=== PATIENT | male | born 1960 | race American Indian/Alaskan Native ===

== ENCOUNTER 2018-11-01 15:11 | Inpatient (IN) | payer MEDICARE ==
--- NOTE | 2018-11-01 16:33 | Emergency Department Report ---
ED Palpitations HPI - General Chief Complaint: Arrhythmia/Palpitations Stated Complaint: SVT Time Seen by Provider: 11/01/18 16:26 Source: patient, EMS Mode of arrival: Stretcher Limitations: No Limitations - History of Present Illness Initial Comments: Patient is 58 years old male with history of end-stage renal disease on hemodialysis. Patient brought to the emergency room from dialysis center after patient experienced SVT for which he received 6 mg of adenosine that completely converted into a sinus rhythm. Patient finish his dialysis today. Patient denied any chest pain or shortness of breath. Patient stated that he never had any history of arrhythmia before. MD Complaint: rapid heart beat, "heart racing", palpitations -: Sudden, This afternoon Context: occured during rest Associated Symptoms: denies other symptoms - Related Data Home Medications Medication Instructions Recorded Confirmed Last Taken Furosemide [Lasix TAB] 20 mg PO QDAY 01/05/15 03/14/15 1 Day Ago ~03/08/15 lamiVUDine [Lamivudine] 10 mg PO DAILY 01/05/15 03/14/15 1 Day Ago ~03/08/15 Docusate Sodium [Colace CAP] 100 mg PO BID 03/09/15 03/14/15 Unknown Previous Rx's Medication Instructions Recorded Last Taken Type Albuterol *Only Ed* [Proventil 2.5 mg IH Q4H PRN #1 nebu 01/07/15 1 Day Ago Rx 0.5% NEBS] ~03/08/15 Darunavir [Prezista] 800 mg PO QDAY tablet 01/07/15 1 Day Ago Rx ~03/08/15 Ritonavir [Norvir] 100 mg PO DAILY capsule 01/07/15 1 Day Ago Rx ~03/08/15 Zidovudine [Retrovir] 300 mg PO DAILY capsule 01/07/15 1 Day Ago Rx ~03/08/15 Albuterol Sulfate [Albuterol 0.63% 0.63 mg IH TID PRN #50 box 03/10/15 Unknown Rx NEBS] Albuterol Sulfate [Ventolin HFA] 2 puff IH Q4H PRN #1 hfa.aer.ad 03/10/15 Unknown Rx Ipratropium [Atrovent NEB] 0.5 mg IH Q6HRT PRN #50 box 03/10/15 Unknown Rx Lacosamide [Vimpat] 100 mg PO Q12HR tablet 03/29/15 Unknown Rx Allergies Allergy/AdvReac Type Severity Reaction Status Date / Time lisinopril Allergy Angioedema Verified 11/24/14 19:07 ED Review of Systems ROS: Stated complaint: SVT Other details as noted in HPI Comment: All other systems reviewed and negative Constitutional: denies: chills, fever ENT: denies: throat pain Respiratory: denies: cough, orthopnea, shortness of breath, SOB with exertion, SOB at rest, wheezing Cardiovascular: palpitations. denies: chest pain, dyspnea on exertion, orthopnea Gastrointestinal: denies: abdominal pain, nausea, vomiting, diarrhea, constipation, hematemesis, melena, hematochezia Musculoskeletal: denies: back pain Neurological: denies: headache, weakness, numbness, paresthesias, confusion, abnormal gait ED Past Medical Hx - Past Medical History Previous Medical History?: Yes Hx Hypertension: Yes Hx Renal Disease: Yes (on hemodialysis) Hx Seizures: Yes Hx Asthma: Yes Hx COPD: Yes Hx HIV: Yes - Surgical History Past Surgical History?: Yes Additional Surgical History: vascath. AV shunt LUE - Social History Smoking Status: Current Every Day Smoker Substance Use Type: None - Medications Home Medications: Home Medications Medication Instructions Recorded Confirmed Last Taken Type Furosemide [Lasix TAB] 20 mg PO QDAY 01/05/15 03/14/15 1 Day Ago History ~03/08/15 lamiVUDine [Lamivudine] 10 mg PO DAILY 01/05/15 03/14/15 1 Day Ago History ~03/08/15 Albuterol *Only Ed* [Proventil 2.5 mg IH Q4H PRN #1 nebu 01/07/15 03/14/15 1 Day Ago Rx 0.5% NEBS] ~03/08/15 Darunavir [Prezista] 800 mg PO QDAY tablet 01/07/15 03/14/15 1 Day Ago Rx ~03/08/15 Ritonavir [Norvir] 100 mg PO DAILY capsule 01/07/15 03/14/15 1 Day Ago Rx ~03/08/15 Zidovudine [Retrovir] 300 mg PO DAILY capsule 01/07/15 03/14/15 1 Day Ago Rx ~03/08/15 Docusate Sodium [Colace CAP] 100 mg PO BID 03/09/15 03/14/15 Unknown History Albuterol Sulfate [Albuterol 0.63% 0.63 mg IH TID PRN #50 box 03/10/15 03/14/15 Unknown Rx NEBS] Albuterol Sulfate [Ventolin HFA] 2 puff IH Q4H PRN #1 hfa.aer.ad 03/10/15 03/14/15 Unknown Rx Ipratropium [Atrovent NEB] 0.5 mg IH Q6HRT PRN #50 box 03/10/15 03/14/15 Unknown Rx Lacosamide [Vimpat] 100 mg PO Q12HR tablet 03/29/15 Unknown Rx ED Physical Exam - General Limitations: No Limitations General appearance: alert, in no apparent distress - Head Head exam: Present: atraumatic, normocephalic, normal inspection - Eye Eye exam: Present: normal appearance, PERRL - ENT ENT exam: Present: normal exam, normal orophraynx, mucous membranes moist - Neck Neck exam: Present: normal inspection, full ROM. Absent: tenderness, meningismus, lymphadenopathy, thyromegaly - Respiratory Respiratory exam: Present: normal lung sounds bilaterally. Absent: respiratory distress, wheezes, rales, rhonchi, stridor, chest wall tenderness, accessory muscle use, decreased breath sounds, prolonged expiratory - Cardiovascular Cardiovascular Exam: Present: regular rate, normal rhythm, normal heart sounds - GI/Abdominal GI/Abdominal exam: Present: soft, normal bowel sounds. Absent: distended, tenderness, guarding, rebound, rigid, organomegaly, mass, bruit, pulsatile mass, hernia - Extremities Exam Extremities exam: Present: normal inspection, full ROM, normal capillary refill. Absent: pedal edema, calf tenderness - Back Exam Back exam: Present: normal inspection, full ROM. Absent: tenderness, CVA tenderness (R), CVA tenderness (L), muscle spasm, paraspinal tenderness, vertebral tenderness, rash noted - Neurological Exam Neurological exam: Present: alert, oriented X3, CN II-XII intact, normal gait, reflexes normal - Skin Skin exam: Present: warm, intact, normal color ED Course Vital Signs 11/01/18 16:03 Temperature 98.0 F Pulse Rate 79 Respiratory 22 Rate Blood Pressure 164/83 [Right] O2 Sat by Pulse 100 Oximetry ED Medical Decision Making - Lab Data Result diagrams: 11/01/18 17:32 11/01/18 17:32 - EKG Data -: EKG Interpreted by Me EKG shows normal: sinus rhythm Rate: normal - EKG Data Interpretation: no acute changes - Radiology Data Radiology results: report reviewed - Medical Decision Making Patient is 58 years old male with history of end-stage renal disease on hemodialysis. Patient brought to the emergency room from dialysis center after patient experienced SVT for which he received 6 mg of adenosine that completely converted into a sinus rhythm. Patient finish his dialysis today. Patient denied any chest pain or shortness of breath. Patient stated that he never had any history of arrhythmia before. Physical labs reviewed and is unremarkable except for slightly elevated troponin which could be due to elevated creatinine pending the next set of troponin. Patient remained asymptomatic with a sinus rhythm. I discussed the patient with Dr Devlin, he agreed to admit to medical service. Critical care attestation.: If time is entered above; I have spent that time in minutes in the direct care of this critically ill patient, excluding procedure time. ED Disposition Clinical Impression: SVT (supraventricular tachycardia) Disposition: -09 OP ADMIT IP TO THIS HOSP Is pt being admited?: Yes Condition: Stable
--- NOTE | 2018-11-01 17:12 | XRay Report ---
PROCEDURE: XR CHEST 1V AP TECHNIQUE: Chest radiograph single view. HISTORY: Dysrhythmia COMPARISONS: None . FINDINGS: There is prominence of the interstitial markings in both lungs, acute versus chronic. There is a possible small patchy pulmonary infiltrate in the right midlung field. Symmetric nodular densities in the midlung aguilar bilaterally most likely represent nipple shadows. There is blunting of the costophrenic angles bilaterally, right greater than left, which may represen t pleural effusions. The cardiac silhouette is enlarged. There is atherosclerotic vascular calcification of the thoracic aorta. The bony structures are unremarkable. IMPRESSION: 1. Prominence of the interstitial markings with the appearance of patchy areas of pulmonary consolida tion right midlung field. 2. Possible small bilateral pleural effusions. 3. Enlarged cardiac silhouette. Comparison with previous imaging studies recommended. If no prior studies are available for compariso n, CT chest may be helpful for further evaluation. This document is electronically signed by Siomara Patterson MD., Nov 01 2018 05:09:36 PM ET
[2018-11-01 18:07] LABS: Basophils # (Auto) 0.1 K/mm3 (0.0-0.1); Eosinophils # (Auto) 0.2 K/mm3 (0.0-0.4); Eosinophils % (Auto) 5.1 % (0.0-4.3); Hematocrit 37.2 % (35.5-45.6); Hemoglobin 12.5 gm/dl (11.8-15.2); Lymphocytes # (Auto) 0.8 K/mm3 (1.2-5.4); Lymphocytes % (Auto) 26.5 % (13.4-35.0); Mean Corpuscular HGB Conc 34 % (32-34); Mean Corpuscular Volume 91 fl (84-94); Monocytes # (Auto) 0.3 K/mm3 (0.0-0.8); Monocytes % (Auto) 9.4 % (0.0-7.3); Platelet Count 105 K/mm3 (140-440); Red Blood Count 4.11 M/mm3 (3.65-5.03)
[2018-11-01 18:11] LABS: Calcium 8.5 mg/dL (8.4-10.2)
[2018-11-01 18:22] LABS: Basophils % (Auto) 2.6 % (0.0-1.8)
[2018-11-01 18:23] LABS: INR 0.95 (0.87-1.13); Partial Thromboplastin Time 26.6 Sec. (24.2-36.6)
[2018-11-01 18:29] LABS: Chol/HDL Ratio 3.31 %
[2018-11-01] MEDS ORDERED: SODIUM CHLORIDE FLUSH SYRINGE 10 ML IV PRN (19:58)
[2018-11-01] MEDS ORDERED: TYLENOL PO PRN (19:58)
[2018-11-01] MEDS ORDERED: MORPHINE IV PRN (19:58)
[2018-11-01] MEDS ORDERED: PROVENTIL IH PRN (19:58)
[2018-11-01] MEDS ORDERED: ZOFRAN IV PRN (19:58)
[2018-11-01] MEDS ORDERED: APRESOLINE IV PRN (20:05)
[2018-11-01] MEDS ORDERED: HABITROL TD ONE (20:18)
--- NOTE | 2018-11-01 20:38 | History and Physical Report ---
History of Present Illness Date of examination: 11/01/18 Date of admission: 11/01/2018 Chief complaint: Chest pain and dyspnea at rest History of present illness: 58-year-old -[place] male who is an ongoing smoker with history of ESRD on HD M/F, HIV positive, HTN, COPD, tobacco abuse that presents to [facility] ED via EMS with c/o chest pain and dyspnea at rest post dialysis treatment. Patient states that his chest pain is substernal and non-radiating. He describes his pain as aching and rates it 8/10. After completing hemodialysis treatment patient complained of palpitations at the dialysis center. His vital signs were checked and he was found to be in SVT with heart rate 180 bpm. He was given 6 mg of adenosine, which converted him back to sinus rhythm. Admits dyspnea at rest, cough with clear sputum production, and chest pain. Denies home oxygen use, cardiac history, recent sick contacts, hemoptysis, or fever. Review of chart shows patient was admitted in 2014 at which time he had an echocardiogram which showed EF of 55% -60%, and abnormal left ventricular diastolic filling observed consistent with impaired relaxation. Past History Past Medical History: COPD, dialysis, ESRD, HIV/AIDS, hypertension Past Surgical History: Other (AV fistula placement) Social history: , lives with family, smoking (ongoing smoker 1/2 pack per day) Family history: no significant family history Medications and Allergies Allergies Allergy/AdvReac Type Severity Reaction Status Date / Time lisinopril Allergy Angioedema Verified 11/24/14 19:07 Home Medications Medication Instructions Recorded Confirmed Last Taken Type lamiVUDine [Lamivudine] 50 mg PO DAILY 01/05/15 11/01/18 1 Day Ago History ~03/08/15 Zidovudine [Retrovir] 300 mg PO DAILY capsule 01/07/15 11/01/18 1 Day Ago Rx ~03/08/15 Abacavir [Ziagen TAB] 300 mg PO BID 11/01/18 11/01/18 Unknown History Dolutegravir [Tivicay] 50 mg PO DAILY 11/01/18 11/01/18 Unknown History Hydralazine HCl 50 mg PO TID 11/01/18 11/01/18 Unknown History Metoprolol [Lopressor] 25 mg PO BID 11/01/18 11/01/18 Unknown History Warfarin [Coumadin] 5 mg PO DAILY 11/01/18 11/01/18 Unknown History cloNIDine [Catapres] 0.1 mg PO BID 11/01/18 11/01/18 Unknown History Active Meds: Active Medications Abacavir Sulfate (Ziagen) 300 mg PO BID [facility] Acetaminophen (Tylenol) 650 mg PO Q4H PRN PRN Reason: Pain MILD(1-3)/Fever >100.5/GARCIA Albuterol (Proventil) 2.5 mg IH Q3HRT PRN PRN Reason: Shortness Of Breath Budesonide (Pulmicort) 0.5 mg IH Q12HRT [facility] Clonidine HCl (Catapres) 0.1 mg PO BID [facility] Docusate Sodium (Colace) 100 mg PO BID [facility] Heparin Sodium (Porcine) (Heparin) 5,000 unit SUB-Q Q12HR [facility] Hydralazine HCl (Apresoline) 10 mg IV Q4HR PRN PRN Reason: Blood Pressure Lamivudine (Epivir) 50 mg PO DAILY [facility] Metoprolol Tartrate (Lopressor) 25 mg PO BID [facility] Miscellaneous Medication (Hydralazine Hcl [Hydralazine Hcl]) 50 mg PO TID [facility] Morphine Sulfate (Morphine) 2 mg IV Q4H PRN PRN Reason: Pain, Moderate (4-6) Stop: 11/02/18 23:59 Nicotine (Habitrol) 14 mg TD DAILY [facility] Ondansetron HCl (Zofran) 4 mg IV Q8H PRN PRN Reason: Nausea And Vomiting Sodium Chloride (Sodium Chloride Flush Syringe 10 Ml) 10 ml IV BID [facility] Sodium Chloride (Sodium Chloride Flush Syringe 10 Ml) 10 ml IV PRN PRN PRN Reason: LINE FLUSH Zidovudine (Retrovir) 300 mg PO DAILY [facility] Review of Systems All systems: negative (reviewed and no additional remarkable complaints except as noted below) Cardiovascular: chest pain, palpitations, shortness of breath Respiratory: cough with sputum (Clear /white thin sputum), shortness of breath Genitourinary Male: other (decreased urine output) Exam - Physical Exam Narrative exam: Physical exam General appearance: Present: Mild distress, alert and oriented 3, on supplemental oxygen - EENT Eyes: Present: PERRL, EOM intact ENT: hearing intact, poor dentition - Neck Neck: Present: supple, normal ROM - Respiratory Respiratory effort: Non-labored Respiratory: bilateral: diminished (bases) - Cardiovascular Heart rate: 78 (bpm) Rhythm: regular Heart Sounds: Present: S1 & S2. Absent: rub, click - Extremities Extremities: no ischemia, pulses intact, abnormal ( left upper arm AV fistula, - Peripheral Assessment Peripheral Pulses: within normal limits - Abdominal General gastrointestinal: soft, non-tender, normal bowel sounds - Integumentary Integumentary: Present: warm, dry - Musculoskeletal Musculoskeletal: Able to move all extremities - Psychiatric Psychiatric: cooperative - Constitutional Vitals: Temp Pulse Resp BP Pulse Ox 98.0 F 96 H 14 184/98 100 11/01/18 16:03 11/01/18 18:00 11/01/18 18:00 11/01/18 18:00 11/01/18 18:00 Results - Labs CBC & Chem 7: 11/01/18 17:32 11/01/18 17:32 Labs: Laboratory Last Values WBC 3.1 K/mm3 (4.5-11.0) L 11/01/18 17:32 RBC 4.11 M/mm3 (3.65-5.03) 11/01/18 17:32 Hgb 12.5 gm/dl (11.8-15.2) 11/01/18 17:32 Hct 37.2 % (35.5-45.6) 11/01/18 17:32 MCV 91 fl (84-94) 11/01/18 17:32 MCH 30 pg (28-32) 11/01/18 17:32 MCHC 34 % (32-34) 11/01/18 17:32 RDW 16.0 % (13.2-15.2) H 11/01/18 17:32 Plt Count 105 K/mm3 (140-440) L 11/01/18 17:32 Lymph % (Auto) 26.5 % (13.4-35.0) 11/01/18 17:32 [place]ton % (Auto) 9.4 % (0.0-7.3) H 11/01/18 17:32 Eos % (Auto) 5.1 % (0.0-4.3) H 11/01/18 17:32 Baso % (Auto) 2.6 % (0.0-1.8) H 11/01/18 17:32 Lymph # 0.8 K/mm3 (1.2-5.4) L 11/01/18 17:32 Charlton # 0.3 K/mm3 (0.0-0.8) 11/01/18 17:32 Eos # 0.2 K/mm3 (0.0-0.4) 11/01/18 17:32 Baso # 0.1 K/mm3 (0.0-0.1) 11/01/18 17:32 Seg Neutrophils % 56.4 % (40.0-70.0) 11/01/18 17:32 Seg Neutrophils # 1.7 K/mm3 (1.8-7.7) L 11/01/18 17:32 PT 13.2 Sec. (12.2-14.9) 11/01/18 17:32 INR 0.95 (0.87-1.13) 11/01/18 17:32 APTT 26.6 Sec. (24.2-36.6) 11/01/18 17:32 Sodium 139 mmol/L (137-145) 11/01/18 17:32 Potassium 4.1 mmol/L (3.6-5.0) 11/01/18 17:32 Chloride 96.2 mmol/L (98-107) L 11/01/18 17:32 Carbon Dioxide 31 mmol/L (22-30) H 11/01/18 17:32 16 mmol/L 11/01/18 17:32 BUN 16 mg/dL (9-20) 11/01/18 17:32 7.1 mg/dL (0.8-1.5) H 11/01/18 17:32 Estimated GFR 10 ml/min 11/01/18 17:32 2 % 11/01/18 17:32 Glucose 89 mg/dL (75-100) 11/01/18 17:32 Calcium 8.5 mg/dL (8.4-10.2) 11/01/18 17:32 0.473 ng/mL (0.00-0.029) H* 11/01/18 17:32 Triglycerides 75 mg/dL (2-149) 11/01/18 17:32 Cholesterol 192 mg/dL (50-199) 11/01/18 17:32 133 mg/dL (50-130) H 11/01/18 17:32 58 mg/dL (40-59) 11/01/18 17:32 3.31 % 11/01/18 17:32 Short CBC 11/01/18 Range/Units 17:32 WBC 3.1 L (4.5-11.0) K/mm3 Hgb 12.5 (11.8-15.2) gm/dl Hct 37.2 (35.5-45.6) % Plt Count 105 L (140-440) K/mm3 BMP 11/01/18 17:32 Sodium 139 Potassium 4.1 Chloride 96.2 L Carbon Dioxide 31 H BUN 16 Creatinine 7.1 H Glucose 89 Calcium 8.5 Cardiac Enzymes 11/01/18 Range/Units 17:32 Troponin T 0.473 H* (0.00-0.029) ng/mL - Imaging and Cardiology EKG: image reviewed (sinus rhythm at 78 bpm, right atrial enlargement, left ventricular hypertrophy) Chest x-ray: report reviewed (Prominence of the interstitial markings with the appearance of patchy areas of pulmonary; Possible small bilateral pleural effusions; Enlarged cardiac silhouette), image reviewed Assessment and Plan Assessment and plan: 58-year-old -[place] male who is an ongoing smoker with history of ESRD on HD M/F, HIV positive, HTN, COPD, tobacco abuse that presents to [facility] ED via EMS with c/o chest pain and dyspnea at rest post dialysis treatment. After completing hemodialysis treatment patient complained of palpitations at the dialysis center. His vital signs were checked and he was found to be in SVT with heart rate 180 bpm. He was given 6 mg of adenosine, which converted him back to sinus rhythm. He will be admitted to telemetry unit. Troponin elevated 2 initially 0.473, with upward trend now at 0.562. Mild leukopenia with WBC 3.1. Cardiology and nephrology will be consulted. Acute chest pain Elevated troponin ESRD on HD M/F HIV positive Hypertensive urgency History of hypertension COPD Leukopenia Tobacco abuse Continue supportive care Continuous telemetry monitoring Stat EKG for any arrhythmias or complaints of chest pain Continues to monitor troponin Monitor CBC Monitor electrolytes Resume home anti-retroviral meds: Abacavir 300mg BID, Dolutegravir 50mg daily, Zidovudine 300mg daily, Lamivudine 50mg, daily Monitor BP Resume home antihypertensive meds: Clonidine 0.1 mg twice a day, hydralazine 50 mg 3 times a day, metoprolol 25 mg twice a day IV hydralazine when necessary Counseled for cessation Continue supplemental oxygen, wean as tolerated Albuterol when necessary and schedule Pulmicort Pain management Start nicotine patch Cardiology consulted Nephrology consulted DVT PPX on Heparin and SCD's Advance Directives: No VTE prophylaxis?: Chemical Plan of care discussed with patient/family: Yes
[2018-11-01] MEDS ORDERED: NITROSTAT SL PRN (21:28)
[2018-11-01] MEDS: CATAPRES PO SCH (22:23)
[2018-11-01] MEDS: LOPRESSOR PO SCH (22:24)
[2018-11-01] MEDS: COLACE PO SCH (22:24)
[2018-11-01] MEDS: APRESOLINE PO SCH (22:24)
[2018-11-01] MEDS: HABITROL TD SCH (22:24)
[2018-11-01] MEDS: HEPARIN SUB-Q SCH (22:24)
[2018-11-01] MEDS: SODIUM CHLORIDE FLUSH SYRINGE 10 ML IV SCH (22:25)
[2018-11-01] MEDS: PULMICORT IH SCH (23:00)
[2018-11-01] MEDS: ZIAGEN PO SCH (23:13)
[2018-11-02] MEDS: APRESOLINE PO SCH ×3 (05:04→22:07)
[2018-11-02 06:33] LABS: Basophils # (Auto) 0.1 K/mm3 (0.0-0.1); Basophils % (Auto) 2.6 % (0.0-1.8); Eosinophils # (Auto) 0.2 K/mm3 (0.0-0.4); Eosinophils % (Auto) 7.9 % (0.0-4.3); Hematocrit 37.5 % (35.5-45.6); Hemoglobin 12.6 gm/dl (11.8-15.2); Lymphocytes # (Auto) 1.1 K/mm3 (1.2-5.4); Lymphocytes % (Auto) 37.7 % (13.4-35.0); Mean Corpuscular HGB Conc 34 % (32-34); Mean Corpuscular Volume 91 fl (84-94); Monocytes # (Auto) 0.3 K/mm3 (0.0-0.8); Monocytes % (Auto) 10.8 % (0.0-7.3)
[2018-11-02 06:40] LABS: Platelet Count 98 K/mm3 (140-440)
[2018-11-02 06:56] LABS: Calcium 8.9 mg/dL (8.4-10.2)
[2018-11-02] MEDS ORDERED: NON-FORMULARY (Hydralazine Hcl [Hydralazine Hcl] 50 MG) PO SCH (08:00)
[2018-11-02] MEDS ORDERED: RETROVIR PO SCH ×2 (10:00)
[2018-11-02] MEDS: PULMICORT IH SCH ×2 (10:08→21:04)
[2018-11-02] MEDS ORDERED: LEXISCAN IV ONE ×2 (11:00)
--- NOTE | 2018-11-02 11:22 | Consultation ---
History of Present Illness Consult date: 11/02/18 Requesting physician: WESLEY DAVID Consult reason: other (svt) History of present illness: The pt is a 58 YO male with a past medical history of HTN and ESRD on HD, tobacco use, HIV. He is previously unknown to our practice. He presented from dialysis center with complaints of rapid HR and palpitations. Pt states that he had just finished HD when his symptoms began. He was noted to be tachycardic and thus the dialysis nurse gave him a bolus of IVF. His symptoms did not improve and thus EMS was called. Upon EMS arrival, pt was noted to be in SVT with HR 180s (strips on chart). EMS administered Adenosine 6mg IV ONCE and pt was successfully converted to NSR. Upon arrival to ED, pt was noted to be in SR with HR 90s. Pt maintained NSR overnight and has no complaints on evaluation. He denies any prior cardiac issues, including CAD, AMI, HF or arrhythmia. Echo done 03/2015 showed EF 55-60%, impaired relaxation, no significant valvular abnormalities. Past History Past Medical History: dialysis, ESRD, hypertension Past Surgical History: Other (AV fistula placement) Social history: , lives with family, smoking (ongoing smoker 1/2 pack per day) Family history: no significant family history Medications and Allergies Allergies Allergy/AdvReac Type Severity Reaction Status Date / Time lisinopril Allergy Angioedema Verified 11/24/14 19:07 Home Medications Medication Instructions Recorded Confirmed Last Taken Type lamiVUDine [Lamivudine] 50 mg PO DAILY 01/05/15 11/01/18 1 Day Ago History ~03/08/15 Zidovudine [Retrovir] 300 mg PO DAILY capsule 01/07/15 11/01/18 1 Day Ago Rx ~03/08/15 Abacavir [Ziagen TAB] 300 mg PO BID 11/01/18 11/01/18 Unknown History Dolutegravir [Tivicay] 50 mg PO DAILY 11/01/18 11/01/18 Unknown History Hydralazine HCl 50 mg PO TID 11/01/18 11/01/18 Unknown History Metoprolol [Lopressor] 25 mg PO BID 11/01/18 11/01/18 Unknown History Warfarin [Coumadin] 5 mg PO DAILY 11/01/18 11/01/18 Unknown History cloNIDine [Catapres] 0.1 mg PO BID 11/01/18 11/01/18 Unknown History Active Meds: Active Medications Abacavir Sulfate (Ziagen) 300 mg PO BID [facility] Last Admin: 11/01/18 23:13 Dose: 300 mg Documented by: Acetaminophen (Tylenol) 650 mg PO Q4H PRN PRN Reason: Pain MILD(1-3)/Fever >100.5/GARCIA Albuterol (Proventil) 2.5 mg IH Q3HRT PRN PRN Reason: Shortness Of Breath Aspirin (Baby Aspirin) 81 mg PO QDAY [facility] Atorvastatin Calcium (Lipitor) 20 mg PO QHS [facility] Last Admin: 11/01/18 22:23 Dose: 20 mg Documented by: Budesonide (Pulmicort) 0.5 mg IH Q12HRT [facility] Last Admin: 11/02/18 10:08 Dose: 0.5 mg Documented by: Clonidine HCl (Catapres) 0.1 mg PO BID [facility] Last Admin: 11/01/18 22:23 Dose: 0.1 mg Documented by: Clopidogrel Bisulfate (Plavix) 75 mg PO QDAY [facility] Docusate Sodium (Colace) 100 mg PO BID [facility] Last Admin: 11/01/18 22:24 Dose: 100 mg Documented by: Heparin Sodium (Porcine) (Heparin) 5,000 unit SUB-Q Q12HR [facility] Last Admin: 11/01/18 22:24 Dose: 5,000 unit Documented by: Hydralazine HCl (Apresoline) 10 mg IV Q4HR PRN PRN Reason: HTN SBP>160 DBP>100 Last Admin: 11/02/18 00:58 Dose: 10 mg Documented by: Hydralazine HCl (Apresoline) 50 mg PO Q8HR [facility] Last Admin: 11/02/18 05:04 Dose: 50 mg Documented by: Lamivudine (Epivir) 50 mg PO DAILY [facility] Metoprolol Tartrate (Lopressor) 50 mg PO BID [facility] Morphine Sulfate (Morphine) 2 mg IV Q4H PRN PRN Reason: Pain, Moderate (4-6) Stop: 11/02/18 23:59 Nicotine (Habitrol) 14 mg TD DAILY [facility] Last Admin: 11/01/18 22:24 Dose: 14 mg Documented by: Nitroglycerin (Nitrostat) 0.4 mg SL Q5M PRN PRN Reason: Chest Pain Ondansetron HCl (Zofran) 4 mg IV Q8H PRN PRN Reason: Nausea And Vomiting Sodium Chloride (Sodium Chloride Flush Syringe 10 Ml) 10 ml IV BID [facility] Last Admin: 11/01/18 22:25 Dose: 10 ml Documented by: Sodium Chloride (Sodium Chloride Flush Syringe 10 Ml) 10 ml IV PRN PRN PRN Reason: LINE FLUSH Zidovudine (Retrovir) 300 mg PO DAILY [facility] Review of Systems Constitutional: no weight loss, no weight gain, no fever, no chills, no sweats Ears, nose, mouth and throat: no ear pain, no nose pain, no sinus pressure, no sinus pain Cardiovascular: palpitations, rapid/irregular heart beat, no chest pain, no orthopnea, no edema, no syncope, no lightheadedness, no shortness of breath, no dyspnea on exertion, no leg edema Respiratory: no cough, no shortness of breath, no dyspnea on exertion, no congestion, no wheezing, no pain on inspiration Gastrointestinal: no abdominal pain, no nausea, no vomiting, no diarrhea, no constipation, no change in bowel habits Genitourinary Male: no dysuria, no hematuria, no flank pain, no discharge, no urinary frequency, no urinary hesitancy Musculoskeletal: no neck stiffness, no neck pain, no shooting arm pain, no arm numbness/tingling, no low back pain, no shooting leg pain Integumentary: no rash, no pruritis, no redness, no sores, no wounds Neurological: no head injury, no paralysis, no weakness, no parathesias, no num bness, no tingling, no seizures, no syncope Psychiatric: no anxiety Endocrine: no cold intolerance, no heat intolerance Hematologic/Lymphatic: no easy bruising, no easy bleeding Allergic/Immunologic: no urticaria, no wheezing Physical Examination Vital Signs Temp Pulse Resp BP Pulse Ox 98.0 F 79 22 164/83 100 11/01/18 16:03 11/01/18 16:03 11/01/18 16:03 11/01/18 16:03 11/01/18 16:03 General appearance: no acute distress HEENT: Positive: PERRL, Normocephaly, Mucus Membranes Moist Neck: Positive: neck supple, trachea midline Cardiac: Positive: Reg Rate and Rhythm, S1/S2 Lungs: Positive: clear to auscultation Neuro: Positive: Grossly Intact Abdomen: Positive: Soft. Negative: Tender Skin: Negative: Rash Musculoskeletal: No Pain Extremities: Absent: edema Results 11/02/18 05:48 11/02/18 05:48 Coagulation 11/01/18 Range/Units 17:32 PT 13.2 (12.2-14.9) Sec. INR 0.95 (0.87-1.13) APTT 26.6 (24.2-36.6) Sec. Lipids 11/01/18 Range/Units 17:32 Triglycerides 75 (2-149) mg/dL Cholesterol 192 (50-199) mg/dL HDL Cholesterol 58 (40-59) mg/dL Cholesterol/HDL Ratio 3.31 % CBC 11/01/18 11/02/18 Range/Units 17:32 05:48 WBC 3.1 L 2.8 L (4.5-11.0) K/mm3 RBC 4.11 4.10 (3.65-5.03) M/mm3 Hgb 12.5 12.6 (11.8-15.2) gm/dl Hct 37.2 37.5 (35.5-45.6) % Plt Count 105 L 98 L (140-440) K/mm3 Lymph # 0.8 L 1.1 L (1.2-5.4) K/mm3 [place] # 0.3 0.3 (0.0-0.8) K/mm3 Eos # 0.2 0.2 (0.0-0.4) K/mm3 Baso # 0.1 0.1 (0.0-0.1) K/mm3 Comprehensive Metabolic Panel 11/01/18 11/02/18 Range/Units 17:32 05:48 Sodium 139 139 (137-145) mmol/L Potassium 4.1 4.4 (3.6-5.0) mmol/L Chloride 96.2 L 96.3 L (98-107) mmol/L Carbon Dioxide 31 H 30 (22-30) mmol/L BUN 16 23 H (9-20) mg/dL Creatinine 7.1 H 8.6 H (0.8-1.5) mg/dL Glucose 89 85 (75-100) mg/dL Calcium 8.5 8.9 (8.4-10.2) mg/dL - Imaging and Cardiology Echo: report reviewed ( 03/2015 showed EF 55-60%, impaired relaxation, no signif icant valvular abnormalities.) EKG: report reviewed, image reviewed EKG interpretations - Telemetry EKG Rhythm: Sinus Rhythm - EKG Sinus rhythms and dysrhythmias: sinus rhythm Assessment and Plan Pt presented with SVT following HD which was converted to NSR with IV adenosine 6mg x 1 dose. He maintained NSR overnight. No prior cardiac issues, including CAD, AMI, HF or arrhythmia. Increase lopressor and would prefer to wean off hydralazine. Serum K+ WNL. Obtain serum Mg and thyroid profile. Troponin elevation appears c/w NSTEMI type II. ECG with no acute ischemic changes and pt denies any occurrence of chest pain. Proceed with lexiscan MPI stress test. Await findings. Obtain echo. The patient has been seen in conjunction with Dr. Pekc who agrees with the assessment and plan of care. - Patient Problems (1) SVT (supraventricular tachycardia) Current Visit: Yes Status: Acute (2) Accelerated hypertension Current Visit: Yes Status: Acute (3) ESRD (end stage renal disease) on dialysis Current Visit: Yes Status: Chronic (4) HIV (human immunodeficiency virus infection) Current Visit: Yes Status: Chronic (5) NSTEMI (non-ST elevated myocardial infarction) Current Visit: Yes Status: Acute Plan to address problem: type II (6) Leukopenia Current Visit: Yes Status: Acute (7) Thrombocytopenia Current Visit: Yes Status: Acute (8) Tobacco use Current Visit: Yes Status: Chronic
[2018-11-02] MEDS: BABY ASPIRIN PO SCH (12:29)
[2018-11-02] MEDS: HABITROL TD SCH (12:29)
[2018-11-02] MEDS: COLACE PO SCH ×2 (12:29→22:08)
[2018-11-02] MEDS: PLAVIX PO SCH (12:29)
[2018-11-02] MEDS: ZIAGEN PO SCH ×2 (12:29→22:54)
[2018-11-02] MEDS: CATAPRES PO SCH ×2 (12:29→22:07)
[2018-11-02] MEDS: HEPARIN SUB-Q SCH ×2 (12:30→22:09)
--- NOTE | 2018-11-02 12:34 | Progress Note ---
Assessment and Plan Supraventricular tachycardia, resolved after giving adenosine Acute chest pain, likely atypical Elevated troponin, likely N [place] type II ESRD on HD M/F HIV positive Hypertensive urgency, BP much stable today COPD, stable Leukopenia, likely from HIV Tobacco abuse, counseled Plan: Continue supportive care and Continuous telemetry monitoring Monitor electrolytes, status post stress test today, will follow results Resumed home anti-retroviral meds: Abacavir 300mg BID, Dolutegravir 50mg daily, Zidovudine 300mg daily, Lamivudine 50mg, daily Monitor BP, and adjust medications as needed Resumed home antihypertensive meds: Clonidine 0.1 mg twice a day, hydralazine 50 mg 3 times a day, metoprolol 25 mg twice a day IV hydralazine when necessary Albuterol when necessary and schedule Pulmicort Start nicotine patch, follow stress test result Cardiology consulted Nephrology consulted DVT PPX on Heparin and SCD's Possible disease in the morning if no arrhythmia noted Brief history: 58-year-old -[place] male who is an ongoing smoker with history of ESRD on HD M/F, HIV positive, HTN, COPD, tobacco abuse that presents to [facility] ED via EMS with c/o chest pain, palpitation and dyspnea at rest following dialysis treatment. His vital signs were checked and he was found to be in SVT with heart rate 180 bpm. He was given 6 mg of adenosine, which converted him back to sinus rhythm. He was admitted to telemetry for further evaluation and management. Troponin elevated 2 initially 0.473, with upward trend now at 0.562. Mild leukopenia with WBC 3.1. Cardiology and nephrology consulted. Status post stress test today Subjective Date of service: 11/02/18 Interval history: Patient seen and examined. Medical records and medication list reviewed. No acute event overnight noted by the RN. Patient denies any chest pain or difficulty breathing. Patient is tolerating diet. Discussed plan of care at bedside with patient. Status post stress test today Objective - Exam Narrative Exam: GENERAL: well-developed and well-nourished -[place] male lying on bed appeared to be in no discomfort. HEENT: Normocephalic. Atraumatic. No conjunctival congestion or icterus. Patient has moist mucous membranes. NECK: Supple. Trachea midline. CHEST/LUNGS: Clear to auscultated bilaterally, breathing nonlabored. No wheezes crackles or rhonchi. HEART/CARDIOVASCULAR: Regular in rate and rhythm. S1 and S2 positive. ABDOMEN: Abdomen is soft, nontender. Patient has normal bowel sounds. SKIN: There is no rash. Warm and dry. NEURO: No focal motor deficit. Follows command. MUSCULOSKELETAL: No joint effusion or tenderness. EXTRIMITY: No edema, no cyanosis or clubbing. PSYCH: Cooperative. - Constitutional Vitals: Vital Signs - 12hr 11/02/18 11/02/18 11/02/18 03:00 04:40 08:38 Temperature 97.9 F 98.4 F Pulse Rate 76 85 80 Pulse Rate [ Anterior Bilateral Throughout] Respiratory 18 18 Rate Respiratory Rate [Anterior Bilateral Throughout] Blood Pressure 165/97 150/80 O2 Sat by Pulse 100 100 Oximetry 11/02/18 11/02/18 11/02/18 10:05 10:12 10:19 Temperature Pulse Rate Pulse Rate [ 82 80 Anterior Bilateral Throughout] Respiratory Rate Respiratory 18 16 Rate [Anterior Bilateral Throughout] Blood Pressure O2 Sat by Pulse 100 Oximetry 11/02/18 11/02/18 11/02/18 11:08 11:10 11:20 Temperature Pulse Rate Pulse Rate [ Anterior Bilateral Throughout] Respiratory Rate Respiratory Rate [Anterior Bilateral Throughout] Blood Pressure 160/92 172/91 161/90 O2 Sat by Pulse Oximetry 11/02/18 11/02/18 11/02/18 11:22 11:23 11:24 Temperature Pulse Rate Pulse Rate [ Anterior Bilateral Throughout] Respiratory Rate Respiratory Rate [Anterior Bilateral Throughout] Blood Pressure 148/94 175/95 167/92 O2 Sat by Pulse Oximetry 11/02/18 11/02/18 11:25 11:27 Temperature Pulse Rate Pulse Rate [ Anterior Bilateral Throughout] Respiratory Rate Respiratory Rate [Anterior Bilateral Throughout] Blood Pressure 181/96 179/91 O2 Sat by Pulse Oximetry - Labs CBC & Chem 7: 11/02/18 05:48 11/02/18 05:48 Labs: Abnormal lab results 11/01/18 11/01/18 11/01/18 Range/Units 17:32 17:32 20:19 WBC 3.1 L (4.5-11.0) K/mm3 RDW 16.0 H (13.2-15.2) % Plt Count 105 L (140-440) K/mm3 Lymph % (Auto) (13.4-35.0) % [place] % (Auto) 9.4 H (0.0-7.3) % Eos % (Auto) 5.1 H (0.0-4.3) % Baso % (Auto) 2.6 H (0.0-1.8) % Lymph # 0.8 L (1.2-5.4) K/mm3 Seg Neutrophils # 1.7 L (1.8-7.7) K/mm3 Chloride 96.2 L (98-107) mmol/L Carbon Dioxide 31 H (22-30) mmol/L BUN (9-20) mg/dL Creatinine 7.1 H (0.8-1.5) mg/dL Troponin T 0.473 H* 0.562 H* (0.00-0.029) ng/mL LDL Cholesterol Direct 133 H (50-130) mg/dL 11/01/18 11/02/18 11/02/18 Range/Units 23:42 05:48 05:48 WBC 2.8 L (4.5-11.0) K/mm3 RDW 16.0 H (13.2-15.2) % Plt Count 98 L (140-440) K/mm3 Lymph % (Auto) 37.7 H (13.4-35.0) % [place] % (Auto) 10.8 H (0.0-7.3) % Eos % (Auto) 7.9 H (0.0-4.3) % Baso % (Auto) 2.6 H (0.0-1.8) % Lymph # 1.1 L (1.2-5.4) K/mm3 Seg Neutrophils # 1.2 L (1.8-7.7) K/mm3 Chloride 96.3 L (98-107) mmol/L Carbon Dioxide (22-30) mmol/L BUN 23 H (9-20) mg/dL Creatinine 8.6 H (0.8-1.5) mg/dL Troponin T 0.562 H* (0.00-0.029) ng/mL LDL Cholesterol Direct (50-130) mg/dL
[2018-11-02] MEDS: SODIUM CHLORIDE FLUSH SYRINGE 10 ML IV SCH ×2 (12:37→22:16)
[2018-11-02] MEDS: EPIVIR PO SCH (14:42)
[2018-11-02] MEDS: TIVICAY PO SCH (14:42)
--- NOTE | 2018-11-02 15:17 | Treadmill Report ---
NUCLEAR CARDIAC IMAGING REPORT INDICATION FOR PROCEDURE: Abnormal cardiac troponins. Informed consent was obtained. Rest and stress nuclear cardiac imaging was performed following the intravenous administration of 10 and 28 mCi of technetium-99m Myoview respectively per protocol. Vasodilator stress was achieved with 0.4 mg of Lexiscan per protocol. Images were acquired in a 180-degree arc from 45 degrees SHAH to 45 degrees LPO. After data acquisition and reconstruction, the images were processed and reoriented into the vertical long, horizontal long, and horizontal short axis slices. A polar color map of the horizontal short axis slices was generated and reviewed. The rotating planar images reviewed in cinematic format on the computer console. The post-stress left ventricular ejection fraction is 49%. There is mild hypokinesis of the inferolateral wall. Myocardial perfusion imaging demonstrates no significant cavity change between stress and rest. There is a small mild persistent inferolateral perfusion defect. No significant stress induced reversible perfusion abnormalities are noted. Nuclear cardiac imaging demonstrates low normal post-stress left ventricular systolic function. A small area of inferoapical necrosis cannot be definitely excluded. However, a significant degree of ischemia is not seen. JOB# [id number] KELECHI/SANDY
[2018-11-02] MEDS: RETROVIR PO SCH (16:21)
[2018-11-02] MEDS: LOPRESSOR PO SCH ×2 (17:48→22:08)
[2018-11-03] MEDS: APRESOLINE PO SCH (06:17)
[2018-11-03] MEDS: PULMICORT IH SCH (07:59)
--- NOTE | 2018-11-03 09:50 | Consultation ---
History of Present Illness - Reason for Consult Consult date: 11/03/18 end stage renal disease - History of Present Illness pleasant 58 y/o black male, with h/o ESRD in the setting of HTN, HIV, HD dependant for donny past 3 years via a LUE AVF, who is on a M/F outpatient HD schedule at [facility], presented to the ER secondary to chest pain/shortness of breath experienced after dialysis session on Thursday. He was found to be in SVT, was administered adenosine with return of sinus rhythm noted. He underwent stress test with cardiology yesterday, and it showed no acute abnormalities. Patient's outpatient helicopter technician is Dr. Hali Villa. Past History Past Medical History: dialysis, ESRD, hypertension Past Surgical History: Other (AV fistula placement) Social history: , lives with family, smoking (ongoing smoker 1/2 pack per day) Family history: no significant family history Medications and Allergies Allergies Allergy/AdvReac Type Severity Reaction Status Date / Time lisinopril Allergy Angioedema Verified 11/24/14 19:07 Home Medications Medication Instructions Recorded Confirmed Last Taken Type lamiVUDine [Lamivudine] 50 mg PO DAILY 01/05/15 11/01/18 1 Day Ago History ~03/08/15 Zidovudine [Retrovir] 300 mg PO DAILY capsule 01/07/15 11/01/18 1 Day Ago Rx ~03/08/15 Abacavir [Ziagen TAB] 300 mg PO BID 11/01/18 11/01/18 Unknown History Dolutegravir [Tivicay] 50 mg PO DAILY 11/01/18 11/01/18 Unknown History Hydralazine HCl 50 mg PO TID 11/01/18 11/01/18 Unknown History Metoprolol [Lopressor] 25 mg PO BID 11/01/18 11/01/18 Unknown History Warfarin [Coumadin] 5 mg PO DAILY 11/01/18 11/01/18 Unknown History cloNIDine [Catapres] 0.1 mg PO BID 11/01/18 11/01/18 Unknown History Active Meds: Active Medications Abacavir Sulfate (Ziagen) 300 mg PO BID [facility] Last Admin: 11/02/18 22:54 Dose: 300 mg Documented by: Acetaminophen (Tylenol) 650 mg PO Q4H PRN PRN Reason: Pain MILD(1-3)/Fever >100.5/[facility] Albuterol (Proventil) 2.5 mg IH Q3HRT PRN PRN Reason: Shortness Of Breath Aspirin (Baby Aspirin) 81 mg PO QDAY [facility] Last Admin: 11/02/18 12:29 Dose: 81 mg Documented by: Atorvastatin Calcium (Lipitor) 20 mg PO QHS [facility] Last Admin: 11/02/18 22:07 Dose: 20 mg Documented by: Budesonide (Pulmicort) 0.5 mg IH Q12HRT [facility] Last Admin: 11/03/18 07:59 Dose: 0.5 mg Documented by: Clonidine HCl (Catapres) 0.1 mg PO BID [facility] Last Admin: 11/02/18 22:07 Dose: 0.1 mg Documented by: Clopidogrel Bisulfate (Plavix) 75 mg PO QDAY [facility] Last Admin: 11/02/18 12:29 Dose: 75 mg Documented by: Docusate Sodium (Colace) 100 mg PO BID [facility] Last Admin: 11/02/18 22:08 Dose: 100 mg Documented by: Heparin Sodium (Porcine) (Heparin) 5,000 unit SUB-Q Q12HR [facility] Last Admin: 11/02/18 22:09 Dose: 5,000 unit Documented by: Hydralazine HCl (Apresoline) 10 mg IV Q4HR PRN PRN Reason: HTN SBP>160 DBP>100 Last Admin: 11/02/18 00:58 Dose: 10 mg Documented by: Hydralazine HCl (Apresoline) 50 mg PO Q8HR [facility] Last Admin: 11/03/18 06:17 Dose: 50 mg Documented by: Lamivudine (Epivir) 50 mg PO DAILY [facility] Last Admin: 11/02/18 14:42 Dose: 50 mg Documented by: Metoprolol Tartrate (Lopressor) 50 mg PO BID [facility] Last Admin: 11/02/18 22:08 Dose: 50 mg Documented by: Nicotine (Habitrol) 14 mg TD DAILY [facility] Last Admin: 11/02/18 12:29 Dose: 14 mg Documented by: Nitroglycerin (Nitrostat) 0.4 mg SL Q5M PRN PRN Reason: Chest Pain Ondansetron HCl (Zofran) 4 mg IV Q8H PRN PRN Reason: Nausea And Vomiting Sodium Chloride (Sodium Chloride Flush Syringe 10 Ml) 10 ml IV BID [facility] Last Admin: 11/02/18 22:16 Dose: 10 ml Documented by: Sodium Chloride (Sodium Chloride Flush Syringe 10 Ml) 10 ml IV PRN PRN PRN Reason: LINE FLUSH Zidovudine (Retrovir) 100 mg PO DAILY [facility] Last Admin: 11/02/18 16:21 Dose: Not Given Documented by: Review of Systems All systems: negative Constitutional: fatigue, weakness Exam - Vital Signs Vital signs: Vital Signs Temp Pulse Resp BP Pulse Ox 98.0 F 79 22 164/83 100 11/01/18 16:03 11/01/18 16:03 11/01/18 16:03 11/01/18 16:03 11/01/18 16:03 - General Appearance General appearance: well-developed, well-nourished, appears stated age EENT: ATNC, PERRL Neck: Present: neck supple, trachea midline Respiratory: Clear to Ascultation, Normal Exam Heart: regular, S1S2 Gastrointestinal: Present: normal, normoactive bowel sounds Integumentary: no rash, warm and dry Neurologic: no focal deficit, no asterixis, alert and oriented x3 Musculoskeletal: Present: other (-edema ) Psychiatric: mood/affect appropriate, cooperative Results - Lab Results 11/02/18 05:48 11/02/18 05:48 Most recent lab results Calcium 8.9 mg/dL (8.4-10.2) 11/02/18 05:48 Magnesium 2.30 mg/dL (1.7-2.3) 11/02/18 05:48 Assessment and Plan - Patient Problems (1) ESRD (end stage renal disease) on dialysis Current Visit: Yes Status: Chronic Plan to address problem: No acute HD needs at this time. He is typically on a Thursday/Thursday outpatient schedule. (2) Hypertensive chronic kidney disease with stage 5 chronic kidney disease or end stage renal disease Current Visit: Yes Status: Chronic Plan to address problem: Blood pressures are stable on current regimen. Will favor to continue and follow up with outpatient helicopter technician at dialysis unit. (3) NSTEMI (non-ST elevated myocardial infarction) Current Visit: Yes Status: Acute Plan to address problem: S/P stress test without any acute abnormalities. Cardiology evaluation noted. Asymptomatic at this time. (4) HIV (human immunodeficiency virus infection) Current Visit: Yes Status: Chronic Plan to address problem: Favor to have patient continue on current HAART therapy, and he is to follow up with infectious diseases.
[2018-11-03] MEDS: COLACE PO SCH (10:11)
[2018-11-03] MEDS: HABITROL TD SCH (10:11)
[2018-11-03] MEDS: RETROVIR PO SCH (10:11)
[2018-11-03] MEDS: PLAVIX PO SCH (10:12)
[2018-11-03] MEDS: CATAPRES PO SCH (10:12)
[2018-11-03] MEDS: BABY ASPIRIN PO SCH (10:12)
[2018-11-03] MEDS: TIVICAY PO SCH (10:13)
[2018-11-03] MEDS: SODIUM CHLORIDE FLUSH SYRINGE 10 ML IV SCH (10:13)
[2018-11-03] MEDS: LOPRESSOR PO SCH (10:13)
[2018-11-03] MEDS: HEPARIN SUB-Q SCH (10:14)
[2018-11-03 12:26] VITALS: BP 140/83
--- NOTE | 2018-11-03 13:24 | Progress Note ---
Assessment and Plan S/p lexiscan MPI stress test yesterday which was negative for significant ischemia, EF 49%. Currently stable cardiac status. Pt may discharge home from cardiology standpoint. Will plan for echo as OP. Recommend follow up in our office with Dr. Peck within 1-2 weeks of hospital discharge ([phone]). The patient has been seen in conjunction with Dr. Peck who agrees with the assessment and plan of care. - Patient Problems (1) SVT (supraventricular tachycardia) Current Visit: Yes Status: Acute (2) Accelerated hypertension Current Visit: Yes Status: Acute (3) ESRD (end stage renal disease) on dialysis Current Visit: Yes Status: Chronic (4) HIV (human immunodeficiency virus infection) Current Visit: Yes Status: Chronic (5) NSTEMI (non-ST elevated myocardial infarction) Current Visit: Yes Status: Acute (6) Leukopenia Current Visit: Yes Status: Acute (7) Thrombocytopenia Current Visit: Yes Status: Acute (8) Tobacco use Current Visit: Yes Status: Chronic Subjective Date of service: 11/03/18 Principal diagnosis: SVT Interval history: pt resting comfortably in bed, no current complaints. tele reviewed - in SR overnight with no arrhythmias noted. Objective Last Vital Signs Temp 98.4 F 11/03/18 12:25 Pulse 76 11/03/18 12:25 Resp 20 11/03/18 12:25 BP 140/83 11/03/18 12:25 Pulse Ox 98 11/03/18 12:25 - Physical Examination General: No Apparent Distress HEENT: Positive: PERRL, Normocephaly, Mucus Membranes Moist Neck: Positive: neck supple, trachea midline Cardiac: Positive: Reg Rate and Rhythm, S1/S2 Lungs: Positive: Decreased Breath Sounds Neuro: Positive: Grossly Intact Abdomen: Positive: Soft. Negative: Tender Skin: Negative: Rash Musculoskeletal: No Pain Extremities: Absent: edema - Imaging and Cardiology EKG: report reviewed, image reviewed Echo: report reviewed ( 03/2015 showed EF 55-60%, impaired relaxation, no sig nificant valvular abnormalities.) - EKG Sinus rhythms and dysrhythmias: sinus rhythm
[2018-11-03] MEDS: EPIVIR PO SCH (14:45)
[2018-11-03] MEDS: ZIAGEN PO SCH (14:45)
--- NOTE | 2018-11-03 15:59 | Discharge Summary ---
Providers - Providers Date of Admission: 11/01/18 19:58 Date of discharge: 11/03/18 Attending physician: MARIELLE ROPER 11/01/18 20:01 Consult to Physician [CONS] Routine Comment: Consulting Provider: OSCAR AGUILAR Physician Instructions: Reason For Exam: svt, elevated troponin, enlarged cardiac silhouett 11/01/18 20:04 Consult to Physician [CONS] Routine Comment: Consulting Provider: ZHANNA PALENCIA Physician Instructions: Reason For Exam: ESRD on HD M/F Primary care physician: B[employer]SEMBLER Hospitalization Condition: Stable Pertinent studies: Chest x-ray, exercise stress stress Hospital course: 58-year-old -Russian male who is an ongoing smoker with history of ESRD on HD M/F, HIV positive, HTN, COPD, tobacco abuse that presents to [facility] ED via EMS with c/o chest pain, palpitation and dyspnea at rest following dialysis treatment. His vital signs were checked and he was found to be in SVT with heart rate 180 bpm. He was given 6 mg of adenosine, which converted him back to sinus rhythm. He was admitted to telemetry for further evaluation and management. Troponin elevated 2 initially 0.473, with upward trend now at 0.562. Mild leukopenia with WBC 3.1. Cardiology and nephrology consulted. S/p lexiscan MPI stress test yesterday which was negative for significant ischemia, EF 49%. Currently stable cardiac status. Patient cleared for discharge home by cardiology and planned for echo as OP. Recommend follow up with Dr. Lord within 1-2 weeks of hospital discharge ([phone]). Discharge diagnoses: Supraventricular tachycardia Acute chest pain, likely atypical Elevated troponin, likely N Stamey type II ESRD on HD M/F HIV positive Hypertensive urgency, BP much stable today COPD, stable Leukopenia, likely from HIV Tobacco abuse, counseled Physical exam: GENERAL: well-developed and well-nourished -Russian male lying on bed appeared to be in no discomfort. HEENT: Normocephalic. Atraumatic. No conjunctival congestion or icterus. Patient has moist mucous membranes. NECK: Supple. Trachea midline. CHEST/LUNGS: Clear to auscultated bilaterally, breathing nonlabored. No wheezes crackles or rhonchi. HEART/CARDIOVASCULAR: Regular in rate and rhythm. S1 and S2 positive. ABDOMEN: Abdomen is soft, nontender. Patient has normal bowel sounds. SKIN: There is no rash. Warm and dry. NEURO: No focal motor deficit. Follows command. MUSCULOSKELETAL: No joint effusion or tenderness. EXTRIMITY: No edema, no cyanosis or clubbing. PSYCH: Cooperative. Disposition: DC-01 TO HOME OR SELFCARE Time spent for discharge: 34 minutes Core Measure Documentation - Palliative Care Palliative Care/ Comfort Measures: Not Applicable - Core Measures Any of the following diagnoses?: none Exam - Constitutional Vitals: Temp Pulse Resp BP Pulse Ox 98.4 F 76 20 140/83 98 11/03/18 12:25 11/03/18 12:25 11/03/18 12:25 11/03/18 12:25 11/03/18 12:25 Plan Activity: advance as tolerated Weight Bearing Status: Partial Weight Bearing Diet: low fat, renal Special Instructions: restrict fluid intake to (1.2 L per day), record daily weights, record daily BP diary Follow up with: PRIMARY CARE, [Primary Care Provider] - 3-5 Days TORRI LORD MD [Staff Physician] - 7 Days Prescriptions: AtorvaSTATin [Lipitor] 20 mg PO QHS #30 tablet Aspirin [Aspirin BABY CHEW TAB] 81 mg PO QDAY #30 tab.chew Metoprolol [Lopressor TAB] 50 mg PO BID #60 tablet amLODIPine [Norvasc] 10 mg PO DAILY #30 tab Clopidogrel [Plavix] 75 mg PO QDAY #30 tablet
== END 2018-11-03 15:45 | disposition home or self-care (01) | DRG 280 ==
LOC: ED 15:11 → 4A 19:58
PROVIDERS: ADMIT Internal Medicine; ATTEND Internal Medicine
DX: I21.A1 Myocardial infarction type 2 (principal); N18.6 End stage renal disease; B20 Human immunodeficiency virus [HIV] disease; I47.1 Supraventricular tachycardia; I12.0 Hypertensive chronic kidney disease with stage 5 chronic kidney disease or end stage renal disease; F17.200 Nicotine dependence, unspecified, uncomplicated; D69.6 Thrombocytopenia, unspecified; F17.210 Nicotine dependence, cigarettes, uncomplicated; J44.9 Chronic obstructive pulmonary disease, unspecified; I16.0 Hypertensive urgency; Z99.2 Dependence on renal dialysis; Z95.828 Presence of other vascular implants and grafts; Z88.6 Allergy status to analgesic agent; Z71.6 Tobacco abuse counseling
CPT/HCPCS: 36415; 71045; 78452; 80048; 80061; 83036; 83735; 84439; 84443; 84484; 85025; 85610; 85730; 93005; 93010; 93017; 94640; 94760; 99406; G0378; A9270-GY; A9502; J0360; J1644; J2785

== ENCOUNTER 2019-07-29 04:10 | Inpatient (IN) | payer MEDICARE ==
[2019-07-29] MEDS ORDERED: NITROGLYCERIN DRIP 50 MG/250 ML BOTTLE ONE (04:18)
[2019-07-29] MEDS: NITROGLYCERIN DRIP 50 MG/250 ML BOTTLE IV SCH ×3 (04:20→16:24)
--- NOTE | 2019-07-29 04:24 | Emergency Department Report ---
ED General Adult HPI - General Chief complaint: Dyspnea/Respdistress Stated complaint: JARRET Time Seen by Provider: 07/29/19 04:13 Source: patient, family, EMS ( EMS documentation not available at time of chart dictation ), RN notes reviewed, old records reviewed Mode of arrival: Stretcher Limitations: Physical Limitation - History of Present Illness Initial comments: This is a 58-year-old gentleman. His past medical history includes end-stage renal disease on hemodialysis Thursday and Thursday, typically follows with Dr. Villa, HIV positive, hypertension, COPD, noncompliance Presents to the ER today with a complaint of painless shortness of breath. As per his who provides most of the history, he missed dialysis for the past week. In the emergency room, the patient has labored breathing, crackles, rales, JVD, is diaphoretic and very hypertensive. He is started immediately on nitroglycerin, receives 500 mcg IV push x2, started on nitroglycerin drip. He is also started on BiPAP therapy. The aforementioned interventions are dramatically improved his symptoms on presentation. Initially blood pressure was in the 220s, now in the 170s. Work of breathing is improved. Discussed need for hospitalization and admission. He is amenable to this plan of care. Discussed with nephrology, Dr. Velazquez, who will follow in consultation. Dis cussed with hospital physician, Dr. Mitchell, who will admit the patient to the medical service for flash pulmonary edema, hypertensive urgency. Of note, patient was admitted to [facility] a few weeks ago for pneumonia, as per his . -: Gradual Improves with: medication Worsens with: movement - Related Data Home Medications Medication Instructions Recorded Confirmed Last Taken Abacavir [Ziagen TAB] 300 mg PO BID 11/01/18 07/29/19 Unknown Dolutegravir [Tivicay] 50 mg PO DAILY 11/01/18 07/29/19 Unknown cloNIDine [Catapres] 0.1 mg PO BID 11/01/18 07/29/19 Unknown Previous Rx's Medication Instructions Recorded Last Taken Type Aspirin [Aspirin BABY CHEW TAB] 81 mg PO QDAY #30 tab.chew 11/03/18 Unknown Rx AtorvaSTATin [Lipitor] 20 mg PO QHS #30 tablet 11/03/18 Unknown Rx Clopidogrel [Plavix] 75 mg PO QDAY #30 tablet 11/03/18 Unknown Rx Metoprolol [Lopressor TAB] 50 mg PO BID #60 tablet 11/03/18 Unknown Rx amLODIPine [Norvasc] 10 mg PO DAILY #30 tab 11/03/18 Unknown Rx Allergies Allergy/AdvReac Type Severity Reaction Status Date / Time lisinopril Allergy Angioedema Verified 11/24/14 19:07 ED Review of Systems ROS: Stated complaint: JARRET Other details as noted in HPI Comment: Unobtainable due to pts medical conditions ED Past Medical Hx - Past Medical History Hx Hypertension: Yes Hx Renal Disease: Yes (on hemodialysis) Hx Seizures: Yes Hx Asthma: Yes Hx COPD: Yes Hx HIV: Yes - Surgical History Additional Surgical History: vascath. AV shunt LUE - Social History Smoking Status: Current Every Day Smoker - Medications Home Medications: Home Medications Medication Instructions Recorded Confirmed Last Taken Type Abacavir [Ziagen TAB] 300 mg PO BID 11/01/18 07/29/19 Unknown History Dolutegravir [Tivicay] 50 mg PO DAILY 11/01/18 07/29/19 Unknown History cloNIDine [Catapres] 0.1 mg PO BID 11/01/18 07/29/19 Unknown History Aspirin [Aspirin BABY CHEW TAB] 81 mg PO QDAY #30 tab.chew 11/03/18 07/29/19 Unknown Rx AtorvaSTATin [Lipitor] 20 mg PO QHS #30 tablet 11/03/18 07/29/19 Unknown Rx Clopidogrel [Plavix] 75 mg PO QDAY #30 tablet 11/03/18 07/29/19 Unknown Rx Metoprolol [Lopressor TAB] 50 mg PO BID #60 tablet 11/03/18 07/29/19 Unknown Rx amLODIPine [Norvasc] 10 mg PO DAILY #30 tab 11/03/18 07/29/19 Unknown Rx ED Physical Exam - General Limitations: Physical Limitation General appearance: anxious, in distress - Head Head exam: Present: atraumatic, normocephalic - Eye Eye exam: Present: normal appearance - ENT ENT exam: Present: normal exam, mucous membranes moist, normal external ear exam - Neck Neck exam: Present: normal inspection, full ROM. Absent: tenderness, meningismus - Respiratory Respiratory exam: Present: respiratory distress, rales, accessory muscle use. Absent: wheezes, stridor - Cardiovascular Cardiovascular Exam: Present: normal rhythm, tachycardia, normal heart sounds, JVD. Absent: systolic murmur, diastolic murmur, rubs, gallop - GI/Abdominal GI/Abdominal exam: Present: soft, distended. Absent: tenderness, guarding, rebound, rigid, pulsatile mass - Rectal Rectal exam: Present: deferred - Extremities Exam Extremities exam: Present: normal inspection (Upper extremity fistula noted, wit hout redness, pus or streaking.), full ROM, pedal edema, other (2+ pulses noted in the bilateral upper and lower extremities. There is no palpable cord. negative Homans sign. Muscular compartments are soft. The pelvis is stable.). Absent: calf tenderness - Back Exam Back exam: Present: normal inspection. Absent: tenderness, CVA tenderness (R), CVA tenderness (L), paraspinal tenderness, vertebral tenderness - Neurological Exam Neurological exam: Present: alert, other (There is no facial droop. Moving 4 extremities spontaneously. Phonating appropriately and protecting airway). Absent: motor sensory deficit - Psychiatric Psychiatric exam: Present: normal mood, anxious - Skin Skin exam: Present: warm, dry, intact, normal color. Absent: rash ED Course Vital Signs 07/29/19 07/29/19 07/29/19 04:14 04:15 04:31 Temperature 98.4 F Pulse Rate 110 H 109 H 100 H Pulse Rate [ From Monitor] Respiratory 31 H 34 H 11 L Rate Blood Pressure 217/124 184/94 Blood Pressure [Right] O2 Sat by Pulse 100 100 100 Oximetry 07/29/19 07/29/19 07/29/19 04:45 05:00 05:15 Temperature Pulse Rate 95 H 94 H 88 Pulse Rate [ From Monitor] Respiratory 16 24 19 Rate Blood Pressure 174/100 185/104 179/99 Blood Pressure [Right] O2 Sat by Pulse 100 100 100 Oximetry 07/29/19 07/29/19 07/29/19 05:30 05:45 06:00 Temperature Pulse Rate 84 84 91 H Pulse Rate [ From Monitor] Respiratory 20 20 28 H Rate Blood Pressure 172/93 172/91 178/99 Blood Pressure [Right] O2 Sat by Pulse 100 100 100 Oximetry 07/29/19 07/29/19 07/29/19 06:15 06:30 06:45 Temperature Pulse Rate 96 H 87 88 Pulse Rate [ From Monitor] Respiratory 16 21 18 Rate Blood Pressure 171/99 177/94 182/92 Blood Pressure [Right] O2 Sat by Pulse 100 100 100 Oximetry 07/29/19 07/29/19 07/29/19 07:10 07:20 07:30 Temperature Pulse Rate 86 84 84 Pulse Rate [ From Monitor] Respiratory 18 19 18 Rate Blood Pressure 171/91 158/92 171/87 Blood Pressure [Right] O2 Sat by Pulse 100 100 100 Oximetry 07/29/19 07/29/19 07/29/19 07:40 07:50 08:00 Temperature Pulse Rate 84 82 84 Pulse Rate [ From Monitor] Respiratory 20 17 18 Rate Blood Pressure 169/86 168/84 162/83 Blood Pressure [Right] O2 Sat by Pulse 100 100 100 Oximetry 07/29/19 07/29/19 07/29/19 08:10 08:20 08:29 Temperature Pulse Rate 91 H 84 Pulse Rate [ 98 H From Monitor] Respiratory 16 20 24 Rate Blood Pressure 167/88 171/90 Blood Pressure [Right] O2 Sat by Pulse 100 100 100 Oximetry 07/29/19 07/29/19 07/29/19 08:30 08:40 08:50 Temperature Pulse Rate 87 85 88 Pulse Rate [ From Monitor] Respiratory 25 H 22 11 L Rate Blood Pressure 181/97 167/90 172/92 Blood Pressure [Right] O2 Sat by Pulse 100 100 100 Oximetry 07/29/19 07/29/19 07/29/19 09:00 09:18 09:20 Temperature Pulse Rate 90 94 H 92 H Pulse Rate [ From Monitor] Respiratory 21 18 20 Rate Blood Pressure 161/93 Blood Pressure 161/93 [Right] O2 Sat by Pulse 100 100 Oximetry 07/29/19 09:30 Temperature Pulse Rate 96 H Pulse Rate [ From Monitor] Respiratory 24 Rate Blood Pressure 165/86 Blood Pressure [Right] O2 Sat by Pulse 98 Oximetry ED Medical Decision Making - Lab Data Result diagrams: 07/30/19 04:15 07/30/19 04:15 Vital Signs (72 hours) 07/29/19 07/29/19 07/29/19 04:14 04:15 04:31 Temperature 98.4 F Pulse Rate 110 H 109 H Respiratory 31 H 34 H Rate Blood Pressure 217/124 O2 Sat by Pulse 100 100 Oximetry Lab Results 07/29/19 07/29/19 07/29/19 Range/Units 04:30 04:30 04:30 WBC 9.1 (4.5-11.0) K/mm3 RBC 3.57 L (3.65-5.03) M/mm3 Hgb 10.4 L (11.8-15.2) gm/dl Hct 32.5 L (35.5-45.6) % MCV 91 (84-94) fl MCH 29 (28-32) pg MCHC 32 (32-34) % RDW 17.3 H (13.2-15.2) % Plt Count 120 L (140-440) K/mm3 Lymph % (Auto) 15.8 (13.4-35.0) % [place] % (Auto) 5.4 (0.0-7.3) % Eos % (Auto) 2.8 (0.0-4.3) % Baso % (Auto) 1.0 (0.0-1.8) % Lymph # 1.4 (1.2-5.4) K/mm3 [place] # 0.5 (0.0-0.8) K/mm3 Eos # 0.3 (0.0-0.4) K/mm3 Baso # 0.1 (0.0-0.1) K/mm3 Seg Neutrophils % 75.0 H (40.0-70.0) % Seg Neutrophils # 6.9 (1.8-7.7) K/mm3 PT 20.9 H (12.2-14.9) Sec. INR 1.77 H (0.87-1.13) APTT 33.7 (24.2-36.6) Sec. Sodium 141 (137-145) mmol/L Potassium 5.4 H (3.6-5.0) mmol/L Chloride 100.8 (98-107) mmol/L Carbon Dioxide 23 (22-30) mmol/L Anion Gap 23 mmol/L BUN 46 H (9-20) mg/dL Creatinine 12.4 H (0.8-1.5) mg/dL Estimated GFR 5 ml/min BUN/Creatinine Ratio 4 % Glucose 169 H (75-100) mg/dL Calcium 9.1 (8.4-10.2) mg/dL Magnesium (1.7-2.3) mg/dL Total Bilirubin 0.40 (0.1-1.2) mg/dL AST 66 H (5-40) units/L ALT 44 (7-56) units/L Alkaline Phosphatase 129 (35-129) units/L Lactate Dehydrogenase (91-180) units/L Total Creatine Kinase (55-170) units/L Troponin T 0.256 H* (0.00-0.029) ng/mL Total Protein 7.9 (6.3-8.2) g/dL Albumin 3.6 L (3.9-5) g/dL Albumin/Globulin Ratio 0.8 % 07/29/19 Range/Units 04:30 WBC (4.5-11.0) K/mm3 RBC (3.65-5.03) M/mm3 Hgb (11.8-15.2) gm/dl Hct (35.5-45.6) % MCV (84-94) fl MCH (28-32) pg MCHC (32-34) % RDW (13.2-15.2) % Plt Count (140-440) K/mm3 Lymph % (Auto) (13.4-35.0) % [place] % (Auto) (0.0-7.3) % Eos % (Auto) (0.0-4.3) % Baso % (Auto) (0.0-1.8) % Lymph # (1.2-5.4) K/mm3 [place] # (0.0-0.8) K/mm3 Eos # (0.0-0.4) K/mm3 Baso # (0.0-0.1) K/mm3 Seg Neutrophils % (40.0-70.0) % Seg Neutrophils # (1.8-7.7) K/mm3 PT (12.2-14.9) Sec. INR (0.87-1.13) APTT (24.2-36.6) Sec. Sodium (137-145) mmol/L Potassium (3.6-5.0) mmol/L Chloride (98-107) mmol/L Carbon Dioxide (22-30) mmol/L Anion Gap mmol/L BUN (9-20) mg/dL Creatinine (0.8-1.5) mg/dL Estimated GFR ml/min BUN/Creatinine Ratio % Glucose (75-100) mg/dL Calcium (8.4-10.2) mg/dL Magnesium 2.80 H (1.7-2.3) mg/dL Total Bilirubin (0.1-1.2) mg/dL AST (5-40) units/L ALT (7-56) units/L Alkaline Phosphatase (35-129) units/L Lactate Dehydrogenase 342 H (91-180) units/L Total Creatine Kinase 189 H (55-170) units/L Troponin T (0.00-0.029) ng/mL Total Protein (6.3-8.2) g/dL Albumin (3.9-5) g/dL Albumin/Globulin Ratio % - EKG Data 07/29/19 05:45 The EKG today shows a sinus rhythm, 88 bpm, there is a normal axis, the QTC is prolonged, there is motion artifact, poor R wave progression, no endorsement of chest pain, the EKG is abnormal, it is not consistent with ST elevation myocardial infarction - Radiology Data Radiology results: report reviewed, image reviewed [id number] : 1960 Acct:[id number] Age/Sex: 58 / M ADM Date: 07/29/19 Loc: ED Attending Dr: Ordering Physician: CRYSTAL HERNÁNDEZ MD Date of Service: 07/29/19 Procedure(s): XR chest 1V ap Accession Number(s): [id number] cc: CRYSTAL HERNÁNDEZ MD Fluoro Time In Minutes: CHEST 1 VIEW 07/29/2019 4:43 AM INDICATION / CLINICAL INFORMATION: Dyspnea. Wheezing and rales. COMPARISON: One view of the chest from 11/01/2018. FINDINGS: SUPPORT DEVICES: None. HEART / MEDIASTINUM: No significant abnormality. LUNGS / PLEURA: Small pleural effusions are seen with generalized bilateral pulmonary opacities. No pneumothorax. ADDITIONAL FINDINGS: No significant additional findings. IMPRESSION: Possible bilateral atelectasis/edema with small pleural effusions. Signer Name: Duncan Tracey MD Signed: 07/29/2019 5:22 AM Workstation Name: [id number] Transcribed By: MN Dictated By: Duncan Tracey MD Electronically Authenticated By: Duncan Tracey MD Signed Date/Time: 07/29/19 0522 - Medical Decision Making Differential diagnosis, including but not limited to: Hypertensive emergency, flash pulmonary edema, azotemia, uremia, hyperkalemia, end-stage renal disease Assessment and plan: 58-year-old gentleman with dialysis noncompliance, presenting with stigmata of hypertensive emergency and flash pulmonary edema, manifested by JVD, work of breathing, crackles and rales, hypertension. Much improved on noninvasive ventilation and nitroglycerin. Elevated troponin is likely a type II troponin leak elevated lactic acid is reviewed and appreciated. This is likely secondary to physiologic stress. X-ray of the chest is reviewed and appreciated. The patient is fluid overloaded at this time. He will not benefit from an aggressive fluid bolus. Critical Care Time: Yes Critical care time in (mins) excluding proc time.: 35 Critical care attestation.: If time is entered above; I have spent that time in minutes in the direct care of this critically ill patient, excluding procedure time. ED Disposition Clinical Impression: Hypertensive emergency, Shortness of breath, ESRD on hemodialysis, HIV (human immunodeficiency virus infection), Dialysis patient, noncompliant, Volume overload Disposition: 09 OP ADMIT IP TO THIS HOSP Is pt being admited?: Yes Condition: Serious
[2019-07-29 04:49] LABS: Basophils # (Auto) 0.1 K/mm3 (0.0-0.1); Eosinophils # (Auto) 0.3 K/mm3 (0.0-0.4); Eosinophils % (Auto) 2.8 % (0.0-4.3); Hematocrit 32.5 % (35.5-45.6); Hemoglobin 10.4 gm/dl (11.8-15.2); Lymphocytes # (Auto) 1.4 K/mm3 (1.2-5.4); Lymphocytes % (Auto) 15.8 % (13.4-35.0); Mean Corpuscular HGB Conc 32 % (32-34); Mean Corpuscular Volume 91 fl (84-94); Monocytes # (Auto) 0.5 K/mm3 (0.0-0.8); Monocytes % (Auto) 5.4 % (0.0-7.3); Platelet Count 120 K/mm3 (140-440); Red Blood Count 3.57 M/mm3 (3.65-5.03); Red Cell Distribution Width 17.3 % (13.2-15.2)
[2019-07-29 04:59] LABS: INR 1.77 (0.87-1.13)
[2019-07-29 05:00] LABS: Partial Thromboplastin Time 33.7 Sec. (24.2-36.6)
[2019-07-29 05:25] LABS: Albumin 3.6 g/dL (3.9-5); Calcium 9.1 mg/dL (8.4-10.2)
--- NOTE | 2019-07-29 05:26 | XRay Report ---
CHEST 1 VIEW 07/29/2019 4:43 AM INDICATION / CLINICAL INFORMATION: Dyspnea. Wheezing and rales. COMPARISON: One view of the chest from 11/01/2018. FINDINGS: SUPPORT DEVICES: None. HEART / MEDIASTINUM: No significant abnormality. LUNGS / PLEURA: Small pleural effusions are seen with generalized bilateral pulmonary opacities. No p neumothorax. ADDITIONAL FINDINGS: No significant additional findings. IMPRESSION: Possible bilateral atelectasis/edema with small pleural effusions. Signer Name: Duncan Tracey MD Signed: 07/29/2019 5:22 AM Workstation Name: [id number]
[2019-07-29] MEDS ORDERED: ACETAMINOPHEN 325 MG TAB PO PRN (05:58)
[2019-07-29] MEDS ORDERED: ONDANSETRON 4 MG/2 ML INJ IV PRN (05:58)
[2019-07-29 06:02] LABS: Chol/HDL Ratio 2.37 %
--- NOTE | 2019-07-29 06:02 | History and Physical Report ---
History of Present Illness History of present illness: 58-year-old man HIV, hyperlipidemia, hypertension, end-stage renal disease on on dialysis Thursday, Thursday comes emergency room with complaints of shortness of breath. states that he was just discharged from the hospital 1 week ago, he was admitted for pneumonia. She also states that he is very noncompliant, he does not take his medications, he has not been to dialysis in 1 week. In the emergency room blood pressure was greater than 217, he was started on nitroglycerin drip, renal was consulted for emergent dialysis Review Of Systems: Constitutional: no weight loss, fever, chills Ears, eyes, nose, mouth and throat: no nasal congestion, no nasal discharge, no sinus pressure, blurry vision, diplopia Neck: No neck pain or rigidity. Cardiovascular: No palpitations, chest pain Respiratory: No s cough Gastrointestinal: No hematochezia, abdominal pain Genitourinary : no dysuria, frequency Musculoskeletal: no muscle ache , joint pain Integumentary: no rash, no pruritis Neurological: no parathesias, focal weakness Endocrine: no cold or heat intolerance, no polyuria or polydipsia Hematologic/Lymphatic: no easy bruising, no easy bleeding, no gland swelling Allergic/Immunologic: no urticaria, no angioedema. PAST MEDICAL HISTORY: HIV, hyperlipidemia, hypertension, end-stage renal disease PAST SURGICAL HISTORY: AV fistula SOCIAL HISTORY: Denies alcohol, drugs, smokes half pack a day FAMILY HISTORY: Hypertension Medications and Allergies Allergies Allergy/AdvReac Type Severity Reaction Status Date / Time lisinopril Allergy Angioedema Verified 11/24/14 19:07 Home Medications Medication Instructions Recorded Confirmed Last Taken Type lamiVUDine [Lamivudine] 50 mg PO DAILY 01/05/15 11/01/18 1 Day Ago History ~03/08/15 Zidovudine [Retrovir] 300 mg PO DAILY capsule 01/07/15 11/01/18 1 Day Ago Rx ~03/08/15 Abacavir [Ziagen TAB] 300 mg PO BID 11/01/18 11/01/18 Unknown History Dolutegravir [Tivicay] 50 mg PO DAILY 11/01/18 11/01/18 Unknown History cloNIDine [Catapres] 0.1 mg PO BID 11/01/18 11/01/18 Unknown History Aspirin [Aspirin BABY CHEW TAB] 81 mg PO QDAY #30 tab.chew 11/03/18 Unknown Rx AtorvaSTATin [Lipitor] 20 mg PO QHS #30 tablet 11/03/18 Unknown Rx Clopidogrel [Plavix] 75 mg PO QDAY #30 tablet 11/03/18 Unknown Rx Metoprolol [Lopressor TAB] 50 mg PO BID #60 tablet 11/03/18 Unknown Rx amLODIPine [Norvasc] 10 mg PO DAILY #30 tab 11/03/18 Unknown Rx Active Meds: Active Medications Acetaminophen (Tylenol) 650 mg PO Q4H PRN PRN Reason: Pain MILD(1-3)/Fever >100.5/GARCIA Enoxaparin Sodium (Enoxaparin) 30 mg SUB-Q QDAY MIGUELANGEL Nitroglycerin/Dextrose (Tridil Drip 50mg/250ml) 50 mg in 250 mls @ 3 mls/hr IV TITR MIGUELANGEL; Protocol Ondansetron HCl (Zofran) 4 mg IV Q8H PRN PRN Reason: Nausea And Vomiting Sodium Chloride (Sodium Chloride Flush Syringe 10 Ml) 10 ml IV BID MIGUELANGEL Sodium Chloride (Sodium Chloride Flush Syringe 10 Ml) 10 ml IV PRN PRN PRN Reason: LINE FLUSH Exam - Physical Exam Narrative exam: Gen. appearance: Patient lying in bed, no apparent distress HEENT: Normocephalic, atraumatic, pupils equally round and reactive to light, extraocular movement intact, and no sclericterus,. No JVD or thyromegaly or no dule,neck supple, no carotid bruit ,mucous membranes moist, no exudate or erythema Heart: S1, S2, regular rate and rhythm Lungs: Crackles bilaterally, breathing comfortable Abdomen: Positive bowel sounds, nontender, nondistended, no organomegaly Extremity: no edema, cyanosis, clubbing Skin: No rash, nodules, warm, dry Neuro: speech is fluent, moves extremities, sensory intact - Constitutional Vitals: Temp Pulse Resp BP Pulse Ox 98.4 F 109 H 34 H 217/124 100 07/29/19 04:31 07/29/19 04:15 07/29/19 04:15 07/29/19 04:15 07/29/19 04:15 Results - Labs CBC & Chem 7: 07/29/19 04:30 07/29/19 04:30 Labs: Abnormal lab results 07/29/19 07/29/19 07/29/19 Range/Units 04:30 04:30 04:30 RBC 3.57 L (3.65-5.03) M/mm3 Hgb 10.4 L (11.8-15.2) gm/dl Hct 32.5 L (35.5-45.6) % RDW 17.3 H (13.2-15.2) % Plt Count 120 L (140-440) K/mm3 Seg Neutrophils % 75.0 H (40.0-70.0) % PT 20.9 H (12.2-14.9) Sec. INR 1.77 H (0.87-1.13) Potassium 5.4 H (3.6-5.0) mmol/L BUN 46 H (9-20) mg/dL Creatinine 12.4 H (0.8-1.5) mg/dL Glucose 169 H (75-100) mg/dL Lactic Acid (0.7-2.0) mmol/L Magnesium (1.7-2.3) mg/dL AST 66 H (5-40) units/L Lactate Dehydrogenase (91-180) units/L Total Creatine Kinase (55-170) units/L Troponin T 0.256 H* (0.00-0.029) ng/mL Albumin 3.6 L (3.9-5) g/dL HDL Cholesterol 62 H (40-59) mg/dL 07/29/19 07/29/19 Range/Units 04:30 04:30 RBC (3.65-5.03) M/mm3 Hgb (11.8-15.2) gm/dl Hct (35.5-45.6) % RDW (13.2-15.2) % Plt Count (140-440) K/mm3 Seg Neutrophils % (40.0-70.0) % PT (12.2-14.9) Sec. INR (0.87-1.13) Potassium (3.6-5.0) mmol/L BUN (9-20) mg/dL Creatinine (0.8-1.5) mg/dL Glucose (75-100) mg/dL Lactic Acid 2.10 H* (0.7-2.0) mmol/L Magnesium 2.80 H (1.7-2.3) mg/dL AST (5-40) units/L Lactate Dehydrogenase 342 H (91-180) units/L Total Creatine Kinase 189 H (55-170) units/L Troponin T (0.00-0.029) ng/mL Albumin (3.9-5) g/dL HDL Cholesterol (40-59) mg/dL - Imaging and Cardiology EKG: image reviewed Chest x-ray: report reviewed Assessment and Plan Assessment Acute respiratory failure Continue BiPAP End-stage renal disease on dialysis, fluid overload/hyperkalemia Renal was consulted to see the patient emergently Hypertensive urgency, malignant Continue nitroglycerin drip Abnormal cardiac enzymes Check cardiac enzymes, consult cardiology HIV, stable Thrombocytopenia, continue to monitor DVT prophylaxis
[2019-07-29 07:57] LABS: Creatine Kinase MB 5.6 ng/mL (0.0-4.0)
[2019-07-29] MEDS ORDERED: SODIUM CHLORIDE 0.9% 100 ML IV PRN ×2 (08:39→14:43)
[2019-07-29] MEDS ORDERED: EPOETIN ALFA 10,000 UNIT/1 ML INJ IV PRN (08:39)
[2019-07-29] MEDS ORDERED: ENOXAPARIN 30 MG/0.3 ML INJ SUB-Q SCH (10:00)
--- NOTE | 2019-07-29 10:10 | Consultation ---
History of Present Illness - Reason for Consult Consult date: 07/29/19 Hypertensive Urgency Requesting physician: CRYSTAL YUNG - History of Present Illness 58 y/o male with HIV, ESRD on HD, admitted with acute respiratory failure secondary to noncompliance with dialysis and pulmonary edema with elevated BP. Currently on Nitrodrip. Awaiting HD. Past History Past Medical History: ESRD, HIV/AIDS, hypertension, hyperlipidemia Medications and Allergies Allergies Allergy/AdvReac Type Severity Reaction Status Date / Time lisinopril Allergy Angioedema Verified 11/24/14 19:07 Home Medications Medication Instructions Recorded Confirmed Last Taken Type Abacavir [Ziagen TAB] 300 mg PO BID 11/01/18 07/29/19 Unknown History Dolutegravir [Tivicay] 50 mg PO DAILY 11/01/18 07/29/19 Unknown History cloNIDine [Catapres] 0.1 mg PO BID 11/01/18 07/29/19 Unknown History Aspirin [Aspirin BABY CHEW TAB] 81 mg PO QDAY #30 tab.chew 11/03/18 07/29/19 Unknown Rx AtorvaSTATin [Lipitor] 20 mg PO QHS #30 tablet 11/03/18 07/29/19 Unknown Rx Clopidogrel [Plavix] 75 mg PO QDAY #30 tablet 11/03/18 07/29/19 Unknown Rx Metoprolol [Lopressor TAB] 50 mg PO BID #60 tablet 11/03/18 07/29/19 Unknown Rx amLODIPine [Norvasc] 10 mg PO DAILY #30 tab 11/03/18 07/29/19 Unknown Rx Active Meds: Active Medications Acetaminophen (Tylenol) 650 mg PO Q4H PRN PRN Reason: Pain MILD(1-3)/Fever >100.5/GARCIA Epoetin Adalid (Procrit) 10,000 unit IV CECELIA PRN PRN Reason: hemodialysis Nitroglycerin/Dextrose (Tridil Drip 50mg/250ml) 50 mg in 250 mls @ 3 mls/hr IV TITR [facility]; Protocol Last Admin: 07/29/19 04:20 Dose: 100 mcg/min, 30 mls/hr Documented by: Sodium Chloride (Nacl 0.9%) 100 mls @ 999 mls/hr IV CECELIA PRN PRN Reason: Hypotension Ondansetron HCl (Zofran) 4 mg IV Q8H PRN PRN Reason: Nausea And Vomiting Sodium Chloride (Sodium Chloride Flush Syringe 10 Ml) 10 ml IV BID [facility] Sodium Chloride (Sodium Chloride Flush Syringe 10 Ml) 10 ml IV PRN PRN PRN Reason: LINE FLUSH Review of Systems All systems: negative Exam - Constitutional Vitals: Temp Pulse Resp BP Pulse Ox 98.4 F 88 18 182/92 100 07/29/19 04:31 07/29/19 06:45 07/29/19 06:45 07/29/19 06:45 07/29/19 06:45 General appearance: Present: no acute distress, well-nourished, disheveled - EENT Eyes: Present: PERRL ENT: hearing intact - Neck Neck: Present: supple, normal ROM - Respiratory Respiratory effort: normal Respiratory: bilateral: rales - Cardiovascular Rhythm: regular Heart Sounds: Present: S1 & S2 - Extremities Extremities: no ischemia - Abdominal General gastrointestinal: Present: soft Results - Labs CBC & Chem 7: 07/29/19 04:30 07/29/19 04:30 Labs: Abnormal lab results 07/29/19 07/29/19 07/29/19 Range/Units 04:30 04:30 04:30 RBC 3.57 L (3.65-5.03) M/mm3 Hgb 10.4 L (11.8-15.2) gm/dl Hct 32.5 L (35.5-45.6) % RDW 17.3 H (13.2-15.2) % Plt Count 120 L (140-440) K/mm3 Seg Neutrophils % 75.0 H (40.0-70.0) % PT 20.9 H (12.2-14.9) Sec. INR 1.77 H (0.87-1.13) Potassium 5.4 H (3.6-5.0) mmol/L BUN 46 H (9-20) mg/dL Creatinine 12.4 H (0.8-1.5) mg/dL Glucose 169 H (75-100) mg/dL Lactic Acid (0.7-2.0) mmol/L Magnesium (1.7-2.3) mg/dL AST 66 H (5-40) units/L Lactate Dehydrogenase (91-180) units/L Total Creatine Kinase (55-170) units/L CK-MB (CK-2) (0.0-4.0) ng/mL Troponin T 0.256 H* (0.00-0.029) ng/mL Albumin 3.6 L (3.9-5) g/dL HDL Cholesterol 62 H (40-59) mg/dL 07/29/19 07/29/19 07/29/19 Range/Units 04:30 04:30 07:32 RBC (3.65-5.03) M/mm3 Hgb (11.8-15.2) gm/dl Hct (35.5-45.6) % RDW (13.2-15.2) % Plt Count (140-440) K/mm3 Seg Neutrophils % (40.0-70.0) % PT (12.2-14.9) Sec. INR (0.87-1.13) Potassium (3.6-5.0) mmol/L BUN (9-20) mg/dL Creatinine (0.8-1.5) mg/dL Glucose (75-100) mg/dL Lactic Acid 2.10 H* 2.30 H* (0.7-2.0) mmol/L Magnesium 2.80 H (1.7-2.3) mg/dL AST (5-40) units/L Lactate Dehydrogenase 342 H (91-180) units/L Total Creatine Kinase 189 H (55-170) units/L CK-MB (CK-2) (0.0-4.0) ng/mL Troponin T (0.00-0.029) ng/mL Albumin (3.9-5) g/dL HDL Cholesterol (40-59) mg/dL 07/29/19 07/29/19 Range/Units 07:32 08:19 RBC (3.65-5.03) M/mm3 Hgb (11.8-15.2) gm/dl Hct (35.5-45.6) % RDW (13.2-15.2) % Plt Count (140-440) K/mm3 Seg Neutrophils % (40.0-70.0) % PT (12.2-14.9) Sec. INR (0.87-1.13) Potassium (3.6-5.0) mmol/L BUN (9-20) mg/dL Creatinine (0.8-1.5) mg/dL Glucose (75-100) mg/dL Lactic Acid 0.60 L (0.7-2.0) mmol/L Magnesium (1.7-2.3) mg/dL AST (5-40) units/L Lactate Dehydrogenase (91-180) units/L Total Creatine Kinase (55-170) units/L CK-MB (CK-2) 5.6 H (0.0-4.0) ng/mL Troponin T 0.253 H* (0.00-0.029) ng/mL Albumin (3.9-5) g/dL HDL Cholesterol (40-59) mg/dL - Imaging and Cardiology Chest x-ray: image reviewed Assessment and Plan 58 y/o male admitted with hypertensive urgency, acute respiratory failure, NSTEMI. 1. HD today per renal 2. Wean Nitro to off prior to HD 3. Resume home medication regimen 4. Should be stable for transfer after HD. On nasal cannula and in no distress. CCT 31 minutes
--- NOTE | 2019-07-29 10:47 | Event Note ---
Date: 07/29/19 Patient with pulmonary edema from missed dialysis. I have seen and examined him.
--- NOTE | 2019-07-29 11:24 | Consultation ---
<ALLEN MORGAN - Last Filed: 07/29/19 12:07> History of Present Illness Consult date: 07/29/19 Requesting physician: EL HEATH Consult reason: elevated troponin History of present illness: Pt is a 58 y.o. AA male with a past medical hx of ESRD on HD (MWF), COPD, DVT, SVT, HTN, and HLD. He is followed in our office by Dr. Wu. Pt presented with c/o progressively worsening SOB x 1 week. He also reports ESPINOSA and orthopnea. Pt states he missed approximately 1 week of dialysis prior to admission but has been taking his medications as prescribed. He denies any CP or other cardiac complaints. Cardiology has been consulted for elevated troponin. ECG shows NSR. Previous stress test completed in June 2019 - negative for ischemia. Echo performed in May 2019 - EF 60%. Past History Past Medical History: arrhythmia (SVT), COPD, ESRD, HIV/AIDS, hypertension, hyperlipidemia, other (DVT, Asthma) Past Surgical History: No surgical history Social history: smoking (1/2 PPD). denies: alcohol abuse Medications and Allergies Allergies Allergy/AdvReac Type Severity Reaction Status Date / Time lisinopril Allergy Angioedema Verified 11/24/14 19:07 Home Medications Medication Instructions Recorded Confirmed Last Taken Type Abacavir [Ziagen TAB] 300 mg PO BID 11/01/18 07/29/19 Unknown History Dolutegravir [Tivicay] 50 mg PO DAILY 11/01/18 07/29/19 Unknown History cloNIDine [Catapres] 0.1 mg PO BID 11/01/18 07/29/19 Unknown History Aspirin [Aspirin BABY CHEW TAB] 81 mg PO QDAY #30 tab.chew 11/03/18 07/29/19 Unknown Rx AtorvaSTATin [Lipitor] 20 mg PO QHS #30 tablet 11/03/18 07/29/19 Unknown Rx Clopidogrel [Plavix] 75 mg PO QDAY #30 tablet 11/03/18 07/29/19 Unknown Rx Metoprolol [Lopressor TAB] 50 mg PO BID #60 tablet 11/03/18 07/29/19 Unknown Rx amLODIPine [Norvasc] 10 mg PO DAILY #30 tab 11/03/18 07/29/19 Unknown Rx Active Meds: Active Medications Acetaminophen (Tylenol) 650 mg PO Q4H PRN PRN Reason: Pain MILD(1-3)/Fever >100.5/GARCIA Epoetin Adalid (Procrit) 10,000 unit IV CECELIA PRN PRN Reason: hemodialysis Nitroglycerin/Dextrose (Tridil Drip 50mg/250ml) 50 mg in 250 mls @ 3 mls/hr IV TITR [facility]; Protocol Last Admin: 07/29/19 04:20 Dose: 100 mcg/min, 30 mls/hr Documented by: Sodium Chloride (Nacl 0.9%) 100 mls @ 999 mls/hr IV CECELIA PRN PRN Reason: Hypotension Ondansetron HCl (Zofran) 4 mg IV Q8H PRN PRN Reason: Nausea And Vomiting Sodium Chloride (Sodium Chloride Flush Syringe 10 Ml) 10 ml IV BID [facility] Sodium Chloride (Sodium Chloride Flush Syringe 10 Ml) 10 ml IV PRN PRN PRN Reason: LINE FLUSH Review of Systems Constitutional: no fever, no chills, no sweats Ears, nose, mouth and throat: no ear pain, no nose pain, no nasal congestion, no dysphagia, no sore throat Cardiovascular: orthopnea, shortness of breath, dyspnea on exertion, no chest pain, no palpitations, no rapid/irregular heart beat, no edema, no syncope, no lightheadedness, no leg edema Respiratory: shortness of breath, dyspnea on exertion, no cough, no pain on inspiration, no sleep apnea Gastrointestinal: no abdominal pain, no nausea, no vomiting, no diarrhea, no constipation Genitourinary Male: no dysuria, no flank pain Musculoskeletal: no neck stiffness, no neck pain, no muscle weakness, no muscle cramps Integumentary: no rash, no wounds Neurological: no head injury, no parathesias, no numbness, no tingling, no seizures, no syncope, no headaches Endocrine: no cold intolerance, no heat intolerance Hematologic/Lymphatic: no easy bruising, no easy bleeding Allergic/Immunologic: no urticaria, no angioedema Physical Examination Last Vital Signs Temp 98.4 F 07/29/19 04:31 Pulse 87 07/29/19 10:00 Resp 21 07/29/19 09:00 BP 161/93 07/29/19 09:00 Pulse Ox 100 07/29/19 09:00 General appearance: no acute distress HEENT: Positive: EOMI, Normocephaly, Mucus Membranes Moist Neck: Positive: neck supple, trachea midline, JVD/HJR Cardiac: Positive: Reg Rate and Rhythm, S1/S2, Audible Murmur (2/2 AV fistula) Lungs: Positive: Other (Lyle crackles) Neuro: Positive: Grossly Intact, Motor Function Intact, Coordination Normal Abdomen: Positive: Soft, Active Bowel Sounds. Negative: Tender Skin: Negative: Rash, Wound Musculoskeletal: No Pain Extremities: Present: upper extr. pulses, lower extr. pulses. Absent: edema Results 07/29/19 04:30 07/29/19 04:30 Cardiac Enzymes 07/29/19 07/29/19 07/29/19 Range/Units 04:30 04:30 07:32 AST 66 H (5-40) units/L Lactate Dehydrogenase 342 H (91-180) units/L CK-MB (CK-2) 5.6 H (0.0-4.0) ng/mL Coagulation 07/29/19 Range/Units 04:30 PT 20.9 H (12.2-14.9) Sec. INR 1.77 H (0.87-1.13) APTT 33.7 (24.2-36.6) Sec. Lipids 07/29/19 Range/Units 04:30 Triglycerides 57 (2-149) mg/dL Cholesterol 147 (50-199) mg/dL HDL Cholesterol 62 H (40-59) mg/dL Cholesterol/HDL Ratio 2.37 % CBC 07/29/19 Range/Units 04:30 WBC 9.1 (4.5-11.0) K/mm3 RBC 3.57 L (3.65-5.03) M/mm3 Hgb 10.4 L (11.8-15.2) gm/dl Hct 32.5 L (35.5-45.6) % Plt Count 120 L (140-440) K/mm3 Lymph # 1.4 (1.2-5.4) K/mm3 [place] # 0.5 (0.0-0.8) K/mm3 Eos # 0.3 (0.0-0.4) K/mm3 Baso # 0.1 (0.0-0.1) K/mm3 Comprehensive Metabolic Panel 07/29/19 Range/Units 04:30 Sodium 141 (137-145) mmol/L Potassium 5.4 H (3.6-5.0) mmol/L Chloride 100.8 (98-107) mmol/L Carbon Dioxide 23 (22-30) mmol/L BUN 46 H (9-20) mg/dL Creatinine 12.4 H (0.8-1.5) mg/dL Glucose 169 H (75-100) mg/dL Calcium 9.1 (8.4-10.2) mg/dL AST 66 H (5-40) units/L ALT 44 (7-56) units/L Alkaline Phosphatase 129 (35-129) units/L Total Protein 7.9 (6.3-8.2) g/dL Albumin 3.6 L (3.9-5) g/dL - Imaging and Cardiology Echo: report reviewed (EF 60%; mild AV sclerosis; trace AR; trace MR; trace TR; trace [place] ) EKG: report reviewed, image reviewed - EKG Interpretation EKG: no acute changes EKG interpretations - EKG Sinus rhythms and dysrhythmias: sinus rhythm Assessment and Plan Troponin elevation appears chronic and consistent with NSTEMI 2. Trend Jimbo. Obtain f/u ECG. Previous stress test completed in June 2019 - negative for ischemia. Echo per formed in May 2019 - EF 60%. No plans for additional cardiac work-up at this time. Optimize anti-hypertensive regimen and wean off NTG gtt. Continue volume optimization per Nephrology. The patient has been seen in conjunction with Dr. Bazzi, who agrees with the assessment and plan of care. - Patient Problems (1) ESRD needing dialysis Current Visit: Yes Status: Acute (2) Volume overload Current Visit: Yes Status: Acute (3) NSTEMI (non-ST elevated myocardial infarction) Current Visit: Yes Status: Acute Plan to address problem: type 2 (4) Hypertensive urgency Current Visit: Yes Status: Acute (5) Acute respiratory failure Current Visit: Yes Status: Acute (6) COPD (chronic obstructive pulmonary disease) Current Visit: Yes Status: Chronic Qualifiers: COPD type: emphysema (7) Anemia Current Visit: Yes Status: Chronic (8) Hyperkalemia Current Visit: Yes Status: Acute (9) Hx of deep venous thrombosis Current Visit: Yes Status: Chronic Plan to address problem: distal vein of right lower extremity (10) History of supraventricular tachycardia Current Visit: No Status: Chronic (11) Hyperlipidemia Current Visit: Yes Status: Chronic Qualifiers: Hyperlipidemia type: mixed hyperlipidemia Qualified Code(s): E78.2 - Mixed hyperlipidemia (12) Tobacco use Current Visit: Yes Status: Chronic (13) HIV (human immunodeficiency virus infection) Current Visit: Yes Status: Chronic Qualifiers: HIV symptom status: asymptomatic Qualified Code(s): Z21 - Asymptomatic human immunodeficiency virus [HIV] infection status <SATNAM BAZZI R - Last Filed: 07/29/19 16:42> Medications and Allergies Active Meds: Active Medications Acetaminophen (Tylenol) 650 mg PO Q4H PRN PRN Reason: Pain MILD(1-3)/Fever >100.5/GARCIA Amlodipine Besylate (Amlodipine) 10 mg PO DAILY [facility] Last Admin: 07/29/19 13:26 Dose: 10 mg Documented by: Aspirin (Baby Aspirin) 81 mg PO QDAY [facility] Atorvastatin Calcium (Lipitor) 20 mg PO QHS [facility] Clonidine HCl (Catapres) 0.1 mg PO BID [facility] Epoetin Adalid (Procrit) 10,000 unit IV CECELIA PRN PRN Reason: hemodialysis Last Admin: 07/29/19 13:42 Dose: 10,000 unit Documented by: Nitroglycerin/Dextrose (Tridil Drip 50mg/250ml) 50 mg in 250 mls @ 3 mls/hr IV TITR [facility]; Protocol Last Admin: 07/29/19 16:24 Dose: 200 mcg/min, 60 mls/hr Documented by: Sodium Chloride (Nacl 0.9%) 100 mls @ 999 mls/hr IV CECELIA PRN PRN Reason: Hypotension Losartan Potassium (Cozaar) 50 mg PO QDAY [facility] Last Admin: 07/29/19 16:24 Dose: 50 mg Documented by: Metoprolol Tartrate (Metoprolol) 50 mg PO BID [facility] Last Admin: 07/29/19 13:26 Dose: 50 mg Documented by: Ondansetron HCl (Zofran) 4 mg IV Q8H PRN PRN Reason: Nausea And Vomiting Sodium Chloride (Sodium Chloride Flush Syringe 10 Ml) 10 ml IV BID [facility] Last Admin: 07/29/19 10:00 Dose: 10 ml Documented by: Sodium Chloride (Sodium Chloride Flush Syringe 10 Ml) 10 ml IV PRN PRN PRN Reason: LINE FLUSH Physical Examination Vital Signs Pulse Resp Pulse Ox 110 H 31 H 100 07/29/19 04:14 07/29/19 04:14 07/29/19 04:14 Results 07/29/19 04:30 07/29/19 04:30 Cardiac Enzymes 07/29/19 07/29/19 07/29/19 Range/Units 04:30 04:30 07:32 AST 66 H (5-40) units/L Lactate Dehydrogenase 342 H (91-180) units/L CK-MB (CK-2) 5.6 H (0.0-4.0) ng/mL 07/29/19 Range/Units 12:00 AST (5-40) units/L Lactate Dehydrogenase (91-180) units/L CK-MB (CK-2) 5.7 H (0.0-4.0) ng/mL Coagulation 07/29/19 Range/Units 04:30 PT 20.9 H (12.2-14.9) Sec. INR 1.77 H (0.87-1.13) APTT 33.7 (24.2-36.6) Sec. Lipids 07/29/19 Range/Units 04:30 Triglycerides 57 (2-149) mg/dL Cholesterol 147 (50-199) mg/dL HDL Cholesterol 62 H (40-59) mg/dL Cholesterol/HDL Ratio 2.37 % CBC 07/29/19 Range/Units 04:30 WBC 9.1 (4.5-11.0) K/mm3 RBC 3.57 L (3.65-5.03) M/mm3 Hgb 10.4 L (11.8-15.2) gm/dl Hct 32.5 L (35.5-45.6) % Plt Count 120 L (140-440) K/mm3 Lymph # 1.4 (1.2-5.4) K/mm3 [place] # 0.5 (0.0-0.8) K/mm3 Eos # 0.3 (0.0-0.4) K/mm3 Baso # 0.1 (0.0-0.1) K/mm3 Comprehensive Metabolic Panel 07/29/19 Range/Units 04:30 Sodium 141 (137-145) mmol/L Potassium 5.4 H (3.6-5.0) mmol/L Chloride 100.8 (98-107) mmol/L Carbon Dioxide 23 (22-30) mmol/L BUN 46 H (9-20) mg/dL Creatinine 12.4 H (0.8-1.5) mg/dL Glucose 169 H (75-100) mg/dL Calcium 9.1 (8.4-10.2) mg/dL AST 66 H (5-40) units/L ALT 44 (7-56) units/L Alkaline Phosphatase 129 (35-129) units/L Total Protein 7.9 (6.3-8.2) g/dL Albumin 3.6 L (3.9-5) g/dL Assessment and Plan wean off iv nitro and medical management poor historian and compliance - Patient Problems (1) Acute diastolic CHF (congestive heart failure) Current Visit: Yes Status: Acute
[2019-07-29 13:09] LABS: Creatine Kinase MB 5.7 ng/mL (0.0-4.0)
[2019-07-29 13:20] LABS: Hepatitis B Surface Antigen Non-Reactive (Negative); Hepatitis C Virus Antibody Non-Reactive (NonReactive)
[2019-07-29] MEDS: amLODIPine 10 MG TAB PO SCH (13:26)
[2019-07-29] MEDS: METOPROLOL TARTRATE 50 MG TAB PO SCH ×2 (13:26→21:02)
--- NOTE | 2019-07-29 14:47 | Consultation ---
History of Present Illness - Reason for Consult end stage renal disease - History of Present Illness 58 y/o AAM with PMHx significant for ESRD in the setting of HTN and HIV, on a Thursday/Thursday outpatient HD schedule, who had missed his last HD session on Thursday secondary to transportation issues, presented to the ED secondary to worsening shortness of shortness of breath. Chest xray concernerning for pul monary edema, and with accelerated HTN in the ED, patient was placed on nitroglycerin gtt and sent to the ICU. He is receiving HD this afternoon at the bedside. Tolerating 3L UF today. Discussed with patient and staff that we will plan to dialyze him tomorrow. He dialyzes at [facility], seen by Dr. Villa. He uses a Left radiocephalic AVF. Past History Past Medical History: arrhythmia (SVT), COPD, ESRD, HIV/AIDS, hypertension, hyperlipidemia, other (DVT, Asthma) Past Surgical History: No surgical history Social history: smoking (1/2 PPD). denies: alcohol abuse Medications and Allergies Allergies Allergy/AdvReac Type Severity Reaction Status Date / Time lisinopril Allergy Angioedema Verified 11/24/14 19:07 Home Medications Medication Instructions Recorded Confirmed Last Taken Type Abacavir [Ziagen TAB] 300 mg PO BID 11/01/18 07/29/19 Unknown History Dolutegravir [Tivicay] 50 mg PO DAILY 11/01/18 07/29/19 Unknown History cloNIDine [Catapres] 0.1 mg PO BID 11/01/18 07/29/19 Unknown History Aspirin [Aspirin BABY CHEW TAB] 81 mg PO QDAY #30 tab.chew 11/03/18 07/29/19 Unknown Rx AtorvaSTATin [Lipitor] 20 mg PO QHS #30 tablet 11/03/18 07/29/19 Unknown Rx Clopidogrel [Plavix] 75 mg PO QDAY #30 tablet 11/03/18 07/29/19 Unknown Rx Metoprolol [Lopressor TAB] 50 mg PO BID #60 tablet 11/03/18 07/29/19 Unknown Rx amLODIPine [Norvasc] 10 mg PO DAILY #30 tab 11/03/18 07/29/19 Unknown Rx Active Meds: Active Medications Acetaminophen (Tylenol) 650 mg PO Q4H PRN PRN Reason: Pain MILD(1-3)/Fever >100.5/GARCIA Amlodipine Besylate (Amlodipine) 10 mg PO DAILY [facility] Last Admin: 07/29/19 13:26 Dose: 10 mg Documented by: Aspirin (Baby Aspirin) 81 mg PO QDAY [facility] Atorvastatin Calcium (Lipitor) 20 mg PO QHS [facility] Clonidine HCl (Catapres) 0.1 mg PO BID [facility] Epoetin Adalid (Procrit) 10,000 unit IV CECELIA PRN PRN Reason: hemodialysis Last Admin: 07/29/19 13:42 Dose: 10,000 unit Documented by: Nitroglycerin/Dextrose (Tridil Drip 50mg/250ml) 50 mg in 250 mls @ 3 mls/hr IV TITR [facility]; Protocol Last Titration: 07/29/19 10:25 Dose: 170 mcg/min, 51 mls/hr Documented by: Sodium Chloride (Nacl 0.9%) 100 mls @ 999 mls/hr IV CECELIA PRN PRN Reason: Hypotension Metoprolol Tartrate (Metoprolol) 50 mg PO BID [facility] Last Admin: 07/29/19 13:26 Dose: 50 mg Documented by: Ondansetron HCl (Zofran) 4 mg IV Q8H PRN PRN Reason: Nausea And Vomiting Sodium Chloride (Sodium Chloride Flush Syringe 10 Ml) 10 ml IV BID [facility] Last Admin: 07/29/19 10:00 Dose: 10 ml Documented by: Sodium Chloride (Sodium Chloride Flush Syringe 10 Ml) 10 ml IV PRN PRN PRN Reason: LINE FLUSH Review of Systems All systems: negative Constitutional: fatigue, weakness Respiratory: shortness of breath Exam - Vital Signs Vital signs: Vital Signs Pulse Resp Pulse Ox 110 H 31 H 100 07/29/19 04:14 07/29/19 04:14 07/29/19 04:14 - General Appearance General appearance: cachectic, chronically ill, frail EENT: ATNC Neck: Present: neck supple Respiratory: Decreased Breath Sounds Heart: regular, S1S2 Gastrointestinal: Present: normal Integumentary: no rash Neurologic: no focal deficit Psychiatric: cooperative Results - Lab Results 07/29/19 04:30 07/29/19 04:30 Most recent lab results Calcium 9.1 mg/dL (8.4-10.2) 07/29/19 04:30 Magnesium 2.80 mg/dL (1.7-2.3) H 07/29/19 04:30 Assessment and Plan - Patient Problems (1) ESRD needing dialysis Current Visit: Yes Status: Chronic Plan to address problem: Will plan to dialyze him today and tomorrow, and then place on Thursday and Thursday inpatient schedule. I am concerned that he likely will need to increase to MWF as an outpatient secondary to volume overload, and suboptimal clearance as his serum creatinine is elevated at 12 in this cachectic male who has no significant muscle mass. 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 (2) Hyperkalemia Current Visit: Yes Status: Acute Plan to address problem: Will dialyze using a 2K bath. Counseled patient on importance of low potassium diet. (3) Hypertensive emergency Current Visit: Yes Status: Acute Plan to address problem: Patient continues on nitroglycerin gtt. Will increase UF goals to 3-4 L as tolerated, so as to optimize fluid status and help to wean off the nitroglycerin gtt. Will monitor closely. (4) Volume overload Current Visit: Yes Status: Acute Plan to address problem: Optimize UF with HD. (5) HIV (human immunodeficiency virus infection) Current Visit: Yes Status: Chronic Plan to address problem: Management per primary attending.
[2019-07-29] MEDS ORDERED: LOSARTAN 50 MG TAB PO SCH (17:00)
[2019-07-29] MEDS: cloNIDine 0.1 MG TAB PO SCH (21:01)
[2019-07-29] MEDS: hydrALAZINE 25 MG TAB PO SCH (22:00)
[2019-07-30] MEDS: NITROGLYCERIN DRIP 50 MG/250 ML BOTTLE IV SCH ×2 (02:16→07:21)
[2019-07-30 04:56] LABS: Hematocrit 29.5 % (35.5-45.6); Hemoglobin 9.7 gm/dl (11.8-15.2); Mean Corpuscular HGB Conc 33 % (32-34); Mean Corpuscular Volume 89 fl (84-94); Platelet Count 102 K/mm3 (140-440); Red Blood Count 3.31 M/mm3 (3.65-5.03)
[2019-07-30 04:57] LABS: Basophils # (Auto) 0.2 K/mm3 (0.0-0.1); Basophils % (Auto) 2.9 % (0.0-1.8); Eosinophils # (Auto) 0.2 K/mm3 (0.0-0.4); Eosinophils % (Auto) 3.3 % (0.0-4.3); Lymphocytes # (Auto) 1.6 K/mm3 (1.2-5.4); Lymphocytes % (Auto) 29.6 % (13.4-35.0); Monocytes # (Auto) 0.6 K/mm3 (0.0-0.8); Monocytes % (Auto) 11.6 % (0.0-7.3)
[2019-07-30 05:04] LABS: Calcium 8.9 mg/dL (8.4-10.2)
[2019-07-30] MEDS: hydrALAZINE 25 MG TAB PO SCH ×4 (06:03→22:52)
[2019-07-30] MEDS: ASPIRIN 81 MG TAB CHEW PO SCH (09:24)
[2019-07-30] MEDS: amLODIPine 10 MG TAB PO SCH (09:25)
[2019-07-30] MEDS: LOSARTAN 50 MG TAB PO SCH ×2 (09:25→10:45)
[2019-07-30] MEDS: METOPROLOL TARTRATE 50 MG TAB PO SCH ×2 (09:26→22:51)
[2019-07-30] MEDS: cloNIDine 0.1 MG TAB PO SCH ×3 (09:26→22:52)
--- NOTE | 2019-07-30 10:12 | Progress Note ---
Assessment and Plan Assessment and plan: Assessment Acute respiratory failure Continue BiPAP End-stage renal disease on dialysis, fluid overload /hyperkalemia Now resolved Potassium was 5.4 on admission, now 4.3 Hypertensive urgency, malignant Continue nitroglycerin drip Abnormal cardiac enzymes Check cardiac enzymes, consult cardiology HIV, stable Thrombocytopenia, continue to monitor DVT prophylaxis History Interval history: Feels better Hospitalist Physical - Physical exam Narrative exam: GEN: Not in acute distress, lying in bed,obese HEENT: Normocephalic, atraumatic, Neck: supple, No JVD Lungs: Bilateral basal crackles, , no wheeze, heart;S1 and S2 reg, no murmurs, rubs or gallop Abd:soft, non tender , non distended, normal bowel sounds Ext: No edema, no clubbing, no cyanosis Neuro: Awake,alert, oriented X 3, no focal neurological signs - Constitutional Vitals: Temp Pulse Resp BP Pulse Ox 98.8 F 84 19 150/78 100 07/30/19 09:30 07/30/19 09:45 07/30/19 09:30 07/30/19 09:45 07/30/19 09:30 General appearance: Present: no acute distress LEV score - Lev Score Age > 65: (0) No Aspirin use within the Past 7 Days: (0) No 3 or more CAD Risk Factors: (1) Yes 2 or more Angina events in past 24 hrs: (1) Yes Known CAD with more than 50% Stenosis: (0) No Elevated Cardiac Markers: (1) Yes ST Deviation Greater than 0.5mm: (0) No LEV Score: 3 Results - Labs CBC & Chem 7: 07/30/19 04:15 07/30/19 04:15 Labs: Laboratory Last Values WBC 5.5 K/mm3 (4.5-11.0) 07/30/19 04:15 RBC 3.31 M/mm3 (3.65-5.03) L 07/30/19 04:15 Hgb 9.7 gm/dl (11.8-15.2) L 07/30/19 04:15 Hct 29.5 % (35.5-45.6) L 07/30/19 04:15 MCV 89 fl (84-94) 07/30/19 04:15 MCH 29 pg (28-32) 07/30/19 04:15 MCHC 33 % (32-34) 07/30/19 04:15 RDW 17.0 % (13.2-15.2) H 07/30/19 04:15 Plt Count 102 K/mm3 (140-440) L 07/30/19 04:15 Lymph % (Auto) 29.6 % (13.4-35.0) 07/30/19 04:15 [place] % (Auto) 11.6 % (0.0-7.3) H 07/30/19 04:15 Eos % (Auto) 3.3 % (0.0-4.3) 07/30/19 04:15 Baso % (Auto) 2.9 % (0.0-1.8) H 07/30/19 04:15 Lymph # 1.6 K/mm3 (1.2-5.4) 07/30/19 04:15 [place] # 0.6 K/mm3 (0.0-0.8) 07/30/19 04:15 Eos # 0.2 K/mm3 (0.0-0.4) 07/30/19 04:15 Baso # 0.2 K/mm3 (0.0-0.1) H 07/30/19 04:15 Add Manual Diff Complete 07/30/19 04:15 Seg Neutrophils % 52.6 % (40.0-70.0) 07/30/19 04:15 Seg Neutrophils # 2.9 K/mm3 (1.8-7.7) 07/30/19 04:15 PT 20.9 Sec. (12.2-14.9) H 07/29/19 04:30 INR 1.77 (0.87-1.13) H 07/29/19 04:30 APTT 33.7 Sec. (24.2-36.6) 07/29/19 04:30 Sodium 138 mmol/L (137-145) 07/30/19 04:15 Potassium 4.3 mmol/L (3.6-5.0) D 07/30/19 04:15 Chloride 97.7 mmol/L (98-107) L 07/30/19 04:15 Carbon Dioxide 28 mmol/L (22-30) 07/30/19 04:15 Anion Gap 17 mmol/L 07/30/19 04:15 BUN 21 mg/dL (9-20) H 07/30/19 04:15 Creatinine 8.1 mg/dL (0.8-1.5) H 07/30/19 04:15 Estimated GFR 8 ml/min 07/30/19 04:15 BUN/Creatinine Ratio 3 % 07/30/19 04:15 Glucose 120 mg/dL (75-100) H 07/30/19 04:15 POC Glucose 82 (70-105) 07/29/19 18:06 Lactic Acid 0.60 mmol/L (0.7-2.0) L 07/29/19 08:19 Calcium 8.9 mg/dL (8.4-10.2) 07/30/19 04:15 Magnesium 2.80 mg/dL (1.7-2.3) H 07/29/19 04:30 Total Bilirubin 0.40 mg/dL (0.1-1.2) 07/29/19 04:30 AST 66 units/L (5-40) H 07/29/19 04:30 ALT 44 units/L (7-56) 07/29/19 04:30 Alkaline Phosphatase 129 units/L (35-129) 07/29/19 04:30 Lactate Dehydrogenase 342 units/L (91-180) H 07/29/19 04:30 Total Creatine Kinase 156 units/L (55-170) 07/29/19 12:00 CK-MB (CK-2) 5.7 ng/mL (0.0-4.0) H 07/29/19 12:00 CK-MB (CK-2) Rel Index 3.6 (0-4) 07/29/19 12:00 Troponin T 0.274 ng/mL (0.00-0.029) H* 07/29/19 12:00 Total Protein 7.9 g/dL (6.3-8.2) 07/29/19 04:30 Albumin 3.6 g/dL (3.9-5) L 07/29/19 04:30 Albumin/Globulin Ratio 0.8 % 07/29/19 04:30 Triglycerides 57 mg/dL (2-149) 07/29/19 04:30 Cholesterol 147 mg/dL (50-199) 07/29/19 04:30 LDL Cholesterol Direct 80 mg/dL (50-130) 07/29/19 04:30 HDL Cholesterol 62 mg/dL (40-59) H 07/29/19 04:30 Cholesterol/HDL Ratio 2.37 % 07/29/19 04:30 Hepatitis A IgM Ab Non-reactive (NonReactive) 07/29/19 12:00 Hep Bs Antigen Non-reactive (Negative) 07/29/19 12:00 Hep B Core IgM Ab Non-reactive (NonReactive) 07/29/19 12:00 Hepatitis C Antibody Non-reactive (NonReactive) 07/29/19 12:00 Active Medications - Current Medications Current Medications: Generic Name Dose Route Start Last Admin Trade Name Freq PRN Reason Stop Dose Admin Acetaminophen 650 mg 07/29/19 05:58 Tylenol PO Q4H PRN Pain MILD(1-3)/Fever >100.5/GARCIA Amlodipine Besylate 10 mg 07/29/19 13:00 07/30/19 09:25 Amlodipine PO Not Given DAILY [facility] Aspirin 81 mg 07/30/19 10:00 07/30/19 09:24 Baby Aspirin PO 81 mg QDAY [facility] Administration Atorvastatin Calcium 20 mg 07/29/19 22:00 07/29/19 21:01 Lipitor PO 20 mg QHS [facility] Administration Clonidine HCl 0.1 mg 07/29/19 22:00 07/30/19 09:26 Catapres PO Not Given BID [facility] Epoetin Adalid 10,000 unit 07/29/19 08:39 07/29/19 13:42 Procrit IV 10,000 unit CECELIA PRN Administration hemodialysis Hydralazine HCl 50 mg 07/29/19 18:00 07/30/19 06:03 Apresoline PO 50 mg Q8HR [facility]UELANGEL Administration Nitroglycerin/Dextrose 50 mg in 250 mls @ 3 mls/hr 07/29/19 05:00 07/30/19 07:21 Tridil Drip 50mg/250ml IV 200 mcg/min TITR MIGUELANGEL 60 mls/hr Administration Protocol 10 MCG/MIN Sodium Chloride 100 mls @ 999 mls/hr 07/29/19 14:43 Nacl 0.9% IV CECELIA PRN Hypotension Losartan Potassium 100 mg 07/29/19 18:00 07/30/19 09:25 Cozaar PO Not Given QDAY [facility] Metoprolol Tartrate 50 mg 07/29/19 13:00 07/30/19 09:26 Metoprolol PO Not Given BID [facility] Ondansetron HCl 4 mg 07/29/19 05:58 Zofran IV Q8H PRN Nausea And Vomiting Pneumococcal Polyvalent Vaccine 0.5 ml 07/30/19 12:00 Pneumovax 23 IM 07/30/19 12:01 .ONCE ONE Sodium Chloride 10 ml 07/29/19 10:00 07/29/19 21:02 Sodium Chloride Flush Syringe 10 Ml IV 10 ml BID MIGUELANGEL Administration Sodium Chloride 10 ml 07/29/19 05:58 Sodium Chloride Flush Syringe 10 Ml IV PRN PRN LINE FLUSH
--- NOTE | 2019-07-30 10:25 | Progress Note ---
Assessment and Plan - Patient Problems (1) ESRD needing dialysis Current Visit: Yes Status: Chronic Plan to address problem: another HD today for volume control and then place on Thursday and Thursday inpatient schedule. Patient will benefit from 3x weekly HD an outpatient secondary to volume overload, and suboptimal clearance. 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 (2) Hyperkalemia Current Visit: Yes Status: Acute Plan to address problem: HD with 2 k bath Counseled patient on importance of low potassium diet. (3) Hypertensive chronic kidney disease with stage 5 chronic kidney disease or end stage renal disease Current Visit: No Status: Chronic Plan to address problem: Patient continues on nitroglycerin gtt. Will increase UF goals to 3-4 L as tolerated, so as to optimize fluid status and help to wean off the nitroglycerin gtt. Will monitor closely. (4) Volume overload Current Visit: Yes Status: Acute Plan to address problem: Optimize UF with HD. (5) HIV (human immunodeficiency virus infection) Current Visit: Yes Status: Chronic Plan to address problem: management as per primary team Subjective Date of service: 07/30/19 Principal diagnosis: ESRD Interval history: Pt awake, alert, in no acute distress Objective - Vital Signs Vital signs: Vital Signs - 12hr 07/29/19 07/29/19 07/29/19 22:31 22:45 23:00 Temperature Pulse Rate 81 79 82 Pulse Rate [ From Monitor] Respiratory 25 H 25 H 27 H Rate Blood Pressure 134/68 134/68 140/69 O2 Sat by Pulse 98 99 97 Oximetry O2 Sat by Pulse Oximetry [ Anterior Bilateral Throughout] 07/29/19 07/29/19 07/29/19 23:15 23:19 23:31 Temperature 99.8 F H Pulse Rate 81 78 Pulse Rate [ From Monitor] Respiratory 25 H 23 Rate Blood Pressure 140/69 138/66 O2 Sat by Pulse 98 98 Oximetry O2 Sat by Pulse Oximetry [ Anterior Bilateral Throughout] 07/29/19 07/30/19 07/30/19 23:45 00:00 00:16 Temperature Pulse Rate 79 84 89 Pulse Rate [ From Monitor] Respiratory 24 25 H 27 H Rate Blood Pressure 138/66 139/73 147/74 O2 Sat by Pulse 98 97 92 Oximetry O2 Sat by Pulse Oximetry [ Anterior Bilateral Throughout] 07/30/19 07/30/19 07/30/19 00:30 00:45 01:00 Temperature Pulse Rate 87 89 87 Pulse Rate [ From Monitor] Respiratory 24 24 20 Rate Blood Pressure 151/76 151/81 156/82 O2 Sat by Pulse 94 91 93 Oximetry O2 Sat by Pulse Oximetry [ Anterior Bilateral Throughout] 07/30/19 07/30/19 07/30/19 01:15 01:30 01:46 Temperature Pulse Rate 81 86 88 Pulse Rate [ From Monitor] Respiratory 22 25 H 26 H Rate Blood Pressure 149/81 152/81 152/76 O2 Sat by Pulse 99 95 93 Oximetry O2 Sat by Pulse Oximetry [ Anterior Bilateral Throughout] 07/30/19 07/30/19 07/30/19 02:00 02:16 02:30 Temperature Pulse Rate 82 84 77 Pulse Rate [ From Monitor] Respiratory 22 24 20 Rate Blood Pressure 148/77 159/80 152/74 O2 Sat by Pulse 97 98 100 Oximetry O2 Sat by Pulse Oximetry [ Anterior Bilateral Throughout] 07/30/19 07/30/19 07/30/19 02:45 03:00 03:15 Temperature Pulse Rate 82 80 84 Pulse Rate [ From Monitor] Respiratory 21 22 24 Rate Blood Pressure 153/77 149/76 150/79 O2 Sat by Pulse 100 100 100 Oximetry O2 Sat by Pulse Oximetry [ Anterior Bilateral Throughout] 07/30/19 07/30/19 07/30/19 03:30 03:43 03:46 Temperature 98.7 F Pulse Rate 96 H 82 Pulse Rate [ From Monitor] Respiratory 26 H 23 Rate Blood Pressure 150/79 154/79 O2 Sat by Pulse 95 100 Oximetry O2 Sat by Pulse Oximetry [ Anterior Bilateral Throughout] 07/30/19 07/30/19 07/30/19 04:00 04:15 04:30 Temperature Pulse Rate 79 83 82 Pulse Rate [ From Monitor] Respiratory 22 21 25 H Rate Blood Pressure 155/80 159/83 160/86 O2 Sat by Pulse 100 100 100 Oximetry O2 Sat by Pulse Oximetry [ Anterior Bilateral Throughout] 07/30/19 07/30/19 07/30/19 04:45 05:00 05:15 Temperature Pulse Rate 81 76 78 Pulse Rate [ From Monitor] Respiratory 21 19 20 Rate Blood Pressure 160/85 154/82 154/82 O2 Sat by Pulse 100 100 100 Oximetry O2 Sat by Pulse Oximetry [ Anterior Bilateral Throughout] 07/30/19 07/30/19 07/30/19 05:30 05:45 06:01 Temperature Pulse Rate 76 77 79 Pulse Rate [ From Monitor] Respiratory 19 19 19 Rate Blood Pressure 141/73 141/73 140/74 O2 Sat by Pulse 100 100 100 Oximetry O2 Sat by Pulse Oximetry [ Anterior Bilateral Throughout] 07/30/19 07/30/19 07/30/19 06:03 06:15 06:31 Temperature Pulse Rate 81 76 77 Pulse Rate [ From Monitor] Respiratory 17 22 Rate Blood Pressure 140/74 140/74 158/76 O2 Sat by Pulse 100 100 Oximetry O2 Sat by Pulse Oximetry [ Anterior Bilateral Throughout] 07/30/19 07/30/19 07/30/19 06:46 07:00 07:16 Temperature Pulse Rate 81 79 90 Pulse Rate [ From Monitor] Respiratory 20 22 19 Rate Blood Pressure 129/60 126/59 144/76 O2 Sat by Pulse 100 100 100 Oximetry O2 Sat by Pulse Oximetry [ Anterior Bilateral Throughout] 07/30/19 07/30/19 07/30/19 07:30 07:45 08:00 Temperature 98.3 F Pulse Rate 79 80 79 Pulse Rate [ 79 From Monitor] Respiratory 20 20 19 Rate Blood Pressure 130/71 140/78 136/75 O2 Sat by Pulse 100 100 100 Oximetry O2 Sat by Pulse Oximetry [ Anterior Bilateral Throughout] 07/30/19 07/30/19 07/30/19 08:16 08:30 08:45 Temperature Pulse Rate 84 79 79 Pulse Rate [ From Monitor] Respiratory 25 H 20 19 Rate Blood Pressure 146/76 145/77 140/73 O2 Sat by Pulse 100 100 100 Oximetry O2 Sat by Pulse Oximetry [ Anterior Bilateral Throughout] 07/30/19 07/30/19 07/30/19 09:25 09:26 09:30 Temperature 98.8 F Pulse Rate 81 81 87 Pulse Rate [ From Monitor] Respiratory 19 Rate Blood Pressure 134/71 134/71 143/80 O2 Sat by Pulse Oximetry O2 Sat by Pulse 100 Oximetry [ Anterior Bilateral Throughout] 07/30/19 07/30/19 07/30/19 09:45 10:00 10:15 Temperature Pulse Rate 84 76 71 Pulse Rate [ From Monitor] Respiratory Rate Blood Pressure 150/78 145/68 133/58 O2 Sat by Pulse Oximetry O2 Sat by Pulse Oximetry [ Anterior Bilateral Throughout] - General Appearance General appearance: well-developed, well-nourished, appears stated age EENT: ATNC, PERRL, mucous membranes moist Neck: no JVD Respiratory: Present: Clear to Ascultation Cardiology: regular, S1S2 Gastrointestinal: normoactive bowel sounds Integumentary: no rash Neurologic: no focal deficit, alert and oriented x3, strength 5/5, CN 3-12 intact Psychiatric: mood/affect appropriate, cooperative - Lab 07/30/19 04:15 07/30/19 04:15 Most recent lab results Calcium 8.9 mg/dL (8.4-10.2) 07/30/19 04:15 Magnesium 2.80 mg/dL (1.7-2.3) H 07/29/19 04:30 Medications & Allergies - Medications Allergies/Adverse Reactions: Allergies lisinopril Allergy (Verified 11/24/14 19:07) Angioedema Home Medications: Home Medications Medication Instructions Recorded Confirmed Last Taken Type Abacavir [Ziagen TAB] 300 mg PO BID 11/01/18 07/29/19 Unknown History Dolutegravir [Tivicay] 50 mg PO DAILY 11/01/18 07/29/19 Unknown History cloNIDine [Catapres] 0.1 mg PO BID 11/01/18 07/29/19 Unknown History Aspirin [Aspirin BABY CHEW TAB] 81 mg PO QDAY #30 tab.chew 11/03/18 07/29/19 Unknown Rx AtorvaSTATin [Lipitor] 20 mg PO QHS #30 tablet 11/03/18 07/29/19 Unknown Rx Clopidogrel [Plavix] 75 mg PO QDAY #30 tablet 11/03/18 07/29/19 Unknown Rx Metoprolol [Lopressor TAB] 50 mg PO BID #60 tablet 11/03/18 07/29/19 Unknown Rx amLODIPine [Norvasc] 10 mg PO DAILY #30 tab 11/03/18 07/29/19 Unknown Rx Active Medications: Generic Name Dose Route Start Last Admin Trade Name Freq PRN Reason Stop Dose Admin Acetaminophen 650 mg 07/29/19 05:58 Tylenol PO Q4H PRN Pain MILD(1-3)/Fever >100.5/GARCIA Amlodipine Besylate 10 mg 07/29/19 13:00 07/30/19 09:25 Amlodipine PO Not Given DAILY [facility] Aspirin 81 mg 07/30/19 10:00 07/30/19 09:24 Baby Aspirin PO 81 mg QDAY [facility] Administration Atorvastatin Calcium 20 mg 07/29/19 22:00 07/29/19 21:01 Lipitor PO 20 mg QHS MIGUELANGEL Administration Clonidine HCl 0.1 mg 07/29/19 22:00 07/30/19 09:26 Catapres PO Not Given BID [facility] Epoetin Adalid 10,000 unit 07/29/19 08:39 07/29/19 13:42 Procrit IV 10,000 unit CECELIA PRN Administration hemodialysis Hydralazine HCl 50 mg 07/29/19 18:00 07/30/19 06:03 Apresoline PO 50 mg Q8HR MIGUELANGEL Administration Sodium Chloride 100 mls @ 999 mls/hr 07/29/19 14:43 Nacl 0.9% IV CECELIA PRN Hypotension Losartan Potassium 100 mg 07/29/19 18:00 07/30/19 09:25 Cozaar PO Not Given QDAY [facility] Metoprolol Tartrate 50 mg 07/29/19 13:00 07/30/19 09:26 Metoprolol PO Not Given BID [facility] Ondansetron HCl 4 mg 07/29/19 05:58 Zofran IV Q8H PRN Nausea And Vomiting Pneumococcal Polyvalent Vaccine 0.5 ml 07/30/19 12:00 Pneumovax 23 IM 07/30/19 12:01 .ONCE ONE Sodium Chloride 10 ml 07/29/19 10:00 07/29/19 21:02 Sodium Chloride Flush Syringe 10 Ml IV 10 ml BID MIGUELANGEL Administration Sodium Chloride 10 ml 07/29/19 05:58 Sodium Chloride Flush Syringe 10 Ml IV PRN PRN LINE FLUSH
[2019-07-30] MEDS ORDERED: PNEUMOCOCCAL 23 Valent 0.5 ML VIAL IM ONE (12:00)
--- NOTE | 2019-07-30 13:06 | Progress Note ---
Assessment and Plan 58 y/o male admitted with hypertensive urgency, acute respiratory failure, NSTEMI. 1. HD today per renal 2. Off nitro 3. Resume home medication regimen Transfer to floor, wean FiO2 to off Subjective Date of service: 07/30/19 Principal diagnosis: ESRD Interval history: No acute events. Of NTG drip. Getting HD again today. STable. Objective - Constitutional Vitals: Vital Signs - 12hr 07/30/19 07/30/19 07/30/19 01:15 01:30 01:46 Temperature Pulse Rate 81 86 88 Pulse Rate [ From Monitor] Respiratory 22 25 H 26 H Rate Blood Pressure 149/81 152/81 152/76 O2 Sat by Pulse 99 95 93 Oximetry O2 Sat by Pulse Oximetry [ Anterior Bilateral Throughout] 07/30/19 07/30/19 07/30/19 02:00 02:16 02:30 Temperature Pulse Rate 82 84 77 Pulse Rate [ From Monitor] Respiratory 22 24 20 Rate Blood Pressure 148/77 159/80 152/74 O2 Sat by Pulse 97 98 100 Oximetry O2 Sat by Pulse Oximetry [ Anterior Bilateral Throughout] 07/30/19 07/30/19 07/30/19 02:45 03:00 03:15 Temperature Pulse Rate 82 80 84 Pulse Rate [ From Monitor] Respiratory 21 22 24 Rate Blood Pressure 153/77 149/76 150/79 O2 Sat by Pulse 100 100 100 Oximetry O2 Sat by Pulse Oximetry [ Anterior Bilateral Throughout] 07/30/19 07/30/19 07/30/19 03:30 03:43 03:46 Temperature 98.7 F Pulse Rate 96 H 82 Pulse Rate [ From Monitor] Respiratory 26 H 23 Rate Blood Pressure 150/79 154/79 O2 Sat by Pulse 95 100 Oximetry O2 Sat by Pulse Oximetry [ Anterior Bilateral Throughout] 07/30/19 07/30/19 07/30/19 04:00 04:15 04:30 Temperature Pulse Rate 79 83 82 Pulse Rate [ From Monitor] Respiratory 22 21 25 H Rate Blood Pressure 155/80 159/83 160/86 O2 Sat by Pulse 100 100 100 Oximetry O2 Sat by Pulse Oximetry [ Anterior Bilateral Throughout] 07/30/19 07/30/19 07/30/19 04:45 05:00 05:15 Temperature Pulse Rate 81 76 78 Pulse Rate [ From Monitor] Respiratory 21 19 20 Rate Blood Pressure 160/85 154/82 154/82 O2 Sat by Pulse 100 100 100 Oximetry O2 Sat by Pulse Oximetry [ Anterior Bilateral Throughout] 07/30/19 07/30/19 07/30/19 05:30 05:45 06:01 Temperature Pulse Rate 76 77 79 Pulse Rate [ From Monitor] Respiratory 19 19 19 Rate Blood Pressure 141/73 141/73 140/74 O2 Sat by Pulse 100 100 100 Oximetry O2 Sat by Pulse Oximetry [ Anterior Bilateral Throughout] 07/30/19 07/30/19 07/30/19 06:03 06:15 06:31 Temperature Pulse Rate 81 76 77 Pulse Rate [ From Monitor] Respiratory 17 22 Rate Blood Pressure 140/74 140/74 158/76 O2 Sat by Pulse 100 100 Oximetry O2 Sat by Pulse Oximetry [ Anterior Bilateral Throughout] 07/30/19 07/30/19 07/30/19 06:46 07:00 07:16 Temperature Pulse Rate 81 79 90 Pulse Rate [ From Monitor] Respiratory 20 22 19 Rate Blood Pressure 129/60 126/59 144/76 O2 Sat by Pulse 100 100 100 Oximetry O2 Sat by Pulse Oximetry [ Anterior Bilateral Throughout] 07/30/19 07/30/19 07/30/19 07:30 07:45 08:00 Temperature 98.3 F Pulse Rate 79 80 79 Pulse Rate [ 79 From Monitor] Respiratory 20 20 19 Rate Blood Pressure 130/71 140/78 136/75 O2 Sat by Pulse 100 100 100 Oximetry O2 Sat by Pulse Oximetry [ Anterior Bilateral Throughout] 07/30/19 07/30/19 07/30/19 08:16 08:30 08:45 Temperature Pulse Rate 84 79 79 Pulse Rate [ From Monitor] Respiratory 25 H 20 19 Rate Blood Pressure 146/76 145/77 140/73 O2 Sat by Pulse 100 100 100 Oximetry O2 Sat by Pulse Oximetry [ Anterior Bilateral Throughout] 07/30/19 07/30/19 07/30/19 09:00 09:15 09:25 Temperature Pulse Rate 81 79 81 Pulse Rate [ From Monitor] Respiratory 20 19 Rate Blood Pressure 143/77 134/71 134/71 O2 Sat by Pulse 100 100 Oximetry O2 Sat by Pulse Oximetry [ Anterior Bilateral Throughout] 07/30/19 07/30/19 07/30/19 09:26 09:30 09:45 Temperature 98.8 F Pulse Rate 81 85 83 Pulse Rate [ From Monitor] Respiratory 23 23 Rate Blood Pressure 134/71 143/80 150/78 O2 Sat by Pulse 100 100 Oximetry O2 Sat by Pulse 100 Oximetry [ Anterior Bilateral Throughout] 07/30/19 07/30/19 07/30/19 10:00 10:15 10:30 Temperature Pulse Rate 76 72 73 Pulse Rate [ From Monitor] Respiratory 21 20 19 Rate Blood Pressure 145/68 133/58 126/59 O2 Sat by Pulse 100 100 100 Oximetry O2 Sat by Pulse Oximetry [ Anterior Bilateral Throughout] 07/30/19 07/30/19 07/30/19 10:45 11:00 11:15 Temperature Pulse Rate 71 73 69 Pulse Rate [ From Monitor] Respiratory Rate Blood Pressure 149/67 149/69 151/71 O2 Sat by Pulse Oximetry O2 Sat by Pulse Oximetry [ Anterior Bilateral Throughout] 07/30/19 11:30 Temperature Pulse Rate 72 Pulse Rate [ From Monitor] Respiratory Rate Blood Pressure 157/77 O2 Sat by Pulse Oximetry O2 Sat by Pulse Oximetry [ Anterior Bilateral Throughout] - Labs CBC & Chem 7: 07/30/19 04:15 07/30/19 04:15 Labs: Abnormal lab results 07/29/19 07/29/19 07/29/19 Range/Units 11:59 12:00 12:00 RBC (3.65-5.03) M/mm3 Hgb (11.8-15.2) gm/dl Hct (35.5-45.6) % RDW (13.2-15.2) % Plt Count (140-440) K/mm3 [place] % (Auto) (0.0-7.3) % Baso % (Auto) (0.0-1.8) % Baso # (0.0-0.1) K/mm3 Chloride (98-107) mmol/L BUN (9-20) mg/dL Creatinine (0.8-1.5) mg/dL Glucose (75-100) mg/dL POC Glucose 117 H (70-105) CK-MB (CK-2) 5.7 H (0.0-4.0) ng/mL Troponin T 0.274 H* (0.00-0.029) ng/mL 07/30/19 07/30/19 Range/Units 04:15 04:15 RBC 3.31 L (3.65-5.03) M/mm3 Hgb 9.7 L (11.8-15.2) gm/dl Hct 29.5 L (35.5-45.6) % RDW 17.0 H (13.2-15.2) % Plt Count 102 L (140-440) K/mm3 [place] % (Auto) 11.6 H (0.0-7.3) % Baso % (Auto) 2.9 H (0.0-1.8) % Baso # 0.2 H (0.0-0.1) K/mm3 Chloride 97.7 L (98-107) mmol/L BUN 21 H (9-20) mg/dL Creatinine 8.1 H (0.8-1.5) mg/dL Glucose 120 H (75-100) mg/dL POC Glucose (70-105) CK-MB (CK-2) (0.0-4.0) ng/mL Troponin T (0.00-0.029) ng/mL Medications & Allergies - Medications Allergies/Adverse Reactions: Allergies lisinopril Allergy (Verified 11/24/14 19:07) Angioedema Home Medications: Home Medications Medication Instructions Recorded Confirmed Last Taken Type Abacavir [Ziagen TAB] 300 mg PO BID 11/01/18 07/29/19 Unknown History Dolutegravir [Tivicay] 50 mg PO DAILY 11/01/18 07/29/19 Unknown History cloNIDine [Catapres] 0.1 mg PO BID 11/01/18 07/29/19 Unknown History Aspirin [Aspirin BABY CHEW TAB] 81 mg PO QDAY #30 tab.chew 11/03/18 07/29/19 Unknown Rx AtorvaSTATin [Lipitor] 20 mg PO QHS #30 tablet 11/03/18 07/29/19 Unknown Rx Clopidogrel [Plavix] 75 mg PO QDAY #30 tablet 11/03/18 07/29/19 Unknown Rx Metoprolol [Lopressor TAB] 50 mg PO BID #60 tablet 11/03/18 07/29/19 Unknown Rx amLODIPine [Norvasc] 10 mg PO DAILY #30 tab 11/03/18 07/29/19 Unknown Rx Active Medications: Generic Name Dose Route Start Last Admin Trade Name Freq PRN Reason Stop Dose Admin Acetaminophen 650 mg 07/29/19 05:58 Tylenol PO Q4H PRN Pain MILD(1-3)/Fever >100.5/GARCIA Amlodipine Besylate 10 mg 07/29/19 13:00 07/30/19 09:25 Amlodipine PO Not Given DAILY [facility] Aspirin 81 mg 07/30/19 10:00 07/30/19 09:24 Baby Aspirin PO 81 mg QDAY [facility] Administration Atorvastatin Calcium 20 mg 07/29/19 22:00 07/29/19 21:01 Lipitor PO 20 mg QHS [facility] Administration Clonidine HCl 0.1 mg 07/29/19 22:00 07/30/19 09:26 Catapres PO Not Given BID [facility] Epoetin Adalid 10,000 unit 07/29/19 08:39 07/29/19 13:42 Procrit IV 10,000 unit CECELIA PRN Administration hemodialysis Hydralazine HCl 50 mg 07/29/19 18:00 07/30/19 10:45 Apresoline PO Not Given Q8HR [facility] Sodium Chloride 100 mls @ 999 mls/hr 07/29/19 14:43 Nacl 0.9% IV CECELIA PRN Hypotension Losartan Potassium 100 mg 07/29/19 18:00 07/30/19 10:45 Cozaar PO Not Given QDAY [facility] Metoprolol Tartrate 50 mg 07/29/19 13:00 07/30/19 09:26 Metoprolol PO Not Given BID [facility] Ondansetron HCl 4 mg 07/29/19 05:58 Zofran IV Q8H PRN Nausea And Vomiting Sodium Chloride 10 ml 07/29/19 10:00 07/29/19 21:02 Sodium Chloride Flush Syringe 10 Ml IV 10 ml BID MIGUELANGEL Administration Sodium Chloride 10 ml 07/29/19 05:58 Sodium Chloride Flush Syringe 10 Ml IV PRN PRN LINE FLUSH
--- NOTE | 2019-07-30 13:52 | Progress Note ---
Assessment and Plan Pt is a 58 y.o. AA male with a past medical hx of ESRD on HD (MWF), COPD, DVT, SVT, HTN, and HLD. He is followed in our office by Dr. Wu. Off Ntg drip. On dialysis. cont current management - Patient Problems (1) Acute diastolic CHF (congestive heart failure) Current Visit: Yes Status: Acute (2) Acute respiratory failure Current Visit: Yes Status: Acute (3) Dialysis patient, noncompliant Current Visit: Yes Status: Acute (4) Hypertensive emergency Current Visit: Yes Status: Acute (5) NSTEMI (non-ST elevated myocardial infarction) Current Visit: Yes Status: Acute (6) COPD (chronic obstructive pulmonary disease) Current Visit: Yes Status: Chronic Qualifiers: COPD type: emphysema (7) HIV (human immunodeficiency virus infection) Current Visit: Yes Status: Chronic (8) HTN (hypertension) Current Visit: Yes Status: Chronic Qualifiers: Hypertension type: essential hypertension Qualified Code(s): I10 - Essential (primary) hypertension (9) Hx of deep venous thrombosis Current Visit: Yes Status: Chronic (10) Hyperlipidemia Current Visit: Yes Status: Chronic Qualifiers: Hyperlipidemia type: mixed hyperlipidemia Qualified Code(s): E78.2 - Mixed hyperlipidemia Subjective Date of service: 07/30/19 Principal diagnosis: ESRD Interval history: On dialysis. Doing better.No cardiac sx. Off Ntg drip. Objective Vital Signs Temp Pulse Pulse Resp BP Pulse Ox Pulse Ox 07/30/19 13:30 97.6 F 72 19 175/86 100 07/30/19 13:15 68 165/75 07/30/19 13:00 68 161/73 07/30/19 12:45 70 154/73 07/30/19 12:30 70 170/80 07/30/19 12:15 67 163/86 07/30/19 12:00 69 170/79 07/30/19 11:45 69 161/77 07/30/19 11:30 72 157/77 07/30/19 11:15 69 151/71 07/30/19 11:00 73 149/69 07/30/19 10:45 71 149/67 07/30/19 10:30 73 19 126/59 100 07/30/19 10:15 72 20 133/58 100 07/30/19 10:00 76 21 145/68 100 02/15/20 09:45 83 23 150/78 100 07/30/19 09:30 98.8 F 85 23 143/80 100 100 07/30/19 09:26 81 134/71 07/30/19 09:25 81 134/71 07/30/19 09:15 79 19 134/71 100 07/30/19 09:00 81 20 143/77 100 07/30/19 08:45 79 19 140/73 100 07/30/19 08:30 79 20 145/77 100 07/30/19 08:16 84 25 H 146/76 100 07/30/19 08:00 98.3 F 79 79 19 136/75 100 07/30/19 07:45 80 20 140/78 100 07/30/19 07:30 79 20 130/71 100 07/30/19 07:16 90 19 144/76 100 07/30/19 07:00 79 22 126/59 100 07/30/19 06:46 81 20 129/60 100 07/30/19 06:31 77 22 158/76 100 07/30/19 06:15 76 17 140/74 100 07/30/19 06:03 81 140/74 07/30/19 06:01 79 19 140/74 100 07/30/19 05:45 77 19 141/73 100 07/30/19 05:30 76 19 141/73 100 07/30/19 05:15 78 20 154/82 100 07/30/19 05:00 76 19 154/82 100 07/30/19 04:45 81 21 160/85 100 07/30/19 04:30 82 25 H 160/86 100 07/30/19 04:15 83 21 159/83 100 07/30/19 04:00 79 22 155/80 100 07/30/19 03:46 82 23 154/79 100 07/30/19 03:43 98.7 F 07/30/19 03:30 96 H 26 H 150/79 95 07/30/19 03:15 84 24 150/79 100 07/30/19 03:00 80 22 149/76 100 07/30/19 02:45 82 21 153/77 100 07/30/19 02:30 77 20 152/74 100 07/30/19 02:16 84 24 159/80 98 07/30/19 02:00 82 22 148/77 97 07/30/19 01:46 88 26 H 152/76 93 07/30/19 01:30 86 25 H 152/81 95 07/30/19 01:15 81 22 149/81 99 07/30/19 01:00 87 20 156/82 93 07/30/19 00:45 89 24 151/81 91 07/30/19 00:30 87 24 151/76 94 07/30/19 00:16 89 27 H 147/74 92 07/30/19 00:00 84 25 H 139/73 97 07/29/19 23:45 79 24 138/66 98 07/29/19 23:31 78 23 138/66 98 07/29/19 23:19 99.8 F H 07/29/19 23:15 81 25 H 140/69 98 07/29/19 23:00 82 27 H 140/69 97 07/29/19 22:45 79 25 H 134/68 99 07/29/19 22:31 81 25 H 134/68 98 07/29/19 22:15 97 H 27 H 141/77 97 07/29/19 22:01 84 22 141/77 99 07/29/19 22:00 78 07/29/19 21:45 88 24 148/79 99 07/29/19 21:31 89 24 148/79 98 07/29/19 21:27 89 16 157/78 100 07/29/19 21:15 88 20 156/73 100 07/29/19 21:08 100 07/29/19 21:02 100 H 156/73 07/29/19 21:01 92 H 23 165/97 99 07/29/19 20:41 88 28 H 100 07/29/19 20:31 89 29 H 100 07/29/19 20:21 84 27 H 100 07/29/19 20:11 86 28 H 100 07/29/19 20:01 87 30 H 100 07/29/19 20:00 99.5 F 100 07/29/19 19:51 95 H 32 H 96 07/29/19 19:41 91 H 33 H 100 07/29/19 19:31 90 31 H 98 07/29/19 19:21 84 32 H 100 07/29/19 19:11 83 30 H 100 02/14/20 19:01 89 33 H 99 20 18:51 85 31 H 100 021420 18:45 97 021420 18:20 94 H 34 H 172/93 94 0214/20 18:11 95 H 35 H 155/89 90 1420 18:00 90 31 H 163/88 95 1420 17:50 96 H 35 H 171/84 96 20 17:41 96 H 33 H 171/89 91 1420 17:30 88 29 H 164/87 93 20 17:20 92 H 26 H 164/92 93 1420 17:11 90 31 H 168/86 94 20 17:01 94 H 32 H 153/74 91 1420 16:50 89 29 H 165/77 93 1420 16:40 89 28 H 153/87 97 1420 16:31 90 28 H 170/86 96 20 16:24 92 H 165/84 20 16:21 85 25 H 165/84 97 20 16:10 88 25 H 170/86 97 20 16:00 90 28 H 169/89 97 1420 15:50 89 27 H 175/82 98 1420 15:41 92 H 29 H 175/92 97 1420 15:30 93 H 28 H 169/89 97 14/20 15:29 97.9 F 90 26 H 196/79 96 20 15:20 103 H 24 202/88 97 1420 15:10 78 27 H 172/101 97 20 15:01 92 H 28 H 154/85 99 021420 15:00 100 H 196/79 021420 14:51 94 H 24 163/81 99 021420 14:46 92 H 157/87 021420 14:40 97 H 29 H 170/92 99 20 14:31 94 H 25 H 159/84 98 0214/20 14:30 92 H 170/92 20 14:21 99 H 28 H 164/96 98 20 14:15 109 H 160/101 0214/20 14:11 94 H 25 H 164/99 100 07/29/19 14:01 86 22 179/94 100 07/29/19 14:00 86 178/89 100 07/29/19 13:51 86 24 179/86 100 - Physical Examination General: No Apparent Distress HEENT: Positive: EOMI, Normocephaly, Mucus Membranes Moist Neck: Positive: neck supple Cardiac: Positive: Reg Rate and Rhythm Lungs: Positive: clear to auscultation Neuro: Positive: Grossly Intact, Motor Function Intact, Coordination Normal Abdomen: Positive: Soft, Active Bowel Sounds. Negative: Tender Skin: Negative: Rash, Wound Musculoskeletal: No Pain Extremities: Present: upper extr. pulses, lower extr. pulses. Absent: edema - Labs and Meds CBC 07/30/19 Range/Units 04:15 WBC 5.5 (4.5-11.0) K/mm3 RBC 3.31 L (3.65-5.03) M/mm3 Hgb 9.7 L (11.8-15.2) gm/dl Hct 29.5 L (35.5-45.6) % Plt Count 102 L (140-440) K/mm3 Lymph # 1.6 (1.2-5.4) K/mm3 Lucas # 0.6 (0.0-0.8) K/mm3 Eos # 0.2 (0.0-0.4) K/mm3 Baso # 0.2 H (0.0-0.1) K/mm3 Comprehensive Metabolic Panel 07/30/19 Range/Units 04:15 Sodium 138 (137-145) mmol/L Potassium 4.3 D (3.6-5.0) mmol/L Chloride 97.7 L (98-107) mmol/L Carbon Dioxide 28 (22-30) mmol/L BUN 21 H (9-20) mg/dL Creatinine 8.1 H (0.8-1.5) mg/dL Glucose 120 H (75-100) mg/dL Calcium 8.9 (8.4-10.2) mg/dL - Imaging and Cardiology EKG: report reviewed, image reviewed Echo: report reviewed (EF 60%; mild AV sclerosis; trace AR; trace MR; trace TR; trace [place] ) - EKG Sinus rhythms and dysrhythmias: sinus rhythm
[2019-07-30] MEDS ORDERED: SODIUM CHLORIDE*PRIMING MACHINE ONLY FOR DIALYSIS MC ONE (14:25)
[2019-07-31] MEDS: hydrALAZINE 25 MG TAB PO SCH ×2 (05:38→13:21)
--- NOTE | 2019-07-31 08:55 | Progress Note ---
Assessment and Plan - Patient Problems (1) ESRD needing dialysis Current Visit: Yes Status: Chronic Plan to address problem: another HD today for volume control and then place on Thursday, Thursday inpatient schedule. Patient will benefit from 3x weekly HD an outpatient secondary to volume overload, and suboptimal clearance. 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 (2) Hyperkalemia Current Visit: Yes Status: Acute Plan to address problem: corrected with HD Counseled patient on importance of low potassium diet. (3) Hypertensive chronic kidney disease with stage 5 chronic kidney disease or end stage renal disease Current Visit: No Status: Chronic Plan to address problem: Patient continues on nitroglycerin gtt. Will increase UF goals to 3-4 L as tolerated, so as to optimize fluid status and help to wean off the nitroglycerin gtt. Will monitor closely. (4) Volume overload Current Visit: Yes Status: Acute Plan to address problem: Optimize UF with HD. (5) HIV (human immunodeficiency virus infection) Current Visit: Yes Status: Chronic Plan to address problem: management as per primary team Subjective Date of service: 07/31/19 Principal diagnosis: ESRD Interval history: Pt awake, alert, in no acute distress Objective - Vital Signs Vital signs: Vital Signs - 12hr 07/30/19 07/30/19 07/30/19 21:20 21:51 22:51 Temperature 99.0 F Pulse Rate 86 86 Respiratory 18 Rate Blood Pressure 157/79 157/79 O2 Sat by Pulse 100 93 Oximetry 07/30/19 07/30/19 07/31/19 22:52 23:37 04:36 Temperature 99.2 F 98.3 F Pulse Rate 86 84 78 Respiratory 18 16 Rate Blood Pressure 157/79 148/78 146/76 O2 Sat by Pulse 93 95 Oximetry 07/31/19 05:38 Temperature Pulse Rate 77 Respiratory Rate Blood Pressure 146/76 O2 Sat by Pulse Oximetry - General Appearance General appearance: well-developed, well-nourished, appears stated age EENT: ATNC, PERRL, mucous membranes moist Neck: no JVD Respiratory: Present: Clear to Ascultation Cardiology: regular, S1S2 Gastrointestinal: normoactive bowel sounds Integumentary: no rash, other (no edema ) Neurologic: no focal deficit, alert and oriented x3, strength 5/5, CN 3-12 intact Psychiatric: mood/affect appropriate, cooperative - Lab 07/30/19 04:15 07/30/19 04:15 Most recent lab results Calcium 8.9 mg/dL (8.4-10.2) 07/30/19 04:15 Magnesium 2.80 mg/dL (1.7-2.3) H 07/29/19 04:30 Medications & Allergies - Medications Allergies/Adverse Reactions: Allergies lisinopril Allergy (Verified 11/24/14 19:07) Angioedema Home Medications: Home Medications Medication Instructions Recorded Confirmed Last Taken Type Abacavir [Ziagen TAB] 300 mg PO BID 11/01/18 07/29/19 Unknown History Dolutegravir [Tivicay] 50 mg PO DAILY 11/01/18 07/29/19 Unknown History cloNIDine [Catapres] 0.1 mg PO BID 11/01/18 07/29/19 Unknown History Aspirin [Aspirin BABY CHEW TAB] 81 mg PO QDAY #30 tab.chew 11/03/18 07/29/19 Unknown Rx AtorvaSTATin [Lipitor] 20 mg PO QHS #30 tablet 11/03/18 07/29/19 Unknown Rx Clopidogrel [Plavix] 75 mg PO QDAY #30 tablet 11/03/18 07/29/19 Unknown Rx Metoprolol [Lopressor TAB] 50 mg PO BID #60 tablet 11/03/18 07/29/19 Unknown Rx amLODIPine [Norvasc] 10 mg PO DAILY #30 tab 11/03/18 07/29/19 Unknown Rx Active Medications: Generic Name Dose Route Start Last Admin Trade Name Freq PRN Reason Stop Dose Admin Acetaminophen 650 mg 07/29/19 05:58 Tylenol PO Q4H PRN Pain MILD(1-3)/Fever >100.5/GARCIA Amlodipine Besylate 10 mg 07/29/19 13:00 07/30/19 09:25 Amlodipine PO Not Given DAILY MIGUELANGEL Aspirin 81 mg 07/30/19 10:00 07/30/19 09:24 Baby Aspirin PO 81 mg QDAY MIGUELANGEL Administration Atorvastatin Calcium 20 mg 07/29/19 22:00 07/30/19 22:53 Lipitor PO 20 mg QHS MIGUELANGEL Administration Clonidine HCl 0.1 mg 07/29/19 22:00 07/30/19 22:52 Catapres PO 0.1 mg BID MIGUELANGEL Administration Epoetin Adalid 10,000 unit 07/29/19 08:39 07/29/19 13:42 Procrit IV 10,000 unit CECELIA PRN Administration hemodialysis Hydralazine HCl 50 mg 07/29/19 18:00 07/31/19 05:38 Apresoline PO 50 mg Q8HR MIGUELANGEL Administration Sodium Chloride 100 mls @ 999 mls/hr 07/29/19 14:43 Nacl 0.9% IV CECELIA PRN Hypotension Losartan Potassium 100 mg 07/29/19 18:00 07/30/19 10:45 Cozaar PO Not Given QDAY MIGUELANGEL Metoprolol Tartrate 50 mg 07/29/19 13:00 07/30/19 22:51 Metoprolol PO 50 mg BID MGIUELANGEL Administration Ondansetron HCl 4 mg 07/29/19 05:58 Zofran IV Q8H PRN Nausea And Vomiting Sodium Chloride 10 ml 07/29/19 10:00 07/30/19 22:54 Sodium Chloride Flush Syringe 10 Ml IV 10 ml BID MIGUELANGEL Administration Sodium Chloride 10 ml 07/29/19 05:58 Sodium Chloride Flush Syringe 10 Ml IV PRN PRN LINE FLUSH
[2019-07-31] MEDS: cloNIDine 0.1 MG TAB PO SCH (10:22)
[2019-07-31] MEDS: LOSARTAN 50 MG TAB PO SCH (10:23)
[2019-07-31] MEDS: METOPROLOL TARTRATE 50 MG TAB PO SCH (10:24)
[2019-07-31] MEDS: ASPIRIN 81 MG TAB CHEW PO SCH (10:24)
[2019-07-31] MEDS: amLODIPine 10 MG TAB PO SCH (10:24)
--- NOTE | 2019-07-31 10:53 | Discharge Summary ---
Providers - Providers Date of Admission: 07/29/19 05:58 Date of discharge: 07/31/19 Attending physician: CRYSTAL YUNG 07/29/19 04:19 Consult to Physician [CONS] Urgent Comment: Consulting Provider: OPAL OH Physician Instructions: Reason For Exam: esrd 07/29/19 06:02 Consult to Physician [CONS] Routine Comment: Consulting Provider: TORRI LORD Physician Instructions: Reason For Exam: ab ce Primary care physician: TIMA RETANA Hospitalization Condition: Serious Disposition: DC-30 STILL A PATIENT Core Measure Documentation - Palliative Care Palliative Care/ Comfort Measures: Not Applicable Exam - Constitutional Vitals: Temp Pulse Resp BP Pulse Ox 98.1 F 77 18 148/69 96 07/31/19 08:31 07/31/19 10:24 07/31/19 08:31 07/31/19 10:24 07/31/19 08:31 Plan Activity: advance as tolerated Diet: low fat, low cholesterol, low salt, renal Plan of Treatment: 1.Follow up with PCP in 1 week. 2.Follow up with Cardiology in 1 week 3.Continue routine hemodialysis MWF as scheduled Follow up with: TIMA RETANA MD [Primary Care Provider] - 3-5 Days Prescriptions: amLODIPine 10 mg PO DAILY #30 tab Aspirin [Aspirin BABY CHEW TAB] 81 mg PO QDAY #30 tab.chew cloNIDine [Catapres] 0.1 mg PO BID #60 AtorvaSTATin [Lipitor] 20 mg PO QHS #30 tablet
--- NOTE | 2019-07-31 11:56 | Progress Note ---
Assessment and Plan Pt is a 58 y.o. AA male with a past medical hx of ESRD on HD (MWF), COPD, DVT, SVT, HTN, and HLD. He is followed in our office by Dr. Wu. Patient continues to improve. Currently asymptomatic. Cardiac status is satisfactory. - Patient Problems (1) Acute diastolic CHF (congestive heart failure) Current Visit: Yes Status: Acute (2) Acute respiratory failure Current Visit: Yes Status: Acute (3) Dialysis patient, noncompliant Current Visit: Yes Status: Acute (4) Hypertensive emergency Current Visit: Yes Status: Acute (5) NSTEMI (non-ST elevated myocardial infarction) Current Visit: Yes Status: Acute (6) COPD (chronic obstructive pulmonary disease) Current Visit: Yes Status: Chronic Qualifiers: COPD type: emphysema (7) HIV (human immunodeficiency virus infection) Current Visit: Yes Status: Chronic (8) HTN (hypertension) Current Visit: Yes Status: Chronic Qualifiers: Hypertension type: essential hypertension Qualified Code(s): I10 - Essential (primary) hypertension (9) Hx of deep venous thrombosis Current Visit: Yes Status: Chronic (10) Hyperlipidemia Current Visit: Yes Status: Chronic Qualifiers: Hyperlipidemia type: mixed hyperlipidemia Qualified Code(s): E78.2 - Mixed hyperlipidemia Subjective Date of service: 07/31/19 Principal diagnosis: ESRD Interval history: Patient appears to be comfortable today. In no distress. No chest pain difficulty breathing or palpitations. Objective Vital Signs Temp Pulse Resp BP Pulse Ox Pulse Ox 07/31/19 10:24 77 148/69 07/31/19 10:23 77 148/69 07/31/19 10:22 77 148/69 07/31/19 08:31 98.1 F 77 18 148/69 96 07/31/19 05:38 77 146/76 07/31/19 04:36 98.3 F 78 16 146/76 95 07/30/19 23:37 99.2 F 84 18 148/78 93 07/30/19 22:52 86 157/79 07/30/19 22:51 86 157/79 07/30/19 21:51 99.0 F 86 18 157/79 93 07/30/19 21:20 100 07/30/19 19:10 89 07/30/19 17:03 98.1 F 80 20 150/75 100 07/30/19 16:00 138/68 100 07/30/19 15:55 98.0 F 07/30/19 15:45 82 20 136/70 100 07/30/19 15:30 81 19 150/68 100 07/30/19 15:15 80 20 149/68 100 07/30/19 15:00 81 19 153/72 100 07/30/19 14:45 80 18 167/76 100 07/30/19 14:30 80 22 162/80 100 07/30/19 14:16 90 18 167/81 100 07/30/19 14:04 87 156/77 07/30/19 14:00 80 22 156/77 100 07/30/19 13:46 78 20 151/69 100 07/30/19 13:30 97.6 F 62 16 175/86 100 100 07/30/19 13:15 70 16 165/75 100 07/30/19 13:00 67 16 161/73 100 07/30/19 12:45 70 18 154/73 100 07/30/19 12:30 69 18 170/80 100 07/30/19 12:16 75 18 163/86 100 07/30/19 12:15 67 163/86 07/30/19 12:00 97.3 F L 70 17 170/79 100 - Physical Examination General: No Apparent Distress HEENT: Positive: EOMI, Normocephaly, Mucus Membranes Moist Neck: Positive: neck supple Cardiac: Positive: Regular Rhythm Lungs: Positive: clear to auscultation Neuro: Positive: Grossly Intact, Motor Function Intact, Coordination Normal Abdomen: Positive: Soft, Active Bowel Sounds. Negative: Tender Skin: Negative: Rash, Wound Musculoskeletal: No Pain Extremities: Present: upper extr. pulses, lower extr. pulses. Absent: edema - Imaging and Cardiology EKG: report reviewed, image reviewed Echo: report reviewed (EF 60%; mild AV sclerosis; trace AR; trace MR; trace TR; trace [place] ) - EKG Sinus rhythms and dysrhythmias: sinus rhythm
[2019-07-31 13:22] VITALS: BP 135/68
== END 2019-07-31 15:35 | disposition home or self-care (01) | DRG 280 ==
LOC: SUATTDRO 04:10 → ED 04:10 → CC1 05:58 → 4A 07-30 16:29
PROVIDERS: ADMIT Internal Medicine; ATTEND Internal Medicine
PROC: 5A09357 Assistance with Respiratory Ventilation, Less than 24 Consecutive Hours, Continuous Positive Airway Pressure (ICD-10-PCS; 2019-07-29)
PROC: 5A1D70Z Performance of Urinary Filtration, Intermittent, Less than 6 Hours Per Day (ICD-10-PCS; 2019-07-29)
PROC: 5A09357 Assistance with Respiratory Ventilation, Less than 24 Consecutive Hours, Continuous Positive Airway Pressure (ICD-10-PCS; principal; 2019-07-30)
PROC: 3E0234Z Introduction of Serum, Toxoid and Vaccine into Muscle, Percutaneous Approach (ICD-10-PCS; 2019-07-30)
PROC: 5A1D70Z Performance of Urinary Filtration, Intermittent, Less than 6 Hours Per Day (ICD-10-PCS; 2019-07-30)
DX: I13.2 Hypertensive heart and chronic kidney disease with heart failure and with stage 5 chronic kidney disease, or end stage renal disease (principal); I21.A1 Myocardial infarction type 2; N18.6 End stage renal disease; J96.00 Acute respiratory failure, unspecified whether with hypoxia or hypercapnia; I50.31 Acute diastolic (congestive) heart failure; B20 Human immunodeficiency virus [HIV] disease; I16.1 Hypertensive emergency; J44.9 Chronic obstructive pulmonary disease, unspecified; E78.2 Mixed hyperlipidemia; E87.5 Hyperkalemia; D69.6 Thrombocytopenia, unspecified; D64.9 Anemia, unspecified; F17.200 Nicotine dependence, unspecified, uncomplicated; Z99.2 Dependence on renal dialysis; Z86.718 Personal history of other venous thrombosis and embolism; Z91.15 Patient's noncompliance with renal dialysis; Z79.899 Other long term (current) drug therapy; Z79.82 Long term (current) use of aspirin; Z82.49 Family history of ischemic heart disease and other diseases of the circulatory system; Z23 Encounter for immunization
CPT/HCPCS: 36415; 71045; 80048; 80053; 80061; 80074; 82140; 82550; 82553; 82962; 83615; 83735; 84484; 85025; 85610; 85730; 87040; 90732; 93005; 93010; 94760; 96365; G0378; A9270-GY; J0885; J7030

== ENCOUNTER 2019-09-30 15:15 | Emergency (ER) | payer MEDICARE ==
[2019-09-30] MEDS ORDERED: methylPREDNISolone Sod Succinate 125 MG/2 ML INJ IV ONE (17:17)
[2019-09-30] MEDS ORDERED: ALBUTEROL 2.5 MG/3 ML NEBU IH ONE ×2 (17:17→19:48)
[2019-09-30] MEDS ORDERED: IPRATROPIUM 0.02% NEBU 2.5 ML IH ONE (17:17)
--- NOTE | 2019-09-30 17:22 | Emergency Department Report ---
ED Shortness of Breath HPI - General Chief Complaint: Dyspnea/Respdistress Stated Complaint: DIFFICULTY BREATHING Time Seen by Provider: 09/30/19 16:31 Source: EMS Mode of arrival: Ambulatory Limitations: No Limitations - History of Present Illness Initial Comments: 59-year-old male with a past medical history of end-stage renal disease on dialysis Thursday, Thursday, and Thursday, asthma, COPD without home oxygen, HIV, hypertension, and seizures presents to the hospital complains of shortness of breath that started today. Patient completed all but 45 minutes of his dialysis prior to ED transfer. Patient states he developed increased wheezing and s hortness breath during dialysis which improved with albuterol 5 mg prior to arrival but still persists. Patient states he is a chronic cough productive of white sputum that is unchanged. He denies fever, chest pain, or worsening leg edema. Patient is compliant with medications. He has urine output of 1-2 times per day. Patient's was in the ER at another hospital 1 week ago for similar symptoms and discharged after bronchodilators in the ED. Patient is not currently on steroids. He reports one history of previous intubation. Patient is unsure of his CD4 count but thinks his viral load is undetectable. loan documentation specialist: Dr. Leela Villa. He does not see a installation supervisor as an outpatient. - Related Data Home Medications Medication Instructions Recorded Confirmed Last Taken Abacavir [Ziagen TAB] 300 mg PO BID 11/01/18 07/29/19 Unknown Dolutegravir [Tivicay] 50 mg PO DAILY 11/01/18 07/29/19 Unknown Previous Rx's Medication Instructions Recorded Last Taken Type Clopidogrel [Plavix] 75 mg PO QDAY #30 tablet 11/03/18 Unknown Rx Metoprolol [Lopressor TAB] 50 mg PO BID #60 tablet 11/03/18 Unknown Rx Aspirin [Aspirin BABY CHEW TAB] 81 mg PO QDAY #30 tab.chew 07/31/19 Unknown Rx AtorvaSTATin [Lipitor] 20 mg PO QHS #30 tablet 07/31/19 Unknown Rx amLODIPine 10 mg PO DAILY #30 tab 07/31/19 Unknown Rx cloNIDine [Catapres] 0.1 mg PO BID #60 07/31/19 Unknown Rx ALBUTEROL NEB's [Proventil 0.083% 2.5 mg IH TID PRN #1 neb 09/30/19 Unknown Rx NEBS] Levalbuterol Hfa 45 Mcg/Puff 2 puff IH Q6H PRN #1 inhalation 09/30/19 Unknown Rx [Xopenex Hfa (Nf)] Prednisone [predniSONE 10 mg 10 mg PO .TAPER #1 tab.ds.pk 09/30/19 Unknown Rx (6-Day Pack, 21 Tabs)] Allergies Allergy/AdvReac Type Severity Reaction Status Date / Time lisinopril Allergy Angioedema Verified 11/24/14 19:07 ED Review of Systems ROS: Stated complaint: DIFFICULTY BREATHING Other details as noted in HPI ED Past Medical Hx - Past Medical History Previous Medical History?: Yes Hx Hypertension: Yes Hx Renal Disease: Yes (on hemodialysis) Hx Seizures: Yes Hx Asthma: Yes Hx COPD: Yes Hx HIV: Yes - Surgical History Past Surgical History?: Yes Additional Surgical History: vascath. AV shunt LUE - Social History Smoking Status: Current Every Day Smoker Substance Use Type: None - Medications Home Medications: Home Medications Medication Instructions Recorded Confirmed Last Taken Type Abacavir [Ziagen TAB] 300 mg PO BID 11/01/18 07/29/19 Unknown History Dolutegravir [Tivicay] 50 mg PO DAILY 11/01/18 07/29/19 Unknown History Clopidogrel [Plavix] 75 mg PO QDAY #30 tablet 11/03/18 07/29/19 Unknown Rx Metoprolol [Lopressor TAB] 50 mg PO BID #60 tablet 11/03/18 07/29/19 Unknown Rx Aspirin [Aspirin BABY CHEW TAB] 81 mg PO QDAY #30 tab.chew 07/31/19 Unknown Rx AtorvaSTATin [Lipitor] 20 mg PO QHS #30 tablet 07/31/19 Unknown Rx amLODIPine 10 mg PO DAILY #30 tab 07/31/19 Unknown Rx cloNIDine [Catapres] 0.1 mg PO BID #60 07/31/19 Unknown Rx ALBUTEROL NEB's [Proventil 0.083% 2.5 mg IH TID PRN #1 neb 09/30/19 Unknown Rx NEBS] Levalbuterol Hfa 45 Mcg/Puff 2 puff IH Q6H PRN #1 inhalation 09/30/19 Unknown Rx [Xopenex Hfa (Nf)] Prednisone [predniSONE 10 mg 10 mg PO .TAPER #1 tab.ds.pk 09/30/19 Unknown Rx (6-Day Pack, 21 Tabs)] ED Physical Exam - General Limitations: No Limitations ED Course Vital Signs 09/30/19 09/30/19 09/30/19 15:46 17:49 19:00 Temperature 97.8 F Pulse Rate 90 90 Pulse Rate [ 94 H Anterior Bilateral Throughout] Respiratory 18 28 H Rate Respiratory 22 Rate [Anterior Bilateral Throughout] Blood Pressure 141/84 174/80 O2 Sat by Pulse 100 95 Oximetry 09/30/19 09/30/19 09/30/19 19:31 20:00 20:07 Temperature Pulse Rate 88 87 Pulse Rate [ 92 H Anterior Bilateral Throughout] Respiratory 27 H 27 H Rate Respiratory 20 Rate [Anterior Bilateral Throughout] Blood Pressure 174/80 167/79 O2 Sat by Pulse 94 95 Oximetry 09/30/19 09/30/19 20:31 21:00 Temperature Pulse Rate 92 H 94 H Pulse Rate [ Anterior Bilateral Throughout] Respiratory 20 26 H Rate Respiratory Rate [Anterior Bilateral Throughout] Blood Pressure 167/79 178/78 O2 Sat by Pulse 100 94 Oximetry - Reevaluation(s) Reevaluation #1: 09/30/19 19:54 Patient feeling much better but still has some residual wheezing additional albuterol ordered. Patient recently received his ordered Solu-Medrol 09/30/19 19:55 ED Medical Decision Making - Lab Data Result diagrams: 09/30/19 15:30 09/30/19 15:30 Lab Results 09/30/19 09/30/19 09/30/19 Range/Units 15:30 15:30 15:30 WBC 5.6 (4.5-11.0) K/mm3 RBC 4.64 (3.65-5.03) M/mm3 Hgb 13.1 (11.8-15.2) gm/dl Hct 40.0 (35.5-45.6) % MCV 86 (84-94) fl MCH 28 (28-32) pg MCHC 33 (32-34) % RDW 18.2 H (13.2-15.2) % Plt Count 166 (140-440) K/mm3 Lymph % (Auto) 23.2 (13.4-35.0) % [place] % (Auto) 4.7 (0.0-7.3) % Eos % (Auto) 4.1 (0.0-4.3) % Baso % (Auto) 1.8 (0.0-1.8) % Lymph # 1.3 (1.2-5.4) K/mm3 [place] # 0.3 (0.0-0.8) K/mm3 Eos # 0.2 (0.0-0.4) K/mm3 Baso # 0.1 (0.0-0.1) K/mm3 Seg Neutrophils % 66.2 (40.0-70.0) % Seg Neutrophils # 3.7 (1.8-7.7) K/mm3 Sodium 141 (137-145) mmol/L Potassium 4.0 (3.6-5.0) mmol/L Chloride 93.2 L (98-107) mmol/L Carbon Dioxide 32 H (22-30) mmol/L Anion Gap 20 mmol/L BUN 20 (9-20) mg/dL Creatinine 6.0 H (0.8-1.5) mg/dL Estimated GFR 12 ml/min BUN/Creatinine Ratio 3 % Glucose 86 (75-100) mg/dL Calcium 8.5 (8.4-10.2) mg/dL Troponin T 0.369 H* (0.00-0.029) ng/mL NT-Pro-B Natriuret Pep > 82297 H (0-900) pg/mL Triglycerides 93 (2-149) mg/dL Cholesterol 175 (50-199) mg/dL LDL Cholesterol Direct 97 (50-130) mg/dL HDL Cholesterol 68 H (40-59) mg/dL Cholesterol/HDL Ratio 2.57 % - EKG Data -: EKG Interpreted by Nd EKG shows normal: sinus rhythm, ST-T waves (no stemi) Rate: normal (89) - EKG Data When compared to previous EKG there are: no significant change - Radiology Data Radiology results: report reviewed CHEST 1 VIEW 09/30/2019 4:49 PM INDICATION / CLINICAL INFORMATION: sob/wheezing, cough. COMPARISON: Chest x-ray on 07/29/2019. FINDINGS: SUPPORT DEVICES: None. HEART / MEDIASTINUM: Stable mild cardiomegaly. LUNGS / PLEURA: Stable chronic diffuse bilateral reticular interstitial prominence. No new focal consolidation or significant effusion. No pneumothorax. ADDITIONAL FINDINGS: No significant additional findings. IMPRESSION: 1. No acute findings. No adverse change from chest x-ray on 07/29/2019. - Medical Decision Making Patient feels much better ED treatment. Symptoms due to COPD exacerbation versus asthma. Improved with steroids and bronchodilators. Patient has mild troponin elevation which is consistent with her baseline troponin without acute EKG changes or complaints of chest pain. Although elevated BNP no signs of CHF on chest x-ray. Patient be discharged home with medications for acute asthma exacerbation. - Differential Diagnosis COPD, asthma, CHF, pneumonia Critical Care Time: No Critical care attestation.: If time is entered above; I have spent that time in minutes in the direct care of this critically ill patient, excluding procedure time. ED Disposition Clinical Impression: COPD exacerbation, End stage renal disease on dialysis, HIV (human immunodeficiency virus infection) Disposition: TO HOME OR SELFCARE Is pt being admited?: No Does the pt Need Aspirin: No Condition: Stable Instructions: Chronic Obstructive Pulmonary Disease (ED) Additional Instructions: Take the medication as prescribed. Follow-up with your doctor or doctor/clinic provided. Return if symptoms worsen as indicated by your discharge instructions. Prescriptions: Prednisone [predniSONE 10 mg (6-Day Pack, 21 Tabs)] 10 mg PO .TAPER #1 tab.ds.pk ALBUTEROL NEB's [Proventil 0.083% NEBS] 2.5 mg IH TID PRN #1 neb PRN Reason: Wheezing Levalbuterol Hfa 45 Mcg/Puff [Xopenex Hfa (Nf)] 2 puff IH Q6H PRN #1 inhalation PRN Reason: Wheezing Referrals: PRIMARY CARE, [Primary Care Provider] - 3-5 Days BALDEV MARVIN MD [Staff Physician] - 3-5 Days (Lung specialist) Time of Disposition: 21:37
[2019-09-30 17:31] LABS: Basophils # (Auto) 0.1 K/mm3 (0.0-0.1); Basophils % (Auto) 1.8 % (0.0-1.8); Eosinophils # (Auto) 0.2 K/mm3 (0.0-0.4); Eosinophils % (Auto) 4.1 % (0.0-4.3); Hemoglobin 13.1 gm/dl (11.8-15.2); Lymphocytes # (Auto) 1.3 K/mm3 (1.2-5.4); Lymphocytes % (Auto) 23.2 % (13.4-35.0); Mean Corpuscular HGB Conc 33 % (32-34); Mean Corpuscular Volume 86 fl (84-94); Monocytes # (Auto) 0.3 K/mm3 (0.0-0.8); Monocytes % (Auto) 4.7 % (0.0-7.3); Red Blood Count 4.64 M/mm3 (3.65-5.03); Red Cell Distribution Width 18.2 % (13.2-15.2)
[2019-09-30 17:53] LABS: BUN/Creatinine Ratio 3; Blood Urea Nitrogen 20 mg/dL (9-20); Calcium 8.5 mg/dL (8.4-10.2); Hemolysis Index 15
--- NOTE | 2019-09-30 17:57 | XRay Report ---
CHEST 1 VIEW 09/30/2019 4:49 PM INDICATION / CLINICAL INFORMATION: sob/wheezing, cough. COMPARISON: Chest x-ray on 07/29/2019. FINDINGS: SUPPORT DEVICES: None. HEART / MEDIASTINUM: Stable mild cardiomegaly. LUNGS / PLEURA: Stable chronic diffuse bilateral reticular interstitial prominence. No new focal cons olidation or significant effusion. No pneumothorax. ADDITIONAL FINDINGS: No significant additional findings. IMPRESSION: 1. No acute findings. No adverse change from chest x-ray on 07/29/2019. Signer Name: Guerrero Turner MD Signed: 09/30/2019 5:53 PM Workstation Name: [id number]
[2019-09-30 18:01] LABS: Platelet Count 166 K/mm3 (140-440)
[2019-09-30 18:27] LABS: Chol/HDL Ratio 2.57 %
[2019-09-30 21:25] VITALS: BP 178/78
== END 2019-09-30 22:05 | disposition home or self-care (01) ==
LOC: ED 15:15
DX: I12.0 Hypertensive chronic kidney disease with stage 5 chronic kidney disease or end stage renal disease (principal); N18.6 End stage renal disease; J44.1 Chronic obstructive pulmonary disease with (acute) exacerbation; F17.200 Nicotine dependence, unspecified, uncomplicated; Z99.2 Dependence on renal dialysis; Z79.899 Other long term (current) drug therapy; Z88.6 Allergy status to analgesic agent
CPT/HCPCS: 36415; 71045; 80048; 80061; 83880; 84484; 85025; 93005; 94640; 96374; 99285; J2930; 94644

== ENCOUNTER 2020-03-27 13:05 | Emergency (ER) | payer MEDICARE ==
[2020-03-27] MEDS ORDERED: ALBUTEROL 2.5 MG/3 ML NEBU IH ONE (13:14)
[2020-03-27] MEDS ORDERED: methylPREDNISolone Sod Succinate 125 MG/2 ML INJ IV ONE (13:15)
--- NOTE | 2020-03-27 13:40 | XRay Report ---
CHEST 2 VIEWS INDICATION / CLINICAL INFORMATION: SOB, cough. COMPARISON: 02/21/2020 FINDINGS: SUPPORT DEVICES: None. HEART / MEDIASTINUM: No significant abnormality. LUNGS / PLEURA: COPD with fibrosis No pneumothorax. ADDITIONAL FINDINGS: No significant additional findings. IMPRESSION: COPD with interstitial fibrosis. No definite acute disease or interval change from 02/21/2020 Signer Name: Fidencio Najera MD FACSloan Signed: 03/27/2020 1:34 PM Workstation Name: [id number]
[2020-03-27] MEDS ORDERED: predniSONE 20 MG TAB PO ONE (14:01)
[2020-03-27] MEDS ORDERED: DOXYCYCLINE 100 MG CAP PO ONE (14:01)
[2020-03-27] MEDS ORDERED: IPRATROPIUM 0.02% NEBU 2.5 ML IH ONE (14:01)
--- NOTE | 2020-03-27 16:33 | Emergency Department Report ---
ED Shortness of Breath HPI - General Chief Complaint: Dyspnea/Respdistress Stated Complaint: SOB Time Seen by Provider: 03/27/20 14:01 Source: patient Mode of arrival: Ambulatory Limitations: No Limitations - History of Present Illness Initial Comments: CC: Trouble breathing HPI: This is a 69-year-old male with history of COPD, asthma, end-stage renal disease on hemodialysis Thursday, HIV, anoxic brain injury, epilepsy, diastolic CHF, tobacco dependence who presents with shortness of breath wheezing cough for several days. Productive cough. He denies fever. He denies chest pain. He denies abdominal pain. He did not want to come to the hospital. His encouraged him to come. He is followed by textile slitting machine operator at [place]. He is also [facility]. I spoke to per phone. She informed me that recent pulmonary function tests were inconclusive. Last hemodialysis session occurred on Thursday. Yesterday. MD Complaint: shortness of breath -: Gradual Severity: mild, moderate Consistency: constant Improves With: other (Steroids) Worsens With: nothing Known History Of: COPD, asthma, congestive heart failure, HIV, other (End-stage renal disease on hemodialysis) Associated Symptoms: cough, sputum production Treatments Prior to Arrival: none - Related Data Home Medications Medication Instructions Recorded Confirmed Last Taken Abacavir [Ziagen TAB] 300 mg PO BID 11/01/18 07/29/19 Unknown Dolutegravir [Tivicay] 50 mg PO DAILY 11/01/18 07/29/19 Unknown Previous Rx's Medication Instructions Recorded Last Taken Type Clopidogrel [Plavix] 75 mg PO QDAY #30 tablet 11/03/18 Unknown Rx Metoprolol [Lopressor TAB] 50 mg PO BID #60 tablet 11/03/18 Unknown Rx Aspirin [Aspirin BABY CHEW TAB] 81 mg PO QDAY #30 tab.chew 07/31/19 Unknown Rx AtorvaSTATin [Lipitor] 20 mg PO QHS #30 tablet 07/31/19 Unknown Rx amLODIPine 10 mg PO DAILY #30 tab 07/31/19 Unknown Rx cloNIDine [Catapres] 0.1 mg PO BID #60 07/31/19 Unknown Rx Levalbuterol Hfa 45 Mcg/Puff 2 puff IH Q6H PRN #1 inhalation 09/30/19 Unknown Rx [Xopenex Hfa (Nf)] ALBUTEROL NEB's [Proventil 0.083% 2.5 mg IH TID PRN #1 neb 11/29/19 Unknown Rx NEBS] predniSONE [Deltasone] 20 mg PO BID #6 tab 11/29/19 Unknown Rx Albuterol Mdi (or & Nicu Only) 2 puff IH QID PRN #8.5 gram 02/22/20 Unknown Rx [ProAir HFA Inhaler] Doxycycline Hyclate [Doxycycline 100 mg PO Q12HR 7 Days #14 tab 02/22/20 Unknown Rx Hyclate TAB] Prednisone [predniSONE 10 mg 10 mg PO .TAPER #1 tab.ds.pk 02/22/20 Unknown Rx (6-Day Pack, 21 Tabs)] Doxycycline Hyclate [Doxycycline 100 mg PO Q12HR 7 Days #14 tab 03/27/20 Unknown Rx Hyclate TAB] Prednisone [predniSONE 10 mg 10 mg PO .TAPER #1 tab.ds.pk 03/27/20 Unknown Rx (6-Day Pack, 21 Tabs)] Allergies Allergy/AdvReac Type Severity Reaction Status Date / Time lisinopril Allergy Angioedema Verified 11/24/14 19:07 ED Review of Systems ROS: Stated complaint: SOB Other details as noted in HPI Comment: All other systems reviewed and negative Constitutional: denies: fever, malaise Respiratory: cough, shortness of breath, wheezing Cardiovascular: denies: chest pain Gastrointestinal: denies: abdominal pain, nausea, vomiting ED Past Medical Hx - Past Medical History Previous Medical History?: Yes Hx Hypertension: Yes Hx Renal Disease: Yes (on hemodialysis) Hx Seizures: Yes Hx Asthma: Yes Hx COPD: Yes Hx HIV: Yes - Surgical History Past Surgical History?: Yes Additional Surgical History: vascath. AV shunt LUE - Social History Smoking Status: Current Every Day Smoker Substance Use Type: None - Medications Home Medications: Home Medications Medication Instructions Recorded Confirmed Last Taken Type Abacavir [Ziagen TAB] 300 mg PO BID 11/01/18 07/29/19 Unknown History Dolutegravir [Tivicay] 50 mg PO DAILY 11/01/18 07/29/19 Unknown History Clopidogrel [Plavix] 75 mg PO QDAY #30 tablet 11/03/18 07/29/19 Unknown Rx Metoprolol [Lopressor TAB] 50 mg PO BID #60 tablet 11/03/18 07/29/19 Unknown Rx Aspirin [Aspirin BABY CHEW TAB] 81 mg PO QDAY #30 tab.chew 07/31/19 Unknown Rx AtorvaSTATin [Lipitor] 20 mg PO QHS #30 tablet 07/31/19 Unknown Rx amLODIPine 10 mg PO DAILY #30 tab 07/31/19 Unknown Rx cloNIDine [Catapres] 0.1 mg PO BID #60 07/31/19 Unknown Rx Levalbuterol Hfa 45 Mcg/Puff 2 puff IH Q6H PRN #1 inhalation 09/30/19 Unknown Rx [Xopenex Hfa (Nf)] ALBUTEROL NEB's [Proventil 0.083% 2.5 mg IH TID PRN #1 neb 11/29/19 Unknown Rx NEBS] predniSONE [Deltasone] 20 mg PO BID #6 tab 11/29/19 Unknown Rx Albuterol Mdi (or & Nicu Only) 2 puff IH QID PRN #8.5 gram 02/22/20 Unknown Rx [ProAir HFA Inhaler] Doxycycline Hyclate [Doxycycline 100 mg PO Q12HR 7 Days #14 tab 02/22/20 Unknown Rx Hyclate TAB] Prednisone [predniSONE 10 mg 10 mg PO .TAPER #1 tab.ds.pk 02/22/20 Unknown Rx (6-Day Pack, 21 Tabs)] Doxycycline Hyclate [Doxycycline 100 mg PO Q12HR 7 Days #14 tab 03/27/20 Unknown Rx Hyclate TAB] Prednisone [predniSONE 10 mg 10 mg PO .TAPER #1 tab.ds.pk 03/27/20 Unknown Rx (6-Day Pack, 21 Tabs)] ED Physical Exam - General Limitations: No Limitations General appearance: alert, in no apparent distress, other (Patient speaking full word sentences without work of breathing) - Head Head exam: Present: atraumatic, normocephalic - Eye Eye exam: Present: normal appearance - ENT ENT exam: Present: mucous membranes moist - Neck Neck exam: Present: normal inspection, full ROM - Respiratory Respiratory exam: Present: wheezes. Absent: respiratory distress, rales, rhonchi, accessory muscle use, decreased breath sounds, prolonged expiratory - Cardiovascular Cardiovascular Exam: Present: regular rate, normal rhythm, normal heart sounds. Absent: systolic murmur, diastolic murmur, rubs, gallop - GI/Abdominal GI/Abdominal exam: Present: soft, normal bowel sounds. Absent: distended, tenderness, guarding, rebound - Rectal Rectal exam: Present: deferred - Extremities Exam Extremities exam: Present: normal inspection - Neurological Exam Neurological exam: Present: alert, oriented X3 - Psychiatric Psychiatric exam: Present: normal mood, flat affect - Skin Skin exam: Present: warm, dry, intact, normal color. Absent: rash ED Course Vital Signs 03/27/20 03/27/20 03/27/20 13:13 16:00 16:01 Temperature 98.0 F Pulse Rate 87 87 Respiratory 24 Rate Blood Pressure 155/102 Blood Pressure 152/95 [Right] O2 Sat by Pulse 98 97 Oximetry ED Medical Decision Making - Radiology Data Radiology results: report reviewed, image reviewed Chest radiograph 2 views: COPD with interstitial fibrosis according to radiology impression, no definite acute disease or interval change from February 2020 CT chest wo con INDICATION: wheezing, lung disease. TECHNIQUE: All CT scans at this location are performed using the following dose modulation technique: Automated exposure control. CONTRAST: None. COMPARISON: CTA chest 02/22/2020. FINDINGS: The lungs remain hyperexpanded and contain diffuse scattered emphysema. No new mass, infiltrate or pleural fluid. The lungs contain no new mediastinal mass or adenopathy. A left thyroid nodule is better seen measuring 1.8 cm. Atherosclerotic calcification involves the aorta and its branches including the coronary arteries. Both kidneys are atrophic and contain small cysts and small nonobstructing stones. IMPRESSION: 1. Underlying emphysema and hyperexpansion is unchanged. No superimposed acute abnormality. 2. Chronic renal atrophy with small cysts and nonobstructing stones. 3. Atherosclerotic vascular disease including coronary artery calcification. 4. Incidental 1.8 cm left thyroid nodule. Incidental thyroid nodule measuring 1.8 cm located in left thyroid. See below for follow-up recommendation. Nonpalpable nodules detected on US or other anatomic imaging studies are termed incidentally discovered nodules or incidentalomas. Nonpalpable nodules have the same risk of malignancy as palpable nodules with the same size. Generally, only nodules >1 cm should be evaluated, since they have a greater potential to be clinically significant cancers. (GO, 2009). Follow up for incidental thyroid nodules <1 cm is not recommended. In patients <35 years with an incidental thyroid nodule detected on CT, MRI, or extrathyroidal ultrasound, dedicated thyroid ultrasound is recommended if the nodule is 1 cm, has no suspicious imaging features, and if the patient has normal life expectancy. In patients 35 years with an incidental thyroid nodule detected on CT, MRI, or extrathyroidal ultrasound, dedicated thyroid ultrasound is recommended if the nodule is 1.5 cm, has no suspicious imaging features, and if the patient has normal life expectancy. - Medical Decision Making Acute COPD exacerbation: Patient has wheezing on exam. However he does not appear to be in distress. He received bronchodilator therapy as well as prednisone and antibiotics. Patient is on home prednisone therapy 20 mg/day. I have prescribed prednisone taper. Also prescribed doxycycline. CT chest obtained to rule out atypical infection. Critical care attestation.: If time is entered above; I have spent that time in minutes in the direct care of this critically ill patient, excluding procedure time. ED Disposition Clinical Impression: Acute exacerbation of COPD with asthma Disposition: DC-01 TO HOME OR SELFCARE Is pt being admited?: No Does the pt Need Aspirin: No Condition: Stable Instructions: Chronic Obstructive Pulmonary Disease (ED) Prescriptions: Doxycycline Hyclate [Doxycycline Hyclate TAB] 100 mg PO Q12HR 7 Days #14 tab Prednisone [predniSONE 10 mg (6-Day Pack, 21 Tabs)] 10 mg PO .TAPER #1 tab.ds.pk
--- NOTE | 2020-03-27 16:33 | Cat Scan Report ---
CT chest wo con INDICATION: wheezing, lung disease. TECHNIQUE: All CT scans at this location are performed using the following dose modulation technique: Automated exposure control. CONTRAST: None. COMPARISON: CTA chest 02/22/2020. FINDINGS: The lungs remain hyperexpanded and contain diffuse scattered emphysema. No new mass, infilt rate or pleural fluid. The lungs contain no new mediastinal mass or adenopathy. A left thyroid nodule is better seen measuri ng 1.8 cm. Atherosclerotic calcification involves the aorta and its branches including the coronary arteries. Valente th kidneys are atrophic and contain small cysts and small nonobstructing stones. IMPRESSION: 1. Underlying emphysema and hyperexpansion is unchanged. No superimposed acute abnormality. 2. Chronic renal atrophy with small cysts and nonobstructing stones. 3. Atherosclerotic vascular disease including coronary artery calcification. 4. Incidental 1.8 cm left thyroid nodule. Incidental thyroid nodule measuring 1.8 cm located in left thyroid. See below for follow-up recommend ation. Nonpalpable nodules detected on US or other anatomic imaging studies are termed incidentally discover ed nodules or incidentalomas. Nonpalpable nodules have the same risk of malignancy as palpable nodule s with the same size. Generally, only nodules >1 cm should be evaluated, since they have a greater po tential to be clinically significant cancers. (GO, 2009). Follow up for incidental thyroid nodules <1 cm is not recommended. In patients <35 years with an incidental thyroid nodule detected on CT, MRI, or extrathyroidal ultras ound, dedicated thyroid ultrasound is recommended if the nodule is 1 cm, has no suspicious imaging fe atures, and if the patient has normal life expectancy. In patients 35 years with an incidental thyroid nodule detected on CT, MRI, or extrathyroidal ultraso und, dedicated thyroid ultrasound is recommended if the nodule is 1.5 cm, has no suspicious imaging f eatures, and if the patient has normal life expectancy. Signer Name: Hakeem Álvarez MD Signed: 03/27/2020 4:28 PM Workstation Name: [id number]
[2020-03-27 17:08] VITALS: BP 155/102
== END 2020-03-27 18:16 | disposition home or self-care (01) ==
LOC: ED 13:05
DX: J44.1 Chronic obstructive pulmonary disease with (acute) exacerbation (principal); I13.2 Hypertensive heart and chronic kidney disease with heart failure and with stage 5 chronic kidney disease, or end stage renal disease; N18.6 End stage renal disease; I50.9 Heart failure, unspecified; F17.200 Nicotine dependence, unspecified, uncomplicated; Z86.69 Personal history of other diseases of the nervous system and sense organs; Z79.899 Other long term (current) drug therapy; Z99.2 Dependence on renal dialysis; Z21 Asymptomatic human immunodeficiency virus [HIV] infection status; Z88.8 Allergy status to other drugs, medicaments and biological substances; Z98.890 Other specified postprocedural states
CPT/HCPCS: 71046; 71250; 94640; 99284; J7512; 94644

== ENCOUNTER 2020-04-19 19:27 | Observation (INO) | payer MEDICARE ==
--- NOTE | 2020-04-19 20:43 | Emergency Department Report ---
ED Altered Mental Status HPI - General Chief Complaint: Altered Mental Status Stated Complaint: AMS PUI?: No Time Seen by Provider: 04/19/20 20:23 Source: patient, EMS Mode of arrival: Stretcher Limitations: Altered Mental Status - History of Present Illness Initial Comments: Patient is a 59-year-old male that presents emergency room with complaints of confusion, diaphoresis and altered mental status. Patient states he is very confused most of today. Patient states his symptoms started this morning. Patient denies fever and chills. Patient at this time is alert and oriented x2. Patient is oriented to person and place. Patient is confused on situation and date. Patient is not sure what causes confusion. Patient's not sure when his last dialysis was. Patient denies chest pain or shortness of breath. Patient denies fever and chills. Patient denies cough. MD Complaint: altered mental status, confusion, weakness -: Sudden Severity: severe Consistency of Symptoms: constant Associated Symptoms: diaphoresis, loss of appetite, malaise, weakness, difficulty walking. denies: chest pain, cough, fever/chills, headaches, nausea/vomiting, rash, seizure, shortness of breath, syncope, foul smelling urine, diarrhea, incontinence - Related Data Home Medications Medication Instructions Recorded Confirmed Last Taken Abacavir [Ziagen TAB] 300 mg PO BID 11/01/18 04/20/20 Unknown Dolutegravir [Tivicay] 50 mg PO DAILY 11/01/18 04/20/20 Unknown Previous Rx's Medication Instructions Recorded Last Taken Type Clopidogrel [Plavix] 75 mg PO QDAY #30 tablet 11/03/18 Unknown Rx Aspirin [Aspirin BABY CHEW TAB] 81 mg PO QDAY #30 tab.chew 07/31/19 Unknown Rx AtorvaSTATin [Lipitor] 20 mg PO QHS #30 tablet 07/31/19 Unknown Rx amLODIPine 10 mg PO DAILY #30 tab 07/31/19 Unknown Rx cloNIDine [Catapres] 0.1 mg PO BID #60 07/31/19 Unknown Rx Levalbuterol Hfa 45 Mcg/Puff 2 puff IH Q6H PRN #1 inhalation 09/30/19 Unknown Rx [Xopenex Hfa (Nf)] ALBUTEROL NEB's [Proventil 0.083% 2.5 mg IH TID PRN #1 neb 11/29/19 Unknown Rx NEBS] predniSONE [Deltasone] 20 mg PO BID #6 tab 11/29/19 Unknown Rx Albuterol Mdi (or & Nicu Only) 2 puff IH QID PRN #8.5 gram 02/22/20 Unknown Rx [ProAir HFA Inhaler] Prednisone [predniSONE 10 mg 10 mg PO .TAPER #1 tab.ds.pk 02/22/20 Unknown Rx (6-Day Pack, 21 Tabs)] Doxycycline Hyclate [Doxycycline 100 mg PO Q12HR 7 Days #14 tab 03/27/20 Unknown Rx Hyclate TAB] Allergies Allergy/AdvReac Type Severity Reaction Status Date / Time lisinopril Allergy Angioedema Verified 11/24/14 19:07 ED Review of Systems ROS: Stated complaint: AMS Other details as noted in HPI Constitutional: diaphoresis, weakness. denies: chills, fever Eyes: denies: eye pain, eye discharge, vision change ENT: denies: ear pain, throat pain Respiratory: denies: cough, shortness of breath, wheezing Cardiovascular: denies: chest pain, palpitations Endocrine: no symptoms reported Gastrointestinal: denies: abdominal pain, nausea, diarrhea Genitourinary: denies: urgency, dysuria Musculoskeletal: denies: back pain, joint swelling, arthralgia Skin: denies: rash, lesions Neurological: as per HPI, weakness, confusion. denies: headache, paresthesias Psychiatric: denies: anxiety, depression Hematological/Lymphatic: denies: easy bleeding, easy bruising ED Past Medical Hx - Past Medical History Previous Medical History?: Yes Hx Hypertension: Yes Hx Renal Disease: Yes (on hemodialysis) Hx Seizures: Yes Hx Asthma: Yes Hx COPD: Yes Hx HIV: Yes - Surgical History Past Surgical History?: Yes Additional Surgical History: vascath. AV shunt LUE - Family History Family history: no significant - Social History Smoking Status: Never Smoker Substance Use Type: None - Medications Home Medications: Home Medications Medication Instructions Recorded Confirmed Last Taken Type Abacavir [Ziagen TAB] 300 mg PO BID 11/01/18 04/20/20 Unknown History Dolutegravir [Tivicay] 50 mg PO DAILY 11/01/18 04/20/20 Unknown History Clopidogrel [Plavix] 75 mg PO QDAY #30 tablet 11/03/18 04/20/20 Unknown Rx Aspirin [Aspirin BABY CHEW TAB] 81 mg PO QDAY #30 tab.chew 07/31/19 04/20/20 Unknown Rx AtorvaSTATin [Lipitor] 20 mg PO QHS #30 tablet 07/31/19 04/20/20 Unknown Rx amLODIPine 10 mg PO DAILY #30 tab 07/31/19 04/20/20 Unknown Rx cloNIDine [Catapres] 0.1 mg PO BID #60 07/31/19 04/20/20 Unknown Rx Levalbuterol Hfa 45 Mcg/Puff 2 puff IH Q6H PRN #1 inhalation 09/30/19 04/20/20 Unknown Rx [Xopenex Hfa (Nf)] ALBUTEROL NEB's [Proventil 0.083% 2.5 mg IH TID PRN #1 neb 11/29/19 04/20/20 Unknown Rx NEBS] predniSONE [Deltasone] 20 mg PO BID #6 tab 11/29/19 04/20/20 Unknown Rx Albuterol Mdi (or & Nicu Only) 2 puff IH QID PRN #8.5 gram 02/22/20 04/20/20 Unknown Rx [ProAir HFA Inhaler] Prednisone [predniSONE 10 mg 10 mg PO .TAPER #1 tab.ds.pk 02/22/20 04/20/20 Unknown Rx (6-Day Pack, 21 Tabs)] Doxycycline Hyclate [Doxycycline 100 mg PO Q12HR 7 Days #14 tab 03/27/20 04/20/20 Unknown Rx Hyclate TAB] ED Physical Exam - General Limitations: Altered Mental Status General appearance: alert, in no apparent distress - Head Head exam: Present: atraumatic, normocephalic - Eye Eye exam: Present: normal appearance - ENT ENT exam: Present: mucous membranes moist - Neck Neck exam: Present: normal inspection - Respiratory Respiratory exam: Present: normal lung sounds bilaterally. Absent: respiratory distress - Cardiovascular Cardiovascular Exam: Present: regular rate, normal rhythm. Absent: systolic murmur, diastolic murmur, rubs, gallop - GI/Abdominal GI/Abdominal exam: Present: soft, normal bowel sounds - Rectal Rectal exam: Present: deferred - Extremities Exam Extremities exam: Present: normal inspection - Back Exam Back exam: Present: normal inspection - Neurological Exam Neurological exam: Present: alert, altered, CN II-XII intact. Absent: motor sensory deficit - Psychiatric Psychiatric exam: Present: normal affect, normal mood - Skin Skin exam: Present: warm, dry, intact, normal color. Absent: rash - Assessment Assessment Interval: Baseline - Level of Consciousness 1a. Level of Consciousness: alert/keenly responsive - LOC Questions 1b. LOC Questions: answers both correctly - LOC Command 1c. LOC Commands: performs tasks correctly - Best Gaze 2. Best Gaze: normal - Visual 3. Visual: no visual loss - Facial Palsy 4. Facial Palsy: normal symmetrical movement - Motor Arm 5a. Motor Arm Left: no drift 5b. Motor Arm Right: no drift - Motor Leg 6a. Motor Leg Left: no drift 6b. Motor Leg Right: no drift - Limb Ataxia 7. Limb Ataxia: absent - Sensory 8. Sensory: normal - Best Language 9. Best Language: no aphasia - Dysarthria 10. Dysarthria: normal - Extinction and Inattention 11. Extinction/Inattention: no abnormality - Scoring Total Score: 0 Stroke Severity: No Stroke Symptoms ED Course Vital Signs 04/19/20 04/19/20 04/19/20 19:30 19:38 19:45 Temperature 97.6 F Pulse Rate 78 75 Respiratory 18 16 17 Rate Blood Pressure 123/66 123/62 O2 Sat by Pulse 97 98 100 Oximetry 04/19/20 04/19/20 04/19/20 20:00 20:15 20:30 Temperature Pulse Rate 77 81 80 Respiratory 17 18 20 Rate Blood Pressure 127/63 123/62 125/62 O2 Sat by Pulse 98 100 100 Oximetry 04/19/20 04/19/20 04/19/20 20:45 21:00 21:15 Temperature Pulse Rate 81 83 81 Respiratory 19 20 21 Rate Blood Pressure 125/67 117/66 122/64 O2 Sat by Pulse 100 100 99 Oximetry 04/19/20 04/19/20 04/19/20 21:30 21:45 22:00 Temperature Pulse Rate 80 82 87 Respiratory 19 20 21 Rate Blood Pressure 121/60 119/64 119/67 O2 Sat by Pulse 100 100 100 Oximetry 04/19/20 04/19/20 04/19/20 22:16 22:30 22:48 Temperature Pulse Rate 90 87 89 Respiratory 22 21 24 Rate Blood Pressure 125/69 120/67 120/67 O2 Sat by Pulse 99 99 100 Oximetry 04/19/20 04/19/20 04/19/20 23:00 23:15 23:30 Temperature Pulse Rate 83 85 81 Respiratory 20 22 15 Rate Blood Pressure 114/52 116/61 109/51 O2 Sat by Pulse 99 99 96 Oximetry 04/19/20 04/20/20 23:45 00:00 Temperature Pulse Rate 81 80 Respiratory 20 19 Rate Blood Pressure 123/56 117/53 O2 Sat by Pulse 99 97 Oximetry - Reevaluation(s) Reevaluation #1: Patient still having moments of confusion. Patient states he still feels confused. Patient denies pain. 04/19/20 22:00 Reevaluation #2: I discussed all results with patient. I discussed plan of care with patient. Patient agrees with plan of care and admission. Patient to be admitted to the hospitalist service. 04/19/20 23:15 - Consultations Consultation #1: Hospitalist consulted for admission. Hospitalist to admit patient. 04/19/20 23:15 - Lab Data Result diagrams: 04/19/20 20:33 04/19/20 20:33 Lab Results 04/19/20 04/19/20 04/19/20 Range/Units 20:33 20:33 20:33 WBC 5.9 (4.5-11.0) K/mm3 RBC 4.44 (3.65-5.03) M/mm3 Hgb 13.0 (11.8-15.2) gm/dl Hct 39.4 (35.5-45.6) % MCV 89 (84-94) fl MCH 29 (28-32) pg MCHC 33 (32-34) % RDW 17.2 H (13.2-15.2) % Plt Count 113 L (140-440) K/mm3 Add Manual Diff Complete Total Counted 100 Seg Neuts % (Manual) 55.0 (40.0-70.0) % Band Neutrophils % 0 % Lymphocytes % (Manual) 23.0 (13.4-35.0) % Reactive Lymphs % (Man) 0 % Monocytes % (Manual) 14.0 H (0.0-7.3) % Eosinophils % (Manual) 7.0 H (0.0-4.3) % Basophils % (Manual) 1.0 (0.0-1.8) % Metamyelocytes % 0 % Myelocytes % 0 % Promyelocytes % 0 % Blast Cells % 0 % Nucleated RBC % Not Reportable Seg Neutrophils # Man 3.2 (1.8-7.7) K/mm3 Band Neutrophils # 0.0 K/mm3 Lymphocytes # (Manual) 1.4 (1.2-5.4) K/mm3 Abs React Lymphs (Man) 0.0 K/mm3 Monocytes # (Manual) 0.8 (0.0-0.8) K/mm3 Eosinophils # (Manual) 0.4 (0.0-0.4) K/mm3 Basophils # (Manual) 0.1 (0.0-0.1) K/mm3 Metamyelocytes # 0.0 K/mm3 Myelocytes # 0.0 K/mm3 Promyelocytes # 0.0 K/mm3 Blast Cells # 0.0 K/mm3 WBC Morphology Not Reportable Hypersegmented Neuts Not Reportable Hyposegmented Neuts Not Reportable Hypogranular Neuts Not Reportable Smudge Cells Not Reportable Toxic Granulation Not Reportable Toxic Vacuolation Not Reportable Dohle Bodies Not Reportable Pelger-Huet Anomaly Not Reportable Stephen Rods Not Reportable Platelet Estimate Not Reportable Clumped Platelets Not Reportable Plt Clumps, EDTA Not Reportable Large Platelets Not Reportable Giant Platelets Not Reportable Platelet Satelliting Not Reportable Plt Morphology Comment Not Reportable RBC Morphology Not Reportable Dimorphic RBCs Not Reportable Polychromasia Not Reportable Hypochromasia Not Reportable Poikilocytosis Not Reportable Anisocytosis Few Microcytosis Few Macrocytosis Not Reportable Spherocytes Not Reportable Pappenheimer Bodies Not Reportable Sickle Cells Not Reportable Target Cells Not Reportable Tear Drop Cells Not Reportable Ovalocytes Not Reportable Helmet Cells Not Reportable [place] Bodies Not Reportable Mcken[place] Rings Not Reportable Cornelius Cells Not Reportable Bite Cells Not Reportable Crenated Cell Not Reportable Elliptocytes Not Reportable Acanthocytes (Spur) Not Reportable Rouleaux Not Reportable Hemoglobin C Crystals Not Reportable Schistocytes Few Malaria parasites Not Reportable Erick Bodies Not Reportable Hem Pathologist Commnt No Sodium 135 L (137-145) mmol/L Potassium 4.2 (3.6-5.0) mmol/L Chloride 93.0 L (98-107) mmol/L Carbon Dioxide 26 (22-30) mmol/L Anion Gap 20 mmol/L BUN 50 H (9-20) mg/dL Creatinine 8.7 H (0.8-1.3) mg/dL Estimated GFR 8 ml/min BUN/Creatinine Ratio 6 % Glucose 102 H (75-100) mg/dL Lactic Acid 1.10 (0.7-2.0) mmol/L Calcium 9.1 (8.4-10.2) mg/dL Total Bilirubin 0.40 (0.1-1.2) mg/dL AST 18 (5-40) units/L ALT 17 (7-56) units/L Alkaline Phosphatase 95 (35-129) units/L Ammonia (25-60) umol/L Total Creatine Kinase 71 (55-170) units/L Troponin T 0.798 H* (0.00-0.029) ng/mL Total Protein 6.6 (6.3-8.2) g/dL Albumin 3.7 L (3.9-5) g/dL Albumin/Globulin Ratio 1.3 % Triglycerides 99 (2-149) mg/dL Cholesterol 175 (50-199) mg/dL LDL Cholesterol Direct 99 (50-130) mg/dL HDL Cholesterol 66 H (40-59) mg/dL Cholesterol/HDL Ratio 2.65 % Salicylates (2.8-20.0) mg/dL Acetaminophen (10.0-30.0) ug/mL Plasma/Serum Alcohol (0-0.07) % 04/19/20 04/19/20 04/19/20 Range/Units 20:33 20:33 20:33 WBC (4.5-11.0) K/mm3 RBC (3.65-5.03) M/mm3 Hgb (11.8-15.2) gm/dl Hct (35.5-45.6) % MCV (84-94) fl MCH (28-32) pg MCHC (32-34) % RDW (13.2-15.2) % Plt Count (140-440) K/mm3 Add Manual Diff Total Counted Seg Neuts % (Manual) (40.0-70.0) % Band Neutrophils % % Lymphocytes % (Manual) (13.4-35.0) % Reactive Lymphs % (Man) % Monocytes % (Manual) (0.0-7.3) % Eosinophils % (Manual) (0.0-4.3) % Basophils % (Manual) (0.0-1.8) % Metamyelocytes % % Myelocytes % % Promyelocytes % % Blast Cells % % Nucleated RBC % Seg Neutrophils # Man (1.8-7.7) K/mm3 Band Neutrophils # K/mm3 Lymphocytes # (Manual) (1.2-5.4) K/mm3 Abs React Lymphs (Man) K/mm3 Monocytes # (Manual) (0.0-0.8) K/mm3 Eosinophils # (Manual) (0.0-0.4) K/mm3 Basophils # (Manual) (0.0-0.1) K/mm3 Metamyelocytes # K/mm3 Myelocytes # K/mm3 Promyelocytes # K/mm3 Blast Cells # K/mm3 WBC Morphology Hypersegmented Neuts Hyposegmented Neuts Hypogranular Neuts Smudge Cells Toxic Granulation Toxic Vacuolation Dohle Bodies Pelger-Huet Anomaly Stephen Rods Platelet Estimate Clumped Platelets Plt Clumps, EDTA Large Platelets Giant Platelets Platelet Satelliting Plt Morphology Comment RBC Morphology Dimorphic RBCs Polychromasia Hypochromasia Poikilocytosis Anisocytosis Microcytosis Macrocytosis Spherocytes Pappenheimer Bodies Sickle Cells Target Cells Tear Drop Cells Ovalocytes Helmet Cells [place] Bodies [place] Rings [place] Cells Bite Cells Crenated Cell Elliptocytes Acanthocytes (Spur) Rouleaux Hemoglobin C Crystals Schistocytes Malaria parasites Erick Bodies Hem Pathologist Commnt Sodium (137-145) mmol/L Potassium (3.6-5.0) mmol/L Chloride (98-107) mmol/L Carbon Dioxide (22-30) mmol/L Anion Gap mmol/L BUN (9-20) mg/dL Creatinine (0.8-1.3) mg/dL Estimated GFR ml/min BUN/Creatinine Ratio % Glucose (75-100) mg/dL Lactic Acid (0.7-2.0) mmol/L Calcium (8.4-10.2) mg/dL Total Bilirubin (0.1-1.2) mg/dL AST (5-40) units/L ALT (7-56) units/L Alkaline Phosphatase (35-129) units/L Ammonia 16.0 L (25-60) umol/L Total Creatine Kinase (55-170) units/L Troponin T (0.00-0.029) ng/mL Total Protein (6.3-8.2) g/dL Albumin (3.9-5) g/dL Albumin/Globulin Ratio % Triglycerides (2-149) mg/dL Cholesterol (50-199) mg/dL LDL Cholesterol Direct (50-130) mg/dL HDL Cholesterol (40-59) mg/dL Cholesterol/HDL Ratio % Salicylates < 0.3 L (2.8-20.0) mg/dL Acetaminophen 5.0 L (10.0-30.0) ug/mL Plasma/Serum Alcohol (0-0.07) % 04/19/20 Range/Units 20:33 WBC (4.5-11.0) K/mm3 RBC (3.65-5.03) M/mm3 Hgb (11.8-15.2) gm/dl Hct (35.5-45.6) % MCV (84-94) fl MCH (28-32) pg MCHC (32-34) % RDW (13.2-15.2) % Plt Count (140-440) K/mm3 Add Manual Diff Total Counted Seg Neuts % (Manual) (40.0-70.0) % Band Neutrophils % % Lymphocytes % (Manual) (13.4-35.0) % Reactive Lymphs % (Man) % Monocytes % (Manual) (0.0-7.3) % Eosinophils % (Manual) (0.0-4.3) % Basophils % (Manual) (0.0-1.8) % Metamyelocytes % % Myelocytes % % Promyelocytes % % Blast Cells % % Nucleated RBC % Seg Neutrophils # Man (1.8-7.7) K/mm3 Band Neutrophils # K/mm3 Lymphocytes # (Manual) (1.2-5.4) K/mm3 Abs React Lymphs (Man) K/mm3 Monocytes # (Manual) (0.0-0.8) K/mm3 Eosinophils # (Manual) (0.0-0.4) K/mm3 Basophils # (Manual) (0.0-0.1) K/mm3 Metamyelocytes # K/mm3 Myelocytes # K/mm3 Promyelocytes # K/mm3 Blast Cells # K/mm3 WBC Morphology Hypersegmented Neuts Hyposegmented Neuts Hypogranular Neuts Smudge Cells Toxic Granulation Toxic Vacuolation Dohle Bodies Pelger-Huet Anomaly Stephen Rods Platelet Estimate Clumped Platelets Plt Clumps, EDTA Large Platelets Giant Platelets Platelet Satelliting Plt Morphology Comment RBC Morphology Dimorphic RBCs Polychromasia Hypochromasia Poikilocytosis Anisocytosis Microcytosis Macrocytosis Spherocytes Pappenheimer Bodies Sickle Cells Target Cells Tear Drop Cells Ovalocytes Helmet Cells Cain[place] Bodies [place]ck[place] Rings [place] Cells Bite Cells Crenated Cell Elliptocytes Acanthocytes (Spur) Rouleaux Hemoglobin C Crystals Schistocytes Malaria parasites Erick Bodies Hem Pathologist Commnt Sodium (137-145) mmol/L Potassium (3.6-5.0) mmol/L Chloride (98-107) mmol/L Carbon Dioxide (22-30) mmol/L Anion Gap mmol/L BUN (9-20) mg/dL Creatinine (0.8-1.3) mg/dL Estimated GFR ml/min BUN/Creatinine Ratio % Glucose (75-100) mg/dL Lactic Acid (0.7-2.0) mmol/L Calcium (8.4-10.2) mg/dL Total Bilirubin (0.1-1.2) mg/dL AST (5-40) units/L ALT (7-56) units/L Alkaline Phosphatase (35-129) units/L Ammonia (25-60) umol/L Total Creatine Kinase (55-170) units/L Troponin T (0.00-0.029) ng/mL Total Protein (6.3-8.2) g/dL Albumin (3.9-5) g/dL Albumin/Globulin Ratio % Triglycerides (2-149) mg/dL Cholesterol (50-199) mg/dL LDL Cholesterol Direct (50-130) mg/dL HDL Cholesterol (40-59) mg/dL Cholesterol/HDL Ratio % Salicylates (2.8-20.0) mg/dL Acetaminophen (10.0-30.0) ug/mL Plasma/Serum Alcohol < 0.01 (0-0.07) % - EKG Data -: EKG Interpreted by [facility] EKG shows normal: sinus rhythm, axis, intervals, QRS complexes, ST-T waves Rate: normal Interpretation: LVH - Radiology Data Radiology results: report reviewed CHEST 1 VIEW INDICATION / CLINICAL INFORMATION: Altered Mental Status. COMPARISON: 04/13/2020 FINDINGS: SUPPORT DEVICES: None. HEART / MEDIASTINUM: Stable. LUNGS / PLEURA: Chronic mild interstitial lung findings. No acute pulmonary or parenchymal disease or significant change when compared to 04/13/2020. No pneumothorax. ADDITIONAL FINDINGS: No significant additional findings. IMPRESSION: 1. No acute findings or significant interval change. CT head without contrast INDICATION : Altered mental status. TECHNIQUE: Axial imaging performed from the skull apex through the skull base without the use of contrast. All CT examinations performed at this facility utilize dose modulation, iterative reconstruction or weight-based dosing, when appropriate, to reduce radiation dose to as low as reasonably achievable. COMPARISON: None FINDINGS: Mild diffuse cerebral atrophy with extensive microangiopathic white matter changes. There is mild encephalomalacia involving the inferior aspect of the left frontal lobe. No acute intracranial hemorrhage or parenchymal abnormality. Ventricles are normal in size and appear symmetric. Soft tissues including the orbits appear normal. No acute osseous abnormality. Sinuses and mastoid air cells are clear. IMPRESSION: Mild diffuse cerebral atrophy with scattered encephalomalacia involving the left frontal lobe, as above. No acute intracranial hemorrhage is identified. - Medical Decision Making Patient is a 59-year-old male that presents emergency room with complaints of confusion, altered mental status and diaphoresis. Patient states he is feeling confused. Patient's family believes he was confused as per EMS report. Patient had a head CT which was negative for acute findings. Patient's labs were done. Patient's labs are consistent with end-stage renal disease. Patient's potassium was normal. Patient is not sure when his last dialysis was. Patient admitted to the hospital service for further evaluation treatment. Patient's chest x-ray was negative for acute findings. Patient's EKG shows LVH but no acute findings. - Differential Diagnosis Uremia, confusion, AMS, encephalopathy, electrolyte imbalance, dehydration Critical Care Time: Yes Critical care time in (mins) excluding proc time.: 35 Critical care attestation.: If time is entered above; I have spent that time in minutes in the direct care of this critically ill patient, excluding procedure time. Critical Care Time: 35 minutes ED Disposition Clinical Impression: Encephalopathy, Confusion, Diaphoresis, ESRD (end stage renal disease) on dialysis, Elevated troponin, Dialysis patient, noncompliant Disposition: 09 OP ADMIT IP TO THIS HOSP Is pt being admited?: Yes Does the pt Need Aspirin: No Condition: Critical Time of Disposition: 22:57
[2020-04-19 21:03] LABS: Hematocrit 39.4 % (35.5-45.6); Mean Corpuscular HGB Conc 33 % (32-34); Mean Corpuscular Volume 89 fl (84-94); Platelet Count 113 K/mm3 (140-440); Red Blood Count 4.44 M/mm3 (3.65-5.03); Red Cell Distribution Width 17.2 % (13.2-15.2)
[2020-04-19 21:09] LABS: Albumin 3.7 g/dL (3.9-5); Calcium 9.1 mg/dL (8.4-10.2)
[2020-04-19 21:28] LABS: Chol/HDL Ratio 2.65 %
--- NOTE | 2020-04-19 21:30 | XRay Report ---
CHEST 1 VIEW INDICATION / CLINICAL INFORMATION: Altered Mental Status. COMPARISON: 04/13/2020 FINDINGS: SUPPORT DEVICES: None. HEART / MEDIASTINUM: Stable. LUNGS / PLEURA: Chronic mild interstitial lung findings. No acute pulmonary or parenchymal disease or significant change when compared to 04/13/2020. No pneumothorax. ADDITIONAL FINDINGS: No significant additional findings. IMPRESSION: 1. No acute findings or significant interval change. Signer Name: Drew Hwang MD Signed: 04/19/2020 9:25 PM Workstation Name: [id number]
[2020-04-19 21:53] LABS: Anisocytosis Few; Schistocytes Few; Total Cells Counted 100
--- NOTE | 2020-04-19 23:04 | Cat Scan Report ---
CT head without contrast INDICATION : Altered mental status. TECHNIQUE: Axial imaging performed from the skull apex through the skull base without the use of con trast. All CT examinations performed at this facility utilize dose modulation, iterative reconstruct ion or weight-based dosing, when appropriate, to reduce radiation dose to as low as reasonably achiev able. COMPARISON: None FINDINGS: Mild diffuse cerebral atrophy with extensive microangiopathic white matter changes. There i s mild encephalomalacia involving the inferior aspect of the left frontal lobe. No acute intracranial hemorrhage or parenchymal abnormality. Ventricles are normal in size and appear symmetric. Soft tissues including the orbits appear normal. No acute osseous abnormality. Sinuses and mastoid air cells are clear. IMPRESSION: Mild diffuse cerebral atrophy with scattered encephalomalacia involving the left frontal lobe, as above. No acute intracranial hemorrhage is identified. Signer Name: Paul James MD Signed: 04/19/2020 11:00 PM Workstation Name: [id number]
[2020-04-20] MEDS ORDERED: ACETAMINOPHEN 325 MG TAB PO PRN (00:39)
[2020-04-20] MEDS ORDERED: HEPARIN 5,000 UNIT/1 ML VIAL ONE (02:33)
[2020-04-20] MEDS: HEPARIN 5,000 UNIT/1 ML VIAL SUB-Q SCH ×3 (02:35→22:03)
--- NOTE | 2020-04-20 05:12 | History and Physical Report ---
History of Present Illness Date of examination: 04/19/20 Date of admission: 04/19/20 23:16 Chief complaint: Altered mental status History of present illness: 59 year old male presenting with altered mental status, Patient has been missing his dialysis treatment and denied history of fever, chills, chest pain, shortness of breath. Past History Past Medical History: COPD, ESRD, HIV/AIDS, hypertension, seizures, other (ASTHMA) Past Surgical History: Other (1. A-V DIALYSIS FISTULA 2. ) Social history: no significant social history Family history: no significant family history Medications and Allergies Allergies Allergy/AdvReac Type Severity Reaction Status Date / Time lisinopril Allergy Angioedema Verified 11/24/14 19:07 Home Medications Medication Instructions Recorded Confirmed Last Taken Type Abacavir [Ziagen TAB] 300 mg PO BID 11/01/18 04/20/20 Unknown History Dolutegravir [Tivicay] 50 mg PO DAILY 11/01/18 04/20/20 Unknown History Clopidogrel [Plavix] 75 mg PO QDAY #30 tablet 11/03/18 04/20/20 Unknown Rx Aspirin [Aspirin BABY CHEW TAB] 81 mg PO QDAY #30 tab.chew 07/31/19 04/20/20 Unknown Rx AtorvaSTATin [Lipitor] 20 mg PO QHS #30 tablet 07/31/19 04/20/20 Unknown Rx amLODIPine 10 mg PO DAILY #30 tab 07/31/19 04/20/20 Unknown Rx cloNIDine [Catapres] 0.1 mg PO BID #60 07/31/19 04/20/20 Unknown Rx Levalbuterol Hfa 45 Mcg/Puff 2 puff IH Q6H PRN #1 inhalation 09/30/19 04/20/20 Unknown Rx [Xopenex Hfa (Nf)] ALBUTEROL NEB's [Proventil 0.083% 2.5 mg IH TID PRN #1 neb 11/29/19 04/20/20 Unknown Rx NEBS] predniSONE [Deltasone] 20 mg PO BID #6 tab 11/29/19 04/20/20 Unknown Rx Albuterol Mdi (or & Nicu Only) 2 puff IH QID PRN #8.5 gram 02/22/20 04/20/20 Unknown Rx [ProAir HFA Inhaler] Prednisone [predniSONE 10 mg 10 mg PO .TAPER #1 tab.ds.pk 02/22/20 04/20/20 Unknown Rx (6-Day Pack, 21 Tabs)] Doxycycline Hyclate [Doxycycline 100 mg PO Q12HR 7 Days #14 tab 03/27/20 04/20/20 Unknown Rx Hyclate TAB] Active Meds: Active Medications Acetaminophen (Tylenol) 650 mg PO Q4H PRN PRN Reason: Headache Heparin Sodium (Porcine) (Heparin) 5,000 unit SUB-Q Q12HR MIGUELANGEL Last Admin: 04/20/20 02:35 Dose: 5,000 unit Documented by: Review of Systems Constitutional: weakness, no fever, no chills, no sweats, no night sweats Eyes: bilateral: other (NO BILATERAL EYE SYMPTOM) Cardiovascular: no chest pain, no orthopnea, no palpitations, no syncope, no lightheadedness, no shortness of breath Respiratory: no cough, no cough with sputum, no excessive sputum, no hemoptysis, no shortness of breath, no congestion, no wheezing, no pleurisy Gastrointestinal: no abdominal pain, no nausea, no vomiting Genitourinary Male: no hematuria Rectal: no pain Musculoskeletal: no neck stiffness, no neck pain, no shooting arm pain, no arm numbness/tingling, no low back pain Integumentary: no rash, no pruritis, no redness, no sores, no wounds, no jaundice, no bullae, no lesions, no darkening of skin, no depigmentation Neurological: change in mentation, confusion, no paralysis, no weakness, no parathesias, no numbness, no tingling, no seizures, no syncope, no tremors, no vertigo, no headaches Psychiatric: confusion Endocrine: no polydipsia, no polyuria, no nocturia Hematologic/Lymphatic: no easy bruising, no easy bleeding Exam - Constitutional Vitals: Temp Pulse Resp BP Pulse Ox 97.6 F 80 19 117/53 97 04/20/20 03:44 04/20/20 04:30 04/20/20 03:44 04/20/20 00:00 04/20/20 03:44 General appearance: Present: no acute distress - Neck Neck: Present: supple, normal ROM - Respiratory Respiratory effort: normal - Cardiovascular Rhythm: regular Heart Sounds: Present: S1 & S2. Absent: gallop, click - Extremities Extremities: no ischemia, No edema Peripheral Pulses: within normal limits - Abdominal General gastrointestinal: Present: soft, non-tender, non-distended. Absent: tender, distended, rigid, hepatomegaly, splenomegaly, mass Male genitourinary: Present: deferred - Rectal Rectal Exam: deferred - Integumentary Integumentary: Present: clear, warm, dry - Musculoskeletal Musculoskeletal: generalized weakness HEART Score - HEART Score Risk factors: 1-2 risk factors Troponin: Troponin T 0.893 ng/mL (0.00-0.029) H* 04/19/20 23:52 Troponin: < normal limit - Critical Actions Critical Actions: 0-3 pts:0.9-1.7%risk of adverse cardiac event.Candidate for d ischarge Results - Labs CBC & Chem 7: 04/19/20 20:33 04/19/20 20:33 Labs: Laboratory Last Values WBC 5.9 K/mm3 (4.5-11.0) 04/19/20 20: RBC 4.44 M/mm3 (3.65-5.03) 04/19/20 20: Hgb 13.0 gm/dl (11.8-15.2) 04/19/20 20: Hct 39.4 % (35.5-45.6) 04/19/20 20: MCV 89 fl (84-94) 04/19/20 20: MCH 29 pg (28-32) 04/19/20 20: MCHC 33 % (32-34) 04/19/20: RDW 17.2 % (13.2-15.2) H 04/19/20 20: Plt Count 113 K/mm3 (140-440) L 04/19/20 20: Add Manual Diff Complete 04/19/20 20: Total Counted 100 04/19/20 20: Seg Neuts % (Manual) 55.0 % (40.0-70.0) 04/19/20 20: Band Neutrophils % 0 % 04/19/20 20:33 Lymphocytes % (Manual) 23.0 % (13.4-35.0) 04/19/20 20: Reactive Lymphs % (Man) 0 % 04/19/20 20: Monocytes % (Manual) 14.0 % (0.0-7.3) H 04/19/20 20:33 Eosinophils % (Manual) 7.0 % (0.0-4.3) H 04/19/20 20:33 Basophils % (Manual) 1.0 % (0.0-1.8) 04/19/20 20:33 Metamyelocytes % 0 % 04/19/20 20:33 Myelocytes % 0 % 04/19/20 20:33 Promyelocytes % 0 % 04/19/20 20:33 Blast Cells % 0 % 04/19/20 20:33 Nucleated RBC % Not Reportable 04/19/20 20:33 Seg Neutrophils # Man 3.2 K/mm3 (1.8-7.7) 04/19/20 20: Band Neutrophils # 0.0 K/mm3 04/19/20 20:33 Lymphocytes # (Manual) 1.4 K/mm3 (1.2-5.4) 04/19/20 20:33 Abs React Lymphs (Man) 0.0 K/mm3 04/19/20 20:33 Monocytes # (Manual) 0.8 K/mm3 (0.0-0.8) 04/19/20 20:33 Eosinophils # (Manual) 0.4 K/mm3 (0.0-0.4) 04/19/20 20:33 Basophils # (Manual) 0.1 K/mm3 (0.0-0.1) 04/19/20 20:33 Metamyelocytes # 0.0 K/mm3 04/19/20 20: Myelocytes # 0.0 K/mm3 04/19/20 20: Promyelocytes # 0.0 K/mm3 04/19/20 20:33 Blast Cells # 0.0 K/mm3 04/19/20 20:33 WBC Morphology Not Reportable 04/19/20 20:33 Hypersegmented Neuts Not Reportable 04/19/20 20:33 Hyposegmented Neuts Not Reportable 04/19/20 20: Hypogranular Neuts Not Reportable 04/19/20 20:33 Smudge Cells Not Reportable 04/19/20 20:33 Toxic Granulation Not Reportable 04/19/20 20:33 Toxic Vacuolation Not Reportable 04/19/20 20: Dohle Bodies Not Reportable 04/19/20 20:33 Pelger-Huet Anomaly Not Reportable 04/19/20 20:33 Stephen Rods Not Reportable 04/19/20 20:33 Platelet Estimate Not Reportable 04/19/20 20:33 Clumped Platelets Not Reportable 04/19/20 20:33 Plt Clumps, EDTA Not Reportable 04/19/20 20:33 Large Platelets Not Reportable 04/19/20 20:33 Giant Platelets Not Reportable 04/19/20 20:33 Platelet Satelliting Not Reportable 04/19/20 20:33 Plt Morphology Comment Not Reportable 04/19/20 20:33 RBC Morphology Not Reportable 04/19/20 20:33 Dimorphic RBCs Not Reportable 04/19/20 20:33 Polychromasia Not Reportable 04/19/20 20:33 Hypochromasia Not Reportable 04/19/20 20:33 Poikilocytosis Not Reportable 04/19/20 20:33 Anisocytosis Few 04/19/20 20:33 Microcytosis Few 04/19/20 20:33 Macrocytosis Not Reportable 04/19/20 20:33 Spherocytes Not Reportable 04/19/20 20:33 Pappenheimer Bodies Not Reportable 04/19/20 20:33 Sickle Cells Not Reportable 04/19/20 20:33 Target Cells Not Reportable 04/19/20 20:33 Tear Drop Cells Not Reportable 04/19/20 20:33 Ovalocytes Not Reportable 04/19/20 20:33 Helmet Cells Not Reportable 04/19/20 20:33 Cain-Philomath Bodies Not Reportable 04/19/20 20:33 Panaca Rings Not Reportable 04/19/20 20:33 [place] Cells Not Reportable 04/19/20 20:33 Bite Cells Not Reportable 04/19/20 20:33 Crenated Cell Not Reportable 04/19/20 20:33 Elliptocytes Not Reportable 04/19/20 20:33 Acanthocytes (Spur) Not Reportable 04/19/20 20:33 Rouleaux Not Reportable 04/19/20 20:33 Hemoglobin C Crystals Not Reportable 04/19/20 20:33 Schistocytes Few 04/19/20 20:33 Malaria parasites Not Reportable 04/19/20 20:33 Erick Bodies Not Reportable 04/19/20 20:33 Hem Pathologist Commnt No 04/19/20 20:33 Sodium 135 mmol/L (137-145) L 04/19/20 20: Potassium 4.2 mmol/L (3.6-5.0) 04/19/20 20: Chloride 93.0 mmol/L (98-107) L 04/19/20 20: Carbon Dioxide 26 mmol/L (22-30) 04/19/20 20: Anion Gap 20 mmol/L 04/19/20 20: BUN 50 mg/dL (9-20) H 04/19/20 20: Creatinine 8.7 mg/dL (0.8-1.3) H 04/19/20 20: Estimated GFR 8 ml/min 04/19/20 20: BUN/Creatinine Ratio 6 % 04/19/20 20: Glucose 102 mg/dL (75-100) H 04/19/20 20:33 Lactic Acid 1.10 mmol/L (0.7-2.0) 04/19/20 20: Calcium 9.1 mg/dL (8.4-10.2) 04/19/20 20: Total Bilirubin 0.40 mg/dL (0.1-1.2) 04/19/20 20: AST 18 units/L (5-40) 04/19/20 20: ALT 17 units/L (7-56) 04/19/20 20:33 Alkaline Phosphatase 95 units/L (35-129) 04/19/20 20: Ammonia 16.0 umol/L (25-60) L 04/19/20 20: Total Creatine Kinase 71 units/L (55-170) 04/19/20 20: Troponin T 0.893 ng/mL (0.00-0.029) H* 04/19/20 23:52 Total Protein 6.6 g/dL (6.3-8.2) 04/19/20 20: Albumin 3.7 g/dL (3.9-5) L 04/19/20 20:33 Albumin/Globulin Ratio 1.3 % 04/19/20 20: Triglycerides 99 mg/dL (2-149) 04/19/20 20: Cholesterol 175 mg/dL (50-199) 04/19/20 20:33 LDL Cholesterol Direct 99 mg/dL (50-130) 04/19/20 20:33 HDL Cholesterol 66 mg/dL (40-59) H 04/19/20 20:33 Cholesterol/HDL Ratio 2.65 % 04/19/20 20:33 Salicylates < 0.3 mg/dL (2.8-20.0) L 04/19/20 20: Acetaminophen 5.0 ug/mL (10.0-30.0) L 04/19/20 20: Plasma/Serum Alcohol < 0.01 % (0-0.07) 04/19/20 20:33 Williamson/IV: IV Catheter Type [Right INT / Saline Lock Antecubital] Assessment and Plan - Patient Problems (1) Altered mental state Current Visit: Yes Status: Acute Plan to address problem: 1.NEUROCHECKS (2) Elevated troponin Current Visit: Yes Status: Acute Plan to address problem: 1. SERIAL TROPONIN LEVEL 2. CARDIOLOGY CONSULT (3) ESRD (end stage renal disease) on dialysis Current Visit: No Status: Chronic Plan to address problem: NEPHROLOGY CONSULT
--- NOTE | 2020-04-20 12:32 | Consultation ---
History of Present Illness Consult date: 04/20/20 Requesting physician: JOHN HULL Consult reason: elevated troponin History of present illness: The pt is a 59 YO male with a past medical history of CAD s/p PCI of RCA on 04/17/2020 at [place], ESRD on HD, HIV, COPD, tobacco use, DVT, SVT, HTN, and HLP. He is followed in our office by Dr. Wu. He presented for evaluation of altered mental status, confusion. Pt states that he missed dialysis. He denies any occurrence of cardiac complaints. Of note, pt presented to [facility] earlier this week with c/o SOB during dialysis and exertional dyspnea. He underwent LHC which showed calcified lesion in RCA and was transferred to [place] for PCI. On 04/17/2020, pt underwent LHC which showed 80% calcified stenosis in RCA with PCI and rotational atherectomy with two MALINI. Pt has h/o DVT, his home Eliquis was discontinued and he was discharged on ASA 81 and Plavix. tte done 05/2019 showed EF 60%, cannot r/o vegetation of aortic valve, trace MR. Past History Past Medical History: CAD, COPD, ESRD, HIV/AIDS, hypertension, seizures, other (ASTHMA) Past Surgical History: Other (1. A-V DIALYSIS FISTULA 2. ) Social history: no significant social history Family history: no significant family history Medications and Allergies Allergies Allergy/AdvReac Type Severity Reaction Status Date / Time lisinopril Allergy Angioedema Verified 11/24/14 19:07 Home Medications Medication Instructions Recorded Confirmed Last Taken Type Abacavir [Ziagen TAB] 300 mg PO BID 11/01/18 04/20/20 Unknown History Dolutegravir [Tivicay] 50 mg PO DAILY 11/01/18 04/20/20 Unknown History Clopidogrel [Plavix] 75 mg PO QDAY #30 tablet 11/03/18 04/20/20 Unknown Rx Aspirin [Aspirin BABY CHEW TAB] 81 mg PO QDAY #30 tab.chew 07/31/19 04/20/20 Unknown Rx AtorvaSTATin [Lipitor] 20 mg PO QHS #30 tablet 07/31/19 04/20/20 Unknown Rx amLODIPine 10 mg PO DAILY #30 tab 07/31/19 04/20/20 Unknown Rx cloNIDine [Catapres] 0.1 mg PO BID #60 07/31/19 04/20/20 Unknown Rx Levalbuterol Hfa 45 Mcg/Puff 2 puff IH Q6H PRN #1 inhalation 09/30/19 04/20/20 Unknown Rx [Xopenex Hfa (Nf)] ALBUTEROL NEB's [Proventil 0.083% 2.5 mg IH TID PRN #1 neb 11/29/19 04/20/20 Unknown Rx NEBS] predniSONE [Deltasone] 20 mg PO BID #6 tab 11/29/19 04/20/20 Unknown Rx Albuterol Mdi (or & Nicu Only) 2 puff IH QID PRN #8.5 gram 02/22/20 04/20/20 Unknown Rx [ProAir HFA Inhaler] Prednisone [predniSONE 10 mg 10 mg PO .TAPER #1 tab.ds.pk 02/22/20 04/20/20 Unknown Rx (6-Day Pack, 21 Tabs)] Doxycycline Hyclate [Doxycycline 100 mg PO Q12HR 7 Days #14 tab 03/27/20 04/20/20 Unknown Rx Hyclate TAB] Active Meds: Active Medications Acetaminophen (Tylenol) 650 mg PO Q4H PRN PRN Reason: Headache Heparin Sodium (Porcine) (Heparin) 5,000 unit SUB-Q Q12HR MIGUELANGEL Last Admin: 04/20/20 11:21 Dose: 5,000 unit Documented by: Review of Systems Constitutional: no weight loss, no weight gain, no fever, no chills, no sweats Ears, nose, mouth and throat: no ear pain, no nose pain, no sinus pressure, no sinus pain Cardiovascular: no chest pain, no orthopnea, no palpitations, no rapid/irregular heart beat, no edema, no syncope, no lightheadedness, no shortness of breath, no dyspnea on exertion Respiratory: no cough, no shortness of breath, no dyspnea on exertion, no congestion, no wheezing, no pain on inspiration Gastrointestinal: no abdominal pain, no nausea, no vomiting, no diarrhea, no constipation, no change in bowel habits Genitourinary Male: no dysuria, no hematuria, no flank pain, no discharge, no urinary frequency, no urinary hesitancy Musculoskeletal: no neck stiffness, no neck pain, no shooting arm pain, no arm numbness/tingling, no low back pain, no shooting leg pain Integumentary: no rash, no pruritis, no redness, no sores, no wounds Neurological: confusion, no head injury, no paralysis, no weakness, no parathesias, no numbness, no tingling, no seizures, no syncope Psychiatric: no anxiety Endocrine: no cold intolerance, no heat intolerance Hematologic/Lymphatic: no easy bruising, no easy bleeding Allergic/Immunologic: no urticaria Physical Examination Vital Signs Resp Pulse Ox 18 97 04/19/20 19:30 04/19/20 19:30 General appearance: no acute distress HEENT: Positive: PERRL, Normocephaly, Mucus Membranes Moist Neck: Positive: neck supple, trachea midline Cardiac: Positive: Reg Rate and Rhythm, S1/S2 Lungs: Positive: Decreased Breath Sounds Neuro: Positive: Grossly Intact Abdomen: Negative: Tender Skin: Negative: Rash Musculoskeletal: No Pain Extremities: Absent: edema Results 04/19/20 20:33 04/20/20 06:13 Cardiac Enzymes 04/19/20 Range/Units 20:33 AST 18 (5-40) units/L Lipids 04/19/20 Range/Units 20:33 Triglycerides 99 (2-149) mg/dL Cholesterol 175 (50-199) mg/dL HDL Cholesterol 66 H (40-59) mg/dL Cholesterol/HDL Ratio 2.65 % CBC 04/19/20 Range/Units 20:33 WBC 5.9 (4.5-11.0) K/mm3 RBC 4.44 (3.65-5.03) M/mm3 Hgb 13.0 (11.8-15.2) gm/dl Hct 39.4 (35.5-45.6) % Plt Count 113 L (140-440) K/mm3 Comprehensive Metabolic Panel 04/19/20 04/20/20 Range/Units 20:33 06:13 Sodium 135 L 135 L (137-145) mmol/L Potassium 4.2 4.2 (3.6-5.0) mmol/L Chloride 93.0 L 93.1 L (98-107) mmol/L Carbon Dioxide 26 24 (22-30) mmol/L BUN 50 H 57 H (9-20) mg/dL Creatinine 8.7 H 9.8 H (0.8-1.3) mg/dL Glucose 102 H 125 H (75-100) mg/dL Calcium 9.1 9.0 (8.4-10.2) mg/dL AST 18 (5-40) units/L ALT 17 (7-56) units/L Alkaline Phosphatase 95 (35-129) units/L Total Protein 6.6 (6.3-8.2) g/dL Albumin 3.7 L (3.9-5) g/dL - Imaging and Cardiology Echo: report reviewed (05/2019 showed EF 60%, cannot r/o vegetation of aortic valve, trace MR. ) Cardiac cath: report reviewed (On 04/17/2020, pt underwent LHC which showed 80% calcified stenosis in RCA with PCI and rotational atherectomy with two MALINI) EKG: report reviewed, image reviewed EKG interpretations - Telemetry EKG Rhythm: Sinus Rhythm - EKG Sinus rhythms and dysrhythmias: sinus rhythm Assessment and Plan Pt denies any occurrence of cardiac complaints, ECG unchanged from prior. CE elevation appears c/w NSTEMI type II. Cont to trend Jimbo and f/u ECG in AM. Ob tain echo. Cont home cardiac regimen. Volume optimization per HD. Will follow. The patient has been seen in conjunction with Dr. Jermain Rosario who agrees with the assessment and plan of care. - Patient Problems (1) Altered mental state Current Visit: Yes Status: Acute (2) ESRD (end stage renal disease) on dialysis Current Visit: Yes Status: Chronic (3) Dialysis patient, noncompliant Current Visit: Yes Status: Chronic (4) CAD (coronary artery disease) Current Visit: Yes Status: Chronic (5) Stented coronary artery Current Visit: Yes Status: Chronic (6) NSTEMI (non-ST elevated myocardial infarction) Current Visit: Yes Status: Acute Plan to address problem: suspect type II (7) HTN (hypertension) Current Visit: Yes Status: Chronic Qualifiers: Hypertension type: essential hypertension Qualified Code(s): I10 - Esse ntial (primary) hypertension (8) COPD (chronic obstructive pulmonary disease) Current Visit: Yes Status: Chronic Qualifiers: COPD type: emphysema (9) HIV (human immunodeficiency virus infection) Current Visit: Yes Status: Chronic Qualifiers: HIV symptom status: asymptomatic Qualified Code(s): Z21 - Asymptomatic human immunodeficiency virus [HIV] infection status (10) Hx of deep venous thrombosis Current Visit: Yes Status: Chronic
--- NOTE | 2020-04-20 12:52 | Consultation ---
History of Present Illness - Reason for Consult Consult date: 04/20/20 end stage renal disease - History of Present Illness This is a 59 year-old man with ESRD who presents for altered mentation. Patient usually dialyzes MWF (per his history) at [facility], Last HD reportedly on 04/16 but unclear why he missed dialysis recently. Denies any recent issues with HD, including dizziness, lightheadedness, cramping, chest pain on HD. Currently, patient denies any issues including dyspnea, edema, access issues, nausea, vomiting, headaches. Not able to provide further history. Past History Past Medical History: CAD, COPD, ESRD, HIV/AIDS, hypertension, seizures, other (ASTHMA) Past Surgical History: Other (1. A-V DIALYSIS FISTULA 2. ) Social history: no significant social history Family history: no significant family history Medications and Allergies Allergies Allergy/AdvReac Type Severity Reaction Status Date / Time lisinopril Allergy Angioedema Verified 11/24/14 19:07 Home Medications Medication Instructions Recorded Confirmed Last Taken Type Abacavir [Ziagen TAB] 300 mg PO BID 11/01/18 04/20/20 Unknown History Dolutegravir [Tivicay] 50 mg PO DAILY 11/01/18 04/20/20 Unknown History Clopidogrel [Plavix] 75 mg PO QDAY #30 tablet 11/03/18 04/20/20 Unknown Rx Aspirin [Aspirin BABY CHEW TAB] 81 mg PO QDAY #30 tab.chew 07/31/19 04/20/20 Unknown Rx AtorvaSTATin [Lipitor] 20 mg PO QHS #30 tablet 07/31/19 04/20/20 Unknown Rx amLODIPine 10 mg PO DAILY #30 tab 07/31/19 04/20/20 Unknown Rx cloNIDine [Catapres] 0.1 mg PO BID #60 07/31/19 04/20/20 Unknown Rx Levalbuterol Hfa 45 Mcg/Puff 2 puff IH Q6H PRN #1 inhalation 09/30/19 04/20/20 Unknown Rx [Xopenex Hfa (Nf)] ALBUTEROL NEB's [Proventil 0.083% 2.5 mg IH TID PRN #1 neb 11/29/19 04/20/20 Unknown Rx NEBS] predniSONE [Deltasone] 20 mg PO BID #6 tab 11/29/19 04/20/20 Unknown Rx Albuterol Mdi (or & Nicu Only) 2 puff IH QID PRN #8.5 gram 02/22/20 04/20/20 Unknown Rx [ProAir HFA Inhaler] Prednisone [predniSONE 10 mg 10 mg PO .TAPER #1 tab.ds.pk 02/22/20 04/20/20 Unknown Rx (6-Day Pack, 21 Tabs)] Doxycycline Hyclate [Doxycycline 100 mg PO Q12HR 7 Days #14 tab 03/27/20 Unknown Rx Hyclate TAB] Active Meds: Active Medications Acetaminophen (Tylenol) 650 mg PO Q4H PRN PRN Reason: Headache Amlodipine Besylate (Amlodipine) 10 mg PO DAILY MIGUELANGEL Aspirin (Baby Aspirin) 81 mg PO QDAY MIGUELANGEL Atorvastatin Calcium (Lipitor) 80 mg PO QHS MIGUELANGEL Clopidogrel Bisulfate (Plavix) 75 mg PO QDAY MIGUELANGEL Heparin Sodium (Porcine) (Heparin) 5,000 unit SUB-Q Q12HR MIGUELANGEL Last Admin: 04/20/20 11:21 Dose: 5,000 unit Documented by: Sodium Chloride (Nacl 0.9%) 100 mls @ 999 mls/hr IV CECELIA PRN PRN Reason: Hypotension Metoprolol Tartrate (Metoprolol) 25 mg PO BID MIGUELANGEL Review of Systems All systems: negative (as per HPI) Exam - Vital Signs Vital signs: Vital Signs Resp Pulse Ox 18 97 04/19/20 19:30 04/19/20 19:30 - Physical Exam Narrative exam: Constitutional: no acute distress Head: NC/AT Neck: supple Lungs: clear to auscultation CV: RRR, no M/R/G Abdomen: soft, non-tender, bowel sounds present Back: nontender Extremities: no edema, pulses WNL Skin: intact Neuro: no focal deficits, alert and oriented to self and place Results - Lab Results 04/19/20 20:33 04/20/20 06:13 Most recent lab results Calcium 9.0 mg/dL (8.4-10.2) 04/20/20 06:13 Assessment and Plan This is a 59 year old man who presents with altered mentation # ESRD: will provide HD today given confusion (uremia?), plan to continue HD MWF as per noted history unless otherwise needed based on labs, volume - daily labs - renally dose meds - avoid nephrotoxins - renal diet # Anemia: last hemoglobin at goal, no ESAs indicated # HTN: UF as tolerated. BP reasonable # Secondary Hyperparathyroidism: continue home binders as needed # Altered Mentation: unclear baseline # CAD, NSTEMI: appreciate cardiology input # COPD: appears stable # HIV: # Thrombocytopenia
[2020-04-20] MEDS ORDERED: SODIUM CHLORIDE 0.9% 100 ML IV PRN (13:00)
[2020-04-20 16:40] LABS: Hepatitis B Surface Antigen Non-Reactive (Negative); Hepatitis C Virus Antibody Non-Reactive (NonReactive)
[2020-04-20] MEDS: METOPROLOL TARTRATE 25 MG TAB PO SCH (22:03)
[2020-04-21] MEDS: CLOPIDOGREL 75 MG TAB PO SCH (10:23)
[2020-04-21] MEDS: METOPROLOL TARTRATE 25 MG TAB PO SCH ×2 (10:23→22:04)
[2020-04-21] MEDS: ASPIRIN 81 MG TAB CHEW PO SCH (10:23)
[2020-04-21] MEDS: HEPARIN 5,000 UNIT/1 ML VIAL SUB-Q SCH ×2 (10:23→22:03)
[2020-04-21] MEDS: amLODIPine 10 MG TAB PO SCH (10:23)
--- NOTE | 2020-04-21 11:16 | Progress Note ---
Assessment and Plan Echo pending. Repeat ECG. Continue present cardiac mgmt. Volume optimization via HD. Pt seen in conjunction with Dr. Fuller, who agrees with the assessment and plan of care. - Patient Problems (1) Altered mental state Current Visit: Yes Status: Acute (2) NSTEMI (non-ST elevated myocardial infarction) Current Visit: Yes Status: Acute Plan to address problem: Type 2 (3) Paroxysmal SVT (supraventricular tachycardia) Current Visit: Yes Status: Chronic (4) ESRD on hemodialysis Current Visit: Yes Status: Chronic (5) Anemia Current Visit: Yes Status: Chronic (6) COPD (chronic obstructive pulmonary disease) Current Visit: Yes Status: Chronic Qualifiers: COPD type: emphysema (7) HTN (hypertension) Current Visit: Yes Status: Chronic Qualifiers: Hypertension type: essential hypertension Qualified Code(s): I10 - Essential (primary) hypertension (8) Hyperlipidemia Current Visit: Yes Status: Chronic Qualifiers: Hyperlipidemia type: mixed hyperlipidemia Qualified Code(s): E78.2 - Mixed hyperlipidemia (9) Tobacco abuse Current Visit: Yes Status: Chronic (10) Hx of deep venous thrombosis Current Visit: Yes Status: Chronic (11) HIV (human immunodeficiency virus infection) Current Visit: Yes Status: Chronic (12) Medical non-compliance Current Visit: Yes Status: Chronic Subjective Date of service: 04/21/20 Principal diagnosis: AMS, ESRD/HD, NSTEMI 2 Interval history: Pt seen in echo lab this AM. He states he did not sleep well last night; however, no specific cardiac complaints. Tele reviewed - SR 80s/PVCs w/run of SVT noted 04/20 @ 1735. Objective Last Vital Signs Temp 98.6 F 04/21/20 04:35 Pulse 85 04/21/20 04:35 Resp 16 04/21/20 04:35 BP 148/72 04/21/20 04:35 Pulse Ox 99 04/21/20 04:35 - Physical Examination General: No Apparent Distress HEENT: Positive: EOMI, Normocephaly Neck: Positive: neck supple, trachea midline. Negative: JVD/HJR Cardiac: Positive: Reg Rate and Rhythm, S1/S2 Lungs: Positive: Decreased Breath Sounds Neuro: Positive: Grossly Intact Abdomen: Positive: Soft, Active Bowel Sounds. Negative: Tender Skin: Negative: Rash Musculoskeletal: No Fluid Collection Extremities: Present: upper extr. pulses, lower extr. pulses. Absent: edema - Imaging and Cardiology EKG: report reviewed, image reviewed Echo: report reviewed (05/2019 - EF 60%, cannot r/o vegetation of aortic valve, trace MR ) Cardiac cath: report reviewed (On 04/17/2020, pt underwent LHC which showed 80% calcified stenosis in RCA with PCI and rotational atherectomy with two MALINI) - Telemetry EKG Rhythm: Sinus Rhythm - EKG Sinus rhythms and dysrhythmias: sinus rhythm Chamber hypertrophy or enlargement: left ventricular hypertro Repolarization changes or abnormalities: nonspecific abnormality, ST segment, and/or T wave
--- NOTE | 2020-04-21 14:20 | Progress Note ---
Assessment and Plan Assessment and plan: 59-year-old male with a medical history of end-stage renal disease, CAD status post stents who presented to the hospital with complaints of confusion, diaphoresis and altered mental status. Patient stated that he was feeling confused. Patient states his symptoms started on morning of presentation. P atient denies fever and chills. Patient apparently missed his hemodialysis session. Patient is not sure what causes confusion. Patient's not sure when his last dialysis was. Patient denies chest pain or shortness of breath. Patient denies fever and chills. Patient denies cough. In the ER, he was noted to have elevated troponin and patient was admitted to the hospital. Of note, patient was recently discharged from [facility] after having cardiac catheterization and stent placement 2 days prior to presentation. Patient was seen by cardiology and echocardiogram performed - Patient Problems (1) Altered mental state Current Visit: Yes Status: Acute Plan to address problem: Resolved. This was likely from uremia (2) Elevated troponin Current Visit: Yes Status: Acute Plan to address problem: Patient had cardiac cath with PCI placed 2 days prior to presentation Elevated troponin likely from current procedure. Cardiology recommendations appreciated Echocardiogram pending (3) ESRD (end stage renal disease) on dialysis Current Visit: Yes Status: Chronic Plan to address problem: Continue hemodialysis Patient counseled not to miss hemodialysis sessions Discussed with patient spouse (4) HIV (human immunodeficiency virus infection) Current Visit: Yes Status: Chronic Qualifiers: HIV symptom status: asymptomatic Qualified Code(s): Z21 - Asymptomatic human immunodeficiency virus [HIV] infection status Plan to address problem: Patient on home HIV medications Follow-up with PCP (5) HTN (hypertension) Current Visit: Yes Status: Chronic Qualifiers: Hypertension type: essential hypertension Qualified Code(s): I10 - Essential (primary) hypertension Plan to address problem: Continue current medications History Interval history: Patient seen and examined at bedside this morning Has no complaints Echocardiogram pending Hospitalist Physical - Physical exam Narrative exam: VITAL SIGNS: Reviewed. GENERAL: Awake and alert on response to questions HEAD: No signs of head trauma. EYES: Pupils are equal. Extraocular motions intact. EARS: Hearing grossly intact. MOUTH: Oropharynx is normal. NECK: No adenopathy, no JVD. CHEST: Chest with diminished breath sounds bilaterally. No wheezes, rales, or rhonchi. CARDIAC: Regular rate and rhythm. S1 and S2, without murmurs, gallops, or rubs. VASCULAR: No Edema. Peripheral pulses normal and equal in all extremities. ABDOMEN: Soft, non tender and non distended. No rebound or guarding, and no masses palpated. Bowel Sounds normal. MUSCULOSKELETAL: Good range of motion of all major joints. Extremities without clubbing, cyanosis or edema. NEUROLOGIC EXAM: Alert and oriented x3. No focal neurologic deficits PSYCHIATRIC: Stable mood SKIN: No obvious lesions - Constitutional Vitals: Temp Pulse Resp BP Pulse Ox 98.6 F 98 H 16 148/72 99 04/21/20 04:35 04/21/20 10:00 04/21/20 04:35 04/21/20 04:35 04/21/20 04:35 General appearance: Present: no acute distress HEART Score - HEART Score Risk factors: 1-2 risk factors Troponin: Troponin T 1.320 ng/mL (0.00-0.029) H* D 04/20/20 12:00 Troponin: < normal limit - Critical Actions Critical Actions: 0-3 pts:0.9-1.7%risk of adverse cardiac event.Candidate for discharge Results - Labs CBC & Chem 7: 04/19/20 20:33 04/20/20 06:13 Labs: Laboratory Last Values WBC 5.9 K/mm3 (4.5-11.0) 04/19/20 20: RBC 4.44 M/mm3 (3.65-5.03) 04/19/20 20: Hgb 13.0 gm/dl (11.8-15.2) 04/19/20 20: Hct 39.4 % (35.5-45.6) 04/19/20 20: MCV 89 fl (84-94) 04/19/20 20: MCH 29 pg (28-32) 04/19/20 20: MCHC 33 % (32-34) 04/19/20 20: RDW 17.2 % (13.2-15.2) H 04/19/20 20: Plt Count 113 K/mm3 (140-440) L 04/19/20 20: Add Manual Diff Complete 04/19/20 20: Total Counted 100 04/19/20 20: Seg Neuts % (Manual) 55.0 % (40.0-70.0) 04/19/20 20:33 Band Neutrophils % 0 % 04/19/20 20:33 Lymphocytes % (Manual) 23.0 % (13.4-35.0) 04/19/20 20:33 Reactive Lymphs % (Man) 0 % 04/19/20 20:33 Monocytes % (Manual) 14.0 % (0.0-7.3) H 04/19/20 20:33 Eosinophils % (Manual) 7.0 % (0.0-4.3) H 04/19/20 20:33 Basophils % (Manual) 1.0 % (0.0-1.8) 04/19/20 20:33 Metamyelocytes % 0 % 04/19/20 20:33 Myelocytes % 0 % 04/19/20 20: Promyelocytes % 0 % 04/19/20 20:33 Blast Cells % 0 % 04/19/20 20:33 Nucleated RBC % Not Reportable 04/19/20 20: Seg Neutrophils # Man 3.2 K/mm3 (1.8-7.7) 04/19/20 20:33 Band Neutrophils # 0.0 K/mm3 04/19/20 20:33 Lymphocytes # (Manual) 1.4 K/mm3 (1.2-5.4) 04/19/20 20:33 Abs React Lymphs (Man) 0.0 K/mm3 04/19/20 20:33 Monocytes # (Manual) 0.8 K/mm3 (0.0-0.8) 04/19/20 20:33 Eosinophils # (Manual) 0.4 K/mm3 (0.0-0.4) 04/19/20 20:33 Basophils # (Manual) 0.1 K/mm3 (0.0-0.1) 04/19/20 20:33 Metamyelocytes # 0.0 K/mm3 04/19/20 20:33 Myelocytes # 0.0 K/mm3 04/19/20 20:33 Promyelocytes # 0.0 K/mm3 04/19/20 20:33 Blast Cells # 0.0 K/mm3 04/19/20 20:33 WBC Morphology Not Reportable 04/19/20 20: Hypersegmented Neuts Not Reportable 04/19/20 20: Hyposegmented Neuts Not Reportable 11/05/20 20:33 Hypogranular Neuts Not Reportable 04/19/20 20:33 Smudge Cells Not Reportable 04/19/20 20:33 Toxic Granulation Not Reportable 04/19/20 20:33 Toxic Vacuolation Not Reportable 04/19/20 20:33 Dohle Bodies Not Reportable 04/19/20 20:33 Pelger-Huet Anomaly Not Reportable 04/19/20 20:33 Stephen Rods Not Reportable 04/19/20 20:33 Platelet Estimate Not Reportable 04/19/20 20:33 Clumped Platelets Not Reportable 04/19/20 20:33 Plt Clumps, EDTA Not Reportable 04/19/20 20:33 Large Platelets Not Reportable 04/19/20 20:33 Giant Platelets Not Reportable 04/19/20 20:33 Platelet Satelliting Not Reportable 04/19/20 20:33 Plt Morphology Comment Not Reportable 04/19/20 20:33 RBC Morphology Not Reportable 04/19/20 20:33 Dimorphic RBCs Not Reportable 04/19/20 20:33 Polychromasia Not Reportable 04/19/20 20:33 Hypochromasia Not Reportable 04/19/20 20:33 Poikilocytosis Not Reportable 04/19/20 20:33 Anisocytosis Few 04/19/20 20:33 Microcytosis Few 04/19/20 20:33 Macrocytosis Not Reportable 04/19/20 20:33 Spherocytes Not Reportable 04/19/20 20:33 Pappenheimer Bodies Not Reportable 04/19/20 20:33 Sickle Cells Not Reportable 04/19/20 20:33 Target Cells Not Reportable 04/19/20 20:33 Tear Drop Cells Not Reportable 04/19/20 20:33 Ovalocytes Not Reportable 04/19/20 20:33 Helmet Cells Not Reportable 04/19/20 20:33 Cain-Glacier Bodies Not Reportable 04/19/20 20:33 Sarles Rings Not Reportable 04/19/20 20:33 Cantril Cells Not Reportable 04/19/20 20:33 Bite Cells Not Reportable 04/19/20 20:33 Crenated Cell Not Reportable 04/19/20 20:33 Elliptocytes Not Reportable 04/19/20 20:33 Acanthocytes (Spur) Not Reportable 04/19/20 20:33 Rouleaux Not Reportable 04/19/20 20:33 Hemoglobin C Crystals Not Reportable 04/19/20 20:33 Schistocytes Few 04/19/20 20:33 Malaria parasites Not Reportable 04/19/20 20:33 Erick Bodies Not Reportable 04/19/20 20:33 Hem Pathologist Commnt No 04/19/20 20:33 Sodium 135 mmol/L (137-145) L 04/20/20 06:13 Potassium 4.2 mmol/L (3.6-5.0) 04/20/20 06:13 Chloride 93.1 mmol/L (98-107) L 04/20/20 06:13 Carbon Dioxide 24 mmol/L (22-30) 04/20/20 06:13 Anion Gap 22 mmol/L 04/20/20 06:13 BUN 57 mg/dL (9-20) H 04/20/20 06:13 Creatinine 9.8 mg/dL (0.8-1.3) H 04/20/20 06:13 Estimated GFR 7 ml/min 04/20/20 06:13 BUN/Creatinine Ratio 6 % 04/20/20 06:13 Glucose 125 mg/dL (75-100) H 04/20/20 06:13 Lactic Acid 1.10 mmol/L (0.7-2.0) 04/19/20 20:33 Calcium 9.0 mg/dL (8.4-10.2) 04/20/20 06:13 Total Bilirubin 0.40 mg/dL (0.1-1.2) 04/19/20 20:33 AST 18 units/L (5-40) 04/19/20 20:33 ALT 17 units/L (7-56) 04/19/20 20:33 Alkaline Phosphatase 95 units/L (35-129) 04/19/20 20:33 Ammonia 16.0 umol/L (25-60) L 04/19/20 20:33 Total Creatine Kinase 71 units/L (55-170) 04/19/20 20:33 Troponin T 1.320 ng/mL (0.00-0.029) H* D 04/20/20 12:00 Total Protein 6.6 g/dL (6.3-8.2) 04/19/20 20: Albumin 3.7 g/dL (3.9-5) L 04/19/20 20: Albumin/Globulin Ratio 1.3 % 04/19/20 20:33 Triglycerides 99 mg/dL (2-149) 04/19/20 20: Cholesterol 175 mg/dL (50-199) 04/19/20 20: LDL Cholesterol Direct 99 mg/dL (50-130) 04/19/20 20: HDL Cholesterol 66 mg/dL (40-59) H 04/19/20 20: Cholesterol/HDL Ratio 2.65 % 04/19/20 20: Vitamin B12 1166 pg/mL (211-911) H 04/20/20 08:11 Folate 6.74 ng/mL (7.3-26.0) L 04/20/20 08:11 TSH 0.939 mlU/mL (0.270-4.200) 04/20/20 08:11 Salicylates < 0.3 mg/dL (2.8-20.0) L 04/19/20: Acetaminophen 5.0 ug/mL (10.0-30.0) L 04/19/20 20: Plasma/Serum Alcohol < 0.01 % (0-0.07) 04/19/20 20: Hepatitis A IgM Ab Non-reactive (NonReactive) 04/20/20 08:11 Hep Bs Antigen Non-reactive (Negative) 04/20/20 08:11 Hep B Core IgM Ab Non-reactive (NonReactive) 04/20/20 08:11 Hepatitis C Antibody Non-reactive (NonReactive) 04/20/20 08:11 - Diagnostic Impressions Diagnostic Impressions: Echocardiogram 04/20/20 12:48 Transthoracic Echocardiogram Indication: Elevated trop BP: 48/72 Conclusions *The left ventricular chamber size is normal. *Mild to moderate concentric left ventricular hypertrophy is observed. *Global left ventricular wall motion and contractility are within normal limits. *The estimated ejection fraction is 50-55%. *Abnormal left ventricular diastolic filling is observed, consistent with impaired relaxation. *The left atrium is normal in size with no visual thrombus identified. *The right ventricle is slightly dilated. *The right ventricular global systolic function is normal. *The aortic valve structure is normal. *There is mild mitral regurgitation. *There is mild tricuspid regurgitation. *The right ventricular systolic pressure is calculated at 30 mmHg. *The inferior vena cava appears normal in size. *There is a greater than 50% respiratory change in the inferior vena cava dimension. Findings Left Ventricle: The left ventricular chamber size is normal. Mild to moderate concentric left ventricular hypertrophy is observed. Global left ventricular wall motion and contractility are within normal limits. Global left ventricular systolic function is normal. The estimated ejection fraction is 50-55%. Abnormal left ventricular diastolic function is observed. Abnormal left ventricular diastolic filling is observed, consistent with impaired relaxation. Left Atrium: The left atrium is normal in size with no visual thrombus identified. Right Ventricle: The right ventricle is slightly dilated. The right ventricular global systolic function is normal. Right Atrium: The right atrium appears normal. The interatrial septum appears normal. Aortic Valve: The aortic valve structure is normal. There is no evidence of aortic regurgitation. There is no evidence of aortic stenosis. Mitral Valve: The mitral valve leaflets appear normal. There is mild mitral regurgitation. There is no evidence of mitral stenosis. Tricuspid Valve: The tricuspid valve leaflets are normal. There is mild tricuspid regurgitation. The right ventricular systolic pressure is calculated at 30 mmHg. There is no tricuspid stenosis. Pulmonic Valve: The pulmonic valve appears normal. There is trace pulmonic regurgitation. There is no pulmonic stenosis. Pericardium: There is no pericardial effusion. Aorta: There is no dilatation of the ascending aorta. There is no dilatation of the aortic arch. There is no dilatation of the descending thoracic aorta. There is no dilatation of the aortic root. Venous: The inferior vena cava appears normal in size. There is a greater than 50% respiratory change in the inferior vena cava dimension. Measurements Chambers 2D Name Value Normal Range IVSd (2D) 1.34 cm (0.6 - 1.1) LVPWd (2D) 1.31 cm (0.6 - 1.1) LVIDd (2D) 4.34 cm (3.7 - 5.6) LVIDs (2D) 3.53 cm (2 - 3.8) LV FS (2D) 18.73 % - EF Teichholz (2D) 38.96 % - Ao root diameter (2D) 3.22 cm (2 - 3.7) Volumes/Mass Name Value Normal Range LA ESV SP 4CH (A/L) 38.23 ml - LA ESV SP 2CH (A/L) 54.39 ml - LA ESV BP (A/L) 48.86 ml - LA ESV SP 4CH (MOD) 35.71 ml - LA ESV SP 2CH (MOD) 52.09 ml - LV EDV SP 4CH (MOD) 117.04 ml - LV ESV SP 4CH (MOD) 55.27 ml - EF SP 4CH (MOD) 52.78 % - LV EDV SP 2CH (MOD) 77.89 ml - LV ESV SP 2CH (MOD) 34.65 ml - EF SP 2CH (MOD) 55.51 % - LV EDV BP 105.23 ml - LV ESV BP 52.33 ml - BP EF (MOD) 50.27 % - Diastolic/Systolic Function Name Value Normal Range MV E-wave Vmax 0.66 m/sec - MV deceleration time 243.94 msec - MV A-wave Vmax 0.99 m/sec - MV E:A ratio 0.67 ratio - Aortic Valve Name Value Normal Range AV Vmax 1.69 m/sec - AV VTI 27.1 cm - AV peak gradient 11.37 mmHg - AV mean gradient 5.78 mmHg - LVOT diameter 1.95 cm - LVOT Vmax 0.95 m/sec - LVOT VTI 16.76 cm - LVOT peak gradient 3.61 mmHg - LVOT mean gradient 1.86 mmHg - SV LVOT 50.17 ml - GRACE (continuity Vmax) 1.69 cm2 - GRACE (continuity VTI) 1.85 cm2 - Ascending Ao 3 cm - Tricuspid Valve Name Value Normal Range TR Vmax 2.58 m/sec - TR peak gradient 26.69 mmHg - RAP 3 mmHg - RVSP 30 mmHg - Pulmonic Valve/Qp:Qs Name Value Normal Range PV Vmax 1 m/sec - PV peak gradient 3.97 mmHg - PV acceleration time 125.59 msec - Williamson/IV: Voiding Method Incontinent IV Catheter Type [Right INT / Saline Lock Antecubital] Active Medications - Current Medications Current Medications: Generic Name Dose Route Start Last Admin Trade Name Freq PRN Reason Stop Dose Admin Acetaminophen 650 mg 04/20/20 00:39 Tylenol PO Q4H PRN Headache Amlodipine Besylate 10 mg 04/21/20 10:00 04/21/20 10:23 Amlodipine PO 10 mg DAILY MIGUELANGEL Administration Aspirin 81 mg 04/21/20 10:00 04/21/20 10:23 Baby Aspirin PO 81 mg QDAY MIGUELANGEL Administration Atorvastatin Calcium 80 mg 04/20/20 22:00 04/20/20 22:03 Lipitor PO 80 mg QHS MIGUELANGEL Administration Clopidogrel Bisulfate 75 mg 04/21/20 10:00 04/21/20 10:23 Plavix PO 75 mg QDAY MIGUELANGEL Administration Heparin Sodium (Porcine) 5,000 unit 04/20/20 00:45 04/21/20 10:23 Heparin SUB-Q 5,000 unit Q12HR MIGUELANGEL Administration Sodium Chloride 100 mls @ 999 mls/hr 04/20/20 13:00 Nacl 0.9% IV CECELIA PRN Hypotension Metoprolol Tartrate 25 mg 04/20/20 22:00 04/21/20 10:23 Metoprolol PO 25 mg BID MIGUELANGEL Administration
--- NOTE | 2020-04-21 20:01 | Progress Note ---
Assessment and Plan This is a 59 year old man who presents with altered mentation # ESRD: s/p HD yesterday, no issues noted, plan to continue HD MWF unless ot herwise needed based on labs, volume - daily labs - renally dose meds - avoid nephrotoxins - renal diet # Anemia: last hemoglobin at goal, no ESAs indicated # HTN: UF as tolerated. BP reasonable # Secondary Hyperparathyroidism: continue home binders as needed # Altered Mentation: unclear baseline # CAD, NSTEMI: appreciate cardiology input, tropinemia noted # COPD: appears stable # HIV: # Thrombocytopenia Subjective Date of service: 04/21/20 Principal diagnosis: AMS, ESRD/HD, NSTEMI 2 Interval history: No issues with HD yesterday, tolerated well Objective - Exam Narrative Exam: Constitutional: no acute distress Head: NC/AT Neck: supple Lungs: clear to auscultation CV: RRR, no M/R/G Abdomen: soft, non-tender, bowel sounds present Back: nontender Extremities: no edema, pulses WNL Skin: intact Neuro: no focal deficits, alert and oriented to self and place - Vital Signs Vital signs: Vital Signs - 12hr 04/21/20 10:00 Pulse Rate 98 H - Lab 04/19/20 20:33 04/20/20 06:13 Most recent lab results Calcium 9.0 mg/dL (8.4-10.2) 04/20/20 06:13 Medications & Allergies - Medications Allergies/Adverse Reactions: Allergies lisinopril Allergy (Verified 11/24/14 19:07) Angioedema Home Medications: Home Medications Medication Instructions Recorded Confirmed Last Taken Type Abacavir [Ziagen TAB] 300 mg PO BID 11/01/18 04/20/20 Unknown History Dolutegravir [Tivicay] 50 mg PO DAILY 11/01/18 04/20/20 Unknown History Clopidogrel [Plavix] 75 mg PO QDAY #30 tablet 11/03/18 04/20/20 Unknown Rx Aspirin [Aspirin BABY CHEW TAB] 81 mg PO QDAY #30 tab.chew 07/31/19 04/20/20 Unknown Rx AtorvaSTATin [Lipitor] 20 mg PO QHS #30 tablet 07/31/19 04/20/20 Unknown Rx amLODIPine 10 mg PO DAILY #30 tab 07/31/19 04/20/20 Unknown Rx cloNIDine [Catapres] 0.1 mg PO BID #60 07/31/19 04/20/20 Unknown Rx Levalbuterol Hfa 45 Mcg/Puff 2 puff IH Q6H PRN #1 inhalation 09/30/19 04/20/20 Unknown Rx [Xopenex Hfa (Nf)] ALBUTEROL NEB's [Proventil 0.083% 2.5 mg IH TID PRN #1 neb 11/29/19 04/20/20 Unknown Rx NEBS] predniSONE [Deltasone] 20 mg PO BID #6 tab 11/29/19 04/20/20 Unknown Rx Albuterol Mdi (or & Nicu Only) 2 puff IH QID PRN #8.5 gram 02/22/20 04/20/20 Unknown Rx [ProAir HFA Inhaler] Prednisone [predniSONE 10 mg 10 mg PO .TAPER #1 tab.ds.pk 02/22/20 04/20/20 Unknown Rx (6-Day Pack, 21 Tabs)] Doxycycline Hyclate [Doxycycline 100 mg PO Q12HR 7 Days #14 tab 03/27/20 04/20/20 Unknown Rx Hyclate TAB] Active Medications: Generic Name Dose Route Start Last Admin Trade Name Freq PRN Reason Stop Dose Admin Acetaminophen 650 mg 04/20/20 00:39 Tylenol PO Q4H PRN Headache Amlodipine Besylate 10 mg 04/21/20 10:00 04/21/20 10:23 Amlodipine PO 10 mg DAILY MIGUELANGEL Administration Aspirin 81 mg 04/21/20 10:00 04/21/20 10:23 Baby Aspirin PO 81 mg QDAY MGIUELANGEL Administration Atorvastatin Calcium 80 mg 04/20/20 22:00 04/20/20 22:03 Lipitor PO 80 mg QHS MIGUELANGEL Administration Clopidogrel Bisulfate 75 mg 04/21/20 10:00 04/21/20 10:23 Plavix PO 75 mg QDAY MIGUELANGEL Administration Heparin Sodium (Porcine) 5,000 unit 04/20/20 00:45 04/21/20 10:23 Heparin SUB-Q 5,000 unit Q12HR MIGUELANGEL Administration Sodium Chloride 100 mls @ 999 mls/hr 04/20/20 13:00 Nacl 0.9% IV CECELIA PRN Hypotension Metoprolol Tartrate 25 mg 04/20/20 22:00 04/21/20 10:23 Metoprolol PO 25 mg BID MIGUELANGEL Administration
[2020-04-22 04:36] VITALS: BP 135/66
--- NOTE | 2020-04-22 09:05 | Progress Note ---
Assessment and Plan Echo 04/20/2020 findings reviewed - mild-mod concentric LVH; EF 50-55%; impaired LV relaxation; RV slightly dilated; mild MR; mild TR. Resume tele monitoring if pt is agreeable - d/w RN. Continue present cardiac mgmt. Volume optimization via HD. Pt seen in conjunction with Dr. Fuller, who agrees with the assessment and plan of care. - Patient Problems (1) Altered mental state Current Visit: Yes Status: Acute Plan to address problem: baseline unknown (2) NSTEMI (non-ST elevated myocardial infarction) Current Visit: Yes Status: Acute Plan to address problem: suspect Type 2 (3) CAD (coronary artery disease) Current Visit: Yes Status: Chronic (4) Stented coronary artery Current Visit: Yes Status: Chronic Plan to address problem: s/p PCI 04/17/2020 - on ASA, Plavix (5) Paroxysmal SVT (supraventricular tachycardia) Current Visit: Yes Status: Chronic (6) ESRD on hemodialysis Current Visit: Yes Status: Chronic (7) Anemia Current Visit: Yes Status: Chronic (8) COPD (chronic obstructive pulmonary disease) Current Visit: Yes Status: Chronic Qualifiers: COPD type: emphysema (9) HTN (hypertension) Current Visit: Yes Status: Chronic Qualifiers: Hypertension type: essential hypertension Qualified Code(s): I10 - Essential (primary) hypertension (10) Hyperlipidemia Current Visit: Yes Status: Chronic Qualifiers: Hyperlipidemia type: mixed hyperlipidemia Qualified Code(s): E78.2 - Mixed hyperlipidemia (11) Tobacco abuse Current Visit: Yes Status: Chronic (12) Hx of deep venous thrombosis Current Visit: Yes Status: Chronic (13) HIV (human immunodeficiency virus infection) Current Visit: Yes Status: Chronic (14) Medical non-compliance Current Visit: Yes Status: Chronic Subjective Date of service: 04/22/20 Principal diagnosis: AMS, ESRD/HD, NSTEMI 2, CAD/PCI 04/17 Interval history: Pt resting comfortably in bed upon exam. He denies chest pain or any additional cardiac complaints overnight or this AM. Of note, pt refused tele yesterday and was thus taken off monitor. Objective Vital Signs Temp Pulse Resp BP Pulse Ox 04/22/20 03:29 98.6 F 77 16 135/66 98 04/22/20 00:02 98.2 F 77 18 136/58 97 11/07/20 22:04 82 148/75 04/21/20 19:50 98.8 F 82 16 148/75 97 04/21/20 11:20 98.0 F 77 18 135/74 99 04/21/20 10:00 98 H - Physical Examination General: No Apparent Distress HEENT: Positive: EOMI, Normocephaly Neck: Positive: neck supple, trachea midline Cardiac: Positive: Regular Rate, S1/S2 Lungs: Positive: clear to auscultation Neuro: Positive: Grossly Intact Abdomen: Positive: Soft, Active Bowel Sounds. Negative: Tender Skin: Negative: Rash Musculoskeletal: No Fluid Collection Extremities: Present: upper extr. pulses, lower extr. pulses. Absent: edema - Imaging and Cardiology EKG: report reviewed, image reviewed Echo: report reviewed (04/20/2020 - mild-mod concentric LVH; EF 50-55%; impaired LV relaxation; RV slightly dilated; mild MR; mild TR), other (05/2019 - EF 60%, cannot r/o vegetation of aortic valve, trace MR) Cardiac cath: report reviewed (04/17/2020 - 80% calcified stenosis in RCA s/p successful PCI and rotational atherectomy with 2 Jarad) - EKG Sinus rhythms and dysrhythmias: sinus rhythm Chamber hypertrophy or enlargement: left ventricular hypertro Repolarization changes or abnormalities: nonspecific abnormality, ST segment, and/or T wave
--- NOTE | 2020-04-22 10:03 | Progress Note ---
Assessment and Plan This is a 59 year old man who presents with altered mentation # ESRD: s/p HD 04/20, no issues noted, plan to continue HD MWF unless otherwise needed based on labs, volume, no indication today - daily labs - renally dose meds - avoid nephrotoxins - renal diet # Anemia: last hemoglobin at goal, no ESAs indicated # HTN: UF as tolerated. BP reasonable # Secondary Hyperparathyroidism: continue home binders as needed # Altered Mentation: unclear baseline # CAD, NSTEMI: appreciate cardiology input, tropinemia noted # COPD: appears stable # HIV: # Thrombocytopenia Subjective Date of service: 04/22/20 Principal diagnosis: AMS, ESRD/HD, NSTEMI 2, CAD/PCI 04/17 Interval history: No issues acutely noted, feeling well this AM Objective - Exam Narrative Exam: Constitutional: no acute distress Head: NC/AT Neck: supple Lungs: clear to auscultation CV: RRR, no M/R/G Abdomen: soft, non-tender, bowel sounds present Back: nontender Extremities: no edema, pulses WNL Skin: intact Neuro: no focal deficits, alert and oriented to self and place - Vital Signs Vital signs: Vital Signs - 12hr 04/21/20 04/22/20 04/22/20 22:04 00:02 03:29 Temperature 98.2 F 98.6 F Pulse Rate 82 77 77 Respiratory 18 16 Rate Blood Pressure 148/75 136/58 135/66 O2 Sat by Pulse 97 98 Oximetry - Lab 04/19/20 20:33 04/20/20 06:13 Most recent lab results Calcium 9.0 mg/dL (8.4-10.2) 04/20/20 06:13 Medications & Allergies - Medications Allergies/Adverse Reactions: Allergies lisinopril Allergy (Verified 11/24/14 19:07) Angioedema Home Medications: Home Medications Medication Instructions Recorded Confirmed Last Taken Type Abacavir [Ziagen TAB] 300 mg PO BID 11/01/18 04/20/20 Unknown History Dolutegravir [Tivicay] 50 mg PO DAILY 11/01/18 04/20/20 Unknown History Clopidogrel [Plavix] 75 mg PO QDAY #30 tablet 11/03/18 04/20/20 Unknown Rx Aspirin [Aspirin BABY CHEW TAB] 81 mg PO QDAY #30 tab.chew 07/31/19 04/20/20 Unknown Rx AtorvaSTATin [Lipitor] 20 mg PO QHS #30 tablet 07/31/19 04/20/20 Unknown Rx amLODIPine 10 mg PO DAILY #30 tab 07/31/19 04/20/20 Unknown Rx cloNIDine [Catapres] 0.1 mg PO BID #60 07/31/19 04/20/20 Unknown Rx Levalbuterol Hfa 45 Mcg/Puff 2 puff IH Q6H PRN #1 inhalation 09/30/19 04/20/20 Unknown Rx [Xopenex Hfa (Nf)] ALBUTEROL NEB's [Proventil 0.083% 2.5 mg IH TID PRN #1 neb 11/29/19 04/20/20 Unknown Rx NEBS] predniSONE [Deltasone] 20 mg PO BID #6 tab 11/29/19 04/20/20 Unknown Rx Albuterol Mdi (or & Nicu Only) 2 puff IH QID PRN #8.5 gram 02/22/20 04/20/20 Unknown Rx [ProAir HFA Inhaler] Prednisone [predniSONE 10 mg 10 mg PO .TAPER #1 tab.ds.pk 02/22/20 04/20/20 Unknown Rx (6-Day Pack, 21 Tabs)] Doxycycline Hyclate [Doxycycline 100 mg PO Q12HR 7 Days #14 tab 03/27/20 04/20/20 Unknown Rx Hyclate TAB] Active Medications: Generic Name Dose Route Start Last Admin Trade Name Freq PRN Reason Stop Dose Admin Acetaminophen 650 mg 04/20/20 00:39 Tylenol PO Q4H PRN Headache Amlodipine Besylate 10 mg 04/21/20 10:00 04/21/20 10:23 Amlodipine PO 10 mg DAILY MIGUELANGEL Administration Aspirin 81 mg 04/21/20 10:00 04/21/20 10:23 Baby Aspirin PO 81 mg QDAY MIGUELANGEL Administration Atorvastatin Calcium 80 mg 04/20/20 22:00 04/21/20 22:04 Lipitor PO 80 mg QHS MIGUELANGEL Administration Clopidogrel Bisulfate 75 mg 04/21/20 10:00 04/21/20 10:23 Plavix PO 75 mg QDAY MIGUELANGEL Administration Heparin Sodium (Porcine) 5,000 unit 04/20/20 00:45 04/21/20 22:03 Heparin SUB-Q 5,000 unit Q12HR MIGUELANGEL Administration Sodium Chloride 100 mls @ 999 mls/hr 04/20/20 13:00 Nacl 0.9% IV CECELIA PRN Hypotension Metoprolol Tartrate 25 mg 04/20/20 22:00 04/21/20 22:04 Metoprolol PO 25 mg BID MIGUELANGEL Administration
[2020-04-22] MEDS: HEPARIN 5,000 UNIT/1 ML VIAL SUB-Q SCH (10:06)
[2020-04-22] MEDS: ASPIRIN 81 MG TAB CHEW PO SCH (10:06)
[2020-04-22] MEDS: amLODIPine 10 MG TAB PO SCH (10:06)
[2020-04-22] MEDS: METOPROLOL TARTRATE 25 MG TAB PO SCH (10:06)
[2020-04-22] MEDS: CLOPIDOGREL 75 MG TAB PO SCH (10:06)
--- NOTE | 2020-04-22 10:35 | Discharge Summary ---
Providers - Providers Date of Admission: 04/19/20 23:16 Date of discharge: 04/22/20 Attending physician: LATHA DUKES 04/20/20 00:33 Consult to Physician [CONS] Routine Comment: Consulting Provider: CARROLL CHAVEZ Physician Instructions: Reason For Exam: ESRD ON DIALYSIS 04/20/20 06:00 Consult to Physician [CONS] Routine Comment: Consulting Provider: TRAV MADRID Physician Instructions: Reason For Exam: ELEVATED TROPONIN LEVEL Primary care physician: MANAGER [employer] RELATIONS Hospitalization Condition: Critical Hospital course: 59-year-old male with a medical history of end-stage renal disease, CAD status post stents who presented to the hospital with complaints of confusion, diaphoresis and altered mental status. Patient stated that he was feeling confused. Patient states his symptoms started on morning of presentation. Patient denies fever and chills. Patient apparently missed his hemodialysis session. Patient is not sure what causes confusion. Patient's not sure when his last dialysis was. Patient denies chest pain or shortness of breath. Patient denies fever and chills. Patient denies cough. In the ER, he was noted to have elevated troponin and patient was admitted to the hospital. Of note, patient was recently discharged from [facility] after having cardiac catheterization and stent placement 2 days prior to presentation. Patient was seen by cardiology and echocardiogram performed showed normal EF. Patient had hemodialysis and was down to baseline. Patient is alert and oriented x3 this time. Patient will be discharged home to follow- up with his brine room laborer in the office. He agrees with treatment. Discussed with patient's spouse. Disposition: DC-01 TO HOME OR SELFCARE - Discharge Diagnoses (1) Altered mental state Status: Acute (2) Confusion Status: Acute (3) Diaphoresis Status: Acute (4) Elevated troponin Status: Acute (5) Encephalopathy Status: Acute Core Measure Documentation - Palliative Care Palliative Care/ Comfort Measures: Not Applicable - Core Measures Any of the following diagnoses?: none Exam - Constitutional Vitals: Temp Pulse Resp BP Pulse Ox 98.6 F 77 16 135/66 98 04/22/20 03:29 04/22/20 03:29 04/22/20 03:29 04/22/20 03:29 04/22/20 03:29 General appearance: Present: no acute distress, well-nourished - EENT Eyes: Present: PERRL ENT: hearing intact, clear oral mucosa - Neck Neck: Present: supple, normal ROM - Respiratory Respiratory effort: normal Respiratory: bilateral: CTA - Cardiovascular Heart Sounds: Present: S1 & S2. Absent: rub, click - Extremities Extremities: pulses symmetrical, No edema Peripheral Pulses: within normal limits - Abdominal General gastrointestinal: Present: soft, non-tender, non-distended, normal bowel sounds Male genitourinary: Present: normal - Integumentary Integumentary: Present: clear, warm, dry - Musculoskeletal Musculoskeletal: gait normal, strength equal bilaterally - Psychiatric Psychiatric: appropriate mood/affect, intact judgment & insight - Neurologic Neurologic: CNII-XII intact, moves all extremities Plan Diet: renal Additional Instructions: Continue hemodialysis as scheduled. Follow-up with your brine room laborer in the office Follow up with: PRIMARY CARE, [Primary Care Provider] - 3-5 Days Prescriptions: Metoprolol [Lopressor TAB] 25 mg PO BID #60 tablet
== END 2020-04-22 18:15 | disposition home or self-care (01) ==
LOC: ED 19:27 → 4A 23:16
PROVIDERS: ADMIT Internal Medicine; ATTEND Internal Medicine
DX: I21.4 Non-ST elevation (NSTEMI) myocardial infarction (principal); I12.0 Hypertensive chronic kidney disease with stage 5 chronic kidney disease or end stage renal disease; N18.6 End stage renal disease; G93.40 Encephalopathy, unspecified; R41.82 Altered mental status, unspecified; R77.8 Other specified abnormalities of plasma proteins; I25.10 Atherosclerotic heart disease of native coronary artery without angina pectoris; R74.8 Abnormal levels of other serum enzymes; J44.9 Chronic obstructive pulmonary disease, unspecified; I47.1 Supraventricular tachycardia; F17.200 Nicotine dependence, unspecified, uncomplicated; R56.9 Unspecified convulsions; E21.3 Hyperparathyroidism, unspecified; D69.6 Thrombocytopenia, unspecified; D64.9 Anemia, unspecified; Z99.2 Dependence on renal dialysis; Z98.890 Other specified postprocedural states; Z79.82 Long term (current) use of aspirin; Z79.02 Long term (current) use of antithrombotics/antiplatelets; Z21 Asymptomatic human immunodeficiency virus [HIV] infection status; Z91.14 Patient's other noncompliance with medication regimen; Z86.718 Personal history of other venous thrombosis and embolism
CPT/HCPCS: 36415; 70450; 71045; 80048; 80053; 80061; 80074; 82140; 82550; 82607; 82747; 84443; 84484; 85025; 87116; 93005; 93306; 96372; 99291; A9270; G0378; J1644; 80320; 85007; G0480

== ENCOUNTER 2020-10-01 11:13 | Emergency (ER) | payer MEDICARE ==
--- NOTE | 2020-10-01 12:53 | Event Note ---
ED Screening Note Date of service: 10/01/20 Time: 12:51 ED Screening Note: 60-year-old male patient with history of end-stage renal disease (on dialysis), asthma, COPD, anoxic brain injury, stroke, and supraventricular tachycardia presents emergency department complaints of progressively worsening shortness of breath. Patient has required multiple prior hospitalizations for cardiopulmonary disease. States he was unable to go to dialysis today because he was feeling too short of breath. Inhalers have provided limited relief. BP 96/60 in triage. General: Awake, appropriately interactive, no acute distress. Neck: Supple. Full range of motion intact. Cardiovascular: Regular rate and rhythm. Normal peripheral perfusion. No lower extremity pitting edema. Pulmonary: No respiratory distress. Diffuse rhonchi and wheezing throughout. Patient is speaking normally without use of accessory muscles. Skin: No apparent rashes or lesions. Neurological: No facial asymmetry. Speech is clear. Follows commands. Patient is alert and oriented. Musculoskeletal: Moves all four extremities spontaneously with normal range of motion. Psych: Cooperative. Appropriate mood and affect. I have greeted and performed a focused rapid initial assessment of this patient. A comprehensive ED assessment and evaluation of the patient, analysis of all test results, and completion of the medical decision-making process will be conducted by additional ED providers. This initial assessment/diagnostic orders/clinical plan/treatment(s) is/are subject to change based on patients health status, clinical progression and re-assessment. Further treatment and workup at subsequent clinical provider's discretion. Patient/guardian urged not to elope from the ED as their condition may be serious if not clinically assessed and managed.
[2020-10-01] MEDS ORDERED: ALBUTEROL 2.5 MG/3 ML NEBU IH ONE (13:52)
[2020-10-01] MEDS ORDERED: IPRATROPIUM 0.02% NEBU 2.5 ML IH ONE (13:52)
[2020-10-01] MEDS ORDERED: MAGNESIUM SULFATE 2 GM/50 ML BAG IV ONE (14:19)
[2020-10-01] MEDS ORDERED: methylPREDNISolone Sod Succinate 125 MG/2 ML INJ IV ONE (14:19)
[2020-10-01] MEDS ORDERED: LACTATED RINGERS 1,000 ML IV ONE (14:20)
--- NOTE | 2020-10-01 14:20 | Emergency Department Report ---
ED General Adult HPI - General Chief complaint: Dyspnea/Respdistress Stated complaint: JARRET PUI?: Yes Time Seen by Provider: 10/01/20 14:01 Source: patient, family, RN notes reviewed, old records reviewed Mode of arrival: Stretcher Limitations: Physical Limitation - History of Present Illness Initial comments: The patient was evaluated in the emergency department for symptoms described in the history of present illness. He/she was evaluated in the context of the global COVID-19 pandemic, which necessitated consideration that the patient might be at risk for infection with the virus that causes COVID-19. Institutional protocols and algorithms that pertain to the evaluation of patients at risk for COVID-19 are in a state of rapid change based on information released by regulatory bodies including the CDC and federal and state organizations. These policies and algorithms were followed during the patient's care in the emergency department. Please note that these policies, procedures and recommendations changed on a rapid basis. During the entire history and physical examination, I had on complete personal protective equipment. This is a 60-year-old gentleman. I have evaluated this patient in the past. He has a history of end-stage renal disease, on hemodialysis, COPD, HIV positive, ischemic heart disease. The patient is not on home oxygen, and he typically follows at [facility] for his medical care. He presents to the ER with his with a complaint of cough, wheezing, shortness of breath. He reports that his symptoms have been going on for over a week. He also reports no fever, chills, loss of taste or smell. He denies headache, neck pain, chest pain, abdominal pain. He denies travel, surgery, leg swelling, DVT and pulmonary embolism risk factors. He is not producing new phlegm, cold, or mucus, but he is wheezing, and having worsening shortness of breath. He did not want to come to the emergency room today, but he came at the insistence of his significant other. He was given albuterol, Atrovent and steroids, which greatly improved his symptomatology. -: Gradual, days(s) Consistency: constant Improves with: medication, rest Worsens with: movement - Related Data Home Medications Medication Instructions Recorded Confirmed Last Taken Abacavir [Ziagen TAB] 300 mg PO BID 11/01/18 04/20/20 Unknown Aspirin [Aspirin BABY CHEW TAB] 81 mg PO DAILY 12/11/19 05/15/20 2 Days Ago ~04/12/20 AtorvaSTATin [Lipitor] 20 mg PO HS 12/11/19 05/15/20 2 Days Ago ~04/12/20 Ergocalciferol [Vitamin D2] 50,000 unit PO 1XW 12/11/19 05/15/20 2 Days Ago ~04/12/20 Hydralazine HCl 50 mg PO TID 12/11/19 05/15/20 2 Days Ago ~04/12/20 amLODIPine 10 mg PO DAILY 12/11/19 05/15/20 2 Days Ago ~04/12/20 lamiVUDine [Epivir] 10 mg PO HS 12/11/19 05/15/20 2 Days Ago ~04/12/20 Abacavir [Ziagen TAB] 300 mg PO BID 12/12/19 05/15/20 2 Days Ago ~04/12/20 ALBUTEROL NEB's [Proventil 0.083% 2.5 mg INHALATION Q6HR PRN 05/15/20 05/15/20 Unknown NEBS] Clopidogrel [Plavix] 75 mg PO QDAY 05/15/20 05/15/20 Unknown Umeclidinium Brm/Vilanterol Tr 62.5 mcg INHALATION BID 05/15/20 05/15/20 Unknown [Anoro Ellipta 62.5-25 Mcg INH] cloNIDine-TTS PATCH [Catapres-Tts 1 patch TD Q7D 05/15/20 05/15/20 Unknown 0.1MG Patch] labetaloL [Labetalol 200mg TAB] 200 mg PO BID 05/15/20 05/15/20 Unknown Previous Rx's Medication Instructions Recorded Last Taken Type Clopidogrel [Plavix] 75 mg PO QDAY #30 tablet 11/03/18 Unknown Rx Aspirin [Aspirin BABY CHEW TAB] 81 mg PO QDAY #30 tab.chew 07/31/19 Unknown Rx AtorvaSTATin [Lipitor] 20 mg PO QHS #30 tablet 07/31/19 Unknown Rx amLODIPine 10 mg PO DAILY #30 tab 07/31/19 Unknown Rx cloNIDine [Catapres] 0.1 mg PO BID #60 07/31/19 Unknown Rx Levalbuterol Hfa 45 Mcg/Puff 2 puff IH Q6H PRN #1 inhalation 09/30/19 Unknown Rx [Xopenex Hfa (Nf)] ALBUTEROL NEB's [Proventil 0.083% 2.5 mg IH TID PRN #1 neb 11/29/19 Unknown Rx NEBS] Albuterol Mdi (or & Nicu Only) 2 puff IH QID PRN #8.5 gram 02/22/20 Unknown Rx [ProAir HFA Inhaler] Dolutegravir [Tivicay] 50 mg PO DAILY tablet 04/16/20 Unknown Rx Metoprolol [Lopressor TAB] 25 mg PO BID #60 tablet 04/22/20 Unknown Rx Abacavir [Ziagen TAB] 300 mg PO BID tablet 05/21/20 Unknown Rx Aspirin 325 mg PO QDAY tablet 05/21/20 Unknown Rx AtorvaSTATin [Lipitor] 40 mg PO QHS tablet 05/21/20 Unknown Rx Clopidogrel [Plavix] 75 mg PO QDAY tablet 05/21/20 Unknown Rx Dolutegravir [Tivicay] 50 mg PO DAILY tablet 05/21/20 Unknown Rx Ipratropium/Albuterol Sulfate 1 ampul IH TIDRT ampul.neb 05/21/20 Unknown Rx [DUONEB *Not for PRN Use*] Sevelamer Carbonate [Renvela] 2,400 mg PO TID tablet 05/21/20 Unknown Rx dilTIAZem [Cardizem] 60 mg PO Q4H tablet 05/21/20 Unknown Rx Albuterol Sulfate [Albuterol 0.63% 0.63 mg IH Q4HR PRN #2 ml 10/01/20 Unknown Rx NEBS] Albuterol Sulfate [Proair 90 mcg IH Q4HR PRN #2 aer.pow.ba 10/01/20 Unknown Rx Respiclick] DOXYCYCLINE Hyclate [Vibramycin] 100 mg PO Q12HR #9 capsule 10/01/20 Unknown Rx Ipratropium (Nf) [Atrovent] 2 puff IH Q6HR PRN #1 inha 10/01/20 Unknown Rx Ipratropium [Atrovent NEB] 0.5 mg IH Q4HR #2 ml 10/01/20 Unknown Rx predniSONE [Deltasone] 40 mg PO QDAY #8 tab 10/01/20 Unknown Rx Allergies Allergy/AdvReac Type Severity Reaction Status Date / Time azithromycin [From Zithromax] Allergy Shortness Verified 05/21/20 10:29 of Breath Iodinated Contrast Media Allergy Unknown Verified 05/21/20 10:29 levofloxacin Allergy Unknown Verified 05/21/20 10:29 lisinopril Allergy Angioedema Verified 05/21/20 10:29 sulfamethoxazole Allergy Unknown Verified 05/21/20 10:29 [From Bactrim] trimethoprim [From Bactrim] Allergy Unknown Verified 05/21/20 10:29 ED Review of Systems ROS: Stated complaint: JARRET Other details as noted in HPI Constitutional: malaise, weakness, other (Denies loss of taste and smell). denies: fever Eyes: denies: eye discharge ENT: congestion Respiratory: cough, shortness of breath, SOB with exertion, SOB at rest, wheezing Cardiovascular: denies: syncope Gastrointestinal: denies: abdominal pain Genitourinary: denies: dysuria (Patient states he does not produce urine) Musculoskeletal: denies: back pain Neurological: weakness Hematological/Lymphatic: denies: easy bleeding ED Past Medical Hx - Past Medical History Previous Medical History?: Yes Hx Hypertension: Yes Hx Renal Disease: Yes (on hemodialysis) Hx Arthritis: Yes Hx Seizures: Yes Hx Asthma: Yes Hx COPD: Yes Hx HIV: Yes (Unknown CD4 count) - Surgical History Past Surgical History?: Yes Hx Coronary Stent: Yes Additional Surgical History: vascath. AV shunt LUE - Social History Smoking Status: Current Every Day Smoker - Medications Home Medications: Home Medications Medication Instructions Recorded Confirmed Last Taken Type Abacavir [Ziagen TAB] 300 mg PO BID 11/01/18 04/20/20 Unknown History Clopidogrel [Plavix] 75 mg PO QDAY #30 tablet 11/03/18 04/20/20 Unknown Rx Aspirin [Aspirin BABY CHEW TAB] 81 mg PO QDAY #30 tab.chew 07/31/19 04/20/20 Unknown Rx AtorvaSTATin [Lipitor] 20 mg PO QHS #30 tablet 07/31/19 04/20/20 Unknown Rx amLODIPine 10 mg PO DAILY #30 tab 07/31/19 04/20/20 Unknown Rx cloNIDine [Catapres] 0.1 mg PO BID #60 07/31/19 04/20/20 Unknown Rx Levalbuterol Hfa 45 Mcg/Puff 2 puff IH Q6H PRN #1 inhalation 09/30/19 04/20/20 Unknown Rx [Xopenex Hfa (Nf)] ALBUTEROL NEB's [Proventil 0.083% 2.5 mg IH TID PRN #1 neb 11/29/19 04/20/20 Unknown Rx NEBS] Aspirin [Aspirin BABY CHEW TAB] 81 mg PO DAILY 12/11/19 05/15/20 2 Days Ago History ~04/12/20 AtorvaSTATin [Lipitor] 20 mg PO HS 12/11/19 05/15/20 2 Days Ago History ~04/12/20 Ergocalciferol [Vitamin D2] 50,000 unit PO 1XW 12/11/19 05/15/20 2 Days Ago History ~04/12/20 Hydralazine HCl 50 mg PO TID 12/11/19 05/15/20 2 Days Ago History ~04/12/20 amLODIPine 10 mg PO DAILY 12/11/19 05/15/20 2 Days Ago History ~04/12/20 lamiVUDine [Epivir] 10 mg PO HS 12/11/19 05/15/20 2 Days Ago History ~04/12/20 Abacavir [Ziagen TAB] 300 mg PO BID 12/12/19 05/15/20 2 Days Ago History ~04/12/20 Albuterol Mdi (or & Nicu Only) 2 puff IH QID PRN #8.5 gram 02/22/20 04/20/20 U nknown Rx [ProAir HFA Inhaler] Dolutegravir [Tivicay] 50 mg PO DAILY tablet 04/16/20 05/15/20 Unknown Rx Metoprolol [Lopressor TAB] 25 mg PO BID #60 tablet 04/22/20 Unknown Rx ALBUTEROL NEB's [Proventil 0.083% 2.5 mg INHALATION Q6HR PRN 05/15/20 05/15/20 Unknown History NEBS] Clopidogrel [Plavix] 75 mg PO QDAY 05/15/20 05/15/20 Unknown History Umeclidinium Brm/Vilanterol Tr 62.5 mcg INHALATION BID 05/15/20 05/15/20 Unknown History [Anoro Ellipta 62.5-25 Mcg INH] cloNIDine-TTS PATCH [Catapres-Tts 1 patch TD Q7D 05/15/20 05/15/20 Unknown History 0.1MG Patch] labetaloL [Labetalol 200mg TAB] 200 mg PO BID 05/15/20 05/15/20 Unknown History Abacavir [Ziagen TAB] 300 mg PO BID tablet 05/21/20 Unknown Rx Aspirin 325 mg PO QDAY tablet 05/21/20 Unknown Rx AtorvaSTATin [Lipitor] 40 mg PO QHS tablet 05/21/20 Unknown Rx Clopidogrel [Plavix] 75 mg PO QDAY tablet 05/21/20 Unknown Rx Dolutegravir [Tivicay] 50 mg PO DAILY tablet 05/21/20 Unknown Rx Ipratropium/Albuterol Sulfate 1 ampul IH TIDRT ampul.neb 05/21/20 Unknown Rx [DUONEB *Not for PRN Use*] Sevelamer Carbonate [Renvela] 2,400 mg PO TID tablet 05/21/20 Unknown Rx dilTIAZem [Cardizem] 60 mg PO Q4H tablet 05/21/20 Unknown Rx Albuterol Sulfate [Albuterol 0.63% 0.63 mg IH Q4HR PRN #2 ml 10/01/20 Unknown Rx NEBS] Albuterol Sulfate [Proair 90 mcg IH Q4HR PRN #2 aer.pow.ba 10/01/20 Unknown Rx Respiclick] DOXYCYCLINE Hyclate [Vibramycin] 100 mg PO Q12HR #9 capsule 10/01/20 Unknown Rx Ipratropium (Nf) [Atrovent] 2 puff IH Q6HR PRN #1 inha 10/01/20 Unknown Rx Ipratropium [Atrovent NEB] 0.5 mg IH Q4HR #2 ml 10/01/20 Unknown Rx predniSONE [Deltasone] 40 mg PO QDAY #8 tab 10/01/20 Unknown Rx ED Physical Exam - General Limitations: No Limitations General appearance: alert, anxious, in distress - Head Head exam: Present: atraumatic, normocephalic - Eye Eye exam: Present: normal appearance, EOMI. Absent: nystagmus - ENT ENT exam: Present: normal exam, normal orophraynx, mucous membranes moist, normal external ear exam - Neck Neck exam: Present: normal inspection, full ROM. Absent: tenderness, meningismus - Respiratory Respiratory exam: Present: respiratory distress, wheezes, rhonchi. Absent: rales, stridor - Cardiovascular Cardiovascular Exam: Present: regular rate, normal rhythm, normal heart sounds. Absent: bradycardia, tachycardia, irregular rhythm, systolic murmur, diastolic murmur, rubs, gallop - GI/Abdominal GI/Abdominal exam: Present: soft. Absent: distended, tenderness, guarding, rebound, rigid, pulsatile mass - Rectal Rectal exam: Present: deferred - Extremities Exam Extremities exam: Present: normal inspection (Left upper extremity fistula noted, without redness, pus or streaking), full ROM, other (2+ pulses noted in the bilateral upper and lower extremities. There is no palpable cord. negative Homans sign. Muscular compartments are soft. The pelvis is stable.). Absent: calf tenderness - Back Exam Back exam: Present: normal inspection, full ROM. Absent: tenderness, CVA tenderness (R), CVA tenderness (L), paraspinal tenderness, vertebral tenderness - Neurological Exam Neurological exam: Present: alert, other (No facial droop. Tongue midline. Extraocular movements intact bilaterally. Facial sensation intact to light touch in V1, V2, V3 distribution bilaterally. 5 and a 5 strength in 4 extremities. Sensation intact to light touch in 4 extremities.) - Psychiatric Psychiatric exam: Present: anxious - Skin Skin exam: Present: warm, dry, intact, normal color. Absent: rash ED Course Vital Signs 10/01/20 10/01/20 10/01/20 11:16 14:05 16:06 Temperature 97.4 F L Pulse Rate 95 H 98 H Pulse Rate [ 97 H Anterior Bilateral Throughout] Respiratory 18 20 Rate Respiratory 24 Rate [Anterior Bilateral Throughout] Blood Pressure 96/60 148/73 [Right] O2 Sat by Pulse 96 96 Oximetry 10/01/20 16:07 Temperature Pulse Rate Pulse Rate [ Anterior Bilateral Throughout] Respiratory 20 Rate Respiratory Rate [Anterior Bilateral Throughout] Blood Pressure [Right] O2 Sat by Pulse 96 Oximetry - Reevaluation(s) Reevaluation #1: 10/01/20 15:32 Differential diagnosis, including but not limited to: COPD exacerbation, pneumonia, CHF, COVID-19 Assessment and plan: 60-year-old gentleman, who denies DVT and pulmonary embolism risk factors, who is low risk by Wells criteria for pulmonary embolism, with a known history of end-stage renal disease on hemodialysis, and COPD. Patient treated aggressively with albuterol, Atrovent, steroids, now resting comfortably on stretcher, and does not appear to be in any significant distress. X-ray of the chest does not suggest CHF or fluid overload, or pulmonary infiltrate. Patient does not have fever, loss of taste or smell, he states he feels similar to prior COPD exacerbations, therefore, this is more likely to be COPD, and less likely to be Covid, although patient may have concomitant pathology. Given lack of hypoxia at this time, even if patient did have COVID- 19, at the moment, he does not meet criteria for inpatient admission or hospitalization, especially as symptoms have been going on for the better part of a week. He denies DVT and pulmonary embolism risk factors and is low risk by Wells criteria. Tachycardia likely secondary to volume depletion, as well as albuterol therapy. I have instructed nursing team to provide a trial of ambulation on room oxygen for this patient, after completion of magnesium sulfate. We will reassess after this trial of ambulation has been completed. Elevated proBNP is chronic, likely secondary to multiple chronic issues, including end-stage renal disease, as well as COPD. 10/01/20 16:29 Reassessed. Resting comfortably in stretcher. No acute distress. Elevated troponin is chronic, with a baseline when compared to prior, this is likely a type II troponin leak. Trial of ambulation pending at this time. From a renal disease standpoint, I do not see indication for admission for urgent/emergent hemodialysis. 10/01/20 16:45 Final reassessment. I have gone back and reevaluated this patient multiple times. After my initial evaluation, he is sleeping comfortably, resting comfortably on her stretcher, and in no acute distress. During trial of ambulation, had minimal desaturation to 88%, then, with rest, O2 sat improved to 97%. However, the patient is not symptomatic with during trial of ambulation, we would expect some degree of hypoxia and VQ mismatch, secondary to albuterol administration, as well as chronic COPD. The patient is adamant that he would like to be discharged with a trial of outpatient management, and follow-up for his hemodialysis on Thursday. He endorses that he is reliable to return to the emergency room if he has a change in his clinical status, and his significant other is at the bedside, who also assures me that she will make certain that the patient follows up. ED Medical Decision Making - Lab Data Result diagrams: 10/01/20 14:42 10/01/20 14:42 Vital Signs 10/01/20 10/01/20 11:16 14:05 Temperature 97.4 F L Pulse Rate 95 H Pulse Rate [ 97 H Anterior Bilateral Throughout] Respiratory 18 Rate Respiratory 24 Rate [Anterior Bilateral Throughout] Blood Pressure 96/60 [Right] O2 Sat by Pulse 96 Oximetry Lab Results 10/01/20 10/01/20 10/01/20 Range/Units 14:42 14:42 14:42 WBC 6.6 (4.5-11.0) K/mm3 RBC 4.71 (3.65-5.03) M/mm3 Hgb 14.4 (11.8-15.2) gm/dl Hct 43.4 (35.5-45.6) % MCV 92 (84-94) fl MCH 31 (28-32) pg MCHC 33 (32-34) % RDW 19.5 H (13.2-15.2) % Plt Count 129 L (140-440) K/mm3 Lymph % (Auto) 24.0 (13.4-35.0) % [place] % (Auto) 8.5 H (0.0-7.3) % Eos % (Auto) 12.0 H (0.0-4.3) % Baso % (Auto) 1.4 (0.0-1.8) % Lymph # (Auto) 1.6 (1.2-5.4) K/mm3 [place] # (Auto) 0.6 (0.0-0.8) K/mm3 Eos # (Auto) 0.8 H (0.0-0.4) K/mm3 Baso # (Auto) 0.1 (0.0-0.1) K/mm3 Seg Neutrophils % 54.1 (40.0-70.0) % Seg Neutrophils # 3.6 (1.8-7.7) K/mm3 Sodium 139 (137-145) mmol/L Potassium 4.0 (3.6-5.0) mmol/L Chloride 93.9 L (98-107) mmol/L Carbon Dioxide 28 (22-30) mmol/L Anion Gap 21 mmol/L BUN 53 H (9-20) mg/dL Glucose 89 (75-100) mg/dL Calcium 9.6 (8.4-10.2) mg/dL Magnesium 2.60 H (1.7-2.3) mg/dL Total Bilirubin 0.30 (0.1-1.2) mg/dL AST 18 (5-40) units/L ALT 15 (7-56) units/L Alkaline Phosphatase 97 (35-129) units/L Total Creatine Kinase 217 H (55-170) units/L NT-Pro-B Natriuret Pep 4337 H (0-900) pg/mL Total Protein 6.9 (6.3-8.2) g/dL Albumin 3.7 L (3.9-5) g/dL Albumin/Globulin Ratio 1.2 % - EKG Data -: EKG Interpreted by Mn EKG shows normal: sinus rhythm Rate: normal - EKG Data 10/01/20 15:31 EKG interpreted at 14: 25 Sinus rhythm, tachycardia, 105 bpm. Normal axis, QTC prolonged, early repolarization, and atrial enlargement. This is an abnormal EKG. There is no endorsement of chest pain. This EKG is not morphologically consistent with a STEMI. The EKG today appears to be unchanged from prior EKG from May 2020 - Radiology Data Radiology results: pending, report reviewed, image reviewed [facility] [address] [place] [address] XRay Report Signed Patient: JANIE KNOWLES MR#: [id number] : 1960 Acct:[id number] Age/Sex: 60 / M ADM Date: 10/01/20 Loc: ED Attending Dr: Ordering Physician: GRACY SRINIVASAN Date of Service: 10/01/20 Procedure(s): XR chest routine 2V Accession Number(s): [id number] cc: GRACY SRINIVASAN Fluoro Time In Minutes: CHEST 2 VIEWS INDICATION: SOB. COMPARISON: 05/18/2020 FINDINGS: Support devices: None. Heart: Within normal limits. Lungs/pleura: Advanced emphysematous changes are again noted. No acute air space or interstitial disease. No pneumothorax. Additional findings: None. IMPRESSION: No acute findings. Signer Name: Josiah Chaves Jr, MD Signed: 10/01/2020 2:30 PM Workstation Name: [id number] Transcribed By: TTR Dictated By: JOSIAH CHAVES JR, MD Electronically Authenticated By: JOSIAH CHAVES JR, MD Signed Date/Time: 10/01/201429 DD/ 29 Critical Care Time: Yes Critical care time in (mins) excluding proc time.: 35 Critical care attestation.: If time is entered above; I have spent that time in minutes in the direct care of this critically ill patient, excluding procedure time. ED Disposition Clinical Impression: ESRD on hemodialysis, COPD with exacerbation Disposition: DC-01 TO HOME OR SELFCARE Is pt being admited?: No Does the pt Need Aspirin: No Condition: Good Instructions: Chronic Obstructive Pulmonary Disease, [id number], Chronic Obstructive Pulmonary Disease (ED) Additional Instructions: Please continue current outpatient medications. Please follow-up for outpatient hemodialysis in the next 12 to 36 hours. Please take the albuterol, Atrovent, steroids, antibiotics as directed. Please follow-up with your primary care doctor or customer service coordinator within the next 3 days for repeat checkup/evaluation. Patient may also follow-up with his outpatient unloading checker/kidney specialist. Make certain to consume a low-salt diet. Make certain to return to the emergency room right away with new pain, worsened pain, migration of pain, projectile vomiting, change in mental status, confusion, inability to tolerate liquid feeds, new, worsened or different symptoms not present on the initial blanco rgency room evaluation. Prescriptions: Albuterol Sulfate [Albuterol 0.63% NEBS] 0.63 mg IH Q4HR PRN #2 ml PRN Reason: Wheezing Ipratropium (Nf) [Atrovent] 2 puff IH Q6HR PRN #1 inha PRN Reason: Wheezing Ipratropium [Atrovent NEB] 0.5 mg IH Q4HR #2 ml predniSONE [Deltasone] 40 mg PO QDAY #8 tab Albuterol Sulfate [Proair Respiclick] 90 mcg IH Q4HR PRN #2 aer.pow.ba PRN Reason: Wheezing DOXYCYCLINE Hyclate [Vibramycin] 100 mg PO Q12HR #9 capsule Referrals: AMINTA BLACK MD [Staff Physician] - 3-5 Days YANIRA EVANS MD [Staff Physician] - 3-5 Days
--- NOTE | 2020-10-01 14:35 | XRay Report ---
CHEST 2 VIEWS INDICATION: SOB. COMPARISON: 05/18/2020 FINDINGS: Support devices: None. Heart: Within normal limits. Lungs/pleura: Advanced emphysematous changes are again noted. No acute air space or interstitial dise ase. No pneumothorax. Additional findings: None. IMPRESSION: No acute findings. Signer Name: Josiah Chaves Jr, MD Signed: 10/01/2020 2:30 PM Workstation Name: [id number]
[2020-10-01 15:20] LABS: Albumin 3.7 g/dL (3.9-5); Calcium 9.6 mg/dL (8.4-10.2)
[2020-10-01 15:26] LABS: Basophils # (Auto) 0.1 K/mm3 (0.0-0.1); Basophils % (Auto) 1.4 % (0.0-1.8); Eosinophils # (Auto) 0.8 K/mm3 (0.0-0.4); Hematocrit 43.4 % (35.5-45.6); Hemoglobin 14.4 gm/dl (11.8-15.2); Lymphocytes # (Auto) 1.6 K/mm3 (1.2-5.4); Mean Corpuscular HGB Conc 33 % (32-34); Mean Corpuscular Volume 92 fl (84-94); Monocytes # (Auto) 0.6 K/mm3 (0.0-0.8); Monocytes % (Auto) 8.5 % (0.0-7.3); Platelet Count 129 K/mm3 (140-440); Red Blood Count 4.71 M/mm3 (3.65-5.03); Red Cell Distribution Width 19.5 % (13.2-15.2)
[2020-10-01 15:59] LABS: Chol/HDL Ratio 1.48 %
[2020-10-01] MEDS ORDERED: DOXYCYCLINE 100 MG CAP PO ONE (16:44)
[2020-10-01 17:42] VITALS: BP 132/67
--- NOTE | 2020-10-04 09:29 | Electrocardiograph Report ---
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
== END 2020-10-01 17:41 | disposition home or self-care (01) ==
LOC: ED 11:13
DX: I12.0 Hypertensive chronic kidney disease with stage 5 chronic kidney disease or end stage renal disease (principal); N18.6 End stage renal disease; J44.1 Chronic obstructive pulmonary disease with (acute) exacerbation; M19.91 Primary osteoarthritis, unspecified site; R56.9 Unspecified convulsions; F17.200 Nicotine dependence, unspecified, uncomplicated; Z99.2 Dependence on renal dialysis; Z21 Asymptomatic human immunodeficiency virus [HIV] infection status; Z98.890 Other specified postprocedural states; Z79.899 Other long term (current) drug therapy; Z88.1 Allergy status to other antibiotic agents; Z88.8 Allergy status to other drugs, medicaments and biological substances
CPT/HCPCS: 36415; 71046; 80053; 80061; 82550; 83735; 83880; 84484; 85025; 93005; 94644; 96365; 96375; 99291; J2930; J3475; J7120

== ENCOUNTER 2020-10-17 15:34 | Emergency (ER) | payer MEDICARE ==
--- NOTE | 2020-10-17 15:51 | Event Note ---
ED Screening Note ED Screening Note: long med hx dc from hosp on Thursday for copd ae was on hd today and had acute annalisa family states he has been sob since dc This initial assessment/diagnostic orders/clinical plan/treatment(s) is/are subject to change based on patients health status, clinical progression and re- assessment by fellow clinical providers in the ED. Further treatment and workup at subsequent clinical providers discretion. Patient/guardian urged not to elope from the ED as their condition may be serious if not clinically assessed and managed. Initial orders include: labs ekg xray
[2020-10-17 16:09] LABS: Basophils % (Auto) 0.3 % (0.0-1.8); Eosinophils # (Auto) 0.1 K/mm3 (0.0-0.4); Eosinophils % (Auto) 1.6 % (0.0-4.3); Hematocrit 44.1 % (35.5-45.6); Hemoglobin 14.7 gm/dl (11.8-15.2); Lymphocytes % (Auto) 26.2 % (13.4-35.0); Mean Corpuscular HGB Conc 33 % (32-34); Mean Corpuscular Volume 91 fl (84-94); Monocytes # (Auto) 0.5 K/mm3 (0.0-0.8); Monocytes % (Auto) 6.9 % (0.0-7.3); Platelet Count 113 K/mm3 (140-440); Red Blood Count 4.86 M/mm3 (3.65-5.03); Red Cell Distribution Width 18.6 % (13.2-15.2)
[2020-10-17 16:35] LABS: Calcium 8.3 mg/dL (8.4-10.2)
--- NOTE | 2020-10-17 16:35 | XRay Report ---
CHEST 2 VIEWS INDICATION / CLINICAL INFORMATION: Dyspnea. COMPARISON: None available. FINDINGS: SUPPORT DEVICES: None. HEART / MEDIASTINUM: No significant abnormality. LUNGS / PLEURA: Mild increased interstitial process in bilateral lungs most significant in the upper lungs. There is some interstitial nodularity. No pneumothorax. ADDITIONAL FINDINGS: No significant additional findings. IMPRESSION: Increased interstitial prominence with some interstitial nodularity in bilateral lungs most significa nt in the upper lungs. Findings may represent chronic interstitial change. Nodular density in the right lower lung measures 7 mm. This may represent nipple shadow however follow-up 4 mild interstitial prominence and interstitial no dularity recommended. Signer Name: Naresh Muñiz MD Signed: 10/17/2020 4:31 PM Workstation Name: [id number]
[2020-10-17] MEDS ORDERED: IPRATROPIUM 0.02% NEBU 2.5 ML IH ONE (20:20)
[2020-10-17] MEDS ORDERED: ALBUTEROL 2.5 MG/3 ML NEBU IH ONE (20:20)
[2020-10-17] MEDS ORDERED: methylPREDNISolone Sod Succinate 125 MG/2 ML INJ IM ONE (20:20)
--- NOTE | 2020-10-17 20:39 | Emergency Department Report ---
ED General Adult HPI - General Chief complaint: Dyspnea/Respdistress Stated complaint: JARRET Time Seen by Provider: 10/17/20 15:49 Source: patient Mode of arrival: Ambulatory Limitations: No Limitations - History of Present Illness Initial comments: The patient presents to the emergency department with a chief complaint of shortness of breath that has been present x1 day. Patient was recently discharged from this hospital for COPD exacerbation. Patient dates he was at dialysis today and the shortness of breath got worse. Patient also complains of wheezing. Patient denies chest pain, abdominal pain, or headache. -: Gradual, days(s) (1) Severity scale (0 -10): 0 Consistency: constant Improves with: none Worsens with: none Associated Symptoms: denies other symptoms Treatments Prior to Arrival: none - Related Data Home Medications Medication Instructions Recorded Confirmed Last Taken Aspirin [Aspirin BABY CHEW TAB] 81 mg PO DAILY 12/11/19 10/12/20 2 Days Ago ~04/12/20 AtorvaSTATin [Lipitor] 20 mg PO HS 12/11/19 10/12/20 2 Days Ago ~04/12/20 Hydralazine HCl 50 mg PO TID 12/11/19 10/12/20 2 Days Ago ~04/12/20 amLODIPine 10 mg PO DAILY 12/11/19 10/12/20 2 Days Ago ~04/12/20 lamiVUDine [Epivir] 10 mg PO HS 12/11/19 10/12/20 2 Days Ago ~04/12/20 Abacavir [Ziagen TAB] 300 mg PO BID 12/12/19 10/12/20 2 Days Ago ~04/12/20 ALBUTEROL NEB's [Proventil 0.083% 2.5 mg INHALATION Q6HR PRN 05/15/20 10/12/20 Unknown NEBS] Clopidogrel [Plavix] 75 mg PO QDAY 05/15/20 10/12/20 Unknown Umeclidinium Brm/Vilanterol Tr 62.5 mcg INHALATION BID 05/15/20 10/12/20 Unknown [Anoro Ellipta 62.5-25 Mcg INH] labetaloL [Labetalol 200mg TAB] 200 mg PO BID 05/15/20 10/12/20 Unknown Previous Rx's Medication Instructions Recorded Last Taken Type Clopidogrel [Plavix] 75 mg PO QDAY #30 tablet 11/03/18 Unknown Rx Aspirin [Aspirin BABY CHEW TAB] 81 mg PO QDAY #30 tab.chew 07/31/19 Unknown Rx AtorvaSTATin [Lipitor] 20 mg PO QHS #30 tablet 07/31/19 Unknown Rx amLODIPine 10 mg PO DAILY #30 tab 07/31/19 Unknown Rx cloNIDine [Catapres] 0.1 mg PO BID #60 07/31/19 Unknown Rx Levalbuterol Hfa 45 Mcg/Puff 2 puff IH Q6H PRN #1 inhalation 09/30/19 Unknown Rx [Xopenex Hfa (Nf)] ALBUTEROL NEB's [Proventil 0.083% 2.5 mg IH TID PRN #1 neb 11/29/19 Unknown Rx NEBS] Albuterol Mdi (or & Nicu Only) 2 puff IH QID PRN #8.5 gram 02/22/20 Unknown Rx [ProAir HFA Inhaler] Abacavir [Ziagen TAB] 300 mg PO BID tablet 05/21/20 Unknown Rx Aspirin 325 mg PO QDAY tablet 05/21/20 Unknown Rx AtorvaSTATin [Lipitor] 40 mg PO QHS tablet 05/21/20 Unknown Rx Clopidogrel [Plavix] 75 mg PO QDAY tablet 05/21/20 Unknown Rx Dolutegravir [Tivicay] 50 mg PO DAILY tablet 05/21/20 Unknown Rx Ipratropium/Albuterol Sulfate 1 ampul IH TIDRT ampul.neb 05/21/20 Unknown Rx [DUONEB *Not for PRN Use*] Sevelamer Carbonate [Renvela] 2,400 mg PO TID tablet 05/21/20 Unknown Rx dilTIAZem [Cardizem] 60 mg PO Q4H tablet 05/21/20 Unknown Rx Albuterol Sulfate [Albuterol 0.63% 0.63 mg IH Q4HR PRN #2 ml 10/01/20 Unknown Rx NEBS] Albuterol Sulfate [Proair 90 mcg IH Q4HR PRN #2 aer.pow.ba 10/01/20 Unknown Rx Respiclick] Ipratropium (Nf) [Atrovent HFA 2 puff IH Q6HR PRN #1 inha 10/01/20 Unknown Rx 17MCG/PUFF] Ipratropium [Atrovent NEB] 0.5 mg IH Q4HR #2 ml 10/01/20 Unknown Rx predniSONE [Deltasone] 40 mg PO QDAY #8 tab 10/01/20 Unknown Rx Apixaban [Eliquis] 2.5 mg PO Q12HR #60 tablet 10/05/20 Unknown Rx Metoprolol [Lopressor TAB] 25 mg PO BID #60 tablet 10/05/20 Unknown Rx predniSONE [Deltasone] 20 mg PO QDAY #20 tab 10/05/20 Unknown Rx Abacavir [Ziagen TAB] 300 mg PO BID tablet 10/15/20 Unknown Rx Dolutegravir [Tivicay] 50 mg PO DAILY tablet 10/15/20 Unknown Rx Ergocalciferol [Vitamin D2] 50,000 unit PO Mo capsule 10/15/20 Unknown Rx Famotidine [Pepcid] 20 mg PO DAILY tablet 10/15/20 Unknown Rx dilTIAZem [Cardizem] 30 mg PO Q6H #120 tablet 10/15/20 Unknown Rx oxyCODONE /ACETAMINOPHEN [Percocet 1 tab PO Q6H PRN tablet 10/15/20 Unknown Rx 5/325 mg] Allergies Allergy/AdvReac Type Severity Reaction Status Date / Time azithromycin [From Zithromax] Allergy Shortness Verified 10/17/20 15:51 of Breath Iodinated Contrast Media Allergy Unknown Verified 10/17/20 15:51 levofloxacin Allergy Unknown Verified 10/17/20 15:51 lisinopril Allergy Angioedema Verified 10/17/20 15:51 sevelamer [From Renvela] Allergy Hives Verified 10/17/20 15:51 sulfamethoxazole Allergy Unknown Verified 10/17/20 15:51 [From Bactrim] trimethoprim [From Bactrim] Allergy Unknown Verified 10/17/20 15:51 ED Review of Systems ROS: Stated complaint: JARRET Other details as noted in HPI Constitutional: denies: chills, fever Eyes: denies: eye pain, eye discharge, vision change ENT: denies: ear pain, throat pain Respiratory: shortness of breath, wheezing. denies: cough Cardiovascular: denies: chest pain, palpitations Endocrine: no symptoms reported Gastrointestinal: denies: abdominal pain, nausea, diarrhea Genitourinary: denies: urgency, dysuria Musculoskeletal: denies: back pain, joint swelling, arthralgia Skin: denies: rash, lesions Neurological: denies: headache, weakness, paresthesias Psychiatric: denies: anxiety, depression Hematological/Lymphatic: denies: easy bleeding, easy bruising ED Past Medical Hx - Past Medical History Hx Hypertension: Yes Hx Congestive Heart Failure: No Hx Diabetes: No Hx Renal Disease: Yes (on hemodialysis, MWF) Hx Arthritis: Yes Hx Seizures: Yes Hx Asthma: Yes Hx COPD: Yes Hx HIV: Yes (Unknown CD4 count) - Surgical History Hx Coronary Stent: Yes Additional Surgical History: vascath. AV shunt LUE - Social History Smoking Status: Current Every Day Smoker Substance Use Type: None - Medications Home Medications: Home Medications Medication Instructions Recorded Confirmed Last Taken Type Clopidogrel [Plavix] 75 mg PO QDAY #30 tablet 11/03/18 10/12/20 Unknown Rx Aspirin [Aspirin BABY CHEW TAB] 81 mg PO QDAY #30 tab.chew 07/31/19 10/12/20 Unknown Rx AtorvaSTATin [Lipitor] 20 mg PO QHS #30 tablet 07/31/19 10/12/20 Unknown Rx amLODIPine 10 mg PO DAILY #30 tab 07/31/19 10/12/20 Unknown Rx cloNIDine [Catapres] 0.1 mg PO BID #60 07/31/19 10/12/20 Unknown Rx Levalbuterol Hfa 45 Mcg/Puff 2 puff IH Q6H PRN #1 inhalation 09/30/19 10/12/20 Unknown Rx [Xopenex Hfa (Nf)] ALBUTEROL NEB's [Proventil 0.083% 2.5 mg IH TID PRN #1 neb 11/29/19 10/12/20 Unknown Rx NEBS] Aspirin [Aspirin BABY CHEW TAB] 81 mg PO DAILY 12/11/19 10/12/20 2 Days Ago History ~04/12/20 AtorvaSTATin [Lipitor] 20 mg PO HS 12/11/19 10/12/20 2 Days Ago History ~04/12/20 Hydralazine HCl 50 mg PO TID 12/11/19 10/12/20 2 Days Ago History ~04/12/20 amLODIPine 10 mg PO DAILY 12/11/19 10/12/20 2 Days Ago History ~04/12/20 lamiVUDine [Epivir] 10 mg PO HS 12/11/19 10/12/20 2 Days Ago History ~04/12/20 Abacavir [Ziagen TAB] 300 mg PO BID 12/12/19 10/12/20 2 Days Ago History ~04/12/20 Albuterol Mdi (or & Nicu Only) 2 puff IH QID PRN #8.5 gram 02/22/20 10/12/20 Unknown Rx [ProAir HFA Inhaler] ALBUTEROL NEB's [Proventil 0.083% 2.5 mg INHALATION Q6HR PRN 05/15/20 10/12/20 Unknown History NEBS] Clopidogrel [Plavix] 75 mg PO QDAY 05/15/20 10/12/20 Unknown History Umeclidinium Brm/Vilanterol Tr 62.5 mcg INHALATION BID 05/15/20 10/12/20 Unknown History [Anoro Ellipta 62.5-25 Mcg INH] labetaloL [Labetalol 200mg TAB] 200 mg PO BID 05/15/20 10/12/20 Unknown History Abacavir [Ziagen TAB] 300 mg PO BID tablet 05/21/20 10/12/20 Unknown Rx Aspirin 325 mg PO QDAY tablet 05/21/20 10/12/20 Unknown Rx AtorvaSTATin [Lipitor] 40 mg PO QHS tablet 05/21/20 10/12/20 Unknown Rx Clopidogrel [Plavix] 75 mg PO QDAY tablet 05/21/20 10/12/20 Unknown Rx Dolutegravir [Tivicay] 50 mg PO DAILY tablet 05/21/20 10/12/20 Unknown Rx Ipratropium/Albuterol Sulfate 1 ampul IH TIDRT ampul.neb 05/21/20 10/12/20 Unknown Rx [DUONEB *Not for PRN Use*] Sevelamer Carbonate [Renvela] 2,400 mg PO TID tablet 05/21/20 10/12/20 Unknown Rx dilTIAZem [Cardizem] 60 mg PO Q4H tablet 05/21/20 10/12/20 Unknown Rx Albuterol Sulfate [Albuterol 0.63% 0.63 mg IH Q4HR PRN #2 ml 10/01/20 10/12/20 Unknown Rx NEBS] Albuterol Sulfate [Proair 90 mcg IH Q4HR PRN #2 aer.pow.ba 10/01/20 10/12/20 Unknown Rx Respiclick] Ipratropium (Nf) [Atrovent HFA 2 puff IH Q6HR PRN #1 inha 10/01/20 10/12/20 Unknown Rx 17MCG/PUFF] Ipratropium [Atrovent NEB] 0.5 mg IH Q4HR #2 ml 10/01/20 10/12/20 Unknown Rx predniSONE [Deltasone] 40 mg PO QDAY #8 tab 10/01/20 10/12/20 Unknown Rx Apixaban [Eliquis] 2.5 mg PO Q12HR #60 tablet 10/05/20 10/12/20 Unknown Rx Metoprolol [Lopressor TAB] 25 mg PO BID #60 tablet 10/05/20 10/12/20 Unknown Rx predniSONE [Deltasone] 20 mg PO QDAY #20 tab 10/05/20 10/12/20 Unknown Rx Abacavir [Ziagen TAB] 300 mg PO BID tablet 10/15/20 Unknown Rx Dolutegravir [Tivicay] 50 mg PO DAILY tablet 10/15/20 Unknown Rx Ergocalciferol [Vitamin D2] 50,000 unit PO Mo capsule 10/15/20 Unknown Rx Famotidine [Pepcid] 20 mg PO DAILY tablet 10/15/20 Unknown Rx dilTIAZem [Cardizem] 30 mg PO Q6H #120 tablet 10/15/20 Unknown Rx oxyCODONE /ACETAMINOPHEN [Percocet 1 tab PO Q6H PRN tablet 10/15/20 Unknown Rx 5/325 mg] ED Physical Exam - General Limitations: No Limitations General appearance: alert, in no apparent distress - Head Head exam: Present: atraumatic, normocephalic - Eye Eye exam: Present: normal appearance, PERRL, EOMI - ENT ENT exam: Present: mucous membranes moist - Neck Neck exam: Present: normal inspection - Respiratory Respiratory exam: Present: wheezes. Absent: respiratory distress - Cardiovascular Cardiovascular Exam: Present: normal rhythm, tachycardia. Absent: systolic murmur, diastolic murmur, rubs, gallop - GI/Abdominal GI/Abdominal exam: Present: soft, normal bowel sounds. Absent: distended, tenderness - Rectal Rectal exam: Present: deferred - Extremities Exam Extremities exam: Present: normal inspection - Back Exam Back exam: Present: normal inspection - Neurological Exam Neurological exam: Present: alert, oriented X3, CN II-XII intact. Absent: motor sensory deficit - Psychiatric Psychiatric exam: Present: normal affect, normal mood - Skin Skin exam: Present: warm, dry, intact, normal color. Absent: rash ED Course Vital Signs 10/17/20 10/17/20 15:49 21:00 Temperature 98.6 F Pulse Rate 102 H Pulse Rate [ 92 H Bilateral] Respiratory 22 Rate Respiratory 20 Rate [Bilateral ] Blood Pressure 132/71 O2 Sat by Pulse 93 Oximetry ED Medical Decision Making - Lab Data Result diagrams: 10/17/20 15:56 10/17/20 15:56 Lab Results 10/17/20 10/17/20 10/17/20 Range/Units 15:56 15:56 15:56 WBC 7.5 (4.5-11.0) K/mm3 RBC 4.86 (3.65-5.03) M/mm3 Hgb 14.7 (11.8-15.2) gm/dl Hct 44.1 (35.5-45.6) % MCV 91 (84-94) fl MCH 30 (28-32) pg MCHC 33 (32-34) % RDW 18.6 H (13.2-15.2) % Plt Count 113 L (140-440) K/mm3 Lymph % (Auto) 26.2 (13.4-35.0) % [place] % (Auto) 6.9 (0.0-7.3) % Eos % (Auto) 1.6 (0.0-4.3) % Baso % (Auto) 0.3 (0.0-1.8) % Lymph # (Auto) 2.0 (1.2-5.4) K/mm3 [place] # (Auto) 0.5 (0.0-0.8) K/mm3 Eos # (Auto) 0.1 (0.0-0.4) K/mm3 Baso # (Auto) 0.0 (0.0-0.1) K/mm3 Seg Neutrophils % 65.0 (40.0-70.0) % Seg Neutrophils # 4.8 (1.8-7.7) K/mm3 ABG pH (7.350-7.450) pH Units ABG pCO2 mm Hg ABG pO2 (80.0-90.0) mm Hg ABG HCO3 (20.0-26.0) mmol/L ABG O2 Saturation (95.0-99.0) % ABG O2 Content (0.0-44) ABG Base Excess (-2.0-3.0) mmol/L ABG Hemoglobin (14.0-18.0) gm/dl ABG Carboxyhemoglobin (0.0-5.0) % ABG Methemoglobin (0.0-1.5) % Oxyhemoglobin (95.0-99.0) % FiO2 % Sodium 142 (137-145) mmol/L Potassium 4.0 (3.6-5.0) mmol/L Chloride 95.1 L (98-107) mmol/L Carbon Dioxide 34 H (22-30) mmol/L Anion Gap 17 mmol/L BUN 51 H (9-20) mg/dL Creatinine 7.9 H (0.8-1.3) mg/dL Estimated GFR 8 ml/min BUN/Creatinine Ratio 6 % Glucose 78 (75-100) mg/dL Calcium 8.3 L (8.4-10.2) mg/dL Phosphorus 4.80 H (2.5-4.5) mg/dL Total Bilirubin 0.50 (0.1-1.2) mg/dL AST 42 H (5-40) units/L ALT 49 (7-56) units/L Alkaline Phosphatase 123 (35-129) units/L Troponin T 0.218 H* (0.00-0.029) ng/mL NT-Pro-B Natriuret Pep 18882 H (0-900) pg/mL Total Protein 6.7 (6.3-8.2) g/dL Albumin 4.0 (3.9-5) g/dL Albumin/Globulin Ratio 1.5 % 10/17/20 10/17/20 Range/Units 18:47 21:03 WBC (4.5-11.0) K/mm3 RBC (3.65-5.03) M/mm3 Hgb (11.8-15.2) gm/dl Hct (35.5-45.6) % MCV (84-94) fl MCH (28-32) pg MCHC (32-34) % RDW (13.2-15.2) % Plt Count (140-440) K/mm3 Lymph % (Auto) (13.4-35.0) % [place] % (Auto) (0.0-7.3) % Eos % (Auto) (0.0-4.3) % Baso % (Auto) (0.0-1.8) % Lymph # (Auto) (1.2-5.4) K/mm3 [place] # (Auto) (0.0-0.8) K/mm3 Eos # (Auto) (0.0-0.4) K/mm3 Baso # (Auto) (0.0-0.1) K/mm3 Seg Neutrophils % (40.0-70.0) % Seg Neutrophils # (1.8-7.7) K/mm3 ABG pH 7.509 H (7.350-7.450) pH Units ABG pCO2 38.9 mm Hg ABG pO2 79.1 L (80.0-90.0) mm Hg ABG HCO3 30.3 H (20.0-26.0) mmol/L ABG O2 Saturation 96.7 (95.0-99.0) % ABG O2 Content 17.7 (0.0-44) ABG Base Excess 6.9 H (-2.0-3.0) mmol/L ABG Hemoglobin 13.3 L (14.0-18.0) gm/dl ABG Carboxyhemoglobin 2.2 (0.0-5.0) % ABG Methemoglobin 0.4 (0.0-1.5) % Oxyhemoglobin 94.1 L (95.0-99.0) % FiO2 21 % Sodium (137-145) mmol/L Potassium (3.6-5.0) mmol/L Chloride (98-107) mmol/L Carbon Dioxide (22-30) mmol/L Anion Gap mmol/L BUN (9-20) mg/dL Creatinine (0.8-1.3) mg/dL Estimated GFR ml/min BUN/Creatinine Ratio % Glucose (75-100) mg/dL Calcium (8.4-10.2) mg/dL Phosphorus (2.5-4.5) mg/dL Total Bilirubin (0.1-1.2) mg/dL AST (5-40) units/L ALT (7-56) units/L Alkaline Phosphatase (35-129) units/L Troponin T 0.202 H* (0.00-0.029) ng/mL NT-Pro-B Natriuret Pep (0-900) pg/mL Total Protein (6.3-8.2) g/dL Albumin (3.9-5) g/dL Albumin/Globulin Ratio % - Radiology Data Radiology results: report reviewed - Medical Decision Making Patient received hour-long breathing treatment and 125 mg Solu-Medrol On repeat evaluation of patient at 10:15 PM he states he feels extremely better and repeat lung sounds shows increased movement of air with mild expiratory wheezing Elevated troponins likely secondary to cardiac strain due to dialysis Critical Care Time: Yes Critical care time in (mins) excluding proc time.: 35 Critical care attestation.: If time is entered above; I have spent that time in minutes in the direct care of this critically ill patient, excluding procedure time. ED Disposition Clinical Impression: COPD exacerbation Disposition: DC- TO HOME OR SELFCARE Is pt being admited?: No Does the pt Need Aspirin: No Condition: Stable Instructions: Chronic Obstructive Pulmonary Disease (ED), Chronic Obstructive Pulmonary Disease Additional Instructions: Return if worse Referrals: PRIMARY CAREMD [Primary Care Provider] - 3-5 Days AMINTA BLACK MD [Staff Physician] - 3-5 Days Time of Disposition: 22:28
[2020-10-17 21:10] LABS: ABG Base Excess 6.9 mmol/L (-2.0-3.0); ABG HCO3 30.3 mmol/L (20.0-26.0); ABG Methemoglobin 0.4 % (0.0-1.5); ABG Oxygen Saturation 96.7 % (95.0-99.0); ABG PCO2 38.9 mm Hg; ABG PH 7.509 pH Units (7.350-7.450); ABG PO2 79.1 mm Hg (80.0-90.0)
[2020-10-17 22:59] VITALS: BP 151/85
== END 2020-10-17 22:59 | disposition home or self-care (01) ==
LOC: ED 15:34
DX: J44.1 Chronic obstructive pulmonary disease with (acute) exacerbation (principal); I10 Essential (primary) hypertension; M19.91 Primary osteoarthritis, unspecified site; R56.9 Unspecified convulsions; F17.200 Nicotine dependence, unspecified, uncomplicated; Z98.890 Other specified postprocedural states; Z79.899 Other long term (current) drug therapy; Z88.8 Allergy status to other drugs, medicaments and biological substances; Z88.1 Allergy status to other antibiotic agents
CPT/HCPCS: 36415; 71046; 80053; 82803; 83880; 84100; 84484; 85025; 94644; 96372; 99291; J2930

== ENCOUNTER 2021-04-15 15:09 | Inpatient (IN) | payer MEDICARE ==
--- NOTE | 2021-04-15 15:50 | Event Note ---
ED Screening Note ED Screening Note: Patient is a 60-year-old male presents emergency room with complaints of lightheadedness and near syncope Since states that she had just picked him up from dialysis when he began feeling lightheaded like he wanted to pass out and broke out in a sweat Patient states that he felt like he had gas and pressed on his stomach He denies any symptoms currently He states he was not sure if they pooled too much fluid off states he typically does dialysis 3 hours a day 3 days a week His patient care nursing assistant is Dr. Villa This initial assessment/diagnostic orders/clinical plan/treatment(s) is/are subject to change based on patients health status, clinical progression and re- assessment by fellow clinical providers in the ED. Further treatment and workup at subsequent clinical providers discretion. Patient/guardian urged not to elope from the ED as their condition may be serious if not clinically assessed and managed. Initial orders include: labs, ekg
--- NOTE | 2021-04-15 16:41 | Emergency Department Report ---
ED Syncope HPI - General Chief Complaint: Syncope Stated Complaint: SOB/FAINT AFTER DIALYSIS Time Seen by Provider: 04/15/21 16:12 Source: patient, family Exam Limitations: no limitations - History of Present Illness Initial Comments: 60-year-old male with a past medical history of end-stage renal disease on dialysis, HIV, SVT, and COPD presents to the hospital with his at bedside complaining of near syncopal episode after dialysis. Patient pleaded his 3 hours of his scheduled dialysis. While in the car putting home he became diaphoretic, lightheaded, and felt like he was going to pass out. No loss of consciousness reported. Denies headache, chest pain, or shortness of breath during episode. Patient states he feels a lot better but has some mild residual lightheadedness. Food Critic: Dr. Leela Villa - Related Data Allergies/Adverse Reactions: Allergies azithromycin [From Zithromax] Allergy (Verified 10/17/20 15:51) Shortness of Breath Iodinated Contrast Media Allergy (Verified 10/17/20 15:51) Unknown levofloxacin Allergy (Verified 10/17/20 15:51) Unknown lisinopril Allergy (Verified 10/17/20 15:51) Angioedema sevelamer [From Renvela] Allergy (Verified 10/17/20 15:51) Hives sulfamethoxazole [From Bactrim] Allergy (Verified 10/17/20 15:51) Unknown trimethoprim [From Bactrim] Allergy (Verified 10/17/20 15:51) Unknown Home Medications: Ambulatory Orders Clopidogrel [Plavix] 75 mg PO QDAY #30 tablet 11/03/18 Aspirin [Aspirin BABY CHEW TAB] 81 mg PO QDAY #30 tab.chew 07/31/19 AtorvaSTATin [Lipitor] 20 mg PO QHS #30 tablet 07/31/19 amLODIPine 10 mg PO DAILY #30 tab 07/31/19 cloNIDine [Catapres] 0.1 mg PO BID #60 07/31/19 Levalbuterol Hfa 45 Mcg/Puff [Xopenex Hfa (Nf)] 2 puff IH Q6H PRN #1 inhalation 09/30/19 ALBUTEROL NEB's [Proventil 0.083% NEBS] 2.5 mg IH TID PRN #1 neb 11/29/19 Aspirin [Aspirin BABY CHEW TAB] 81 mg PO DAILY 12/11/19 AtorvaSTATin [Lipitor] 20 mg PO HS 12/11/19 Hydralazine HCl 50 mg PO TID 12/11/19 amLODIPine 10 mg PO DAILY 12/11/19 lamiVUDine [Epivir] 10 mg PO HS 12/11/19 Abacavir [Ziagen TAB] 300 mg PO BID 12/12/19 Albuterol Mdi (or & Nicu Only) [ProAir HFA Inhaler] 2 puff IH QID PRN #8.5 gram 02/22/20 ALBUTEROL NEB's [Proventil 0.083% NEBS] 2.5 mg INHALATION Q6HR PRN 05/15/20 Clopidogrel [Plavix] 75 mg PO QDAY 05/15/20 Umeclidinium Brm/Vilanterol Tr [Anoro Ellipta 62.5-25 Mcg INH] 62.5 mcg INHALATION BID 05/15/20 labetaloL [Labetalol 200mg TAB] 200 mg PO BID 05/15/20 Abacavir [Ziagen TAB] 300 mg PO BID tablet 05/21/20 Aspirin 325 mg PO QDAY tablet 05/21/20 AtorvaSTATin [Lipitor] 40 mg PO QHS tablet 05/21/20 Clopidogrel [Plavix] 75 mg PO QDAY tablet 05/21/20 Dolutegravir [Tivicay] 50 mg PO DAILY tablet 05/21/20 Ipratropium/Albuterol Sulfate [DUONEB *Not for PRN Use*] 1 ampul IH TIDRT ampul.neb 05/21/20 Sevelamer Carbonate [Renvela] 2,400 mg PO TID tablet 05/21/20 dilTIAZem [Cardizem] 60 mg PO Q4H tablet 05/21/20 Albuterol Sulfate [Albuterol 0.63% NEBS] 0.63 mg IH Q4HR PRN #2 ml 10/01/20 Albuterol Sulfate [Proair Respiclick] 90 mcg IH Q4HR PRN #2 aer.pow.ba 10/01/20 Ipratropium (Nf) [Atrovent HFA 17MCG/PUFF] 2 puff IH Q6HR PRN #1 inha 10/01/20 Ipratropium [Atrovent NEB] 0.5 mg IH Q4HR #2 ml 04/19/21 predniSONE [Deltasone] 40 mg PO QDAY #8 tab 10/01/20 Apixaban [Eliquis] 2.5 mg PO Q12HR #60 tablet 10/05/20 Metoprolol [Lopressor TAB] 25 mg PO BID #60 tablet 10/05/20 predniSONE [Deltasone] 20 mg PO QDAY #20 tab 10/05/20 Abacavir [Ziagen TAB] 300 mg PO BID tablet 10/15/20 Dolutegravir [Tivicay] 50 mg PO DAILY tablet 10/15/20 Ergocalciferol [Vitamin D2] 50,000 unit PO Mo capsule 10/15/20 Famotidine [Pepcid] 20 mg PO DAILY tablet 10/15/20 dilTIAZem [Cardizem] 30 mg PO Q6H #120 tablet 10/15/20 oxyCODONE /ACETAMINOPHEN [Percocet 5/325 mg] 1 tab PO Q6H PRN tablet 10/15/20 Albuterol Mdi (or & Nicu Only) [ProAir HFA Inhaler] 2 puff IH Q4HR PRN #1 inhalation 10/17/20 Doxycycline Monohydrate [Doxycycline Monohydrate CAP] 100 mg PO BID #14 capsule 10/17/20 predniSONE [Deltasone] 20 mg PO DAILY #15 tablet 10/17/20 ED Review of Systems ROS: Stated complaint: SOB/FAINT AFTER DIALYSIS Other details as noted in HPI Comment: All other systems reviewed and negative ED Past Medical Hx - Past Medical History Hx Hypertension: Yes Hx Congestive Heart Failure: No Hx Diabetes: No Hx Renal Disease: Yes (on hemodialysis, MWF) Hx Arthritis: Yes Hx Seizures: Yes Hx Asthma: Yes Hx COPD: Yes Hx HIV: Yes (Unknown CD4 count) - Surgical History Hx Coronary Stent: Yes Additional Surgical History: vascath. AV shunt LUE. IVC filter - Social History Smoking Status: Current Every Day Smoker - Medications Home Medications: Home Medications Medication Instructions Recorded Confirmed Last Taken Type Clopidogrel [Plavix] 75 mg PO QDAY #30 tablet 11/03/18 10/12/20 Unknown Rx Aspirin [Aspirin BABY CHEW TAB] 81 mg PO QDAY #30 tab.chew 07/31/19 10/12/20 Unknown Rx AtorvaSTATin [Lipitor] 20 mg PO QHS #30 tablet 07/31/19 10/12/20 Unknown Rx amLODIPine 10 mg PO DAILY #30 tab 07/31/19 10/12/20 Unknown Rx cloNIDine [Catapres] 0.1 mg PO BID #60 07/31/19 10/12/20 Unknown Rx Levalbuterol Hfa 45 Mcg/Puff 2 puff IH Q6H PRN #1 inhalation 09/30/19 10/12/20 Unknown Rx [Xopenex Hfa (Nf)] ALBUTEROL NEB's [Proventil 0.083% 2.5 mg IH TID PRN #1 neb 11/29/19 10/12/20 Unknown Rx NEBS] Aspirin [Aspirin BABY CHEW TAB] 81 mg PO DAILY 12/11/19 10/12/20 2 Days Ago History ~04/12/20 AtorvaSTATin [Lipitor] 20 mg PO HS 12/11/19 10/12/20 2 Days Ago History ~04/12/20 Hydralazine HCl 50 mg PO TID 12/11/19 10/12/20 2 Days Ago History ~04/12/20 amLODIPine 10 mg PO DAILY 12/11/19 10/12/20 2 Days Ago History ~04/12/20 lamiVUDine [Epivir] 10 mg PO HS 12/11/19 10/12/20 2 Days Ago History ~04/12/20 Abacavir [Ziagen TAB] 300 mg PO BID 12/12/19 10/12/20 2 Days Ago History ~04/12/20 Albuterol Mdi (or & Nicu Only) 2 puff IH QID PRN #8.5 gram 02/22/20 10/12/20 Unknown Rx [ProAir HFA Inhaler] ALBUTEROL NEB's [Proventil 0.083% 2.5 mg INHALATION Q6HR PRN 05/15/20 10/12/20 Unknown History NEBS] Clopidogrel [Plavix] 75 mg PO QDAY 05/15/20 10/12/20 Unknown History Umeclidinium Brm/Vilanterol Tr 62.5 mcg INHALATION BID 05/15/20 10/12/20 Unknown History [Anoro Ellipta 62.5-25 Mcg INH] labetaloL [Labetalol 200mg TAB] 200 mg PO BID 05/15/20 10/12/20 Unknown History Abacavir [Ziagen TAB] 300 mg PO BID tablet 05/21/20 10/12/20 Unknown Rx Aspirin 325 mg PO QDAY tablet 05/21/20 10/12/20 Unknown Rx AtorvaSTATin [Lipitor] 40 mg PO QHS tablet 05/21/20 10/12/20 Unknown Rx Clopidogrel [Plavix] 75 mg PO QDAY tablet 05/21/20 10/12/20 Unknown Rx Dolutegravir [Tivicay] 50 mg PO DAILY tablet 05/21/20 10/12/20 Unknown Rx Ipratropium/Albuterol Sulfate 1 ampul IH TIDRT ampul.neb 05/21/20 10/12/20 Unknown Rx [DUONEB *Not for PRN Use*] Sevelamer Carbonate [Renvela] 2,400 mg PO TID tablet 05/21/20 10/12/20 Unknown Rx dilTIAZem [Cardizem] 60 mg PO Q4H tablet 05/21/20 10/12/20 Unknown Rx Albuterol Sulfate [Albuterol 0.63% 0.63 mg IH Q4HR PRN #2 ml 10/01/20 10/12/20 Unknown Rx NEBS] Albuterol Sulfate [Proair 90 mcg IH Q4HR PRN #2 aer.pow.ba 10/01/20 10/12/20 Unknown Rx Respiclick] Ipratropium (Nf) [Atrovent HFA 2 puff IH Q6HR PRN #1 inha 10/01/20 10/12/20 Unknown Rx 17MCG/PUFF] Ipratropium [Atrovent NEB] 0.5 mg IH Q4HR #2 ml 10/01/20 10/12/20 Unknown Rx predniSONE [Deltasone] 40 mg PO QDAY #8 tab 10/01/20 10/12/20 Unknown Rx Apixaban [Eliquis] 2.5 mg PO Q12HR #60 tablet 10/05/20 10/12/20 Unknown Rx Metoprolol [Lopressor TAB] 25 mg PO BID #60 tablet 10/05/20 10/12/20 Unknown Rx predniSONE [Deltasone] 20 mg PO QDAY #20 tab 10/05/20 10/12/20 Unknown Rx Abacavir [Ziagen TAB] 300 mg PO BID tablet 10/15/20 Unknown Rx Dolutegravir [Tivicay] 50 mg PO DAILY tablet 10/15/20 Unknown Rx Ergocalciferol [Vitamin D2] 50,000 unit PO Mo capsule 10/15/20 Unknown Rx Famotidine [Pepcid] 20 mg PO DAILY tablet 10/15/20 Unknown Rx dilTIAZem [Cardizem] 30 mg PO Q6H #120 tablet 10/15/20 Unknown Rx oxyCODONE /ACETAMINOPHEN [Percocet 1 tab PO Q6H PRN tablet 10/15/20 Unknown Rx 5/325 mg] Albuterol Mdi (or & Nicu Only) 2 puff IH Q4HR PRN #1 inhalation 10/17/20 Unknown Rx [ProAir HFA Inhaler] Doxycycline Monohydrate 100 mg PO BID #14 capsule 10/17/20 Unknown Rx [Doxycycline Monohydrate CAP] predniSONE [Deltasone] 20 mg PO DAILY #15 tablet 10/17/20 Unknown Rx ED Physical Exam - General Limitations: No Limitations - Other Other exam information: General: No acute distress Head: Atraumatic Eyes: normal appearance ENT: Moist mucous membranes Neck: Normal appearance, no midline tenderness Chest: Mild bilateral crackles, no respiratory distress or accessory muscle use CV: Regular rate and rhythm Abdomen: Soft, normal bowel sounds, nontender, nondistended, no rebound or guarding Back: Normal inspection Extremity: Normal inspection, full range of motion, no calf tenderness or leg edema Neuro: Alert O x 3, no facial asymmetry, equal handgrip, equal hip flexion Psych: Appropriate behavior Skin: No rash ED Course Vital Signs 04/15/21 15:18 Temperature 97.9 F Pulse Rate 92 H Respiratory 20 Rate Blood Pressure 121/66 O2 Sat by Pulse 97 Oximetry - Reevaluation(s) Reevaluation #1: 04/15/21 20:52 Patient is admitted and awaiting bed placement. Repeat elevated blood troponin stable. Repeat EKG unchanged from previous. Patient remained chest pain-free. Likely elevated troponin chronic secondary to end-stage renal disease ED Medical Decision Making - Lab Data Result diagrams: 04/15/21 16:01 04/15/21 16:01 Lab Results 04/15/21 04/15/21 Range/Units 16:01 16:01 WBC 4.6 (4.5-11.0) K/mm3 RBC 4.43 (3.65-5.03) M/mm3 Hgb 12.5 (11.8-15.2) gm/dl Hct 38.9 (35.5-45.6) % MCV 88 (84-94) fl MCH 28 (28-32) pg MCHC 32 (32-34) % RDW 16.4 H (13.2-15.2) % Plt Count 132 L (140-440) K/mm3 Lymph % (Auto) 31.4 (13.4-35.0) % [place] % (Auto) 5.2 (0.0-7.3) % Eos % (Auto) 13.0 H (0.0-4.3) % Baso % (Auto) 2.1 H (0.0-1.8) % Lymph # (Auto) 1.4 (1.2-5.4) K/mm3 [place] # (Auto) 0.2 (0.0-0.8) K/mm3 Eos # (Auto) 0.6 H (0.0-0.4) K/mm3 Baso # (Auto) 0.1 (0.0-0.1) K/mm3 Seg Neutrophils % 48.3 (40.0-70.0) % Seg Neutrophils # 2.2 (1.8-7.7) K/mm3 Sodium 144 (137-145) mmol/L Potassium 4.4 (3.6-5.0) mmol/L Chloride 100.0 (98-107) mmol/L Carbon Dioxide 25 (22-30) mmol/L Anion Gap 23 mmol/L BUN 18 (9-20) mg/dL Creatinine 6.7 H (0.8-1.3) mg/dL Estimated GFR 10 ml/min BUN/Creatinine Ratio 3 % Glucose 98 (75-100) mg/dL Calcium 9.6 (8.4-10.2) mg/dL Magnesium 2.40 H (1.7-2.3) mg/dL Total Bilirubin 0.60 (0.1-1.2) mg/dL AST 25 (5-40) units/L ALT 31 (7-56) units/L Alkaline Phosphatase 143 H (35-129) units/L Troponin T 0.470 H* (0.00-0.029) ng/mL Total Protein 8.9 H (6.3-8.2) g/dL Albumin 4.4 (3.9-5) g/dL Albumin/Globulin Ratio 1.0 % Triglycerides 96 (2-149) mg/dL Cholesterol 184 (50-199) mg/dL LDL Cholesterol Direct 114 (50-130) mg/dL HDL Cholesterol 59 (40-59) mg/dL Cholesterol/HDL Ratio 3.11 % - EKG Data -: EKG Interpreted by Me (By atrial enlargement, PVC) EKG shows normal: sinus rhythm, intervals (QTC 463), QRS complexes (QRS duration 75), ST-T waves (LVH, early repole) Rate: normal - EKG Data When compared to previous EKG there are: no significant change - Radiology Data Radiology results: report reviewed CHEST 2 VIEWS INDICATION / CLINICAL INFORMATION: Near-syncope. COMPARISON: 10/17/20. FINDINGS: SUPPORT DEVICES: None. HEART / MEDIASTINUM: The heart size and pulmonary vasculature are normal. There is calcification in the aortic arch without aneurysm. LUNGS / PLEURA: The lungs are hyperinflated. There is mild chronic blunting of both lateral costophrenic angles, unchanged. There are nipple shadows overlying both lower lung zones. No new pulmonary or pleural abnormality. No pneumothorax. ADDITIONAL FINDINGS: There is an IVC filter at the L2-3 level on the right, unchanged. Mild thoracolumbar scoliosis is present. IMPRESSION: Emphysema without acute abnormality. IVC Filter Recommendation: IVC filters should be removed if possible when they are no longer clinically necessary. (1) Refer to the established IVC filter management plan; (2) If there is no established plan for the patient's IVC filter, consider referral to interventional/vascular clinician on a nonemergent basis for evaluation. - Medical Decision Making Differential includes but not limited to vasovagal, arrhythmia, depletion, anemia 60-year-old male status post near syncopal episode after dialysis. While the patient likely the cause versus vasovagal. History of arrhythmia and other chronic medical conditions. Will be admitted for observation. 250 mL of normal saline provided in the ED for mild orthostatic vital signs. Elevated troponin noted with history of end-stage renal disease, denies chest pain, no acute EKG changes. Repeat pending at time of disposition Critical Care Time: No Critical care attestation.: If time is entered above; I have spent that time in minutes in the direct care of this critically ill patient, excluding procedure time. ED Disposition Clinical Impression: HIV (human immunodeficiency virus infection), Near syncope, ESRD on dialysis, Elevated troponin, COPD (chronic obstructive pulmonary disease), History of paroxysmal supraventricular tachycardia Disposition: 09 ADMITTED INPATIENT Is pt being admited?: Yes Condition: Stable Instructions: Chronic Obstructive Pulmonary Disease (ED) Time of Disposition: 18:18 (Dr Hay/hosp)
[2021-04-15 17:00] LABS: Basophils # (Auto) 0.1 K/mm3 (0.0-0.1); Basophils % (Auto) 2.1 % (0.0-1.8); Eosinophils # (Auto) 0.6 K/mm3 (0.0-0.4); Hematocrit 38.9 % (35.5-45.6); Hemoglobin 12.5 gm/dl (11.8-15.2); Lymphocytes # (Auto) 1.4 K/mm3 (1.2-5.4); Lymphocytes % (Auto) 31.4 % (13.4-35.0); Mean Corpuscular HGB Conc 32 % (32-34); Mean Corpuscular Volume 88 fl (84-94); Monocytes # (Auto) 0.2 K/mm3 (0.0-0.8); Monocytes % (Auto) 5.2 % (0.0-7.3); Platelet Count 132 K/mm3 (140-440); Red Blood Count 4.43 M/mm3 (3.65-5.03); Red Cell Distribution Width 16.4 % (13.2-15.2)
--- NOTE | 2021-04-15 17:05 | XRay Report ---
CHEST 2 VIEWS INDICATION / CLINICAL INFORMATION: Near-syncope. COMPARISON: 10/17/20. FINDINGS: SUPPORT DEVICES: None. HEART / MEDIASTINUM: The heart size and pulmonary vasculature are normal. There is calcification in t he aortic arch without aneurysm. LUNGS / PLEURA: The lungs are hyperinflated. There is mild chronic blunting of both lateral costophre nani angles, unchanged. There are nipple shadows overlying both lower lung zones. No new pulmonary or pleural abnormality. No pneumothorax. ADDITIONAL FINDINGS: There is an IVC filter at the L2-3 level on the right, unchanged. Mild thoracolu mbar scoliosis is present. IMPRESSION: Emphysema without acute abnormality. IVC Filter Recommendation: IVC filters should be removed if possible when they are no longer clinical ly necessary. (1) Refer to the established IVC filter management plan; (2) If there is no established plan for the patient's IVC filter, consider referral to interventional/vascular clinician on a nonem ergent basis for evaluation. Signer Name: Drew Monroy MD Signed: 04/15/2021 5:00 PM Workstation Name: [id number]
[2021-04-15 17:13] LABS: Albumin 4.4 g/dL (3.9-5); Calcium 9.6 mg/dL (8.4-10.2)
[2021-04-15 17:52] LABS: Chol/HDL Ratio 3.11 %
[2021-04-15] MEDS ORDERED: SODIUM CHLORIDE 0.9% 250ML 250 ML IV ONE (17:54)
--- NOTE | 2021-04-16 06:29 | History and Physical Report ---
History of Present Illness Date of examination: 04/15/21 Date of admission: 04/16/21 00:52 Chief complaint: Syncope 1 hr ago History of present illness: 60-year-old male with a past medical history of end-stage renal disease on dialysis, HIV, SVT, and COPD presents to the hospital with his at bedside complaining of near syncopal episode after dialysis. Patientfinished his 3 hours of his scheduled dialysis. While going home he became diaphoretic, lightheaded, and felt like he was going to pass out. No loss of consciousness reported. Denies headache, chest pain, or shortness of breath during episode. Patient states he feels a lot better but has some mild residual lightheadedness. Can Tester: Dr. Leela Villa - Past Medical History --Hypertension: Yes --Renal Disease: Yes (on hemodialysis, MWF) --Arthritis: Yes --Seizures: Yes --Asthma: Yes --COPD: Yes --HIV: Yes (Unknown CD4 count) - Surgical History Hx Coronary Stent: Yes Additional Surgical History: vascath. AV shunt LUE. IVC filter - Social History Smoking Status: Current Every Day Smoker Review of Systems ROS: Stated complaint: SOB/FAINT AFTER DIALYSIS Other details as noted in HPI Comment: All other systems reviewed and negative Medications and Allergies Allergies Allergy/AdvReac Type Severity Reaction Status Date / Time azithromycin [From Zithromax] Allergy Shortness Verified 10/17/20 15:51 of Breath Iodinated Contrast Media Allergy Unknown Verified 10/17/20 15:51 levofloxacin Allergy Unknown Verified 10/17/20 15:51 lisinopril Allergy Angioedema Verified 10/17/20 15:51 sevelamer [From Renvela] Allergy Hives Verified 10/17/20 15:51 sulfamethoxazole Allergy Unknown Verified 10/17/20 15:51 [From Bactrim] trimethoprim [From Bactrim] Allergy Unknown Verified 10/17/20 15:51 Home Medications Medication Instructions Recorded Confirmed Last Taken Type Clopidogrel [Plavix] 75 mg PO QDAY #30 tablet 11/03/18 10/12/20 Unknown Rx Aspirin [Aspirin BABY CHEW TAB] 81 mg PO QDAY #30 tab.chew 07/31/19 10/12/20 Unknown Rx AtorvaSTATin [Lipitor] 20 mg PO QHS #30 tablet 07/31/19 10/12/20 Unknown Rx amLODIPine 10 mg PO DAILY #30 tab 07/31/19 10/12/20 Unknown Rx cloNIDine [Catapres] 0.1 mg PO BID #60 07/31/19 10/12/20 Unknown Rx Levalbuterol Hfa 45 Mcg/Puff 2 puff IH Q6H PRN #1 inhalation 09/30/19 10/12/20 Unknown Rx [Xopenex Hfa (Nf)] ALBUTEROL NEB's [Proventil 0.083% 2.5 mg IH TID PRN #1 neb 11/29/19 10/12/20 Unknown Rx NEBS] Aspirin [Aspirin BABY CHEW TAB] 81 mg PO DAILY 12/11/19 10/12/20 2 Days Ago History ~04/12/20 AtorvaSTATin [Lipitor] 20 mg PO HS 12/11/19 10/12/20 2 Days Ago History ~04/12/20 Hydralazine HCl 50 mg PO TID 12/11/19 10/12/20 2 Days Ago History ~04/12/20 amLODIPine 10 mg PO DAILY 12/11/19 10/12/20 2 Days Ago History ~04/12/20 lamiVUDine [Epivir] 10 mg PO HS 12/11/19 10/12/20 2 Days Ago History ~04/12/20 Abacavir [Ziagen TAB] 300 mg PO BID 12/12/19 10/12/20 2 Days Ago History ~04/12/20 Albuterol Mdi (or & Nicu Only) 2 puff IH QID PRN #8.5 gram 02/22/20 10/12/20 Unknown Rx [ProAir HFA Inhaler] ALBUTEROL NEB's [Proventil 0.083% 2.5 mg INHALATION Q6HR PRN 05/15/20 10/12/20 Unknown History NEBS] Clopidogrel [Plavix] 75 mg PO QDAY 05/15/20 10/12/20 Unknown History Umeclidinium Brm/Vilanterol Tr 62.5 mcg INHALATION BID 05/15/20 10/12/20 Unknown History [Anoro Ellipta 62.5-25 Mcg INH] labetaloL [Labetalol 200mg TAB] 200 mg PO BID 05/15/20 10/12/20 Unknown History Abacavir [Ziagen TAB] 300 mg PO BID tablet 05/21/20 10/12/20 Unknown Rx Aspirin 325 mg PO QDAY tablet 05/21/20 10/12/20 Unknown Rx AtorvaSTATin [Lipitor] 40 mg PO QHS tablet 05/21/20 10/12/20 Unknown Rx Clopidogrel [Plavix] 75 mg PO QDAY tablet 05/21/20 10/12/20 Unknown Rx Dolutegravir [Tivicay] 50 mg PO DAILY tablet 05/21/20 10/12/20 Unknown Rx Ipratropium/Albuterol Sulfate 1 ampul IH TIDRT ampul.neb 05/21/20 10/12/20 Unknown Rx [DUONEB *Not for PRN Use*] Sevelamer Carbonate [Renvela] 2,400 mg PO TID tablet 05/21/20 10/12/20 Unknown Rx dilTIAZem [Cardizem] 60 mg PO Q4H tablet 05/21/20 10/12/20 Unknown Rx Albuterol Sulfate [Albuterol 0.63% 0.63 mg IH Q4HR PRN #2 ml 10/01/20 10/12/20 Unknown Rx NEBS] Albuterol Sulfate [Proair 90 mcg IH Q4HR PRN #2 aer.pow.ba 10/01/20 10/12/20 Unknown Rx Respiclick] Ipratropium (Nf) [Atrovent HFA 2 puff IH Q6HR PRN #1 inha 10/01/20 10/12/20 Unknown Rx 17MCG/PUFF] Ipratropium [Atrovent NEB] 0.5 mg IH Q4HR #2 ml 10/01/20 10/12/20 Unknown Rx predniSONE [Deltasone] 40 mg PO QDAY #8 tab 10/01/20 10/12/20 Unknown Rx Apixaban [Eliquis] 2.5 mg PO Q12HR #60 tablet 10/05/20 10/12/20 Unknown Rx Metoprolol [Lopressor TAB] 25 mg PO BID #60 tablet 10/05/20 10/12/20 Unknown Rx predniSONE [Deltasone] 20 mg PO QDAY #20 tab 10/05/20 10/12/20 Unknown Rx Abacavir [Ziagen TAB] 300 mg PO BID tablet 10/15/20 Unknown Rx Dolutegravir [Tivicay] 50 mg PO DAILY tablet 10/15/20 Unknown Rx Ergocalciferol [Vitamin D2] 50,000 unit PO Mo capsule 10/15/20 Unknown Rx Famotidine [Pepcid] 20 mg PO DAILY tablet 10/15/20 Unknown Rx dilTIAZem [Cardizem] 30 mg PO Q6H #120 tablet 10/15/20 Unknown Rx oxyCODONE /ACETAMINOPHEN [Percocet 1 tab PO Q6H PRN tablet 10/15/20 Unknown Rx 5/325 mg] Albuterol Mdi (or & Nicu Only) 2 puff IH Q4HR PRN #1 inhalation 10/17/20 Unknown Rx [ProAir HFA Inhaler] Doxycycline Monohydrate 100 mg PO BID #14 capsule 10/17/20 Unknown Rx [Doxycycline Monohydrate CAP] predniSONE [Deltasone] 20 mg PO DAILY #15 tablet 10/17/20 Unknown Rx Exam - Constitutional Vitals: Temp Pulse Resp BP Pulse Ox 97.9 F 87 14 164/82 98 04/16/21 03:24 04/16/21 03:24 04/16/21 03:24 04/16/21 03:24 04/16/21 03:24 General appearance: Present: no acute distress, well-nourished - EENT Eyes: Present: PERRL ENT: hearing intact, clear oral mucosa - Neck Neck: Present: supple, normal ROM - Respiratory Respiratory effort: normal Respiratory: bilateral: CTA - Cardiovascular Heart rate: 78 Rhythm: regular Heart Sounds: Present: S1 & S2. Absent: rub, click - Extremities Extremities: pulses symmetrical, No edema Peripheral Pulses: within normal limits - Abdominal General gastrointestinal: Present: soft, non-tender, non-distended, normal bowel sounds Male genitourinary: Present: normal - Integumentary Integumentary: Present: clear, warm, dry - Musculoskeletal Musculoskeletal: gait normal, strength equal bilaterally - Psychiatric Psychiatric: appropriate mood/affect, intact judgment & insight - Neurologic Neurologic: CNII-XII intact, moves all extremities HEART Score - HEART Score History: Moderately suspicious Age: 45-65 Risk factors: > 3 risk factors or hx of atherosclerotic disease Troponin: Troponin T 0.485 ng/mL (0.00-0.029) H* 04/15/21 18:45 Troponin: 1-3x normal limit - Critical Actions Critical Actions: 4-6 pts:12-16.6% risk of adverse cardiac event. Should be admitted Results - Labs CBC & Chem 7: 04/15/21 16:01 04/15/21 16: Labs: Laboratory Last Values WBC 4.6 K/mm3 (4.5-11.0) 04/15/21 16: RBC 4.43 M/mm3 (3.65-5.03) 04/15/21 16: Hgb 12.5 gm/dl (11.8-15.2) 04/15/21 16: Hct 38.9 % (35.5-45.6) 04/15/21 16: MCV 88 fl (84-94) 04/15/21 16: MCH 28 pg (28-32) 04/15/21 16: MCHC 32 % (32-34) 04/15/21 16: RDW 16.4 % (13.2-15.2) H 04/15/21 16: Plt Count 132 K/mm3 (140-440) L 04/15/21 16:01 Lymph % (Auto) 31.4 % (13.4-35.0) 04/15/21 16:01 [place] % (Auto) 5.2 % (0.0-7.3) 04/15/21 16:01 Eos % (Auto) 13.0 % (0.0-4.3) H 04/15/21 16:01 Baso % (Auto) 2.1 % (0.0-1.8) H 04/15/21 16: Lymph # (Auto) 1.4 K/mm3 (1.2-5.4) 04/15/21 16:01 [place] # (Auto) 0.2 K/mm3 (0.0-0.8) 04/15/21 16: Eos # (Auto) 0.6 K/mm3 (0.0-0.4) H 04/15/21 16: Baso # (Auto) 0.1 K/mm3 (0.0-0.1) 04/15/21 16:01 Seg Neutrophils % 48.3 % (40.0-70.0) 04/15/21 16: Seg Neutrophils # 2.2 K/mm3 (1.8-7.7) 04/15/21 16:01 Sodium 144 mmol/L (137-145) 04/15/21 16:01 Potassium 4.4 mmol/L (3.6-5.0) 04/15/21 16:01 Chloride 100.0 mmol/L (98-107) 04/15/21 16:01 Carbon Dioxide 25 mmol/L (22-30) 04/15/21 16:01 Anion Gap 23 mmol/L 04/15/21 16:01 BUN 18 mg/dL (9-20) 04/15/21 16:01 Creatinine 6.7 mg/dL (0.8-1.3) H 04/15/21 16:01 Estimated GFR 10 ml/min 04/15/21 16: BUN/Creatinine Ratio 3 % 04/15/21 16:01 Glucose 98 mg/dL (75-100) 04/15/21 16:01 Calcium 9.6 mg/dL (8.4-10.2) 04/15/21 16: Magnesium 2.40 mg/dL (1.7-2.3) H 04/15/21 16:01 Total Bilirubin 0.60 mg/dL (0.1-1.2) 04/15/21 16:01 AST 25 units/L (5-40) 04/15/21 16:01 ALT 31 units/L (7-56) 04/15/21 16:01 Alkaline Phosphatase 143 units/L (35-129) H 04/15/21 16:01 Troponin T 0.485 ng/mL (0.00-0.029) H* 04/15/21 18:45 Total Protein 8.9 g/dL (6.3-8.2) H 04/15/21 16:01 Albumin 4.4 g/dL (3.9-5) 04/15/21 16:01 Albumin/Globulin Ratio 1.0 % 04/15/21 16:01 Triglycerides 96 mg/dL (2-149) 04/15/21 16:01 Cholesterol 184 mg/dL (50-199) 04/15/21 16:01 LDL Cholesterol Direct 114 mg/dL (50-130) 04/15/21 16:01 HDL Cholesterol 59 mg/dL (40-59) 04/15/21 16:01 Cholesterol/HDL Ratio 3.11 % 04/15/21 16:01 Short CBC 04/15/21 Range/Units 16:01 WBC 4.6 (4.5-11.0) K/mm3 Hgb 12.5 (11.8-15.2) gm/dl Hct 38.9 (35.5-45.6) % Plt Count 132 L (140-440) K/mm3 BMP 04/15/21 16:01 Sodium 144 Potassium 4.4 Chloride 100.0 Carbon Dioxide 25 BUN 18 Creatinine 6.7 H Glucose 98 Calcium 9.6 Cardiac Enzymes 04/15/21 04/15/21 Range/Units 16:01 18:45 Troponin T 0.470 H* 0.485 H* (0.00-0.029) ng/mL Liver Function 04/15/21 Range/Units 16:01 Total Bilirubin 0.60 (0.1-1.2) mg/dL AST 25 (5-40) units/L ALT 31 (7-56) units/L Alkaline Phosphatase 143 H (35-129) units/L Albumin 4.4 (3.9-5) g/dL Williamson/IV: Voiding Method Toilet Assessment and Plan Advance Directives: Yes (Full code) VTE prophylaxis?: Chemical Plan of care discussed with patient/family: Yes - Patient Problems (1) Near syncope Current Visit: Yes Status: Acute Plan to address problem: Probably vasovagal and secondary to increase ultrafiltration during hemodialysis Slightly orthostatic Observation for 23 hours Carotid duplex scan requested Probable discharge tomorrow duplex scan is negative No echocardiogram ordered (2) ESRD (end stage renal disease) on dialysis Current Visit: Yes Status: Chronic Plan to address problem: Had full session hemodialysis today Due for dialysis on Thursday Nephrology consult requested May not need dialysis (3) HIV (human immunodeficiency virus infection) Current Visit: Yes Status: Chronic Qualifiers: HIV symptom status: unspecified Qualified Code(s): B20 - Human immunode ficiency virus [HIV] disease Plan to address problem: Continue antiretrovirals (4) Hypertension Current Visit: Yes Status: Chronic Qualifiers: Hypertension type: primary hypertension Qualified Code(s): I10 - Essential (primary) hypertension Plan to address problem: Continue antihypertensives and adjust medications (5) COPD (chronic obstructive pulmonary disease) Current Visit: Yes Status: Chronic Qualifiers: Emphysema type: unspecified Plan to address problem: Continue duo nebs [id number] and as needed as necessary (6) DVT prophylaxis Current Visit: Yes Status: Acute Plan to address problem: On heparin and GI prophylaxis
[2021-04-16] MEDS ORDERED: ALBUTEROL 8.5 GM MDI INHALATION IH PRN (06:30)
[2021-04-16] MEDS ORDERED: oxyCODONE /ACETAMINOPHEN 5-325MG TAB PO PRN (06:34)
[2021-04-16] MEDS ORDERED: HYDROmorphone 1 MG/1 ML INJ IV PRN (06:34)
[2021-04-16] MEDS ORDERED: ONDANSETRON 4 MG/2 ML INJ IV PRN (06:34)
[2021-04-16] MEDS ORDERED: ACETAMINOPHEN 325 MG TAB PO PRN (06:34)
[2021-04-16 07:39] LABS: Basophils % (Auto) 0.6 % (0.0-1.8); Eosinophils # (Auto) 0.5 K/mm3 (0.0-0.4); Eosinophils % (Auto) 11.6 % (0.0-4.3); Hematocrit 36.8 % (35.5-45.6); Hemoglobin 11.9 gm/dl (11.8-15.2); Lymphocytes # (Auto) 1.4 K/mm3 (1.2-5.4); Lymphocytes % (Auto) 32.5 % (13.4-35.0); Mean Corpuscular HGB Conc 32 % (32-34); Mean Corpuscular Volume 88 fl (84-94); Monocytes # (Auto) 0.4 K/mm3 (0.0-0.8); Monocytes % (Auto) 8.7 % (0.0-7.3); Platelet Count 129 K/mm3 (140-440); Red Cell Distribution Width 16.2 % (13.2-15.2)
[2021-04-16 07:53] LABS: Creatine Kinase MB 2.9 ng/mL (0.0-4.0)
[2021-04-16 07:56] LABS: Albumin 3.9 g/dL (3.9-5); Calcium 8.6 mg/dL (8.4-10.2)
[2021-04-16] MEDS: dilTIAZem 60 MG TAB PO SCH ×2 (08:00→12:00)
[2021-04-16] MEDS: SEVELAMER CARBONATE 800 MG TAB PO SCH ×3 (08:21→20:13)
[2021-04-16] MEDS ORDERED: ALBUTEROL 2.5 MG/3 ML NEBU IH PRN (08:30)
[2021-04-16] MEDS ORDERED: IPRATROPIUM/ALBUTEROL SULFATE 3 ML AMPUL.NEB IH SCH (08:30)
[2021-04-16] MEDS: IPRATROPIUM/ALBUTEROL SULFATE 3 ML AMPUL.NEB IH SCH ×2 (08:36→20:13)
--- NOTE | 2021-04-16 09:10 | Electrocardiograph Report ---
[facility] Test Date: 2021-04-15 Test Time: 16:32:03 Pat Name: JANIE KNOWLES Department: Room: A476 1 Gender: M [employer] Professor: KAYLEE : 1960 Requested By: GRIS FISCHER Order Number: [id number] Reading MD: Ino Bazzi Measurements Intervals [place] Rate: 87 P: 83 UT: 168 QRS: 67 QRSD: 75 T: 66 QT: 384 QTc: 463 Interpretive Statements Sinus rhythm Ventricular premature complex Biatrial enlargement Probable left ventricular hypertrophy nonspecific st-t Compared to ECG 10/12/2020 23:04:18 Ventricular premature complex(es) now present Electronically Signed On 04-16-2021 9:10:04 EDT by Ino Bazzi
--- NOTE | 2021-04-16 09:15 | Consultation ---
History of Present Illness - Reason for Consult Consult date: 04/16/21 end stage renal disease - History of Present Illness The patient is a 60 YO male with known history of Hypertension, HIV infection, SVT, Tobacco smoking, COPD, Anemia and ESRD on hemodialysis (MWF) who presented to [facility] 04/15 with complaining of near syncopal episode after dialysis. Patient completed his scheduled dialysis yesterday. While going home he became diaphoretic, lightheaded and felt like he was going to pass out. Pt denies LOC. He denies headache, chest pain, shortness of breath, N, V, abd pain, feevr or chills. Patient states he much better now. Labs and imaging reviewed. Nephrology was consulted for ESRD management. 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 trimethoprim [From Bactrim] Allergy Jagdish 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 Home Medications Medication Instructions Recorded Confirmed Last Taken Type AtorvaSTATin [Lipitor] 20 mg PO HS 12/11/19 04/16/21 2 Days Ago History ~04/12/20 amLODIPine 10 mg PO DAILY 12/11/19 04/16/21 04/15/21 08:30 History Albuterol Mdi (or & Nicu Only) 2 puff IH QID PRN #8.5 gram 02/22/20 04/16/21 04/15/21 09:00 Rx [ProAir HFA Inhaler] ALBUTEROL NEB's [Proventil 0.083% 2.5 mg INHALATION Q6HR PRN 05/15/20 04/16/21 Unknown History NEBS] Clopidogrel [Plavix] 75 mg PO QDAY 05/15/20 04/16/21 04/14/21 08:45 History labetaloL [Labetalol 200mg TAB] 200 mg PO BID 05/15/20 04/16/21 04/15/21 09:00 History Ipratropium (Nf) [Atrovent HFA 2 puff IH Q6HR PRN #1 inha 10/01/20 04/16/21 04/05/21 Rx 17MCG/PUFF] Apixaban [Eliquis] 2.5 mg PO Q12HR #60 tablet 10/05/20 04/16/21 04/14/21 09:00 Rx Metoprolol [Lopressor TAB] 25 mg PO BID #60 tablet 10/05/20 04/16/21 Unknown Rx Aspirin EC [Halfprin EC] 81 mg PO QDAY 04/16/21 04/16/21 04/14/21 History Dolutegravir/Rilpivirine [Juluca 1 each PO QDAY 04/16/21 04/16/21 04/14/21 History 50-25 mg Tablet] Montelukast [Singulair] 10 mg PO QPM 04/16/21 04/16/21 04/14/21 History traZODone [Desyrel] 50 - 100 mg PO QHS 04/16/21 04/16/21 04/14/21 History Active Meds: Active Medications Abacavir Sulfate (Abacavir 300 Mg Tab) 300 mg PO BID MIGUELANGEL Acetaminophen (Acetaminophen 325 Mg Tab) 650 mg PO Q4H PRN PRN Reason: Pain MILD(1-3)/Fever >100.5/GARCIA Albuterol (Albuterol 2.5 Mg/3 Ml Nebu) 2.5 mg IH Q4HRT PRN PRN Reason: Shortness Of Breath Albuterol/Ipratropium (Ipratropium/Albuterol Sulfate 3 Ml Ampul.Neb) 1 ampul IH BIDRT MIGUELANGEL Last Admin: 04/16/21 08:36 Dose: 1 ampul Documented by: Amlodipine Besylate (Amlodipine 10 Mg Tab) 10 mg PO DAILY MIGUELANGEL Aspirin (Aspirin 81 Mg Tab Chew) 81 mg PO DAILY MIGUELANGEL Atorvastatin Calcium (Atorvastatin 20 Mg Tab) 20 mg PO HS MIGUELANGEL Clonidine HCl (Clonidine 0.1 Mg Tab) 0.1 mg PO BID [facility] Diltiazem HCl (Diltiazem 30 Mg Tab) 30 mg PO Q6H [facility] Diltiazem HCl (Diltiazem 60 Mg Tab) 60 mg PO Q4H [facility] Famotidine (Famotidine 20 Mg Tab) 20 mg PO DAILY [facility] Heparin Sodium (Porcine) (Heparin 5,000 Unit/1 Ml Vial) 5,000 unit SUB-Q Q12HR [facility] Hydralazine HCl (Hydralazine 25 Mg Tab) 50 mg PO TID [facility] Hydromorphone HCl (Hydromorphone 1 Mg/1 Ml Inj) 0.5 mg IV Q3H PRN PRN Reason: Pain , Severe (7-10) Labetalol HCl (Labetalol 200 Mg Tab) 200 mg PO BID [facility] Metoprolol Tartrate (Metoprolol Tartrate 25 Mg Tab) 25 mg PO BID [facility] Miscellaneous Medication (Umeclidinium Brm/Vilanterol Tr [Anoro Ellipta 62.5-25 Mcg Inh]) 62.5 mcg INHALATION BID [facility] Ondansetron HCl (Ondansetron 4 Mg/2 Ml Inj) 4 mg IV Q8H PRN PRN Reason: Nausea And Vomiting Oxycodone/Acetaminophen (Oxycodone /Acetaminophen 5-325mg Tab) 1 tab PO Q6H PRN PRN Reason: Pain, Moderate (4-6) Prednisone (Prednisone 20 Mg Tab) 20 mg PO DAILY [facility] Sevelamer Carbonate (Sevelamer Carbonate 800 Mg Tab) 2,400 mg PO TIDWM [facility] Last Admin: 04/16/21 08:21 Dose: Not Given Documented by: Sodium Chloride (Sodium Chloride 0.9% 10 Ml Flush Syringe) 10 ml IV BID [facility] Sodium Chloride (Sodium Chloride 0.9% 10 Ml Flush Syringe) 10 ml IV PRN PRN PRN Reason: LINE FLUSH Review of Systems All systems: negative Exam - Vital Signs Vital signs: Vital Signs Temp Pulse Resp BP Pulse Ox 97.9 F 92 H 20 121/66 97 04/15/21 15:18 04/15/21 15:18 04/15/21 15:18 04/15/21 15:18 04/15/21 15:18 Results - Lab Results 04/16/21 07:24 04/16/21 07:24 Most recent lab results Calcium 8.6 mg/dL (8.4-10.2) 04/16/21 07:24 Magnesium 2.40 mg/dL (1.7-2.3) H 04/15/21 16:01 Assessment and Plan 1. ESRD: Continue hemodialysis three times a week, MWF schedule. Last outpatient hemodialysis was on 04/15. Meds dosage based on GFR. Hemodialysis: 2. FEN: Hyperkalemia, improved. Volume overload, UF with HD as tolerated. Fluid compliance encouraged. Monitor lytes. 3. Near syncope: Likely vasovagal. Carotid duplex showed no significant stenosis. 4. H/o COPD: Not in exacerbation. 5. Chronic Anemia, POA: Epogen with HD if needed. 6. HIV: Continue home meds. 7. Medical non-compliance: Counseled. Subjective: Patient was seen and examined at the bedside. General Appearance: General appearance: well-developed, appears stated age, no distress, appears undernourished EENT: ATNC, LARS, hearing intact, vision intact Neck: neck supple, trachea midline Respiratory: rales heard Heart: regular, S1S2, no murmur Gastrointestinal: soft, normoactive bowel sounds, not tender, not distended Integumentary: no rash, warm and dry Neurologic: no focal deficit, no asterixis, alert and oriented x3 Ext: no edema Hemodialysis access: L arm AVF
--- NOTE | 2021-04-16 09:42 | Progress Note ---
Assessment and Plan Assessment and plan: (1) Near syncope Current Visit: Yes Status: Acute Plan to address problem: Probably vasovagal and secondary to increase ultrafiltration during hemodialysis Slightly orthostatic Observation for 23 hours Carotid duplex scan requested Probable discharge tomorrow duplex scan is negative No echocardiogram ordered (2) ESRD (end stage renal disease) on dialysis Current Visit: Yes Status: Chronic Plan to address problem: Had full session hemodialysis today Due for dialysis on Thursday Nephrology consult requested May not need dialysis (3) HIV (human immunodeficiency virus infection) Current Visit: Yes Status: Chronic Qualifiers: HIV symptom status: unspecified Qualified Code(s): B20 - Human immunod eficiency virus [HIV] disease Plan to address problem: Continue antiretrovirals (4) Hypertension Current Visit: Yes Status: Chronic Qualifiers: Hypertension type: primary hypertension Qualified Code(s): I10 - Essential (primary) hypertension Plan to address problem: Continue antihypertensives and adjust medications (5) COPD (chronic obstructive pulmonary disease) Current Visit: Yes Status: Chronic Qualifiers: Emphysema type: unspecified Plan to address problem: Continue duo nebs [id number] and as needed as necessary (6) DVT prophylaxis Current Visit: Yes Status: Acute Plan to address problem: On heparin and GI prophylaxis History Interval history: Seen and examined the patient at the bedside Patient's chart and medications reviewed Patient felt dizzy after returning from dialysis yesterday Denies syncopal episode Today patient is doing well Physical therapy evaluated the patient no PT needs Syncope work-up is in progress Hospitalist Physical - Constitutional Vitals: Temp Pulse Resp BP Pulse Ox 98.7 F 94 H 16 146/83 98 04/16/21 07:51 04/16/21 08:37 04/16/21 08:37 04/16/21 07:51 04/16/21 07:55 General appearance: Present: no acute distress, well-nourished - EENT Eyes: Present: PERRL, EOM intact - Neck Neck: Present: supple, normal ROM - Respiratory Respiratory effort: normal Respiratory: bilateral: diminished, negative: rales, rhonchi, wheezing - Cardiovascular Rhythm: regular Heart Sounds: Present: S1 & S2 - Extremities Extremities: no ischemia, No edema - Abdominal General gastrointestinal: soft, non-tender, non-distended, normal bowel sounds - Integumentary Integumentary: Present: clear, warm - Psychiatric Psychiatric: appropriate mood/affect, cooperative - Neurologic Neurologic: CNII-XII intact, moves all extremities HEART Score - HEART Score Age: 45-65 Risk factors: > 3 risk factors or hx of atherosclerotic disease Troponin: Troponin T 0.485 ng/mL (0.00-0.029) H* 04/15/21 18:45 Troponin: 1-3x normal limit - Critical Actions Critical Actions: 4-6 pts:12-16.6% risk of adverse cardiac event. Should be admitted Results - Labs CBC & Chem 7: 04/16/21 07:24 04/16/21 07:24 Labs: Laboratory Last Values WBC 4.3 K/mm3 (4.5-11.0) L 04/16/21 07:24 RBC 4.20 M/mm3 (3.65-5.03) 04/16/21 07:24 Hgb 11.9 gm/dl (11.8-15.2) 04/16/21 07:24 Hct 36.8 % (35.5-45.6) 04/16/21 07:24 MCV 88 fl (84-94) 04/16/21 07:24 MCH 28 pg (28-32) 04/16/21 07:24 MCHC 32 % (32-34) 04/16/21 07:24 RDW 16.2 % (13.2-15.2) H 04/16/21 07:24 Plt Count 129 K/mm3 (140-440) L 04/16/21 07:24 Lymph % (Auto) 32.5 % (13.4-35.0) 04/16/21 07:24 [place] % (Auto) 8.7 % (0.0-7.3) H 04/16/21 07:24 Eos % (Auto) 11.6 % (0.0-4.3) H 04/16/21 07:24 Baso % (Auto) 0.6 % (0.0-1.8) 04/16/21 07:24 Lymph # (Auto) 1.4 K/mm3 (1.2-5.4) 04/16/21 07:24 [place] # (Auto) 0.4 K/mm3 (0.0-0.8) 04/16/21 07:24 Eos # (Auto) 0.5 K/mm3 (0.0-0.4) H 04/16/21 07:24 Baso # (Auto) 0.0 K/mm3 (0.0-0.1) 04/16/21 07:24 Seg Neutrophils % 46.6 % (40.0-70.0) 04/16/21 07:24 Seg Neutrophils # 2.0 K/mm3 (1.8-7.7) 04/16/21 07:24 Sodium 141 mmol/L (137-145) 04/16/21 07:24 Potassium 4.3 mmol/L (3.6-5.0) 04/16/21 07:24 Chloride 101.5 mmol/L (98-107) 04/16/21 07:24 Carbon Dioxide 27 mmol/L (22-30) 04/16/21 07:24 Anion Gap 17 mmol/L 04/16/21 07:24 BUN 28 mg/dL (9-20) H 04/16/21 07:24 Creatinine 8.0 mg/dL (0.8-1.3) H 04/16/21 07:24 Estimated GFR 8 ml/min 04/16/21 07:24 BUN/Creatinine Ratio 4 % 04/16/21 07:24 Glucose 95 mg/dL (75-100) 04/16/21 07:24 Calcium 8.6 mg/dL (8.4-10.2) 04/16/21 07:24 Magnesium 2.40 mg/dL (1.7-2.3) H 04/15/21 16:01 Total Bilirubin 0.30 mg/dL (0.1-1.2) 04/16/21 07:24 AST 24 units/L (5-40) 04/16/21 07:24 ALT 28 units/L (7-56) 04/16/21 07:24 Alkaline Phosphatase 149 units/L (35-129) H 04/16/21 07:24 Total Creatine Kinase 91 units/L (55-170) 04/16/21 07:24 CK-MB (CK-2) 2.9 ng/mL (0.0-4.0) 04/16/21 07:24 CK-MB (CK-2) Rel Index 3.1 (0-4) 04/16/21 07:24 Troponin T 0.485 ng/mL (0.00-0.029) H* 04/15/21 18:45 Total Protein 7.5 g/dL (6.3-8.2) 04/16/21 07:24 Albumin 3.9 g/dL (3.9-5) 04/16/21 07:24 Albumin/Globulin Ratio 1.1 % 04/16/21 07:24 Triglycerides 96 mg/dL (2-149) 04/15/21 16:01 Cholesterol 184 mg/dL (50-199) 04/15/21 16:01 LDL Cholesterol Direct 114 mg/dL (50-130) 04/15/21 16:01 HDL Cholesterol 59 mg/dL (40-59) 04/15/21 16:01 Cholesterol/HDL Ratio 3.11 % 04/15/21 16:01 Williamson/IV: Voiding Method Toilet Active Medications - Current Medications Current Medications: Generic Name Dose Route Start Last Admin Trade Name Freq PRN Reason Stop Dose Admin Abacavir Sulfate 300 mg 04/16/21 10:00 Abacavir 300 Mg Tab PO BID [facility] Acetaminophen 650 mg 04/16/21 06:34 Acetaminophen 325 Mg Tab PO Q4H PRN Pain MILD(1-3)/Fever >100.5/GARCIA Albuterol 2.5 mg 04/16/21 08:30 Albuterol 2.5 Mg/3 Ml Nebu IH Q4HRT PRN Shortness Of Breath Albuterol/Ipratropium 1 ampul 04/16/21 09:00 04/16/21 08:36 Ipratropium/Albuterol Sulfate 3 Ml Ampul.Neb IH 1 ampul BIDRT [facility] Administration Amlodipine Besylate 10 mg 04/16/21 10:00 Amlodipine 10 Mg Tab PO DAILY [facility] Aspirin 81 mg 04/16/21 10:00 Aspirin 81 Mg Tab Chew PO DAILY [facility] Atorvastatin Calcium 20 mg 04/16/21 22:00 Atorvastatin 20 Mg Tab PO HS [facility] Clonidine HCl 0.1 mg 04/16/21 10:00 Clonidine 0.1 Mg Tab PO BID [facility] Diltiazem HCl 30 mg 04/16/21 07:00 Diltiazem 30 Mg Tab PO Q6H [facility] Diltiazem HCl 60 mg 04/16/21 07:00 Diltiazem 60 Mg Tab PO Q4H [facility] Famotidine 20 mg 04/16/21 10:00 Famotidine 20 Mg Tab PO DAILY [facility] Heparin Sodium (Porcine) 5,000 unit 04/16/21 10:00 Heparin 5,000 Unit/1 Ml Vial SUB-Q Q12HR [facility] Hydralazine HCl 50 mg 04/16/21 08:00 Hydralazine 25 Mg Tab PO TID [facility] Hydromorphone HCl 0.5 mg 04/16/21 06:34 Hydromorphone 1 Mg/1 Ml Inj IV Q3H PRN Pain , Severe (7-10) Labetalol HCl 200 mg 04/16/21 10:00 Labetalol 200 Mg Tab PO BID [facility] Metoprolol Tartrate 25 mg 04/16/21 10:00 Metoprolol Tartrate 25 Mg Tab PO BID [facility] Miscellaneous Medication 62.5 mcg 04/16/21 10:00 Umeclidinium Brm/Vilanterol Tr [Anoro Ellipta 62.5-25 Mcg Inh] INHALATION BID [facility] Ondansetron HCl 4 mg 04/16/21 06:34 Ondansetron 4 Mg/2 Ml Inj IV Q8H PRN Nausea And Vomiting Oxycodone/Acetaminophen 1 tab 04/16/21 06:34 Oxycodone /Acetaminophen 5-325mg Tab PO Q6H PRN Pain, Moderate (4-6) Prednisone 20 mg 04/16/21 10:00 Prednisone 20 Mg Tab PO DAILY [facility] Sevelamer Carbonate 2,400 mg 04/16/21 08:00 04/16/21 08:21 Sevelamer Carbonate 800 Mg Tab PO Not Given TIDWM [facility] Sodium Chloride 10 ml 04/16/21 10:00 Sodium Chloride 0.9% 10 Ml Flush Syringe IV BID [facility] Sodium Chloride 10 ml 04/16/21 06:34 Sodium Chloride 0.9% 10 Ml Flush Syringe IV PRN PRN LINE FLUSH
[2021-04-16] MEDS ORDERED: DOLUTEGRAVIR 50 MG TAB PO SCH (10:00)
[2021-04-16] MEDS ORDERED: METOPROLOL TARTRATE 25 MG TAB PO SCH (10:00)
[2021-04-16] MEDS ORDERED: NON-FORMULARY EACH (Apixaban 2.5 MG Tablet) PO SCH (10:00)
[2021-04-16] MEDS ORDERED: predniSONE 20 MG TAB PO SCH (10:00)
[2021-04-16] MEDS ORDERED: IPRATROPIUM 0.02% NEBU 2.5 ML IH SCH (10:00)
[2021-04-16] MEDS ORDERED: ABACAVIR 300 MG TAB PO SCH (10:00)
[2021-04-16] MEDS: ASPIRIN 81 MG TAB CHEW PO SCH (10:33)
[2021-04-16] MEDS: FAMOTIDINE 20 MG TAB PO SCH (10:33)
[2021-04-16] MEDS: amLODIPine 10 MG TAB PO SCH (10:34)
[2021-04-16] MEDS: cloNIDine 0.1 MG TAB PO SCH ×2 (10:34→21:38)
[2021-04-16] MEDS: hydrALAZINE 25 MG TAB PO SCH ×3 (10:36→20:13)
[2021-04-16] MEDS: HEPARIN 5,000 UNIT/1 ML VIAL SUB-Q SCH ×2 (10:37→21:39)
[2021-04-16] MEDS: dilTIAZem 30 MG TAB PO SCH ×2 (13:21→20:13)
[2021-04-16 13:25] LABS: Creatine Kinase MB 2.7 ng/mL (0.0-4.0)
--- NOTE | 2021-04-16 13:42 | Vascular Lab Report ---
DUPLEX DOPPLER ULTRASOUND CAROTID, BILATERAL INDICATION / CLINICAL INFORMATION: syncope. COMPARISON: None available. FINDINGS: RIGHT CAROTID: Mild partially calcified plaque is identified in the carotid bulb - PLAQUE ESTIMATE (%): < 50% - CCA peak velocity: 96 cm/sec. - ICA peak systolic velocity: 109 cm/sec. - ICA/CCA PSV Ratio: Less than 2 Right Vertebral Artery: Antegrade flow. LEFT CAROTID: Mild partially calcified plaque is noted in the carotid bulb. - PLAQUE ESTIMATE (%): < 50% - CCA peak velocity: 111 cm/sec. - ICA peak systolic velocity: 111 cm/sec. - ICA/CCA PSV Ratio: Less than 2 Left Vertebral Artery: There appears to be to and fro flow in the left vertebral artery suggesting in termittent antegrade and retrograde flow. IMPRESSION: 1. Right Internal Carotid Artery: Less than 50% diameter stenosis. 2. Left Internal Carotid Artery: Less than 50% diameter stenosis. 3. To and fro flow in the left vertebral artery as described. This could represent some level of subc lavian steal on the left side. Consider further evaluation with CTA neck. Velocity criteria are extrapolated from diameter data as defined by the Society of Radiologists in Ul trasound Consensus Conference, Radiology 2003; 229;340-346. NO STENOSIS (NORMAL) - Plaque = none; ICA PSV < 125 cm/sec; ICA/CCA PSV Ratio < 2.0 <50% STENOSIS - Plaque < 50%; ICA PSV < 125 cm/sec; ICA/CCA PSV Ratio < 2.0 50-69% STENOSIS - Plaque > 50%; ICA PSV = 125-230 cm/sec; ICA/CCA PSV Ratio = 2.0-4.0 >70% BUT <100% STENOSIS - Plaque > 50%; ICA PSV > 230 cm/sec; ICA/CCA PSV Ratio > 4.0 NEAR OCCLUSION - Plaque = visible lumen; ICA PSV = high/low/none; ICA/CCA PSV Ratio = variable TOTAL OCCLUSION - Plaque = no lumen; ICA PSV = none; ICA/CCA PSV Ratio = N/A Signer Name: Josiah Chaves Jr, MD Signed: 04/16/2021 1:38 PM Workstation Name: [id number]
--- NOTE | 2021-04-16 14:18 | Cat Scan Report ---
CT HEAD WITHOUT CONTRAST INDICATION / CLINICAL INFORMATION: Syncope/near syncope. TECHNIQUE: All CT scans at this location are performed using CT dose reduction for ALARA by means of automated exposure control. COMPARISON: None available. FINDINGS: There is no acute intracranial hemorrhage, mass effect, or edema. There is focal encephalomalacia in the inferior left frontal lobe and bilateral posterior superior parietal lobes. Additional bilateral periventricular white matter hypodensities are nonspecific but likely represent microangiopathic kan ges. Bilateral small hypodensities in the basal ganglia compatible with chronic lacunar infarcts. Mil d diffuse cerebral atrophy with compensatory dilation of the ventricles. There is a mucous retention cyst/polyp in left maxillary sinus. The remaining paranasal sinuses and m astoid air cells are clear. IMPRESSION: 1. No CT evidence of acute intracranial abnormality. 2. Findings of chronic ischemic disease as above. If there is clinical concern for acute ischemia, MR I is recommended. Signer Name: Marcus Glover MD Signed: 04/16/2021 2:10 PM Workstation Name: [id number]
--- NOTE | 2021-04-16 22:35 | Event Note ---
Date: 04/16/21 Hemodialysis consent obtained from patient.
[2021-04-17] MEDS: dilTIAZem 30 MG TAB PO SCH ×3 (01:09→14:32)
[2021-04-17 04:09] LABS: Basophils # (Auto) 0.1 K/mm3 (0.0-0.1); Basophils % (Auto) 1.3 % (0.0-1.8); Eosinophils # (Auto) 0.2 K/mm3 (0.0-0.4); Eosinophils % (Auto) 4.8 % (0.0-4.3); Hematocrit 34.5 % (35.5-45.6); Hemoglobin 11.1 gm/dl (11.8-15.2); Lymphocytes # (Auto) 1.3 K/mm3 (1.2-5.4); Lymphocytes % (Auto) 32.2 % (13.4-35.0); Mean Corpuscular HGB Conc 32 % (32-34); Mean Corpuscular Volume 89 fl (84-94); Monocytes # (Auto) 0.3 K/mm3 (0.0-0.8); Monocytes % (Auto) 7.9 % (0.0-7.3); Platelet Count 113 K/mm3 (140-440); Red Blood Count 3.89 M/mm3 (3.65-5.03)
[2021-04-17 04:23] LABS: Calcium 8.7 mg/dL (8.4-10.2)
[2021-04-17] MEDS: SEVELAMER CARBONATE 800 MG TAB PO SCH ×3 (08:00→18:13)
--- NOTE | 2021-04-17 08:07 | Progress Note ---
Assessment and Plan 1. ESRD: Continue hemodialysis three times a week, MWF schedule. Last outpatient hemodialysis was on 04/15. Meds dosage based on GFR. Hemodialysis: today. 2. FEN: Hyperkalemia, improved. Fluid compliance encouraged. Monitor lytes. 3. Near syncope: Likely vasovagal. Carotid duplex showed no significant stenosis. 4. H/o COPD: Not in exacerbation. 5. Chronic Anemia, POA: Epogen with HD if needed. 6. HIV: Continue home meds. 7. Medical non-compliance: Counseled. Subjective: Patient was seen and examined at the bedside. General Appearance: General appearance: well-developed, appears stated age, no distress, appears undernourished EENT: ATNC, LARS, hearing intact, vision intact Neck: neck supple, trachea midline Respiratory: rales heard Heart: regular, S1S2, no murmur Gastrointestinal: soft, normoactive bowel sounds, not tender, not distended Integumentary: no rash, warm and dry Neurologic: no focal deficit, no asterixis, alert and oriented x3 Ext: no edema Hemodialysis access: L arm AVF Subjective Date of service: 04/17/21 Objective - Vital Signs Vital signs: Vital Signs - 12hr 04/16/21 04/16/21 04/16/21 21:38 23:20 23:36 Temperature 98.1 F Pulse Rate 84 89 Respiratory 16 19 Rate Blood Pressure 126/64 142/80 O2 Sat by Pulse 96 98 Oximetry 04/17/21 04/17/21 04/17/21 01:00 01:09 03:35 Temperature 98.1 F Pulse Rate 86 89 78 Respiratory 14 Rate Blood Pressure 142/80 130/70 O2 Sat by Pulse 100 Oximetry - Lab 04/17/21 03:41 04/17/21 03:41 Most recent lab results Calcium 8.7 mg/dL (8.4-10.2) 04/17/21 03:41 Magnesium 2.40 mg/dL (1.7-2.3) H 04/15/21 16:01 Medications & Allergies - Medications Allergies/Adverse Reactions: Allergies azithromycin [From Zithromax] Allergy (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/21 08:51) Shortness of Breath Iodinated Contrast Media Allergy (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/21 08:51) Anaphylaxis levofloxacin Allergy (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/21 08:51) Swelling lisinopril Allergy (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/21 08:51) Angioedema and hives sevelamer [From Renvela] Allergy (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/21 08:51) Hives sulfamethoxazole [From Bactrim] Allergy (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/21 08:51) Jagdish Santiago's Syndrome trimethoprim [From Bactrim] Allergy (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/21 08:51) Jagdish Santiago's Syndrome Home Medications: Home Medications Medication Instructions Recorded Confirmed Last Taken Type AtorvaSTATin [Lipitor] 20 mg PO HS 12/11/19 04/16/21 2 Days Ago History ~04/12/20 amLODIPine 10 mg PO DAILY 12/11/19 04/16/21 04/15/21 08:30 History Albuterol Mdi (or & Nicu Only) 2 puff IH QID PRN #8.5 gram 02/22/20 04/16/21 04/15/21 09:00 Rx [ProAir HFA Inhaler] ALBUTEROL NEB's [Proventil 0.083% 2.5 mg INHALATION Q6HR PRN 05/15/20 04/16/21 Unknown History NEBS] Clopidogrel [Plavix] 75 mg PO QDAY 05/15/20 04/16/21 04/14/21 08:45 History labetaloL [Labetalol 200mg TAB] 200 mg PO BID 05/15/20 04/16/21 04/15/21 09:00 History Ipratropium (Nf) [Atrovent HFA 2 puff IH Q6HR PRN #1 inha 10/01/20 04/16/21 04/05/21 Rx 17MCG/PUFF] Apixaban [Eliquis] 2.5 mg PO Q12HR #60 tablet 10/05/20 04/16/21 04/14/21 09:00 Rx Aspirin EC [Halfprin EC] 81 mg PO QDAY 04/16/21 04/16/21 04/14/21 History Dolutegravir/Rilpivirine [Juluca 1 each PO QDAY 04/16/21 04/16/21 04/14/21 History 50-25 mg Tablet] Montelukast [Singulair] 10 mg PO QPM 04/16/21 04/16/21 04/14/21 History traZODone [Desyrel] 50 - 100 mg PO QHS 04/16/21 04/16/21 04/14/21 History cloNIDine [Catapres] 0.1 mg PO BID tablet 04/17/21 Unknown Rx Active Medications: Generic Name Dose Route Start Last Admin Trade Name Freq PRN Reason Stop Dose Admin Acetaminophen 650 mg 04/16/21 06:34 Acetaminophen 325 Mg Tab PO Q4H PRN Pain MILD(1-3)/Fever >100.5/GARCIA Albuterol 2.5 mg 04/16/21 08:30 Albuterol 2.5 Mg/3 Ml Nebu IH Q4HRT PRN Shortness Of Breath Albuterol/Ipratropium 1 ampul 04/16/21 09:00 04/16/21 20:13 Ipratropium/Albuterol Sulfate 3 Ml Ampul.Neb IH Not Given BIDRT [facility] Amlodipine Besylate 10 mg 04/16/21 10:00 04/16/21 10:34 Amlodipine 10 Mg Tab PO 10 mg DAILY [facility] Administration Aspirin 81 mg 04/16/21 10:00 04/16/21 10:33 Aspirin 81 Mg Tab Chew PO 81 mg DAILY [facility] Administration Atorvastatin Calcium 20 mg 04/16/21 22:00 04/16/21 21:39 Atorvastatin 20 Mg Tab PO 20 mg HS [facility] Administration Clonidine HCl 0.1 mg 04/16/21 10:00 04/16/21 21:38 Clonidine 0.1 Mg Tab PO 0.1 mg BID [facility] Administration Diltiazem HCl 30 mg 04/16/21 14:00 04/17/21 01:09 Diltiazem 30 Mg Tab PO 30 mg Q6H [facility] Administration Famotidine 20 mg 04/16/21 10:00 04/16/21 10:33 Famotidine 20 Mg Tab PO 20 mg DAILY [facility] Administration Heparin Sodium (Porcine) 5,000 unit 04/16/21 10:00 04/16/21 21:39 Heparin 5,000 Unit/1 Ml Vial SUB-Q 5,000 unit Q12HR [facility] Administration Hydralazine HCl 50 mg 04/16/21 08:00 04/16/21 20:13 Hydralazine 25 Mg Tab PO Not Given TID [facility] Hydromorphone HCl 0.5 mg 04/16/21 06:34 Hydromorphone 1 Mg/1 Ml Inj IV Q3H PRN Pain , Severe (7-10) Labetalol HCl 200 mg 04/16/21 11:00 04/16/21 21:38 Labetalol 200 Mg Tab PO 200 mg BID [facility] Administration Miscellaneous Medication 62.5 mcg 04/16/21 10:00 Umeclidinium Brm/Vilanterol Tr [Anoro Ellipta 62.5-25 Mcg Inh] INHALATION BID [facility] Ondansetron HCl 4 mg 04/16/21 06:34 Ondansetron 4 Mg/2 Ml Inj IV Q8H PRN Nausea And Vomiting Oxycodone/Acetaminophen 1 tab 04/16/21 06:34 Oxycodone /Acetaminophen 5-325mg Tab PO Q6H PRN Pain, Moderate (4-6) Sevelamer Carbonate 2,400 mg 04/16/21 08:00 04/16/21 20:13 Sevelamer Carbonate 800 Mg Tab PO Not Given TIDWM [facility] Sodium Chloride 10 ml 04/16/21 10:00 04/16/21 21:38 Sodium Chloride 0.9% 10 Ml Flush Syringe IV 10 ml BID [facility] Administration Sodium Chloride 10 ml 04/16/21 06:34 Sodium Chloride 0.9% 10 Ml Flush Syringe IV PRN PRN LINE FLUSH
--- NOTE | 2021-04-17 08:37 | Electrocardiograph Report ---
[facility] Test Date: 2021-04-15 Test Time: 20:27:05 Pat Name: JANIE KNOWLES Department: Room: A476 1 Gender: M Contact Center Associate: : 1960 Requested By: LAMONT XIE Order Number: [id number] Reading MD: Ino Bazzi Measurements Intervals [place] Rate: 88 P: 80 FL: 162 QRS: 76 QRSD: 86 T: 60 QT: 391 QTc: 473 Interpretive Statements Sinus rhythm Biatrial enlargement nonspecific st-t Compared to ECG 04/15/2021 16:32:03 ST (T wave) deviation now present Ventricular premature complex(es) no longer present Electronically Signed On 04-17-2021 8:36:48 EDT by Ino Bazzi
--- NOTE | 2021-04-17 08:40 | Discharge Summary ---
Providers - Providers Date of Admission: 04/16/21 15:52 Date of discharge: 04/17/21 Attending physician: LAMONT XIE 04/16/21 06:47 Consult to Physician [CONS] Routine Comment: Consulting Provider: NOE ROSALES Physician Instructions: Reason For Exam: ESRd had dialysis on Thursday04/16/21 12:19 Physical Therapy Evaluation and Treat [CONS] Routine Comment: Reason For Exam: Eval and Treat Primary care physician: CORRESPONDENCE SPECIALIST Hospitalization Condition: Stable Hospital course: (1) Near syncope Current Visit: Yes Status: Acute Plan to address problem: Probably vasovagal and secondary to increase ultrafiltration during hemodialysis Slightly orthostatic Observation for 23 hours Carotid duplex scan requested Probable discharge tomorrow duplex scan is negative No echocardiogram ordered (2) ESRD (end stage renal disease) on dialysis Current Visit: Yes Status: Chronic Plan to address problem: Had full session hemodialysis today Due for dialysis on Thursday Nephrology consult requested May not need dialysis (3) HIV (human immunodeficiency virus infection) Current Visit: Yes Status: Chronic Qualifiers: HIV symptom status: unspecified Qualified Code(s): B20 - Human immunodeficiency virus [HIV] disease Plan to address problem: Continue antiretrovirals (4) Hypertension Current Visit: Yes Status: Chronic Qualifiers: Hypertension type: primary hypertension Qualified Code(s): I10 - Essential (primary) hypertension Plan to address problem: Continue antihypertensives and adjust medications (5) COPD (chronic obstructive pulmonary disease) Current Visit: Yes Status: Chronic Qualifiers: Emphysema type: unspecified Plan to address problem: Continue duo nebs [id number] and as needed as necessary (6) DVT prophylaxis Current Visit: Yes Status: Acute Plan to address problem: On heparin and GI prophylaxis Disposition: 01 HOME / SELF CARE / HOMELESS Final Discharge Diagnosis (Prints w/discharge instructions): Near syncope. ESRD on hemodialysis. HIV stable. Hypertension. COPD. Medical noncompliance Time spent for discharge: 35 min Core Measure Documentation - Palliative Care Palliative Care/ Comfort Measures: Not Applicable - Core Measures Any of the following diagnoses?: none Exam - Constitutional Vitals: Temp Pulse Resp BP Pulse Ox 98.3 F 75 20 131/64 97 04/17/21 07:59 04/17/21 07:59 04/17/21 07:59 04/17/21 07:59 11/03/21 07:59 General appearance: Present: no acute distress, well-nourished - EENT Eyes: Present: PERRL, EOM intact - Neck Neck: Present: supple, normal ROM - Respiratory Respiratory effort: normal Respiratory: bilateral: diminished, negative: rales, rhonchi, wheezing - Cardiovascular Rhythm: regular Heart Sounds: Present: S1 & S2 - Extremities Extremities: no ischemia, No edema - Abdominal General gastrointestinal: Present: soft, non-tender, non-distended, normal bowel sounds - Integumentary Integumentary: Present: clear, warm - Musculoskeletal Musculoskeletal: strength equal bilaterally, generalized weakness - Psychiatric Psychiatric: appropriate mood/affect, cooperative - Neurologic Neurologic: moves all extremities Plan Activity: advance as tolerated, fall precautions Diet: renal Additional Instructions: Advised to comply with hemodialysis, medications and diet. If you have worsening symptoms contact MD or go to emergency room as needed Follow up with: PRIMARY CAREMD [Primary Care Provider] - 3-5 Days NOE ROSALES MD [Staff Physician] - 7 Days
[2021-04-17] MEDS ORDERED: SODIUM CHLORIDE 0.9% 100 ML IV PRN (09:00)
[2021-04-17] MEDS ORDERED: HEPARIN 10,000 UNITS/10 ML VIAL IV PRN (09:00)
[2021-04-17] MEDS: hydrALAZINE 25 MG TAB PO SCH ×2 (09:09→16:38)
[2021-04-17] MEDS: HEPARIN 5,000 UNIT/1 ML VIAL SUB-Q SCH (09:10)
[2021-04-17] MEDS: cloNIDine 0.1 MG TAB PO SCH (09:10)
[2021-04-17] MEDS: ASPIRIN 81 MG TAB CHEW PO SCH (09:11)
[2021-04-17] MEDS: amLODIPine 10 MG TAB PO SCH (09:11)
[2021-04-17] MEDS: FAMOTIDINE 20 MG TAB PO SCH (09:11)
--- NOTE | 2021-04-17 09:34 | Electrocardiograph Report ---
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
[2021-04-17] MEDS: IPRATROPIUM/ALBUTEROL SULFATE 3 ML AMPUL.NEB IH SCH (11:43)
[2021-04-17 17:03] LABS: Hepatitis C Virus Antibody Non-Reactive (NonReactive)
[2021-04-17 17:06] LABS: Hepatitis B Surface Antigen Nonreactive (Negative)
[2021-04-17 18:48] VITALS: BP 120/68
== END 2021-04-17 19:45 | disposition home or self-care (01) | DRG 312 ==
LOC: ED 15:09 → 4A 04-16 00:52 → OBSVTOIN 04-16 15:52 → 4A 04-17 12:50
PROVIDERS: ADMIT Internal Medicine; ATTEND Internal Medicine
PROC: 5A1D70Z Performance of Urinary Filtration, Intermittent, Less than 6 Hours Per Day (ICD-10-PCS; principal; 2021-04-17)
DX: R55 Syncope and collapse (principal); N18.6 End stage renal disease; I47.2 Ventricular tachycardia; I12.0 Hypertensive chronic kidney disease with stage 5 chronic kidney disease or end stage renal disease; E87.70 Fluid overload, unspecified; E87.5 Hyperkalemia; J44.9 Chronic obstructive pulmonary disease, unspecified; M19.90 Unspecified osteoarthritis, unspecified site; F17.200 Nicotine dependence, unspecified, uncomplicated; Z21 Asymptomatic human immunodeficiency virus [HIV] infection status; D64.9 Anemia, unspecified; Z91.14 Patient's other noncompliance with medication regimen
CPT/HCPCS: 36415; 70450; 71046; 80048; 80053; 80061; 80074; 82550; 82553; 83735; 84484; 85025; 93005; 93880; 94640; G0378; A9270-GY; J1644; J7050; J7512

== ENCOUNTER 2021-08-12 15:02 | Emergency (ER) | payer MEDICARE ==
--- NOTE | 2021-08-12 16:00 | Event Note ---
ED Screening Note Date of service: 08/12/21 (n) ED Screening Note: 60-year-old black male with a past medical history of hypertension, hyperlipidemia, COPD, asthma, end-stage renal disease on HD, and HIV positive presents to the emergency department for evaluation of shortness of breath. He states that he was at dialysis this morning and he had worsening shortness of breath. He states that he has been short of breath for the past several days despite using home nebulizer and inhalers along with prednisone. He also complains of few month history of bright red rectal bleeding with weakness and dizziness. This initial assessment/diagnostic orders/clinical plan/treatment(s) is/are subject to change based on patients health status, clinical progression and re- assessment by fellow clinical providers in the ED. Further treatment and workup at subsequent clinical providers discretion. Patient/guardian urged not to elope from the ED as their condition may be serious if not clinically assessed and managed. Initial orders include:
--- NOTE | 2021-08-12 16:32 | XRay Report ---
CHEST 2 VIEWS INDICATION / CLINICAL INFORMATION: chest pain. COMPARISON: 06/21/2021 FINDINGS: SUPPORT DEVICES: None. HEART / MEDIASTINUM: No significant abnormality. LUNGS / PLEURA: Mild right upper lobe parenchymal disease with peribronchial or thickening, unchanged . No pneumothorax. ADDITIONAL FINDINGS: No significant additional findings. IMPRESSION: 1. Stable chest Signer Name: Josh Turk MD Signed: 08/12/2021 4:27 PM Workstation Name: [id number]
[2021-08-12 16:37] LABS: Hemoglobin 10.9 gm/dl (11.8-15.2); Mean Corpuscular HGB Conc 34 % (32-34); Mean Corpuscular Volume 87 fl (84-94); Platelet Count 132 K/mm3 (140-440); Red Blood Count 3.69 M/mm3 (3.65-5.03); Red Cell Distribution Width 15.7 % (13.2-15.2)
[2021-08-12 16:56] LABS: INR 0.89 (0.87-1.13)
[2021-08-12 16:57] LABS: Partial Thromboplastin Time 27.7 Sec. (24.2-36.6)
--- NOTE | 2021-08-12 16:57 | Emergency Department Report ---
ED General Adult HPI - General Chief complaint: Dyspnea/Respdistress Stated complaint: I was coughing. PUI?: No Time Seen by Provider: 08/12/21 16:34 Source: patient, family, RN notes reviewed, old records reviewed Mode of arrival: Ambulatory Limitations: No Limitations - History of Present Illness Initial comments: The patient was evaluated in the emergency department for symptoms described in the history of present illness. He/she was evaluated in the context of the global COVID-19 pandemic, which necessitated consideration that the patient might be at risk for infection with the virus that causes COVID-19. Institution al protocols and algorithms that pertain to the evaluation of patients at risk for COVID-19 are in a state of rapid change based on information released by regulatory bodies including the CDC and federal and state organizations. These policies and algorithms were followed during the patient's care in the emergency department. Please note that these policies, procedures and recommendations changed on a rapid basis. Nephrology: Dr. Marion Past medical history: CAD, COPD, hypertension, history of anoxic brain injury, history of HIV, A. fib on Eliquis, end-stage renal disease on dialysis Thursday, Thursday, Thursday, possible SVT. He is fully vaccinated against COVID-19. The patient reports having had his hemodialysis session earlier on today. He reports that he has been having some cough and shortness of breath. He denies physical pain. He endorses compliance with his medications. Review of systems is negative for physical pain. He endorses chronic rectal excoriation from an external hemorrhoid, but otherwise denies additional symptoms. He feels improved at this time. -: Gradual Consistency: intermittent Improves with: rest Worsens with: none - Related Data Home Medications Medication Instructions Recorded Confirmed Last Taken AtorvaSTATin [Lipitor] 20 mg PO HS 12/11/19 06/22/21 06/19/21 22:35 amLODIPine 10 mg PO DAILY 12/11/19 06/22/21 06/19/21 ALBUTEROL NEB's [Proventil 0.083% 2.5 mg INHALATION Q6HR PRN 05/15/20 06/21/21 Unknown NEBS] Clopidogrel [Plavix] 75 mg PO QDAY 05/15/20 06/21/21 04/14/21 08:45 Aspirin EC [Halfprin EC] 81 mg PO QDAY 04/16/21 06/22/21 06/21/21 09:00 Dolutegravir/Rilpivirine [Juluca 1 each PO QDAY 04/16/21 06/22/21 06/19/21 05:00 50-25 mg Tablet] Montelukast [Singulair] 10 mg PO QPM 04/16/21 06/22/21 06/19/21 20:40 traZODone [Desyrel] 50 - 100 mg PO QHS 04/16/21 06/22/21 06/20/21 21:00 Previous Rx's Medication Instructions Recorded Last Taken Type Apixaban [Eliquis] 2.5 mg PO Q12HR #60 tablet 10/05/20 06/19/21 21:00 Rx cloNIDine [Catapres] 0.1 mg PO BID tablet 04/17/21 06/20/21 21:00 Rx Metoprolol [Lopressor TAB] 50 mg PO BID #60 tablet 06/23/21 Unknown Rx Albuterol Mdi (or & Nicu Only) 2 puff IH QID PRN #8.5 gram 08/12/21 Unknown Rx [ProAir HFA Inhaler] Ipratropium (Nf) [Atrovent HFA 2 puff IH Q6HR PRN #1 inha 08/12/21 Unknown Rx 17MCG/PUFF] Allergies Allergy/AdvReac Type Severity Reaction Status Date / Time azithromycin [From Zithromax] Allergy Shortness 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/21 08:51 of Breath Iodinated Contrast Media Allergy Anaphylaxis 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/21 08:51 levofloxacin Allergy Swelling 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/21 08:51 lisinopril Allergy Angioedema 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/21 08:51 and hives sevelamer [From Renvela] Allergy Hives 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/21 08:51 sulfamethoxazole Allergy Jagdish 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/21 08:51 [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 denies: as per HPI, nausea, vomiting, diarrhea Genitourinary: denies: dysuria Musculoskeletal: denies: back pain Hematological/Lymphatic: denies: easy bleeding ED Past Medical Hx - Past Medical History Hx Hypertension: Yes Hx Congestive Heart Failure: No Hx Diabetes: No Hx Deep Vein Thrombosis: Yes Hx Renal Disease: Yes (on hemodialysis, MWF) Hx Arthritis: Yes Hx Seizures: Yes Hx Asthma: Yes Hx COPD: Yes Hx HIV: Yes - Surgical History Hx Coronary Stent: Yes Additional Surgical History: vascath. AV shunt LUE. IVC filter - Social History Smoking Status: Current Every Day Smoker - Medications Home Medications: Home Medications Medication Instructions Recorded Confirmed Last Taken Type AtorvaSTATin [Lipitor] 20 mg PO HS 12/11/19 06/22/21 06/19/21 22:35 History amLODIPine 10 mg PO DAILY 12/11/19 06/22/21 06/19/21 History ALBUTEROL NEB's [Proventil 0.083% 2.5 mg INHALATION Q6HR PRN 05/15/20 06/21/21 Unknown History NEBS] Clopidogrel [Plavix] 75 mg PO QDAY 05/15/20 06/21/21 04/14/21 08:45 History Apixaban [Eliquis] 2.5 mg PO Q12HR #60 tablet 10/05/20 06/22/21 06/19/21 21:00 Rx Aspirin EC [Halfprin EC] 81 mg PO QDAY 04/16/21 06/22/21 06/21/21 09:00 History Dolutegravir/Rilpivirine [Juluca 1 each PO QDAY 04/16/21 06/22/21 06/19/21 05:00 History 50-25 mg Tablet] Montelukast [Singulair] 10 mg PO QPM 04/16/21 06/22/21 06/19/21 20:40 History traZODone [Desyrel] 50 - 100 mg PO QHS 04/16/21 06/22/21 06/20/21 21:00 History cloNIDine [Catapres] 0.1 mg PO BID tablet 04/17/21 06/22/21 06/20/21 21:00 Rx Metoprolol [Lopressor TAB] 50 mg PO BID #60 tablet 06/23/21 Unknown Rx Albuterol Mdi (or & Nicu Only) 2 puff IH QID PRN #8.5 gram 08/12/21 Unknown Rx [ProAir HFA Inhaler] Ipratropium (Nf) [Atrovent HFA 2 puff IH Q6HR PRN #1 inha 08/12/21 Unknown Rx 17MCG/PUFF] ED Physical Exam - General Limitations: No Limitations General appearance: alert, in no apparent distress - Head Head exam: Present: atraumatic, normocephalic - Eye Eye exam: Present: normal appearance, EOMI. Absent: nystagmus - ENT ENT exam: Present: normal exam, normal orophraynx, mucous membranes moist, normal external ear exam - Neck Neck exam: Present: normal inspection, full ROM. Absent: tenderness, meningismus - Respiratory Respiratory exam: Present: rhonchi (Very faint rhonchi noted). Absent: respiratory distress, wheezes, rales, stridor - Cardiovascular Cardiovascular Exam: Present: regular rate, normal rhythm, normal heart sounds. Absent: bradycardia, tachycardia, irregular rhythm, systolic murmur, diastolic murmur, rubs, gallop - GI/Abdominal GI/Abdominal exam: Present: soft. Absent: distended, tenderness, guarding, rebound, rigid, pulsatile mass - Rectal Rectal exam: Present: normal inspection, normal rectal tone (Chaperoned by Nicole Simms), heme (-) stool, other (External hemorrhoid noted, with minimal bloody excoriation.) - Extremities Exam Extremities exam: Present: normal inspection (Left upper extremity dialysis access, with appropriate thrill, without redness, pus or streaking), full ROM, pedal edema (1+ edema in the bilateral lower extremities), other (2+ pulses noted in the bilateral upper and lower extremities. There is no palpable cord. negative Homans sign. Muscular compartments are soft. The pelvis is stable.). Absent: calf tenderness - Back Exam Back exam: Present: normal inspection, full ROM. Absent: tenderness, CVA tenderness (R), CVA tenderness (L), paraspinal tenderness, vertebral tenderness - Neurological Exam Neurological exam: Present: alert, oriented X3, normal gait, other (No facial droop. Tongue midline. Extraocular movements intact bilaterally. Facial sensation intact to light touch in V1, V2, V3 distribution bilaterally. 5 and a 5 strength in 4 extremities. Sensation intact to light touch in 4 extremities.). Absent: motor sensory deficit - Psychiatric Psychiatric exam: Present: manic - Skin Skin exam: Present: warm, dry, intact, normal color. Absent: rash ED Course Vital Signs 08/12/21 15:17 Temperature 98.3 F Pulse Rate 90 Respiratory 32 H Rate Blood Pressure 176/84 O2 Sat by Pulse 96 Oximetry ED Medical Decision Making - Lab Data Result diagrams: 08/12/21 16:15 08/12/21 16:15 Vital Signs 08/12/21 15:17 Temperature 98.3 F Pulse Rate 90 Respiratory 32 H Rate Blood Pressure 176/84 O2 Sat by Pulse 96 Oximetry - EKG Data -: EKG Interpreted by [facility] EKG shows normal: sinus rhythm Rate: normal - EKG Data 08/12/21 18:09 The EKG is interpreted at 17: 05 Sinus rhythm, rate 93 bpm. Normal axis, normal P wave axis, left ventricular hypertrophy, denies chest pain, motion artifact. Not a STEMI. - Radiology Data Radiology results: pending, report reviewed, image reviewed CHEST 2 VIEWS INDICATION / CLINICAL INFORMATION: chest pain. COMPARISON: 06/21/2021 FINDINGS: SUPPORT DEVICES: None. HEART / MEDIASTINUM: No significant abnormality. LUNGS / PLEURA: Mild right upper lobe parenchymal disease with per ibronchial or thickening, unchanged. No pneumothorax. ADDITIONAL FINDINGS: No significant additional findings. IMPRESSION: 1. Stable chest Signer Name: Josh Turk MD Signed: 08/12/2021 3:27 PM Workstation Name: [id number] - Medical Decision Making Differential diagnosis, including but not limited to: COPD, end-stage renal disease, congestive heart failure, bronchitis, encounter for medical screening exam Assessment and plan 60-year-old gentleman, who was afebrile, with reassuring vital signs, who is compliant with his systemic anticoagulation, likely presenting with mild COPD. He does not have significant crackles or rales, respiratory rate 18 on my exam, hypertension is chronic. Laboratory studies show chronic abnormalities, he does not require emergent hemodialysis today, and he reports that he was dialyzed prior to ER evaluation. He also ate a whopper hamburger in addition to consuming a peanut butter and jelly sandwich. Very mild rhonchi noted, he will receive albuterol in the ER, and be discharged with albuterol and Atrovent. He is not significantly tachypneic or hypoxic at this time, he does not have significant wheezing. Would not initiate steroids at this time Critical care attestation.: If time is entered above; I have spent that time in minutes in the direct care of this critically ill patient, excluding procedure time. ED Disposition Clinical Impression: ESRD (end stage renal disease) on dialysis, COPD (chronic obstructive pulmonary disease) Disposition: HOME / SELF CARE / HOMELESS Is pt being admited?: No Does the pt Need Aspirin: No Condition: Good Instructions: Chronic Obstructive Pulmonary Disease (ED) Additional Instructions: Please continue current outpatient medications. Please take the breathing treatments as needed and directed. Please follow-up with your outpatient dialysis facility/key account manager as scheduled. Please follow-up with an outpatient primary care doctor or visual lead for COPD within the next week. Please return to the emergency room right away with new pain, worsened pain, migration of pain, projectile vomiting, change in mental status, confusion, inability tolerate liquid feeds, new, worsened or different symptoms not present on the initial emergency room evaluation Referrals: [facility] [Provider Group] - 3-5 Days
[2021-08-12 17:03] LABS: Albumin 4.1 g/dL (3.9-5); Calcium 9.2 mg/dL (8.4-10.2)
[2021-08-12] MEDS ORDERED: ALBUTEROL 2.5 MG/3 ML NEBU IH ONE (18:08)
[2021-08-12 18:43] VITALS: BP 203/92
--- NOTE | 2021-08-15 13:06 | Electrocardiograph Report ---
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
== END 2021-08-12 18:45 | disposition home or self-care (01) ==
LOC: ED 15:02
DX: J44.9 Chronic obstructive pulmonary disease, unspecified (principal); I12.0 Hypertensive chronic kidney disease with stage 5 chronic kidney disease or end stage renal disease; N18.6 End stage renal disease; Z99.2 Dependence on renal dialysis; M19.90 Unspecified osteoarthritis, unspecified site; B20 Human immunodeficiency virus [HIV] disease; R56.9 Unspecified convulsions; Z98.890 Other specified postprocedural states; F17.200 Nicotine dependence, unspecified, uncomplicated; Z88.1 Allergy status to other antibiotic agents; Z91.09 Other allergy status, other than to drugs and biological substances
CPT/HCPCS: 36415; 71046; 80053; 85027; 85610; 85730; 93005; 93010; 94640; 94644; 99284

== ENCOUNTER 2021-11-14 00:20 | Inpatient (IN) | payer MEDICARE ==
[2021-11-14] MEDS ORDERED: IPRATROPIUM 0.02% NEBU 2.5 ML IH ONE (00:48)
[2021-11-14] MEDS ORDERED: methylPREDNISolone Sod Succinate 125 MG/2 ML INJ IV ONE (00:48)
[2021-11-14] MEDS ORDERED: ALBUTEROL 2.5 MG/3 ML NEBU IH ONE (00:48)
[2021-11-14] MEDS ORDERED: hydrALAZINE 20 MG/1 ML INJ IV ONE (00:49)
--- NOTE | 2021-11-14 00:52 | Emergency Department Report ---
ED Shortness of Breath HPI - General Chief Complaint: Dyspnea/Respdistress Stated Complaint: JARRET Time Seen by Provider: 11/14/21 00:44 Source: patient Mode of arrival: Ambulatory Limitations: No Limitations - History of Present Illness Initial Comments: Patient is 61 years old male with history of end-stage renal disease on hemodialysis, Thursday and Thursday patient did not go to dialysis today because he did not feel well. Patient also had history of COPD and asthma. Patient presented with shortness of breath for the last few days getting worse. Patient denied any fever or chills. No nausea or vomiting. Patient also denies any chest pain. Patient found to have a blood pressure of 220/106 his initial oxygen saturation was 93% on room air improved to 96% on 2 L. MD Complaint: shortness of breath, cough -: days(s) Known History Of: COPD, asthma Associated Symptoms: denies other symptoms Treatments Prior to Arrival: none - Related Data Home Medications Medication Instructions Recorded Confirmed Last Taken AtorvaSTATin [Lipitor] 20 mg PO HS 12/11/19 06/22/21 06/19/21 22:35 amLODIPine 10 mg PO DAILY 12/11/19 06/22/21 06/19/21 ALBUTEROL NEB's [Proventil 0.083% 2.5 mg INHALATION Q6HR PRN 05/15/20 06/21/21 Unknown NEBS] Clopidogrel [Plavix] 75 mg PO QDAY 05/15/20 06/21/21 04/14/21 08:45 Aspirin EC [Halfprin EC] 81 mg PO QDAY 04/16/21 06/22/21 06/21/21 09:00 Dolutegravir/Rilpivirine [Juluca 1 each PO QDAY 04/16/21 06/22/21 06/19/21 05:00 50-25 mg Tablet] Montelukast [Singulair] 10 mg PO QPM 04/16/21 06/22/21 06/19/21 20:40 traZODone [Desyrel] 50 - 100 mg PO QHS 04/16/21 06/22/21 06/20/21 21:00 Previous Rx's Medication Instructions Recorded Last Taken Type Apixaban [Eliquis] 2.5 mg PO Q12HR #60 tablet 10/05/20 06/19/21 21:00 Rx cloNIDine [Catapres] 0.1 mg PO BID tablet 04/17/21 06/20/21 21:00 Rx Metoprolol [Lopressor TAB] 50 mg PO BID #60 tablet 06/23/21 Unknown Rx Albuterol Mdi (or & Nicu Only) 2 puff IH QID PRN #8.5 gram 08/12/21 Unknown Rx [ProAir HFA Inhaler] Ipratropium (Nf) [Atrovent HFA 2 puff IH Q6HR PRN #1 inha 08/12/21 Unknown Rx 17MCG/PUFF] Allergies Allergy/AdvReac Type Severity Reaction Status Date / Time azithromycin [From Zithromax] Allergy Shortness 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/21 08:51 of Breath Iodinated Contrast Media Allergy Anaphylaxis 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/21 08:51 levofloxacin Allergy Swelling 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/21 08:51 lisinopril Allergy Angioedema 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/21 08:51 and hives sevelamer [From Renvela] Allergy Hives 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/21 08:51 sulfamethoxazole Allergy Jagdish 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/21 08:51 [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 denies: cough Cardiovascular: denies: chest pain, palpitations Gastrointestinal: denies: abdominal pain, nausea, vomiting, diarrhea, con stipation, hematemesis, melena, hematochezia Musculoskeletal: denies: back pain Neurological: denies: headache, weakness, numbness, paresthesias, confusion ED Past Medical Hx - Past Medical History Previous Medical History?: Yes Hx Hypertension: Yes Hx Congestive Heart Failure: No Hx Diabetes: No Hx Deep Vein Thrombosis: Yes Hx Renal Disease: Yes (on hemodialysis, MWF) Hx Arthritis: Yes Hx Seizures: Yes Hx Asthma: Yes Hx COPD: Yes Hx HIV: Yes - Surgical History Past Surgical History?: Yes Hx Coronary Stent: Yes Additional Surgical History: vascath. AV shunt LUE. IVC filter - Social History Smoking Status: Current Every Day Smoker Substance Use Type: None - Medications Home Medications: Home Medications Medication Instructions Recorded Confirmed Last Taken Type AtorvaSTATin [Lipitor] 20 mg PO HS 12/11/19 06/22/21 06/19/21 22:35 History amLODIPine 10 mg PO DAILY 12/11/19 06/22/21 06/19/21 History ALBUTEROL NEB's [Proventil 0.083% 2.5 mg INHALATION Q6HR PRN 05/15/20 06/21/21 Unknown History NEBS] Clopidogrel [Plavix] 75 mg PO QDAY 05/15/20 06/21/21 04/14/21 08:45 History Apixaban [Eliquis] 2.5 mg PO Q12HR #60 tablet 10/05/20 06/22/21 06/19/21 21:00 Rx Aspirin EC [Halfprin EC] 81 mg PO QDAY 04/16/21 06/22/21 06/21/21 09:00 History Dolutegravir/Rilpivirine [Juluca 1 each PO QDAY 04/16/21 06/22/21 06/19/21 05:00 History 50-25 mg Tablet] Montelukast [Singulair] 10 mg PO QPM 04/16/21 06/22/21 06/19/21 20:40 History traZODone [Desyrel] 50 - 100 mg PO QHS 04/16/21 06/22/21 06/20/21 21:00 History cloNIDine [Catapres] 0.1 mg PO BID tablet 04/17/21 06/22/21 06/20/21 21:00 Rx Metoprolol [Lopressor TAB] 50 mg PO BID #60 tablet 06/23/21 Unknown Rx Albuterol Mdi (or & Nicu Only) 2 puff IH QID PRN #8.5 gram 08/12/21 Unknown Rx [ProAir HFA Inhaler] Ipratropium (Nf) [Atrovent HFA 2 puff IH Q6HR PRN #1 inha 08/12/21 Unknown Rx 17MCG/PUFF] ED Physical Exam - General Limitations: No Limitations General appearance: alert, in distress - Head Head exam: Present: atraumatic, normocephalic, normal inspection - Eye Eye exam: Present: normal appearance - ENT ENT exam: Present: normal exam, normal orophraynx, mucous membranes moist - Neck Neck exam: Present: normal inspection, full ROM. Absent: tenderness, meningism us - Respiratory Respiratory exam: Present: respiratory distress, wheezes, rales, rhonchi, decreased breath sounds, prolonged expiratory. Absent: accessory muscle use - Cardiovascular Cardiovascular Exam: Present: regular rate, normal rhythm, normal heart sounds - GI/Abdominal GI/Abdominal exam: Present: soft, normal bowel sounds. Absent: distended, tenderness, guarding, rebound, rigid, organomegaly, mass, bruit, pulsatile mass, hernia - Extremities Exam Extremities exam: Present: normal inspection, full ROM, normal capillary refill - Back Exam Back exam: Present: normal inspection, full ROM. Absent: CVA tenderness (R), CVA tenderness (L) - Neurological Exam Neurological exam: Present: alert, oriented X3, CN II-XII intact - Psychiatric Psychiatric exam: Present: normal mood - Skin Skin exam: Present: warm, intact, normal color ED Course Vital Signs 11/14/21 11/14/21 00:28 01:11 Temperature 98.1 F Pulse Rate 103 H 68 Respiratory 18 Rate Blood Pressure 201/101 Blood Pressure 220/106 [Right] O2 Sat by Pulse 94 Oximetry ED Medical Decision Making - Lab Data Result diagrams: 11/14/21 01:09 11/14/21 01:09 - EKG Data -: EKG Interpreted by [facility] EKG shows normal: sinus rhythm Rate: normal - EKG Data Interpretation: no acute changes - Radiology Data Radiology results: report reviewed - Medical Decision Making Patient is 61 years old male with history of end-stage renal disease on hemodialysis, Thursday and Thursday patient did not go to dialysis today because he did not feel well. Patient also had history of COPD and asthma. Patient presented with shortness of breath for the last few days getting worse. Patient denied any fever or chills. No nausea or vomiting. Patient also denies any chest pain. Patient found to have a blood pressure of 220/106 his initial oxygen saturation was 93% on room air improved to 96% on 2 L. Patient received hydralazine 20 mg IV with improvement of his blood pressure to 190/89. Labs reviewed and is unremarkable except for chronic elevation of creatinine and BUN. Potassium is 4.9. Chest x-ray showed worsening pulmonary congestion. Patient with obvious volume overload. I discussed the patient with Dr. Simms, patient customer care coordinator and he advised to admit the patient to the ospital for dialysis. I discussed the patient with Dr. Mendoza, he agreed to admit the patient to medical service for further management. Critical Care Time: Yes Critical care time in (mins) excluding proc time.: 35 Critical care attestation.: If time is entered above; I have spent that time in minutes in the direct care of this critically ill patient, excluding procedure time. ED Disposition Clinical Impression: End-stage renal disease needing dialysis, Volume overload Disposition: ADMITTED INPATIENT Is pt being admited?: Yes Condition: Stable
[2021-11-14 01:40] LABS: Hematocrit 34.5 % (35.5-45.6); Hemoglobin 11.3 gm/dl (11.8-15.2); Mean Corpuscular HGB Conc 33 % (32-34); Mean Corpuscular Volume 87 fl (84-94); Platelet Count 136 K/mm3 (140-440); Red Blood Count 3.97 M/mm3 (3.65-5.03); Red Cell Distribution Width 15.6 % (13.2-15.2)
[2021-11-14 01:44] LABS: Calcium 10.1 mg/dL (8.4-10.2)
--- NOTE | 2021-11-14 01:48 | XRay Report ---
CHEST 1 VIEW INDICATION / CLINICAL INFORMATION: Dyspnea. COMPARISON: Chest x-ray 08/12/2021 FINDINGS: SUPPORT DEVICES: None. HEART / MEDIASTINUM: Mild cardiomegaly is stable. LUNGS / PLEURA: Interval increase in central vascular markings as well as interval increase in linear interstitial markings in the perihilar distribution. In part this could be accentuated by difference in technique. BONES: No significant osseous abnormality. ADDITIONAL FINDINGS: No significant additional findings. IMPRESSION: 1. Interval worsening of vascular congestion and interstitial pulmonary edema not excluded. Signer Name: Mayur Rogers II, MD Signed: 11/14/2021 1:44 AM Workstation Name: [id number]
[2021-11-14 01:49] LABS: INR 1.02 (0.87-1.13)
[2021-11-14 01:50] LABS: Partial Thromboplastin Time 27.2 Sec. (24.2-36.6)
[2021-11-14 01:51] LABS: Alanine Aminotransferase 10 units/L (7-56); Albumin 4.2 g/dL (3.9-5)
[2021-11-14 02:00] LABS: Bilirubin,Direct < 0.2 mg/dL (0-0.2)
[2021-11-14 03:49] LABS: Chol/HDL Ratio 3.22 %; HDL Cholesterol 49 mg/dL (40-59); LDL Cholesterol,Direct 98 mg/dL (50-130)
[2021-11-14] MEDS ORDERED: ACETAMINOPHEN 325 MG TAB PO PRN (03:55)
[2021-11-14] MEDS ORDERED: ALBUTEROL 2.5 MG/3 ML NEBU IH PRN (03:55)
[2021-11-14] MEDS ORDERED: ONDANSETRON 4 MG/2 ML INJ IV PRN (03:55)
[2021-11-14] MEDS ORDERED: MORPHINE 2 MG/1 ML INJ IV PRN (03:55)
[2021-11-14] MEDS ORDERED: MORPHINE 4 MG/1 ML INJ IV PRN (03:55)
--- NOTE | 2021-11-14 04:02 | History and Physical Report ---
History of Present Illness Date of examination: 11/14/21 Date of admission: 11/14/21 Chief complaint: Dyspnea Respiratory distress Missed hemodialysis History of present illness: 61 years old male with history of COPD asthma and end-stage renal disease on hemodialysis was brought to the emergency room because of shortness of breath and patient did not go to dialysis today because he did not feel well. Patient presented with shortness of breath for the last few days getting worse. Patient denied any fever or chills. No nausea or vomiting. Patient also denies any chest pain. Patient found to have a blood pressure of 220/106 his initial oxygen saturation was 93% on room air improved to 96% on 2 L. Patient received hydralazine 20 mg IV with improvement of his blood pressure to 190/89. In the emergency room patient is found to have BUN of 44 and creatinine 11.2 and troponin 0.587. She will going to admit the patient Case discussed with the on- call case packer who will hemodialyzed the patient in the morning. Past History Past Medical History: arthritis, COPD, DVT, ESRD, HIV/AIDS, renal failure, other (Asthma) Past Surgical History: Other (vascath. AV shunt LUE. 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 trimethoprim [From Bactrim] Allergy Jagdish 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 Home Medications Medication Instructions Recorded Confirmed Last Taken Type AtorvaSTATin [Lipitor] 20 mg PO HS 12/11/19 06/22/21 06/19/21 22:35 History amLODIPine 10 mg PO DAILY 12/11/19 06/22/21 06/19/21 History ALBUTEROL NEB's [Proventil 0.083% 2.5 mg INHALATION Q6HR PRN 05/15/20 06/21/21 Unknown History NEBS] Clopidogrel [Plavix] 75 mg PO QDAY 05/15/20 06/21/21 04/14/21 08:45 History Apixaban [Eliquis] 2.5 mg PO Q12HR #60 tablet 10/05/20 06/22/21 06/19/21 21:00 Rx Aspirin EC [Halfprin EC] 81 mg PO QDAY 04/16/21 06/22/21 06/21/21 09:00 History Dolutegravir/Rilpivirine [Juluca 1 each PO QDAY 04/16/21 06/22/21 06/19/21 05:00 History 50-25 mg Tablet] Montelukast [Singulair] 10 mg PO QPM 04/16/21 06/22/21 06/19/21 20:40 History traZODone [Desyrel] 50 - 100 mg PO QHS 04/16/21 06/22/21 06/20/21 21:00 History cloNIDine [Catapres] 0.1 mg PO BID tablet 04/17/21 06/22/21 06/20/21 21:00 Rx Metoprolol [Lopressor TAB] 50 mg PO BID #60 tablet 06/23/21 Unknown Rx Albuterol Mdi (or & Nicu Only) 2 puff IH QID PRN #8.5 gram 08/12/21 Unknown Rx [ProAir HFA Inhaler] Ipratropium (Nf) [Atrovent HFA 2 puff IH Q6HR PRN #1 inha 08/12/21 Unknown Rx 17MCG/PUFF] Review of Systems All systems: negative Cardiovascular: shortness of breath, dyspnea on exertion Respiratory: shortness of breath, dyspnea on exertion Exam - Constitutional Vitals: Temp Pulse Resp BP Pulse Ox 98.1 F 68 18 201/101 94 11/14/21 00:28 11/14/21 01:11 11/14/21 00:28 11/14/21 01:11 11/14/21 00:28 General appearance: Present: no acute distress, well-nourished - EENT Eyes: Present: PERRL ENT: hearing intact, clear oral mucosa - Neck Neck: Present: supple, normal ROM - Respiratory Respiratory effort: normal Respiratory: bilateral: diminished - Cardiovascular Heart Sounds: Present: S1 & S2. Absent: rub, click - Extremities Extremities: pulses symmetrical, No edema Peripheral Pulses: within normal limits - Abdominal General gastrointestinal: Present: soft, non-tender, non-distended, normal bowel sounds Male genitourinary: Present: normal - Integumentary Integumentary: Present: clear, warm, dry - Musculoskeletal Musculoskeletal: gait normal, strength equal bilaterally - Psychiatric Psychiatric: appropriate mood/affect, intact judgment & insight - Neurologic Neurologic: CNII-XII intact, moves all extremities HEART Score - HEART Score Troponin: Troponin T 0.587 ng/mL (0.00-0.029) H* 11/14/21 01:09 Results - Labs CBC & Chem 7: 11/14/21 01:09 11/14/21 01:09 Labs: Laboratory Last Values WBC 7.3 K/mm3 (4.5-11.0) 11/14/21 01:09 RBC 3.97 M/mm3 (3.65-5.03) 11/14/21 01:09 Hgb 11.3 gm/dl (11.8-15.2) L 11/14/21 01:09 Hct 34.5 % (35.5-45.6) L 11/14/21 01:09 MCV 87 fl (84-94) 11/14/21 01:09 MCH 28 pg (28-32) 11/14/21 01:09 MCHC 33 % (32-34) 11/14/21 01:09 RDW 15.6 % (13.2-15.2) H 11/14/21 01:09 Plt Count 136 K/mm3 (140-440) L 11/14/21 01:09 Eos % (Auto) Theater Company Producer 11/14/21 01:09 PT 14.5 Sec. (12.2-14.9) 11/14/21 01:09 INR 1.02 (0.87-1.13) 11/14/21 01:09 APTT 27.2 Sec. (24.2-36.6) 11/14/21 01:09 Sodium 143 mmol/L (137-145) 11/14/21 01:09 Potassium 4.9 mmol/L (3.6-5.0) 11/14/21 01:09 Chloride 94.9 mmol/L (98-107) L 11/14/21 01:09 Carbon Dioxide 32 mmol/L (22-30) H 11/14/21 01:09 Anion Gap 21 mmol/L 11/14/21 01:09 BUN 44 mg/dL (9-20) H 11/14/21 01:09 Creatinine 11.2 mg/dL (0.8-1.3) H 11/14/21 01:09 Estimated GFR 6 ml/min 11/14/21 01:09 BUN/Creatinine Ratio 4 % 11/14/21 01:09 Glucose 94 mg/dL (75-100) 11/14/21 01:09 Calcium 10.1 mg/dL (8.4-10.2) 11/14/21 01:09 Total Bilirubin 0.40 mg/dL (0.1-1.2) 11/14/21 01:09 Direct Bilirubin < 0.2 mg/dL (0-0.2) 11/14/21 01:09 Indirect Bilirubin 0.2 mg/dL 11/14/21 01:09 AST 17 units/L (5-40) 11/14/21 01:09 ALT 10 units/L (7-56) 11/14/21 01:09 Alkaline Phosphatase 109 units/L (35-129) 11/14/21 01:09 Troponin T 0.587 ng/mL (0.00-0.029) H* 11/14/21 01:09 NT-Pro-B Natriuret Pep Cancelled 11/14/21 01:09 Total Protein 7.7 g/dL (6.3-8.2) 11/14/21 01:09 Albumin 4.2 g/dL (3.9-5) 11/14/21 01:09 Albumin/Globulin Ratio 1.2 % 11/14/21 01:09 Triglycerides 78 mg/dL (2-149) 11/14/21 01:09 Cholesterol 158 mg/dL (50-199) 11/14/21 01:09 LDL Cholesterol Direct 98 mg/dL (50-130) 11/14/21 01:09 HDL Cholesterol 49 mg/dL (40-59) 11/14/21 01:09 Cholesterol/HDL Ratio 3.22 % 11/14/21 01:09 - Imaging and Cardiology Chest x-ray: report reviewed Assessment and Plan VTE prophylaxis?: Chemical Plan of care discussed with patient/family: Yes - Patient Problems (1) ESRD needing dialysis Current Visit: Yes Status: Chronic Plan to address problem: Admit the patient to the medical floor telemetry. Avoid fluid overload. Daily weight. Renally dose medication. Case discussed with on-call case packer who will dialyze the patient in the morning. Recheck BMP in the morning (2) Fluid overload Current Visit: Yes Status: Acute Plan to address problem: Avoid fluid overload. Daily weight. Renally dose medication. Case discussed with on-call case packer who will dialyze the patient in the morning. Recheck BMP in the morning (3) Accelerated hypertension Current Visit: No Status: Acute Plan to address problem: Amlodipine 10 mg p.o. daily. Catapres 0.1 mg p.o. twice daily. We will continue the home medication (4) COPD exacerbation Current Visit: No Status: Acute Plan to address problem: Oxygen via nasal cannula 3 L/min. DuoNeb by nebulizer every 4 hours. Albuterol via nebulizer every 4 hours as needed (5) Elevated troponin Current Visit: No Status: Acute Plan to address problem: Aspirin 81 mg p.o. daily. Lipitor and Plavix 75 mg p.o. daily. Lipitor 40 mg p.o. daily. We will do the serial cardiac enzyme. Elevated troponin most likely secondary to's end-stage renal disease. Consult cardiology if needed (6) DVT prophylaxis Current Visit: No Status: Acute Plan to address problem: Eliquis 2.5 mg p.o. every 12 hours. Pepcid 20 mg p.o. twice daily for GI prophylaxis. Patient is a full code
[2021-11-14 04:37] LABS: Anisocytosis Few; Platelet Estimate Consistent w Auto; Total Cells Counted 100
[2021-11-14] MEDS ORDERED: hydrALAZINE 20 MG/1 ML INJ IV PRN (05:55)
--- NOTE | 2021-11-14 07:51 | Progress Note ---
Assessment and Plan Assessment and plan: -- ESRD needing dialysis Nephrology evaluated the patient Hemodialysis per schedule Counseling done strongly advised to comply with medications; diet Follow-up visits especially hemodialysis per schedule Patient verbalized understanding -- Fluid overload Nephrology evaluated the patient, scheduled for hemodialysis today HD per schedule --Accelerated hypertension Amlodipine 10 mg p.o. daily. Catapres 0.1 mg p.o. twice daily. Continue current antihypertensives and as needed medications Closely monitor blood pressures --Acute exacerbation of COPD . Oxygen titrate O2 sats to more than 90% Nebulizers, IV steroids if needed Supportive care, home O2 evaluation at discharge --Elevated troponin Chronic nonspecific elevation of troponins Patient denies chest pain, mild shortness of breath due to fluid overload due to ESRD Patient was extensively evaluated in the past by ict help desk technician Patient had negative stress test in 2019 Already on Plavix and Eliquis [for blood clots] Medical management, if no improvement consult cardiology Patient may follow-up with cardiology upon discharge --DVT prophylaxis Patient is on Eliquis 2.5 mg p.o. every 12 hours. Continue Pepcid 20 mg p.o. twice daily for GI prophylaxis. --full CODE STATUS We will closely monitor the patient and adjust management as needed Plan of care reviewed with the patient and his nurse Follow consults evaluation and recommendation Disposition; discharge when medically stable History Interval history: I have seen and examined the patient at the bedside Patient's chart and medications reviewed Patient is admitted with fluid overload for hemodialysis Patient is evaluated by nephrology Scheduled for hemodialysis today Patient complains of mild shortness of breath denies chest pain Vital signs noted Hospitalist Physical - Constitutional Vitals: Temp Pulse Resp BP Pulse Ox 99.2 F 105 H 16 186/93 100 11/14/21 05:50 11/14/21 05:53 11/14/21 05:50 11/14/21 05:50 11/14/21 07:12 General appearance: Present: no acute distress, well-nourished - EENT Eyes: Present: PERRL, EOM intact - Neck Neck: Present: supple, normal ROM - Respiratory Respiratory effort: normal Respiratory: bilateral: diminished, rales, negative: rhonchi, wheezing - Cardiovascular Rhythm: regular Heart Sounds: Present: S1 & S2 - Extremities Extremities: no ischemia, No edema - Abdominal General gastrointestinal: soft, non-tender, non-distended, normal bowel sounds - Integumentary Integumentary: Present: clear, warm - Psychiatric Psychiatric: appropriate mood/affect, cooperative - Neurologic Neurologic: CNII-XII intact, moves all extremities HEART Score - HEART Score Troponin: Troponin T 0.587 ng/mL (0.00-0.029) H* 11/14/21 01:09 Results - Labs CBC & Chem 7: 11/14/21 01:09 11/14/21 01:09 Labs: Laboratory Last Values WBC 7.3 K/mm3 (4.5-11.0) 11/14/21 01:09 RBC 3.97 M/mm3 (3.65-5.03) 11/14/21 01:09 Hgb 11.3 gm/dl (11.8-15.2) L 11/14/21 01:09 Hct 34.5 % (35.5-45.6) L 11/14/21 01:09 MCV 87 fl (84-94) 11/14/21 01:09 MCH 28 pg (28-32) 11/14/21 01:09 MCHC 33 % (32-34) 11/14/21 01:09 RDW 15.6 % (13.2-15.2) H 11/14/21 01:09 Plt Count 136 K/mm3 (140-440) L 11/14/21 01:09 Eos % (Auto) Service Delivery Analyst 11/14/21 01:09 Add Manual Diff Complete 11/14/21 01:09 Total Counted 100 11/14/21 01:09 Seg Neuts % (Manual) 79.0 % (40.0-70.0) H 11/14/21 01:09 Band Neutrophils % 0 % 11/14/21 01:09 Lymphocytes % (Manual) 7.0 % (13.4-35.0) L 11/14/21 01:09 Reactive Lymphs % (Man) 0 % 11/14/21 01:09 Monocytes % (Manual) 6.0 % (0.0-7.3) 11/14/21 01:09 Eosinophils % (Manual) 6.0 % (0.0-4.3) H 11/14/21 01:09 Basophils % (Manual) 2.0 % (0.0-1.8) H 11/14/21 01:09 Metamyelocytes % 0 % 11/14/21 01:09 Myelocytes % 0 % 11/14/21 01:09 Promyelocytes % 0 % 11/14/21 01:09 Blast Cells % 0 % 11/14/21 01:09 Nucleated RBC % Not Reportable 11/14/21 01:09 Seg Neutrophils # Man 5.8 K/mm3 (1.8-7.7) 11/14/21 01:09 Band Neutrophils # 0.0 K/mm3 11/14/21 01:09 Lymphocytes # (Manual) 0.5 K/mm3 (1.2-5.4) L 11/14/21 01:09 Abs React Lymphs (Man) 0.0 K/mm3 11/14/21 01:09 Monocytes # (Manual) 0.4 K/mm3 (0.0-0.8) 11/14/21 01:09 Eosinophils # (Manual) 0.4 K/mm3 (0.0-0.4) 11/14/21 01:09 Basophils # (Manual) 0.1 K/mm3 (0.0-0.1) 11/14/21 01:09 Metamyelocytes # 0.0 K/mm3 11/14/21 01:09 Myelocytes # 0.0 K/mm3 11/14/21 01:09 Promyelocytes # 0.0 K/mm3 11/14/21 01:09 Blast Cells # 0.0 K/mm3 11/14/21 01:09 WBC Morphology Not Reportable 11/14/21 01:09 Hypersegmented Neuts Not Reportable 11/14/21 01:09 Hyposegmented Neuts Not Reportable 11/14/21 01:09 Hypogranular Neuts Not Reportable 11/14/21 01:09 Smudge Cells Not Reportable 11/14/21 01:09 Toxic Granulation Not Reportable 11/14/21 01:09 Toxic Vacuolation Not Reportable 11/14/21 01:09 Dohle Bodies Not Reportable 11/14/21 01:09 Pelger-Huet Anomaly Not Reportable 11/14/21 01:09 Stephen Rods Not Reportable 11/14/21 01:09 Platelet Estimate Consistent w auto 11/14/21 01:09 Clumped Platelets Not Reportable 11/14/21 01:09 Plt Clumps, EDTA Not Reportable 11/14/21 01:09 Large Platelets Not Reportable 11/14/21 01:09 Giant Platelets Not Reportable 11/14/21 01:09 Platelet Satelliting Not Reportable 11/14/21 01:09 Plt Morphology Comment Not Reportable 11/14/21 01:09 RBC Morphology Not Reportable 11/14/21 01:09 Dimorphic RBCs Not Reportable 11/14/21 01:09 Polychromasia Not Reportable 11/14/21 01:09 Hypochromasia Not Reportable 11/14/21 01:09 Poikilocytosis Not Reportable 11/14/21 01:09 Anisocytosis Few 11/14/21 01:09 Microcytosis Not Reportable 11/14/21 01:09 Macrocytosis Not Reportable 11/14/21 01:09 Spherocytes Not Reportable 11/14/21 01:09 Pappenheimer Bodies Not Reportable 11/14/21 01:09 Sickle Cells Not Reportable 11/14/21 01:09 Target Cells Not Reportable 11/14/21 01:09 Tear Drop Cells Not Reportable 11/14/21 01:09 Ovalocytes Not Reportable 11/14/21 01:09 Helmet Cells Not Reportable 11/14/21 01:09 [place] Bodies Not Reportable 11/14/21 01:09 [place] Rings Not Reportable 11/14/21 01:09 Cornelius Cells Not Reportable 11/14/21 01:09 Bite Cells Not Reportable 11/14/21 01:09 Crenated Cell Not Reportable 11/14/21 01:09 Elliptocytes Not Reportable 11/14/21 01:09 Acanthocytes (Spur) Not Reportable 11/14/21 01:09 Rouleaux Not Reportable 11/14/21 01:09 Hemoglobin C Crystals Not Reportable 11/14/21 01:09 Schistocytes Not Reportable 11/14/21 01:09 Malaria parasites Not Reportable 11/14/21 01:09 Erick Bodies Not Reportable 11/14/21 01:09 Hem Pathologist Commnt No 11/14/21 01:09 PT 14.5 Sec. (12.2-14.9) 11/14/21 01:09 INR 1.02 (0.87-1.13) 11/14/21 01:09 APTT 27.2 Sec. (24.2-36.6) 11/14/21 01:09 Sodium 143 mmol/L (137-145) 11/14/21 01:09 Potassium 4.9 mmol/L (3.6-5.0) 11/14/21 01:09 Chloride 94.9 mmol/L (98-107) L 11/14/21 01:09 Carbon Dioxide 32 mmol/L (22-30) H 11/14/21 01:09 Anion Gap 21 mmol/L 11/14/21 01:09 BUN 44 mg/dL (9-20) H 11/14/21 01:09 Creatinine 11.2 mg/dL (0.8-1.3) H 11/14/21 01:09 Estimated GFR 6 ml/min 11/14/21 01:09 BUN/Creatinine Ratio 4 % 11/14/21 01:09 Glucose 94 mg/dL (75-100) 11/14/21 01:09 Calcium 10.1 mg/dL (8.4-10.2) 11/14/21 01:09 Total Bilirubin 0.40 mg/dL (0.1-1.2) 11/14/21 01:09 Direct Bilirubin < 0.2 mg/dL (0-0.2) 11/14/21 01:09 Indirect Bilirubin 0.2 mg/dL 11/14/21 01:09 AST 17 units/L (5-40) 11/14/21 01:09 ALT 10 units/L (7-56) 11/14/21 01:09 Alkaline Phosphatase 109 units/L (35-129) 11/14/21 01:09 Troponin T 0.587 ng/mL (0.00-0.029) H* 11/14/21 01:09 NT-Pro-B Natriuret Pep Cancelled 11/14/21 01:09 Total Protein 7.7 g/dL (6.3-8.2) 11/14/21 01:09 Albumin 4.2 g/dL (3.9-5) 11/14/21 01:09 Albumin/Globulin Ratio 1.2 % 11/14/21 01:09 Triglycerides 78 mg/dL (2-149) 11/14/21 01:09 Cholesterol 158 mg/dL (50-199) 11/14/21 01:09 LDL Cholesterol Direct 98 mg/dL (50-130) 11/14/21 01:09 HDL Cholesterol 49 mg/dL (40-59) 11/14/21 01:09 Cholesterol/HDL Ratio 3.22 % 11/14/21 01:09 Williamson/IV: Voiding Method Urinal Active Medications - Current Medications Current Medications: Generic Name Dose Route Start Last Admin Trade Name Freq PRN Reason Stop Dose Admin Acetaminophen 650 mg 11/14/21 03:55 11/14/21 06:02 Acetaminophen 325 Mg Tab PO 650 mg Q4H PRN Administration Pain MILD(1-3)/Fever >100.5/GARCIA Albuterol 2.5 mg 11/14/21 03:55 Albuterol 2.5 Mg/3 Ml Nebu IH Q3HRT PRN Shortness Of Breath Albuterol/Ipratropium 1 ampul 11/14/21 08:00 Ipratropium/Albuterol Sulfate 3 Ml Ampul.Neb IH Q6HRT [facility] Amlodipine Besylate 10 mg 11/14/21 10:00 Amlodipine 10 Mg Tab PO DAILY [facility] Apixaban 2.5 mg 11/14/21 10:00 Apixaban 2.5 Mg Tab PO Q12HR [facility] Protocol Atorvastatin Calcium 20 mg 11/14/21 22:00 Atorvastatin 20 Mg Tab PO HS [facility] Clonidine HCl 0.1 mg 11/14/21 10:00 Clonidine 0.1 Mg Tab PO BID [facility] Clopidogrel Bisulfate 75 mg 11/14/21 10:00 Clopidogrel 75 Mg Tab PO QDAY [facility] Famotidine 20 mg 11/14/21 10:00 Famotidine 20 Mg Tab PO QAM [facility] Hydralazine HCl 10 mg 11/14/21 05:55 Hydralazine 20 Mg/1 Ml Inj IV Q6H PRN sbp greater than 160 Metoprolol Tartrate 50 mg 11/14/21 08:00 Metoprolol Tartrate 50 Mg Tab PO BID@0800,1700 [facility] Miscellaneous Medication 1 each 11/14/21 10:00 Dolutegravir/Rilpivirine [Juluca 50-25 Mg Tablet] PO QDAY [facility] Montelukast Sodium 10 mg 11/14/21 18:00 Montelukast 10 Mg Tab PO QPM [facility] Morphine Sulfate 2 mg 11/14/21 03:55 Morphine 2 Mg/1 Ml Inj IV Q4H PRN Pain, Moderate (4-6) Morphine Sulfate 4 mg 11/14/21 03:55 Morphine 4 Mg/1 Ml Inj IV Q4H PRN Pain , Severe (7-10) Ondansetron HCl 4 mg 11/14/21 03:55 Ondansetron 4 Mg/2 Ml Inj IV Q8H PRN Nausea And Vomiting Sodium Chloride 10 ml 11/14/21 10:00 Sodium Chloride 0.9% 10 Ml Flush Syringe IV BID MIGUELANGEL Sodium Chloride 10 ml 11/14/21 03:55 Sodium Chloride 0.9% 10 Ml Flush Syringe IV PRN PRN LINE FLUSH
[2021-11-14] MEDS ORDERED: HEPARIN 10,000 UNITS/10 ML VIAL IV PRN (07:54)
[2021-11-14] MEDS ORDERED: SODIUM CHLORIDE 0.9% 100 ML IV PRN ×2 (07:54→16:41)
[2021-11-14] MEDS: IPRATROPIUM/ALBUTEROL SULFATE 3 ML AMPUL.NEB IH SCH ×3 (09:17→20:10)
[2021-11-14] MEDS: CLOPIDOGREL 75 MG TAB PO SCH (09:50)
[2021-11-14] MEDS: APIXABAN 2.5 MG TAB PO SCH ×2 (09:50→22:02)
[2021-11-14] MEDS: FAMOTIDINE 20 MG TAB PO SCH (09:50)
[2021-11-14] MEDS ORDERED: HEPARIN 5,000 UNIT/1 ML VIAL SUB-Q SCH (10:00)
[2021-11-14] MEDS ORDERED: ASPIRIN EC 81 MG TAB PO SCH (10:00)
[2021-11-14] MEDS ORDERED: APIXABAN 2.5 MG TAB PO SCH (10:00)
[2021-11-14] MEDS ORDERED: NON-FORMULARY EACH (Dolutegravir/Rilpivirine [Juluca 50-25 Mg Tablet] 1 EACH Tablet) PO SCH (10:00)
--- NOTE | 2021-11-14 10:16 | Electrocardiograph Report ---
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
[2021-11-14 11:29] LABS: Hepatitis C Virus Antibody Non-Reactive (NonReactive)
[2021-11-14 12:18] LABS: Hepatitis B Surface Antigen Non-Reactive (Negative)
[2021-11-14] MEDS: cloNIDine 0.1 MG TAB PO SCH ×2 (14:01→22:02)
[2021-11-14] MEDS: METOPROLOL TARTRATE 50 MG TAB PO SCH ×2 (14:01→17:05)
[2021-11-14] MEDS: amLODIPine 10 MG TAB PO SCH (14:01)
--- NOTE | 2021-11-14 16:35 | Consultation ---
History of Present Illness - Reason for Consult Consult date: 11/14/21 - History of Present Illness 61yr M with h/o HTN, ESRD on HD q mwf admitted c/o SOB & cxr consistent with Pulm Congestion. Pt only knows that his Clinic is at [facility] but does not know his Tobacco Feeder Catcher. Past History Past Medical History: arthritis, COPD, DVT, ESRD, HIV/AIDS, renal failure, other (Asthma) Past Surgical History: Other (vascath. AV shunt LUE. 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 trimethoprim [From Bactrim] Allergy Jagdish 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 Home Medications Medication Instructions Recorded Confirmed Last Taken Type AtorvaSTATin [Lipitor] 20 mg PO HS 12/11/19 11/14/21 06/19/21 22:35 History amLODIPine 10 mg PO DAILY 12/11/19 11/14/21 06/19/21 History ALBUTEROL NEB's [Proventil 0.083% 2.5 mg INHALATION Q6HR PRN 05/15/20 11/14/21 Unknown History NEBS] Clopidogrel [Plavix] 75 mg PO QDAY 05/15/20 11/14/21 04/14/21 08:45 History Apixaban [Eliquis] 2.5 mg PO Q12HR #60 tablet 10/05/20 11/14/21 06/19/21 21:00 Rx Aspirin EC [Halfprin EC] 81 mg PO QDAY 04/16/21 11/14/21 06/21/21 09:00 History Dolutegravir/Rilpivirine [Juluca 1 each PO QDAY 04/16/21 11/14/21 06/19/21 05:00 History 50-25 mg Tablet] Montelukast [Singulair] 10 mg PO QPM 04/16/21 11/14/21 06/19/21 20:40 History traZODone [Desyrel] 50 - 100 mg PO QHS 04/16/21 11/14/21 06/20/21 21:00 History cloNIDine [Catapres] 0.1 mg PO BID tablet 04/17/21 11/14/21 06/20/21 21:00 Rx Metoprolol [Lopressor TAB] 50 mg PO BID #60 tablet 06/23/21 11/14/21 Unknown Rx Albuterol Mdi (or & Nicu Only) 2 puff IH QID PRN #8.5 gram 08/12/21 11/14/21 Unknown Rx [ProAir HFA Inhaler] Ipratropium (Nf) [Atrovent HFA 2 puff IH Q6HR PRN #1 inha 08/12/21 11/14/21 Unknown Rx 17MCG/PUFF] Active Meds: Active Medications Acetaminophen (Acetaminophen 325 Mg Tab) 650 mg PO Q4H PRN PRN Reason: Pain MILD(1-3)/Fever >100.5/GARCIA Last Admin: 11/14/21 06:02 Dose: 650 mg Albuterol (Albuterol 2.5 Mg/3 Ml Nebu) 2.5 mg IH Q3HRT PRN PRN Reason: Shortness Of Breath Albuterol/Ipratropium (Ipratropium/Albuterol Sulfate 3 Ml Ampul.Neb) 1 ampul IH Q6HRT [facility] Last Admin: 11/14/21 15:13 Dose: Not Given Amlodipine Besylate (Amlodipine 10 Mg Tab) 10 mg PO DAILY [facility] Last Admin: 11/14/21 14:01 Dose: 10 mg Apixaban (Apixaban 2.5 Mg Tab) 2.5 mg PO Q12HR [facility]; Protocol Last Admin: 11/14/21 09:50 Dose: 2.5 mg Atorvastatin Calcium (Atorvastatin 20 Mg Tab) 20 mg PO HS [facility] Clonidine HCl (Clonidine 0.1 Mg Tab) 0.1 mg PO BID [facility] Last Admin: 11/14/21 14:01 Dose: 0.1 mg Clopidogrel Bisulfate (Clopidogrel 75 Mg Tab) 75 mg PO QDAY [facility] Last Admin: 11/14/21 09:50 Dose: 75 mg Famotidine (Famotidine 20 Mg Tab) 20 mg PO QAM [facility] Last Admin: 11/14/21 09:50 Dose: 20 mg Heparin Sodium (Porcine) (Heparin 10,000 Units/10 Ml Vial) 3,000 unit IV CECELIA PRN PRN Reason: hemodialysis Hydralazine HCl (Hydralazine 20 Mg/1 Ml Inj) 10 mg IV Q6H PRN PRN Reason: sbp greater than 160 Sodium Chloride (Nacl 0.9%) 100 mls @ 999 mls/hr IV CECELIA PRN PRN Reason: Hypotension Metoprolol Tartrate (Metoprolol Tartrate 50 Mg Tab) 50 mg PO BID@0800,1700 [facility] Last Admin: 11/14/21 14:01 Dose: 50 mg Miscellaneous Medication (Dolutegravir/Rilpivirine [Juluca 50-25 Mg Tablet]) 1 each PO QDAY [facility] Montelukast Sodium (Montelukast 10 Mg Tab) 10 mg PO QPM [facility] Morphine Sulfate (Morphine 2 Mg/1 Ml Inj) 2 mg IV Q4H PRN PRN Reason: Pain, Moderate (4-6) Morphine Sulfate (Morphine 4 Mg/1 Ml Inj) 4 mg IV Q4H PRN PRN Reason: Pain , Severe (7-10) Ondansetron HCl (Ondansetron 4 Mg/2 Ml Inj) 4 mg IV Q8H PRN PRN Reason: Nausea And Vomiting Sodium Chloride (Sodium Chloride 0.9% 10 Ml Flush Syringe) 10 ml IV BID [facility] Last Admin: 11/14/21 14:02 Dose: Not Given Sodium Chloride (Sodium Chloride 0.9% 10 Ml Flush Syringe) 10 ml IV PRN PRN PRN Reason: LINE FLUSH Review of Systems Constitutional: no fever, no chills Cardiovascular: no chest pain, no orthopnea, no palpitations Respiratory: shortness of breath, no cough, no hemoptysis Gastrointestinal: no abdominal pain, no nausea, no vomiting Exam - Vital Signs Vital signs: Vital Signs Temp Pulse Resp BP Pulse Ox 98.1 F 103 H 18 220/106 94 11/14/21 00:28 11/14/21 00:28 11/14/21 00:28 11/14/21 00:28 11/14/21 00:28 - General Appearance General appearance: other (Awake & alert, in mild Distress) EENT: PERRL, hearing intact Neck: Present: neck supple, Other (Vissible Jugular vein) Respiratory: Rales Heart: regular, S1S2 Gastrointestinal: Present: other (Soft) Neurologic: no focal deficit Results - Lab Results 11/14/21 01:09 11/14/21 01:09 Most recent lab results Calcium 10.1 mg/dL (8.4-10.2) 11/14/21 01:09 Assessment and Plan ESRD - S/p HD today on admission. Next HD in am Pulm Edema - Repeat UF on HD in am Uncontrolled HTN - Adjust meds for better control HyperCalcemia - Low Ca bath on HD Thanks, will f/u with you
[2021-11-14] MEDS: MONTELUKAST 10 MG TAB PO SCH (17:05)
[2021-11-15 05:35] LABS: Basophils # (Auto) 0.1 K/mm3 (0.0-0.1); Basophils % (Auto) 0.9 % (0.0-1.8); Eosinophils # (Auto) 0.1 K/mm3 (0.0-0.4); Eosinophils % (Auto) 0.8 % (0.0-4.3); Hematocrit 35.1 % (35.5-45.6); Hemoglobin 11.6 gm/dl (11.8-15.2); Lymphocytes # (Auto) 1.9 K/mm3 (1.2-5.4); Lymphocytes % (Auto) 25.5 % (13.4-35.0); Mean Corpuscular HGB Conc 33 % (32-34); Mean Corpuscular Volume 86 fl (84-94); Monocytes # (Auto) 0.6 K/mm3 (0.0-0.8); Monocytes % (Auto) 7.7 % (0.0-7.3); Platelet Count 169 K/mm3 (140-440); Red Blood Count 4.06 M/mm3 (3.65-5.03); Red Cell Distribution Width 15.6 % (13.2-15.2)
[2021-11-15 05:55] LABS: Calcium 9.9 mg/dL (8.4-10.2)
[2021-11-15] MEDS: IPRATROPIUM/ALBUTEROL SULFATE 3 ML AMPUL.NEB IH SCH ×3 (08:54→20:04)
[2021-11-15] MEDS: METOPROLOL TARTRATE 50 MG TAB PO SCH ×2 (09:18→17:42)
--- NOTE | 2021-11-15 12:01 | Progress Note ---
Assessment and Plan ESRD - Seen & stable on HD Pulm Edema - UF as tolerated HTN - F/u on meds HyperCalcemia - Low Ca bath on HD Subjective Date of service: 11/15/21 Interval history: Seen on HD. No complaint Objective - Vital Signs Vital signs: Vital Signs - 12hr 11/15/21 11/15/21 11/15/21 05:54 08:48 08:59 Temperature 98.6 F Pulse Rate 90 Pulse Rate [ 89 Anterior Bilateral Throughout] Respiratory 19 Rate Respiratory 22 Rate [Anterior Bilateral Throughout] Blood Pressure Blood Pressure 165/84 [Right] O2 Sat by Pulse 97 97 Oximetry O2 Sat by Pulse Oximetry [ Anterior Bilateral Throughout] 11/15/21 11/15/21 11/15/21 10:00 10:10 10:15 Temperature 98.3 F Pulse Rate 85 88 89 Pulse Rate [ Anterior Bilateral Throughout] Respiratory 18 Rate Respiratory Rate [Anterior Bilateral Throughout] Blood Pressure 165/77 164/81 179/87 Blood Pressure [Right] O2 Sat by Pulse Oximetry O2 Sat by Pulse 97 Oximetry [ Anterior Bilateral Throughout] 11/15/21 11/15/21 11/15/21 10:30 10:45 11:00 Temperature Pulse Rate 85 81 78 Pulse Rate [ Anterior Bilateral Throughout] Respiratory Rate Respiratory Rate [Anterior Bilateral Throughout] Blood Pressure 176/82 165/84 171/85 Blood Pressure [Right] O2 Sat by Pulse Oximetry O2 Sat by Pulse Oximetry [ Anterior Bilateral Throughout] 11/15/21 11/15/21 11:15 11:30 Temperature Pulse Rate 78 85 Pulse Rate [ Anterior Bilateral Throughout] Respiratory Rate Respiratory Rate [Anterior Bilateral Throughout] Blood Pressure 171/82 192/88 Blood Pressure [Right] O2 Sat by Pulse Oximetry O2 Sat by Pulse Oximetry [ Anterior Bilateral Throughout] - General Appearance General appearance: other (Not indistress) EENT: PERRL, hearing intact Neck: supple Respiratory: Present: Other (Good air entry) Cardiology: regular, S1S2 Gastrointestinal: normal Neurologic: no focal deficit - Lab 11/15/21 05:05 11/15/21 05:05 Most recent lab results Calcium 9.9 mg/dL (8.4-10.2) 11/15/21 05:05 Medications & Allergies - Medications Allergies/Adverse Reactions: Allergies azithromycin [From Zithromax] Allergy (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/21 08:51) Shortness of Breath Iodinated Contrast Media Allergy (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/21 08:51) Anaphylaxis levofloxacin Allergy (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/21 08:51) Swelling lisinopril Allergy (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/21 08:51) Angioedema and hives sevelamer [From Renvela] Allergy (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/21 08:51) Hives sulfamethoxazole [From Bactrim] Allergy (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/21 08:51) Jagdish Santiago's Syndrome trimethoprim [From Bactrim] Allergy (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/21 08:51) Jagdish Santiago's Syndrome Home Medications: Home Medications Medication Instructions Recorded Confirmed Last Taken Type AtorvaSTATin [Lipitor] 20 mg PO HS 12/11/19 11/14/21 06/19/21 22:35 History amLODIPine 10 mg PO DAILY 12/11/19 11/14/21 06/19/21 History ALBUTEROL NEB's [Proventil 0.083% 2.5 mg INHALATION Q6HR PRN 05/15/20 11/14/21 Unknown History NEBS] Clopidogrel [Plavix] 75 mg PO QDAY 05/15/20 11/14/21 04/14/21 08:45 History Apixaban [Eliquis] 2.5 mg PO Q12HR #60 tablet 10/05/20 11/14/21 06/19/21 21:00 Rx Aspirin EC [Halfprin EC] 81 mg PO QDAY 04/16/21 11/14/21 06/21/21 09:00 History Dolutegravir/Rilpivirine [Juluca 1 each PO QDAY 04/16/21 11/14/21 06/19/21 05:00 History 50-25 mg Tablet] Montelukast [Singulair] 10 mg PO QPM 04/16/21 11/14/21 06/19/21 20:40 History traZODone [Desyrel] 50 - 100 mg PO QHS 04/16/21 11/14/21 06/20/21 21:00 History cloNIDine [Catapres] 0.1 mg PO BID tablet 04/17/21 11/14/21 06/20/21 21:00 Rx Metoprolol [Lopressor TAB] 50 mg PO BID #60 tablet 06/23/21 11/14/21 Unknown Rx Albuterol Mdi (or & Nicu Only) 2 puff IH QID PRN #8.5 gram 08/12/21 11/14/21 Unknown Rx [ProAir HFA Inhaler] Ipratropium (Nf) [Atrovent HFA 2 puff IH Q6HR PRN #1 inha 08/12/21 11/14/21 Unknown Rx [id number]/PUFF] Active Medications: Generic Name Dose Route Start Last Admin Trade Name Freq PRN Reason Stop Dose Admin Acetaminophen 650 mg 11/14/21 03:55 11/14/21 06:02 Acetaminophen 325 Mg Tab PO 650 mg Q4H PRN Administration Pain MILD(1-3)/Fever >100.5/GARCIA Albuterol 2.5 mg 11/14/21 03:55 Albuterol 2.5 Mg/3 Ml Nebu IH Q3HRT PRN Shortness Of Breath Albuterol/Ipratropium 1 ampul 11/15/21 08:00 11/15/21 08:54 Ipratropium/Albuterol Sulfate 3 Ml Ampul.Neb IH 1 ampul TIDRT MIGUELANGEL Administration Amlodipine Besylate 10 mg 11/14/21 10:00 11/14/21 14:01 Amlodipine 10 Mg Tab PO 10 mg DAILY MIGUELANGEL Administration Apixaban 2.5 mg 11/14/21 10:00 11/14/21 22:02 Apixaban 2.5 Mg Tab PO 2.5 mg Q12HR MIGUELANGEL Administration Protocol Atorvastatin Calcium 20 mg 11/14/21 22:00 11/14/21 22:02 Atorvastatin 20 Mg Tab PO 20 mg HS MIGUELANGEL Administration Clonidine HCl 0.1 mg 11/14/21 10:00 11/14/21 22:02 Clonidine 0.1 Mg Tab PO 0.1 mg BID MIGUELANGEL Administration Clopidogrel Bisulfate 75 mg 11/14/21 10:00 11/14/21 09:50 Clopidogrel 75 Mg Tab PO 75 mg QDAY MIGUELANGEL Administration Famotidine 20 mg 11/14/21 10:00 11/14/21 09:50 Famotidine 20 Mg Tab PO 20 mg QAM MIGUELANGEL Administration Heparin Sodium (Porcine) 3,000 unit 11/14/21 07:54 Heparin 10,000 Units/10 Ml Vial IV CECELIA PRN hemodialysis Hydralazine HCl 10 mg 11/14/21 05:55 11/14/21 22:02 Hydralazine 20 Mg/1 Ml Inj IV 10 mg Q6H PRN Administration sbp greater than 160 Sodium Chloride 100 mls @ 999 mls/hr 11/14/21 07:54 Nacl 0.9% IV CECELIA PRN Hypotension Sodium Chloride 100 mls @ 999 mls/hr 11/14/21 16:41 Nacl 0.9% IV CECELIA PRN Hypotension Metoprolol Tartrate 50 mg 11/14/21 08:00 11/15/21 09:18 Metoprolol Tartrate 50 Mg Tab PO Not Given BID@0800,1700 [facility] Miscellaneous Medication 1 each 11/14/21 10:00 Dolutegravir/Rilpivirine [Juluca 50-25 Mg Tablet] PO QDAY [facility] Montelukast Sodium 10 mg 11/14/21 18:00 11/14/21 17:05 Montelukast 10 Mg Tab PO 10 mg QPM MIGUELANGEL Administration Morphine Sulfate 2 mg 11/14/21 03:55 Morphine 2 Mg/1 Ml Inj IV Q4H PRN Pain, Moderate (4-6) Morphine Sulfate 4 mg 11/14/21 03:55 Morphine 4 Mg/1 Ml Inj IV Q4H PRN Pain , Severe (7-10) Ondansetron HCl 4 mg 11/14/21 03:55 Ondansetron 4 Mg/2 Ml Inj IV Q8H PRN Nausea And Vomiting Sodium Chloride 10 ml 11/14/21 10:00 11/14/21 22:03 Sodium Chloride 0.9% 10 Ml Flush Syringe IV 10 ml BID MIGUELANGEL Administration Sodium Chloride 10 ml 11/14/21 03:55 Sodium Chloride 0.9% 10 Ml Flush Syringe IV PRN PRN LINE FLUSH
--- NOTE | 2021-11-15 12:12 | Progress Note ---
Assessment and Plan Assessment and plan: #End stage renal disease needing dialysis -outpatient HD MWF -HD today per normal schedule -Nephrology consulted, assistance appreciated -Counseling done strongly advised to comply with medications; diet -avoid nephrotoxins and will renally dose medications #Fluid overload -CXR shows pulmonary vascular congestion -management via ultrafiltration via HD -continue HD per Nephrology -plan for HD today #Accelerated hypertension -continue amlodipine, metoprolol and catapres, will adjust as necessary -goal SBP less than 160 #history COPD -acute exacerbation ruled out -continue nebulizers PRN -s/p solumedrol x1 in ED #Elevated troponin -chronic nonspecific elevation of troponins per chart review -patient denies chest pain, mild shortness of breath due to fluid overload due to ESRD -Patient was extensively evaluated in the past by supervisor fine grading -Patient had negative stress test in 2019 -continue Plavix -no intervention at this time #HIV infection -continue home ARV medications #DVT/GI prophylaxis -continue Eliquis 2.5 mg p.o. every 12 hours. -continue Pepcid 20 mg p.o. twice daily for GI prophylaxis. #Advanced care planning -Disease education conducted, care plan discussed, diagnoses discussed, prognosis discussed, and patient acknowledges understanding with care plan -Time: +30 min History Interval history: No acute events overnight. Patient does not want to be dialyzed again. He is no longer having shortness of breath. He denies chest pain and any other discomfort. Hospitalist Physical - Physical exam Narrative exam: GENERAL: Thin male, appearing older than stated age. In no acute distress. HEENT: Normocephalic. Atraumatic. NECK: Supple. CHEST/LUNGS: CTAB on room air HEART/CARDIOVASCULAR: RRR. No murmur, rubs or gallops appreciated. ABDOMEN: +BS. NT/ND. SKIN: No rashes noted. NEURO: No focal motor deficit. Follows all commands. MUSCULOSKELETAL: No joint effusion EXTREMITIES: LUE AVF. No cyanosis, clubbing or edema. PSYCH: Cooperative. - Constitutional Vitals: Temp Pulse Resp BP Pulse Ox 98.3 F 85 18 192/88 97 11/15/21 10:00 11/15/21 11:30 11/15/21 10:00 11/15/21 11:30 11/15/21 10:00 General appearance: Present: no acute distress, well-nourished HEART Score - HEART Score Troponin: WBC 7.6 K/mm3 (4.5-11.0) 11/15/21 05:05 RBC 4.06 M/mm3 (3.65-5.03) 11/15/21 05:05 Hgb 11.6 gm/dl (11.8-15.2) L 11/15/21 05:05 Hct 35.1 % (35.5-45.6) L 11/15/21 05:05 MCV 86 fl (84-94) 11/15/21 05:05 MCH 29 pg (28-32) 11/15/21 05:05 MCHC 33 % (32-34) 11/15/21 05:05 RDW 15.6 % (13.2-15.2) H 11/15/21 05:05 Plt Count 169 K/mm3 (140-440) 11/15/21 05:05 Lymph % (Auto) 25.5 % (13.4-35.0) 11/15/21 05:05 Esmeralda % (Auto) 7.7 % (0.0-7.3) H 11/15/21 05:05 Eos % (Auto) 0.8 % (0.0-4.3) 11/15/21 05:05 Baso % (Auto) 0.9 % (0.0-1.8) 11/15/21 05:05 Lymph # (Auto) 1.9 K/mm3 (1.2-5.4) 11/15/21 05:05 Esmeralda # (Auto) 0.6 K/mm3 (0.0-0.8) 11/15/21 05:05 Eos # (Auto) 0.1 K/mm3 (0.0-0.4) 11/15/21 05:05 Baso # (Auto) 0.1 K/mm3 (0.0-0.1) 11/15/21 05:05 Add Manual Diff Complete 11/14/21 01:09 Total Counted 100 11/14/21 01:09 Seg Neutrophils % 65.1 % (40.0-70.0) 11/15/21 05:05 Seg Neuts % (Manual) 79.0 % (40.0-70.0) H 11/14/21 01:09 Band Neutrophils % 0 % 11/14/21 01:09 Lymphocytes % (Manual) 7.0 % (13.4-35.0) L 11/14/21 01:09 Reactive Lymphs % (Man) 0 % 11/14/21 01:09 Monocytes % (Manual) 6.0 % (0.0-7.3) 11/14/21 01:09 Eosinophils % (Manual) 6.0 % (0.0-4.3) H 11/14/21 01:09 Basophils % (Manual) 2.0 % (0.0-1.8) H 11/14/21 01:09 Metamyelocytes % 0 % 11/14/21 01:09 Myelocytes % 0 % 11/14/21 01:09 Promyelocytes % 0 % 11/14/21 01:09 Blast Cells % 0 % 11/14/21 01:09 Nucleated RBC % Not Reportable 11/14/21 01:09 Seg Neutrophils # 5.0 K/mm3 (1.8-7.7) 11/15/21 05:05 Seg Neutrophils # Man 5.8 K/mm3 (1.8-7.7) 11/14/21 01:09 Band Neutrophils # 0.0 K/mm3 11/14/21 01:09 Lymphocytes # (Manual) 0.5 K/mm3 (1.2-5.4) L 11/14/21 01:09 Abs React Lymphs (Man) 0.0 K/mm3 11/14/21 01:09 Monocytes # (Manual) 0.4 K/mm3 (0.0-0.8) 11/14/21 01:09 Eosinophils # (Manual) 0.4 K/mm3 (0.0-0.4) 11/14/21 01:09 Basophils # (Manual) 0.1 K/mm3 (0.0-0.1) 11/14/21 01:09 Metamyelocytes # 0.0 K/mm3 11/14/21 01:09 Myelocytes # 0.0 K/mm3 11/14/21 01:09 Promyelocytes # 0.0 K/mm3 11/14/21 01:09 Blast Cells # 0.0 K/mm3 11/14/21 01:09 WBC Morphology Not Reportable 11/14/21 01:09 Hypersegmented Neuts Not Reportable 11/14/21 01:09 Hyposegmented Neuts Not Reportable 11/14/21 01:09 Hypogranular Neuts Not Reportable 11/14/21 01:09 Smudge Cells Not Reportable 11/14/21 01:09 Toxic Granulation Not Reportable 11/14/21 01:09 Toxic Vacuolation Not Reportable 11/14/21 01:09 Dohle Bodies Not Reportable 11/14/21 01:09 Pelger-Huet Anomaly Not Reportable 11/14/21 01:09 Stephen Rods Not Reportable 11/14/21 01:09 Platelet Estimate Consistent w auto 11/14/21 01:09 Clumped Platelets Not Reportable 11/14/21 01:09 Plt Clumps, EDTA Not Reportable 11/14/21 01:09 Large Platelets Not Reportable 11/14/21 01:09 Giant Platelets Not Reportable 11/14/21 01:09 Platelet Satelliting Not Reportable 11/14/21 01:09 Plt Morphology Comment Not Reportable 11/14/21 01:09 RBC Morphology Not Reportable 11/14/21 01:09 Dimorphic RBCs Not Reportable 11/14/21 01:09 Polychromasia Not Reportable 11/14/21 01:09 Hypochromasia Not Reportable 11/14/21 01:09 Poikilocytosis Not Reportable 11/14/21 01:09 Anisocytosis Few 11/14/21 01:09 Microcytosis Not Reportable 11/14/21 01:09 Macrocytosis Not Reportable 11/14/21 01:09 Spherocytes Not Reportable 11/14/21 01:09 Pappenheimer Bodies Not Reportable 11/14/21 01:09 Sickle Cells Not Reportable 11/14/21 01:09 Target Cells Not Reportable 11/14/21 01:09 Tear Drop Cells Not Reportable 11/14/21 01:09 Ovalocytes Not Reportable 11/14/21 01:09 Helmet Cells Not Reportable 11/14/21 01:09 [place] Bodies Not Reportable 11/14/21 01:09 [place] Rings Not Reportable 11/14/21 01:09 [place] Cells Not Reportable 11/14/21 01:09 Bite Cells Not Reportable 11/14/21 01:09 Crenated Cell Not Reportable 11/14/21 01:09 Elliptocytes Not Reportable 11/14/21 01:09 Acanthocytes (Spur) Not Reportable 11/14/21 01:09 Rouleaux Not Reportable 11/14/21 01:09 Hemoglobin C Crystals Not Reportable 11/14/21 01:09 Schistocytes Not Reportable 11/14/21 01:09 Malaria parasites Not Reportable 11/14/21 01:09 Erick Bodies Not Reportable 11/14/21 01:09 Hem Pathologist Commnt No 11/14/21 01:09 PT 14.5 Sec. (12.2-14.9) 11/14/21 01:09 INR 1.02 (0.87-1.13) 11/14/21 01:09 APTT 27.2 Sec. (24.2-36.6) 11/14/21 01:09 Sodium 137 mmol/L (137-145) 11/15/21 05:05 Potassium 4.8 mmol/L (3.6-5.0) 11/15/21 05:05 Chloride 92.0 mmol/L (98-107) L 11/15/21 05:05 Carbon Dioxide 29 mmol/L (22-30) 11/15/21 05:05 Anion Gap 21 mmol/L 11/15/21 05:05 BUN 58 mg/dL (9-20) H 11/15/21 05:05 Creatinine 12.8 mg/dL (0.8-1.3) H 11/15/21 05:05 Estimated GFR 5 ml/min 11/15/21 05:05 BUN/Creatinine Ratio 5 % 11/15/21 05:05 Glucose 108 mg/dL (75-100) H 11/15/21 05:05 Calcium 9.9 mg/dL (8.4-10.2) 11/15/21 05:05 Total Bilirubin 0.40 mg/dL (0.1-1.2) 11/14/21 01:09 Direct Bilirubin < 0.2 mg/dL (0-0.2) 11/14/21 01:09 Indirect Bilirubin 0.2 mg/dL 11/14/21 01:09 AST 17 units/L (5-40) 11/14/21 01:09 ALT 10 units/L (7-56) 11/14/21 01:09 Alkaline Phosphatase 109 units/L (35-129) 11/14/21 01:09 Troponin T 0.587 ng/mL (0.00-0.029) H* 11/14/21 01:09 NT-Pro-B Natriuret Pep Cancelled 11/14/21 01:09 Total Protein 7.7 g/dL (6.3-8.2) 11/14/21 01:09 Albumin 4.2 g/dL (3.9-5) 11/14/21 01:09 Albumin/Globulin Ratio 1.2 % 11/14/21 01:09 Triglycerides 78 mg/dL (2-149) 11/14/21 01:09 Cholesterol 158 mg/dL (50-199) 11/14/21 01:09 LDL Cholesterol Direct 98 mg/dL (50-130) 11/14/21 01:09 HDL Cholesterol 49 mg/dL (40-59) 11/14/21 01:09 Cholesterol/HDL Ratio 3.22 % 11/14/21 01:09 Hepatitis A IgM Ab Non-reactive (NonReactive) 11/14/21 10:53 Hep Bs Antigen Non-reactive (Negative) 11/14/21 10:53 Hep B Core IgM Ab Non-reactive (NonReactive) 11/14/21 10:53 Hepatitis C Antibody Non-reactive (NonReactive) 11/14/21 10:53 Results - Labs CBC & Chem 7: 11/15/21 05:05 11/15/21 05:05 Labs: Laboratory Last Values WBC 7.6 K/mm3 (4.5-11.0) 11/15/21 05:05 RBC 4.06 M/mm3 (3.65-5.03) 11/15/21 05:05 Hgb 11.6 gm/dl (11.8-15.2) L 11/15/21 05:05 Hct 35.1 % (35.5-45.6) L 11/15/21 05:05 MCV 86 fl (84-94) 11/15/21 05:05 MCH 29 pg (28-32) 11/15/21 05:05 MCHC 33 % (32-34) 11/15/21 05:05 RDW 15.6 % (13.2-15.2) H 11/15/21 05:05 Plt Count 169 K/mm3 (140-440) 11/15/21 05:05 Lymph % (Auto) 25.5 % (13.4-35.0) 11/15/21 05:05 Esmeralda % (Auto) 7.7 % (0.0-7.3) H 11/15/21 05:05 Eos % (Auto) 0.8 % (0.0-4.3) 11/15/21 05:05 Baso % (Auto) 0.9 % (0.0-1.8) 11/15/21 05:05 Lymph # (Auto) 1.9 K/mm3 (1.2-5.4) 11/15/21 05:05 Esmeralda # (Auto) 0.6 K/mm3 (0.0-0.8) 11/15/21 05:05 Eos # (Auto) 0.1 K/mm3 (0.0-0.4) 11/15/21 05:05 Baso # (Auto) 0.1 K/mm3 (0.0-0.1) 11/15/21 05:05 Add Manual Diff Complete 11/14/21 01:09 Total Counted 100 11/14/21 01:09 Seg Neutrophils % 65.1 % (40.0-70.0) 11/15/21 05:05 Seg Neuts % (Manual) 79.0 % (40.0-70.0) H 11/14/21 01:09 Band Neutrophils % 0 % 11/14/21 01:09 Lymphocytes % (Manual) 7.0 % (13.4-35.0) L 11/14/21 01:09 Reactive Lymphs % (Man) 0 % 11/14/21 01:09 Monocytes % (Manual) 6.0 % (0.0-7.3) 11/14/21 01:09 Eosinophils % (Manual) 6.0 % (0.0-4.3) H 11/14/21 01:09 Basophils % (Manual) 2.0 % (0.0-1.8) H 11/14/21 01:09 Metamyelocytes % 0 % 11/14/21 01:09 Myelocytes % 0 % 11/14/21 01:09 Promyelocytes % 0 % 11/14/21 01:09 Blast Cells % 0 % 11/14/21 01:09 Nucleated RBC % Not Reportable 11/14/21 01:09 Seg Neutrophils # 5.0 K/mm3 (1.8-7.7) 11/15/21 05:05 Seg Neutrophils # Man 5.8 K/mm3 (1.8-7.7) 11/14/21 01:09 Band Neutrophils # 0.0 K/mm3 11/14/21 01:09 Lymphocytes # (Manual) 0.5 K/mm3 (1.2-5.4) L 11/14/21 01:09 Abs React Lymphs (Man) 0.0 K/mm3 11/14/21 01:09 Monocytes # (Manual) 0.4 K/mm3 (0.0-0.8) 11/14/21 01:09 Eosinophils # (Manual) 0.4 K/mm3 (0.0-0.4) 11/14/21 01:09 Basophils # (Manual) 0.1 K/mm3 (0.0-0.1) 11/14/21 01:09 Metamyelocytes # 0.0 K/mm3 11/14/21 01:09 Myelocytes # 0.0 K/mm3 11/14/21 01:09 Promyelocytes # 0.0 K/mm3 11/14/21 01:09 Blast Cells # 0.0 K/mm3 11/14/21 01:09 WBC Morphology Not Reportable 11/14/21 01:09 Hypersegmented Neuts Not Reportable 11/14/21 01:09 Hyposegmented Neuts Not Reportable 11/14/21 01:09 Hypogranular Neuts Not Reportable 11/14/21 01:09 Smudge Cells Not Reportable 11/14/21 01:09 Toxic Granulation Not Reportable 11/14/21 01:09 Toxic Vacuolation Not Reportable 11/14/21 01:09 Dohle Bodies Not Reportable 11/14/21 01:09 Pelger-Huet Anomaly Not Reportable 11/14/21 01:09 Stephen Rods Not Reportable 11/14/21 01:09 Platelet Estimate Consistent w auto 11/14/21 01:09 Clumped Platelets Not Reportable 11/14/21 01:09 Plt Clumps, EDTA Not Reportable 11/14/21 01:09 Large Platelets Not Reportable 11/14/21 01:09 Giant Platelets Not Reportable 11/14/21 01:09 Platelet Satelliting Not Reportable 11/14/21 01:09 Plt Morphology Comment Not Reportable 11/14/21 01:09 RBC Morphology Not Reportable 11/14/21 01:09 Dimorphic RBCs Not Reportable 11/14/21 01:09 Polychromasia Not Reportable 11/14/21 01:09 Hypochromasia Not Reportable 11/14/21 01:09 Poikilocytosis Not Reportable 11/14/21 01:09 Anisocytosis Few 11/14/21 01:09 Microcytosis Not Reportable 11/14/21 01:09 Macrocytosis Not Reportable 11/14/21 01:09 Spherocytes Not Reportable 11/14/21 01:09 Pappenheimer Bodies Not Reportable 11/14/21 01:09 Sickle Cells Not Reportable 11/14/21 01:09 Target Cells Not Reportable 11/14/21 01:09 Tear Drop Cells Not Reportable 11/14/21 01:09 Ovalocytes Not Reportable 11/14/21 01:09 Helmet Cells Not Reportable 11/14/21 01:09 [place] Bodies Not Reportable 11/14/21 01:09 [place] Rings Not Reportable 11/14/21 01:09 [place] Cells Not Reportable 11/14/21 01:09 Bite Cells Not Reportable 11/14/21 01:09 Crenated Cell Not Reportable 11/14/21 01:09 Elliptocytes Not Reportable 11/14/21 01:09 Acanthocytes (Spur) Not Reportable 11/14/21 01:09 Rouleaux Not Reportable 11/14/21 01:09 Hemoglobin C Crystals Not Reportable 11/14/21 01:09 Schistocytes Not Reportable 11/14/21 01:09 Malaria parasites Not Reportable 11/14/21 01:09 Erick Bodies Not Reportable 11/14/21 01:09 Hem Pathologist Commnt No 11/14/21 01:09 PT 14.5 Sec. (12.2-14.9) 11/14/21 01:09 INR 1.02 (0.87-1.13) 11/14/21 01:09 APTT 27.2 Sec. (24.2-36.6) 11/14/21 01:09 Sodium 137 mmol/L (137-145) 11/15/21 05:05 Potassium 4.8 mmol/L (3.6-5.0) 11/15/21 05:05 Chloride 92.0 mmol/L (98-107) L 11/15/21 05:05 Carbon Dioxide 29 mmol/L (22-30) 11/15/21 05:05 Anion Gap 21 mmol/L 11/15/21 05:05 BUN 58 mg/dL (9-20) H 11/15/21 05:05 Creatinine 12.8 mg/dL (0.8-1.3) H 11/15/21 05:05 Estimated GFR 5 ml/min 11/15/21 05:05 BUN/Creatinine Ratio 5 % 11/15/21 05:05 Glucose 108 mg/dL (75-100) H 11/15/21 05:05 Calcium 9.9 mg/dL (8.4-10.2) 11/15/21 05:05 Total Bilirubin 0.40 mg/dL (0.1-1.2) 11/14/21 01:09 Direct Bilirubin < 0.2 mg/dL (0-0.2) 11/14/21 01:09 Indirect Bilirubin 0.2 mg/dL 11/14/21 01:09 AST 17 units/L (5-40) 11/14/21 01:09 ALT 10 units/L (7-56) 11/14/21 01:09 Alkaline Phosphatase 109 units/L (35-129) 11/14/21 01:09 Troponin T 0.587 ng/mL (0.00-0.029) H* 11/14/21 01:09 NT-Pro-B Natriuret Pep Cancelled 11/14/21 01:09 Total Protein 7.7 g/dL (6.3-8.2) 11/14/21 01:09 Albumin 4.2 g/dL (3.9-5) 11/14/21 01:09 Albumin/Globulin Ratio 1.2 % 11/14/21 01:09 Triglycerides 78 mg/dL (2-149) 11/14/21 01:09 Cholesterol 158 mg/dL (50-199) 11/14/21 01:09 LDL Cholesterol Direct 98 mg/dL (50-130) 11/14/21 01:09 HDL Cholesterol 49 mg/dL (40-59) 11/14/21 01:09 Cholesterol/HDL Ratio 3.22 % 11/14/21 01:09 Hepatitis A IgM Ab Non-reactive (NonReactive) 11/14/21 10:53 Hep Bs Antigen Non-reactive (Negative) 11/14/21 10:53 Hep B Core IgM Ab Non-reactive (NonReactive) 11/14/21 10:53 Hepatitis C Antibody Non-reactive (NonReactive) 11/14/21 10:53 Williamson/IV: Voiding Method Urinal Active Medications - Current Medications Current Medications: Generic Name Dose Route Start Last Admin Trade Name Freq PRN Reason Stop Dose Admin Acetaminophen 650 mg 11/14/21 03:55 11/14/21 06:02 Acetaminophen 325 Mg Tab PO 650 mg Q4H PRN Administration Pain MILD(1-3)/Fever >100.5/GARCIA Albuterol 2.5 mg 11/14/21 03:55 Albuterol 2.5 Mg/3 Ml Nebu IH Q3HRT PRN Shortness Of Breath Albuterol/Ipratropium 1 ampul 11/15/21 08:00 11/15/21 08:54 Ipratropium/Albuterol Sulfate 3 Ml Ampul.Neb IH 1 ampul TIDRT MIGUELANGEL Administration Amlodipine Besylate 10 mg 11/14/21 10:00 11/14/21 14:01 Amlodipine 10 Mg Tab PO 10 mg DAILY MIGUELANGEL Administration Apixaban 2.5 mg 11/14/21 10:00 11/14/21 22:02 Apixaban 2.5 Mg Tab PO 2.5 mg Q12HR MIGUELANGEL Administration Protocol Atorvastatin Calcium 20 mg 11/14/21 22:00 11/14/21 22:02 Atorvastatin 20 Mg Tab PO 20 mg HS MIGUELANGEL Administration Clonidine HCl 0.1 mg 11/14/21 10:00 11/14/21 22:02 Clonidine 0.1 Mg Tab PO 0.1 mg BID MIGUELANGEL Administration Clopidogrel Bisulfate 75 mg 11/14/21 10:00 11/14/21 09:50 Clopidogrel 75 Mg Tab PO 75 mg QDAY MIGUELANGEL Administration Famotidine 20 mg 11/14/21 10:00 11/14/21 09:50 Famotidine 20 Mg Tab PO 20 mg QAM MIGUELANGEL Administration Heparin Sodium (Porcine) 3,000 unit 11/14/21 07:54 Heparin 10,000 Units/10 Ml Vial IV CECELIA PRN hemodialysis Hydralazine HCl 10 mg 11/14/21 05:55 11/14/21 22:02 Hydralazine 20 Mg/1 Ml Inj IV 10 mg Q6H PRN Administration sbp greater than 160 Sodium Chloride 100 mls @ 999 mls/hr 11/14/21 07:54 Nacl 0.9% IV CECELIA PRN Hypotension Sodium Chloride 100 mls @ 999 mls/hr 11/14/21 16:41 Nacl 0.9% IV CECELIA PRN Hypotension Metoprolol Tartrate 50 mg 11/14/21 08:00 11/15/21 09:18 Metoprolol Tartrate 50 Mg Tab PO Not Given BID@0800,1700 [facility], [facility]–1983 Miscellaneous Medication 1 each 11/14/21 10:00 Dolutegravir/Rilpivirine [Juluca 50-25 Mg Tablet] PO QDAY [facility], 1928–1983 Montelukast Sodium 10 mg 11/14/21 18:00 11/14/21 17:05 Montelukast 10 Mg Tab PO 10 mg QPM MIGUELANGEL Administration Morphine Sulfate 2 mg 11/14/21 03:55 Morphine 2 Mg/1 Ml Inj IV Q4H PRN Pain, Moderate (4-6) Morphine Sulfate 4 mg 11/14/21 03:55 Morphine 4 Mg/1 Ml Inj IV Q4H PRN Pain , Severe (7-10) Ondansetron HCl 4 mg 11/14/21 03:55 Ondansetron 4 Mg/2 Ml Inj IV Q8H PRN Nausea And Vomiting Sodium Chloride 10 ml 11/14/21 10:00 11/14/21 22:03 Sodium Chloride 0.9% 10 Ml Flush Syringe IV 10 ml BID MIGUELANGEL Administration Sodium Chloride 10 ml 11/14/21 03:55 Sodium Chloride 0.9% 10 Ml Flush Syringe IV PRN PRN LINE FLUSH
[2021-11-15] MEDS: FAMOTIDINE 20 MG TAB PO SCH (12:55)
[2021-11-15] MEDS: APIXABAN 2.5 MG TAB PO SCH ×2 (12:55→21:15)
[2021-11-15] MEDS: amLODIPine 10 MG TAB PO SCH (12:55)
[2021-11-15] MEDS: cloNIDine 0.1 MG TAB PO SCH ×2 (12:55→21:20)
[2021-11-15] MEDS: CLOPIDOGREL 75 MG TAB PO SCH (12:55)
[2021-11-15] MEDS: MONTELUKAST 10 MG TAB PO SCH (20:15)
[2021-11-16 05:16] LABS: Hematocrit 34.1 % (35.5-45.6); Hemoglobin 11.2 gm/dl (11.8-15.2); Mean Corpuscular HGB Conc 33 % (32-34); Mean Corpuscular Volume 86 fl (84-94); Platelet Count 185 K/mm3 (140-440); Red Blood Count 3.95 M/mm3 (3.65-5.03); Red Cell Distribution Width 16.1 % (13.2-15.2)
[2021-11-16 05:25] LABS: Calcium 9.2 mg/dL (8.4-10.2)
[2021-11-16] MEDS: IPRATROPIUM/ALBUTEROL SULFATE 3 ML AMPUL.NEB IH SCH (08:56)
[2021-11-16] MEDS: amLODIPine 10 MG TAB PO SCH (09:04)
[2021-11-16] MEDS: cloNIDine 0.1 MG TAB PO SCH (09:04)
[2021-11-16] MEDS: FAMOTIDINE 20 MG TAB PO SCH (09:04)
[2021-11-16] MEDS: CLOPIDOGREL 75 MG TAB PO SCH (09:04)
[2021-11-16] MEDS: METOPROLOL TARTRATE 50 MG TAB PO SCH (09:05)
[2021-11-16] MEDS: APIXABAN 2.5 MG TAB PO SCH (09:05)
--- NOTE | 2021-11-16 10:43 | Discharge Summary ---
Providers - Providers Date of Admission: 11/14/21 03:55 Date of discharge: 11/16/21 Attending physician: QUINTEN GARCIA MD 11/14/21 02:29 Consult to Physician [CONS] Stat Comment: Dr. Wolf spoke with Dr. Rosales @ 0225 Consulting Provider: NOE ROSALES Physician Instructions: Reason For Exam: End-stage renal disease needing dialysis, volume o Primary care physician: PLASTERER FOREMAN Hospitalization Reason for admission: pulmonary edema Condition: Stable Hospital course: 61-year-old male with history of COPD, end-stage renal disease requiring hemodialysis who presented with shortness of breath which prevented him from receiving hemodialysis. He was found to have a blood pressure 220/106 and troponin of 0.537. Previous admissions or reviewed and showed chronic troponin elevation. Nephrology was consulted for hemodialysis to remove additional fluid. Chest x-ray suggestive of pulmonary edema. Once patient was stable and no longer complaining of shortness of breath, he was discharged home. Disposition: 01 HOME / SELF CARE / HOMELESS Final Discharge Diagnosis (Prints w/discharge instructions): End-stage renal disease requiring hemodialysis. Fluid overload. Accelerated hypertension. History of COPD. NSTEMI type II. HIV infection Time spent for discharge: 35 minutes Core Measure Documentation - Palliative Care Palliative Care/ Comfort Measures: Not Applicable - Core Measures Any of the following diagnoses?: none Exam - Physical Exam Narrative exam: GENERAL: Thin male, appearing older than stated age. In no acute distress. CHEST/LUNGS: CTAB on room air HEART/CARDIOVASCULAR: RRR. No murmur, rubs or gallops appreciated. ABDOMEN: +BS. NT/ND. NEURO: No focal motor deficit. Follows all commands. MUSCULOSKELETAL: No joint effusion EXTREMITIES: LUE AVF. No cyanosis, clubbing or edema. PSYCH: Cooperative. - Constitutional Vitals: Temp Pulse Resp BP Pulse Ox 98.4 F 88 16 149/69 97 11/15/21 16:55 11/16/21 08:59 11/16/21 08:59 11/16/21 06:17 11/16/21 09:09 Plan Care Plan Goals: Please resume dialysis at current [facility] schedule. Please take all medications as prescribed. Follow up with: PRIMARY MD BARAK [Primary Care Provider] - 3-5 Days Prescriptions: amLODIPine 10 mg PO DAILY 30 Days #30 tab cloNIDine [Catapres] 0.1 mg PO BID 30 Days #60 tablet AtorvaSTATin [Lipitor] 20 mg PO HS 30 Days #30 tab Metoprolol [Lopressor TAB] 50 mg PO BID 30 Days #60 tablet Clopidogrel [Plavix] 75 mg PO QDAY 30 Days #30 tab
[2021-11-16 11:36] VITALS: BP 143/75
== END 2021-11-16 13:20 | disposition home or self-care (01) | DRG 640 ==
LOC: ED 00:20 → 3A 03:55
PROVIDERS: ADMIT Hospitalist; ATTEND Student in an Organized Health Care Education/Training Program
PROC: 5A1D70Z Performance of Urinary Filtration, Intermittent, Less than 6 Hours Per Day (ICD-10-PCS; principal; 2021-11-14)
PROC: 5A1D70Z Performance of Urinary Filtration, Intermittent, Less than 6 Hours Per Day (ICD-10-PCS; 2021-11-15)
DX: E87.79 Other fluid overload (principal); N18.6 End stage renal disease; I21.A1 Myocardial infarction type 2; J44.1 Chronic obstructive pulmonary disease with (acute) exacerbation; I12.0 Hypertensive chronic kidney disease with stage 5 chronic kidney disease or end stage renal disease; B20 Human immunodeficiency virus [HIV] disease; E83.52 Hypercalcemia; M19.90 Unspecified osteoarthritis, unspecified site; F17.200 Nicotine dependence, unspecified, uncomplicated; Z91.15 Patient's noncompliance with renal dialysis; Z99.2 Dependence on renal dialysis; Z79.899 Other long term (current) drug therapy; Z88.1 Allergy status to other antibiotic agents; Z88.8 Allergy status to other drugs, medicaments and biological substances; Z91.041 Radiographic dye allergy status; Z86.718 Personal history of other venous thrombosis and embolism; Z79.01 Long term (current) use of anticoagulants; Z95.5 Presence of coronary angioplasty implant and graft; Z82.49 Family history of ischemic heart disease and other diseases of the circulatory system
CPT/HCPCS: 36415; 71045; 80048; 80061; 80074; 80076; 84484; 85007; 85025; 85027; 85610; 85730; 93005; 94640; 94760; 99406; G0378; J0360; J2930

== ENCOUNTER 2021-11-25 16:39 | Emergency (ER) | payer MEDICARE ==
[2021-11-26] MEDS ORDERED: IPRATROPIUM 0.02% NEBU 2.5 ML IH ONE (00:13)
[2021-11-26] MEDS ORDERED: ALBUTEROL 2.5 MG/3 ML NEBU IH ONE (00:13)
[2021-11-26] MEDS ORDERED: predniSONE 20 MG TAB PO ONE (00:14)
--- NOTE | 2021-11-26 00:17 | XRay Report ---
CHEST 1 VIEW INDICATION / CLINICAL INFORMATION: sob. COMPARISON: Chest x-ray 11/14/2021 FINDINGS: SUPPORT DEVICES: None. HEART / MEDIASTINUM: No significant abnormality. LUNGS / PLEURA: Increased perihilar vascular markings are demonstrated bilaterally. Minimal blunting the costophrenic angles is noted bilaterally, stable. Faint interstitial markings are noted bilateral ly. BONES: No significant osseous abnormality. ADDITIONAL FINDINGS: No significant additional findings. IMPRESSION: 1. Pulmonary venous hypertension and mild interstitial pulmonary edema are suggested. Stable blunting of the costophrenic angles. Small dependent pleural effusions are not excluded. Signer Name: Mayur Rogers II, MD Signed: 11/26/2021 12:12 AM Workstation Name: [id number]
[2021-11-26 00:34] LABS: Basophils # (Auto) 0.1 K/mm3 (0.0-0.1); Basophils % (Auto) 2.4 % (0.0-1.8); Eosinophils # (Auto) 0.4 K/mm3 (0.0-0.4); Hematocrit 38.1 % (35.5-45.6); Hemoglobin 12.7 gm/dl (11.8-15.2); Lymphocytes # (Auto) 1.3 K/mm3 (1.2-5.4); Lymphocytes % (Auto) 26.4 % (13.4-35.0); Mean Corpuscular HGB Conc 33 % (32-34); Mean Corpuscular Volume 86 fl (84-94); Monocytes # (Auto) 0.3 K/mm3 (0.0-0.8); Monocytes % (Auto) 6.3 % (0.0-7.3); Platelet Count 161 K/mm3 (140-440); Red Blood Count 4.45 M/mm3 (3.65-5.03); Red Cell Distribution Width 16.4 % (13.2-15.2)
[2021-11-26 00:45] LABS: INR 0.91 (0.87-1.13)
[2021-11-26 00:46] LABS: Partial Thromboplastin Time 28.7 Sec. (24.2-36.6)
[2021-11-26 00:48] LABS: Albumin 4.3 g/dL (3.9-5); Calcium 9.4 mg/dL (8.4-10.2)
--- NOTE | 2021-11-26 01:22 | Emergency Department Report ---
ED Shortness of Breath HPI - General Chief Complaint: Dyspnea/Respdistress Stated Complaint: DIFFICULTY BREATHING Time Seen by Provider: 11/25/21 23:32 Source: patient Mode of arrival: Ambulatory Limitations: No Limitations - History of Present Illness Initial Comments: 61-year-old male with a past medical history of end-stage renal disease on dialysis Thursday, Thursday, and Thursday, COPD without home oxygen dependence, hypertension presents to the hospital after having episode of shortness of breath at dialysis. After completing his dialysis center patient complained of shortness of breath and as per triage she is "O2 level dropped". Patient ref used normal when transport and was brought to the hospital by his . Patient states he felt better prior to ED arrival. He currently denies pain or shortness of breath. He does endorse a cough productive of clear sputum without fever. - Related Data Home Medications Medication Instructions Recorded Confirmed Last Taken ALBUTEROL NEB's [Proventil 0.083% 2.5 mg INHALATION Q6HR PRN 05/15/20 11/14/21 Unknown NEBS] Aspirin EC [Halfprin EC] 81 mg PO QDAY 04/16/21 11/14/21 06/21/21 09:00 Dolutegravir/Rilpivirine [Juluca 1 each PO QDAY 04/16/21 11/14/21 06/19/21 05:00 50-25 mg Tablet] Montelukast [Singulair] 10 mg PO QPM 04/16/21 11/14/21 06/19/21 20:40 traZODone [Desyrel] 50 - 100 mg PO QHS 04/16/21 11/14/21 06/20/21 21:00 Previous Rx's Medication Instructions Recorded Last Taken Type Apixaban [Eliquis] 2.5 mg PO Q12HR #60 tablet 10/05/20 06/19/21 21:00 Rx Albuterol Mdi (or & Nicu Only) 2 puff IH QID PRN #8.5 gram 08/12/21 Unknown Rx [ProAir HFA Inhaler] Ipratropium (Nf) [Atrovent HFA 2 puff IH Q6HR PRN #1 inha 08/12/21 Unknown Rx 17MCG/PUFF] AtorvaSTATin [Lipitor] 20 mg PO HS 30 Days #30 tab 11/16/21 Unknown Rx Clopidogrel [Plavix] 75 mg PO QDAY 30 Days #30 tab 11/16/21 Unknown Rx Metoprolol [Lopressor TAB] 50 mg PO BID 30 Days #60 tablet 11/16/21 Unknown Rx amLODIPine 10 mg PO DAILY 30 Days #30 tab 11/16/21 Unknown Rx cloNIDine [Catapres] 0.1 mg PO BID 30 Days #60 tablet 11/16/21 Unknown Rx Prednisone [predniSONE 10 mg 10 mg PO .TAPER #1 pack 11/26/21 Unknown Rx (6-Day Pack, 21 Tabs)] Allergies Allergy/AdvReac Type Severity Reaction Status Date / Time azithromycin [From Zithromax] Allergy Shortness 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/21 08:51 of Breath Iodinated Contrast Media Allergy Anaphylaxis 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/21 08:51 levofloxacin Allergy Swelling 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/21 08:51 lisinopril Allergy Angioedema 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/21 08:51 and hives sevelamer [From Renvela] Allergy Hives 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/21 08:51 sulfamethoxazole Allergy Jagdish 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/21 08:51 [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 AV shunt LUE. IVC filter - Social History Smoking Status: Current Every Day Smoker - Medications Home Medications: Home Medications Medication Instructions Recorded Confirmed Last Taken Type ALBUTEROL NEB's [Proventil 0.083% 2.5 mg INHALATION Q6HR PRN 05/15/20 11/14/21 Unknown History NEBS] Apixaban [Eliquis] 2.5 mg PO Q12HR #60 tablet 10/05/20 11/14/21 06/19/21 21:00 Rx Aspirin EC [Halfprin EC] 81 mg PO QDAY 04/16/21 11/14/21 06/21/21 09:00 History Dolutegravir/Rilpivirine [Juluca 1 each PO QDAY 04/16/21 11/14/21 06/19/21 05:00 History 50-25 mg Tablet] Montelukast [Singulair] 10 mg PO QPM 04/16/21 11/14/21 06/19/21 20:40 History traZODone [Desyrel] 50 - 100 mg PO QHS 04/16/21 11/14/21 06/20/21 21:00 History Albuterol Mdi (or & Nicu Only) 2 puff IH QID PRN #8.5 gram 08/12/21 11/14/21 Unknown Rx [ProAir HFA Inhaler] Ipratropium (Nf) [Atrovent HFA 2 puff IH Q6HR PRN #1 inha 08/12/21 11/14/21 Unknown Rx 17MCG/PUFF] AtorvaSTATin [Lipitor] 20 mg PO HS 30 Days #30 tab 11/16/21 Unknown Rx Clopidogrel [Plavix] 75 mg PO QDAY 30 Days #30 tab 11/16/21 Unknown Rx Metoprolol [Lopressor TAB] 50 mg PO BID 30 Days #60 tablet 11/16/21 Unknown Rx amLODIPine 10 mg PO DAILY 30 Days #30 tab 11/16/21 Unknown Rx cloNIDine [Catapres] 0.1 mg PO BID 30 Days #60 tablet 11/16/21 Unknown Rx Prednisone [predniSONE 10 mg 10 mg PO .TAPER #1 pack 11/26/21 Unknown Rx (6-Day Pack, 21 Tabs)] ED Physical Exam - General Limitations: No Limitations - Other Other exam information: General: No acute distress Head: Atraumatic Eyes: normal appearance ENT: Moist mucous membranes Neck: Normal appearance, no midline tenderness Chest: Bilateral wheezing without tachypnea or accessory muscle use CV: Regular rate and rhythm Abdomen: Soft, normal bowel sounds, nontender, nondistended, no rebound or guarding Back: Normal inspection Extremity: Normal inspection, full range of motion, no calf tenderness Neuro: Alert O x 3, no facial asymmetry, speech clear, no gross motor sensory deficit Psych: Appropriate behavior Skin: No rash ED Course Vital Signs 11/25/21 11/26/21 11/26/21 16:45 00:38 01:56 Temperature 97.4 F L 98.1 F Pulse Rate 78 117 H Pulse Rate [ 83 Anterior Bilateral Throughout] Respiratory 22 20 Rate Respiratory 18 Rate [Anterior Bilateral Throughout] Blood Pressure 173/78 207/101 O2 Sat by Pulse 91 92 Oximetry ED Medical Decision Making - Lab Data Result diagrams: 11/26/21 00:01 11/26/21 00:01 Lab Results 11/26/21 11/26/21 11/26/21 Range/Units 00:01 00:01 00:01 WBC 5.0 (4.5-11.0) K/mm3 RBC 4.45 (3.65-5.03) M/mm3 Hgb 12.7 (11.8-15.2) gm/dl Hct 38.1 (35.5-45.6) % MCV 86 (84-94) fl MCH 29 (28-32) pg MCHC 33 (32-34) % RDW 16.4 H (13.2-15.2) % Plt Count 161 (140-440) K/mm3 Lymph % (Auto) 26.4 (13.4-35.0) % Dickey % (Auto) 6.3 (0.0-7.3) % Eos % (Auto) 7.0 H (0.0-4.3) % Baso % (Auto) 2.4 H (0.0-1.8) % Lymph # (Auto) 1.3 (1.2-5.4) K/mm3 Dickey # (Auto) 0.3 (0.0-0.8) K/mm3 Eos # (Auto) 0.4 (0.0-0.4) K/mm3 Baso # (Auto) 0.1 (0.0-0.1) K/mm3 Seg Neutrophils % 57.9 (40.0-70.0) % Seg Neutrophils # 2.9 (1.8-7.7) K/mm3 PT 13.2 (12.2-14.9) Sec. INR 0.91 (0.87-1.13) APTT 28.7 (24.2-36.6) Sec. Sodium 145 (137-145) mmol/L Potassium 4.6 (3.6-5.0) mmol/L Chloride 96.7 L (98-107) mmol/L Carbon Dioxide 34 H (22-30) mmol/L Anion Gap 19 mmol/L BUN 26 H (9-20) mg/dL Creatinine 7.1 H (0.8-1.3) mg/dL Estimated GFR 10 ml/min BUN/Creatinine Ratio 4 % Glucose 92 (75-100) mg/dL Calcium 9.4 (8.4-10.2) mg/dL Total Bilirubin 0.40 (0.1-1.2) mg/dL AST 24 (5-40) units/L ALT 15 (7-56) units/L Alkaline Phosphatase 128 (35-129) units/L NT-Pro-B Natriuret Pep (0-900) pg/mL Total Protein 8.5 H (6.3-8.2) g/dL Albumin 4.3 (3.9-5) g/dL Albumin/Globulin Ratio 1.0 % 11/26/21 Range/Units 00:01 WBC (4.5-11.0) K/mm3 RBC (3.65-5.03) M/mm3 Hgb (11.8-15.2) gm/dl Hct (35.5-45.6) % MCV (84-94) fl MCH (28-32) pg MCHC (32-34) % RDW (13.2-15.2) % Plt Count (140-440) K/mm3 Lymph % (Auto) (13.4-35.0) % Dickey % (Auto) (0.0-7.3) % Eos % (Auto) (0.0-4.3) % Baso % (Auto) (0.0-1.8) % Lymph # (Auto) (1.2-5.4) K/mm3 Dickey # (Auto) (0.0-0.8) K/mm3 Eos # (Auto) (0.0-0.4) K/mm3 Baso # (Auto) (0.0-0.1) K/mm3 Seg Neutrophils % (40.0-70.0) % Seg Neutrophils # (1.8-7.7) K/mm3 PT (12.2-14.9) Sec. INR (0.87-1.13) APTT (24.2-36.6) Sec. Sodium (137-145) mmol/L Potassium (3.6-5.0) mmol/L Chloride (98-107) mmol/L Carbon Dioxide (22-30) mmol/L Anion Gap mmol/L BUN (9-20) mg/dL Creatinine (0.8-1.3) mg/dL Estimated GFR ml/min BUN/Creatinine Ratio % Glucose (75-100) mg/dL Calcium (8.4-10.2) mg/dL Total Bilirubin (0.1-1.2) mg/dL AST (5-40) units/L ALT (7-56) units/L Alkaline Phosphatase (35-129) units/L NT-Pro-B Natriuret Pep 25123 H (0-900) pg/mL Total Protein (6.3-8.2) g/dL Albumin (3.9-5) g/dL Albumin/Globulin Ratio % - Radiology Data Radiology results: report reviewed CHEST 1 VIEW INDICATION / CLINICAL INFORMATION: sob. COMPARISON: Chest x-ray 11/14/2021 FINDINGS: SUPPORT DEVICES: None. HEART / MEDIASTINUM: No significant abnormality. LUNGS / PLEURA: Increased perihilar vascular markings are demonstrated bilaterally. Minimal blunting the costophrenic angles is noted bilaterally, stable. Faint interstitial markings are noted bilaterally. BONES: No significant osseous abnormality. ADDITIONAL FINDINGS: No significant additional findings. IMPRESSION: 1. Pulmonary venous hypertension and mild interstitial pulmonary edema are suggested. Stable blunting of the costophrenic angles. Small dependent pleural effusions are not excluded. - Medical Decision Making 61-year-old male with history of COPD and end-stage renal disease with presents to the hospital after having an episode of shortness of breath after dialysis. Patient states he has been fairly asymptomatic throughout ED stay. Patient had noticeable wheezing on examination. He received continuous nebs and p.o. prednisone. Upon reassessment patient still has wheezing but insists that he feels fine. Chest x-ray suggestive of mild pulmonary edema. Room air saturation between 92 to 94% after receiving bronchodilators. Patient offered admission but declines at this time stating he has a doctor's appointment later today. Critical Care Time: No Critical care attestation.: If time is entered above; I have spent that time in minutes in the direct care of this critically ill patient, excluding procedure time. ED Disposition Clinical Impression: COPD exacerbation, Pulmonary edema Disposition: LEFT AGAINST MEDICAL ADVICE Is pt being admited?: No Condition: Stable Instructions: Chronic Obstructive Pulmonary Disease (ED), Pulmonary Edema (ED), Pulmonary Edema, [id number], Chronic Obstructive Pulmonary Disease, [id number] Additional Instructions: You have declined admission at this time. Take the medication as prescribed. Follow-up with your doctor or doctor/clinic provided. Return if symptoms worsen as indicated by your discharge instructions. Prescriptions: Prednisone [predniSONE 10 mg (6-Day Pack, 21 Tabs)] 10 mg PO .TAPER #1 pack Referrals: PRIMARY CARE, [Primary Care Provider] - 2-3 Days Forms: AMA Form Time of Disposition: 02:36
[2021-11-26 01:58] VITALS: BP 207/101
== END 2021-11-26 02:47 | disposition left against medical advice (07) ==
LOC: ED 16:39
DX: J81.1 Chronic pulmonary edema (principal); J44.1 Chronic obstructive pulmonary disease with (acute) exacerbation; J45.901 Unspecified asthma with (acute) exacerbation; I12.0 Hypertensive chronic kidney disease with stage 5 chronic kidney disease or end stage renal disease; N18.6 End stage renal disease; Z99.2 Dependence on renal dialysis; M19.90 Unspecified osteoarthritis, unspecified site; R56.9 Unspecified convulsions; Z21 Asymptomatic human immunodeficiency virus [HIV] infection status; Z98.890 Other specified postprocedural states; Z88.1 Allergy status to other antibiotic agents; Z88.2 Allergy status to sulfonamides; Z88.8 Allergy status to other drugs, medicaments and biological substances; Z91.041 Radiographic dye allergy status
CPT/HCPCS: 36415; 71045; 80053; 83880; 85025; 85610; 85730; 94644; 99284

== ENCOUNTER 2021-12-27 15:38 | Emergency (ER) | payer MEDICARE ==
[2021-12-27] MEDS ORDERED: METOPROLOL TARTRATE 50 MG TAB PO STA (16:40)
[2021-12-27] MEDS ORDERED: IPRATROPIUM/ALBUTEROL SULFATE 3 ML AMPUL.NEB IH ONE (16:40)
--- NOTE | 2021-12-27 16:44 | Emergency Department Report ---
ED General Adult HPI - General Chief complaint: Medical Clearance Stated complaint: im fine Time Seen by Provider: 12/27/21 16:31 Source: patient, EMS (Verbal report received from emergency medical services. EMS documentation not available at time of chart dictation ), RN notes reviewed, old records reviewed Mode of arrival: Stretcher Limitations: No Limitations - History of Present Illness Initial comments: The patient was evaluated in the emergency department for symptoms described in the history of present illness. He/she was evaluated in the context of the global COVID-19 pandemic, which necessitated consideration that the patient might be at risk for infection with the virus that causes COVID-19. Institutional protocols and algorithms that pertain to the evaluation of patients at risk for COVID-19 are in a state of rapid change based on information released by regulatory bodies including the CDC and federal and state organizations. These policies and algorithms were followed during the patient's care in the emergency department. Please note that these policies, procedures and recommendations changed on a rapid basis. This is a 61-year-old gentleman. I have evaluated this patient in the past. He presents today with EMS after completion of dialysis. The patient denies all complaints to myself. He reports compliance with his medications, including Eliquis. EMS reports that they were called because the patient was found to be hypoxic during hemodialysis. Reportedly, he was saturating 88% on room air. The patient states he is not short of breath. EMS reports they gave the patient nitroglycerin and aspirin in the field for unclear reasons. The patient currently denies headache, neck pain, chest pain, abdominal pain, new/different shortness of breath, and reports that he is typically at his baseline. He denies loss of taste and smell. His past medical history includes CAD, COPD, not on home oxygen, hypertension, anoxic brain injury, history of HIV, A. fib on Eliquis, end-stage renal disease, on dialysis, Thursday, Thursday, Thursday. Has reported that he is fully vaccinated against COVID-19. Patient feels like he is at his baseline at this time. -: This afternoon Improves with: none Worsens with: none - Related Data Home Medications Medication Instructions Recorded Confirmed Last Taken ALBUTEROL NEB's [Proventil 0.083% 2.5 mg INHALATION Q6HR PRN 05/15/20 11/14/21 Unknown NEBS] Aspirin EC [Halfprin EC] 81 mg PO QDAY 04/16/21 11/14/21 06/21/21 09:00 Dolutegravir/Rilpivirine [Juluca 1 each PO QDAY 04/16/21 11/14/21 06/19/21 05:00 50-25 mg Tablet] Montelukast [Singulair] 10 mg PO QPM 04/16/21 11/14/21 06/19/21 20:40 traZODone [Desyrel] 50 - 100 mg PO QHS 04/16/21 11/14/21 06/20/21 21:00 Previous Rx's Medication Instructions Recorded Last Taken Type Apixaban [Eliquis] 2.5 mg PO Q12HR #60 tablet 10/05/20 06/19/21 21:00 Rx Ipratropium (Nf) [Atrovent HFA 2 puff IH Q6HR PRN #1 inha 08/12/21 Unknown Rx 17MCG/PUFF] AtorvaSTATin [Lipitor] 20 mg PO HS 30 Days #30 tab 11/16/21 Unknown Rx Clopidogrel [Plavix] 75 mg PO QDAY 30 Days #30 tab 11/16/21 Unknown Rx Metoprolol [Lopressor TAB] 50 mg PO BID 30 Days #60 tablet 11/16/21 Unknown Rx amLODIPine 10 mg PO DAILY 30 Days #30 tab 11/16/21 Unknown Rx cloNIDine [Catapres] 0.1 mg PO BID 30 Days #60 tablet 11/16/21 Unknown Rx Prednisone [predniSONE 10 mg 10 mg PO .TAPER #1 pack 11/26/21 Unknown Rx (6-Day Pack, 21 Tabs)] Albuterol Mdi (or & Nicu Only) 2 puff IH QID PRN #8.5 gram 12/27/21 Unknown Rx [ProAir HFA Inhaler] Ipratropium (Nf) [Atrovent] 2 puff IH Q6HR PRN #1 inha 12/27/21 Unknown Rx Allergies Allergy/AdvReac Type Severity Reaction Status Date / Time azithromycin [From Zithromax] Allergy Shortness 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/21 08:51 of Breath Iodinated Contrast Media Allergy Anaphylaxis 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/21 08:51 levofloxacin Allergy Swelling 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/21 08:51 lisinopril Allergy Angioedema 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/21 08:51 and hives sevelamer [From Renvela] Allergy Hives 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/21 08:51 sulfamethoxazole Allergy Jagdish 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/21 08:51 [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 trimethoprim [From Bactrim] Allergy Jagdish 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 AV shunt LUE. IVC filter - Social History Smoking Status: Current Every Day Smoker - Medications Home Medications: Home Medications Medication Instructions Recorded Confirmed Last Taken Type ALBUTEROL NEB's [Proventil 0.083% 2.5 mg INHALATION Q6HR PRN 05/15/20 11/14/21 Unknown History NEBS] Apixaban [Eliquis] 2.5 mg PO Q12HR #60 tablet 10/05/20 11/14/21 06/19/21 21:00 Rx Aspirin EC [Halfprin EC] 81 mg PO QDAY 04/16/21 11/14/21 06/21/21 09:00 History Dolutegravir/Rilpivirine [Juluca 1 each PO QDAY 04/16/21 11/14/21 06/19/21 05:00 History 50-25 mg Tablet] Montelukast [Singulair] 10 mg PO QPM 04/16/21 11/14/21 06/19/21 20:40 History traZODone [Desyrel] 50 - 100 mg PO QHS 04/16/21 11/14/21 06/20/21 21:00 History Ipratropium (Nf) [Atrovent HFA 2 puff IH Q6HR PRN #1 inha 08/12/21 11/14/21 Unknown Rx 17MCG/PUFF] AtorvaSTATin [Lipitor] 20 mg PO HS 30 Days #30 tab 11/16/21 Unknown Rx Clopidogrel [Plavix] 75 mg PO QDAY 30 Days #30 tab 11/16/21 Unknown Rx Metoprolol [Lopressor TAB] 50 mg PO BID 30 Days #60 tablet 11/16/21 Unknown Rx amLODIPine 10 mg PO DAILY 30 Days #30 tab 11/16/21 Unknown Rx cloNIDine [Catapres] 0.1 mg PO BID 30 Days #60 tablet 11/16/21 Unknown Rx Prednisone [predniSONE 10 mg 10 mg PO .TAPER #1 pack 11/26/21 Unknown Rx (6-Day Pack, 21 Tabs)] Albuterol Mdi (or & Nicu Only) 2 puff IH QID PRN #8.5 gram 12/27/21 Unknown Rx [ProAir HFA Inhaler] Ipratropium (Nf) [Atrovent] 2 puff IH Q6HR PRN #1 inha 12/27/21 Unknown Rx ED Physical Exam - General Limitations: No Limitations General appearance: alert, in no apparent distress - Head Head exam: Present: atraumatic, normocephalic - Eye Eye exam: Present: normal appearance, EOMI. Absent: nystagmus - ENT ENT exam: Present: normal exam, normal orophraynx, mucous membranes moist, normal external ear exam - Neck Neck exam: Present: normal inspection, full ROM. Absent: tenderness, meningismus - Respiratory Respiratory exam: Present: wheezes, rales. Absent: respiratory distress, str idor - Cardiovascular Cardiovascular Exam: Present: regular rate, normal rhythm, normal heart sounds, JVD. Absent: bradycardia, tachycardia, irregular rhythm, systolic murmur, diastolic murmur, rubs, gallop - GI/Abdominal GI/Abdominal exam: Present: soft. Absent: distended, tenderness, guarding, rebound, rigid, pulsatile mass - Rectal Rectal exam: Present: deferred - Extremities Exam Extremities exam: Present: normal inspection (There is a left upper extremity fistula, with an appropriate thrill, without redness, pus or streaking.), full ROM, other (2+ pulses noted in the bilateral upper and lower extremities. There is no palpable cord. negative Homans sign. Muscular compartments are soft. The pelvis is stable.). Absent: pedal edema, calf tenderness - Back Exam Back exam: Present: normal inspection. Absent: tenderness, CVA tenderness (R), CVA tenderness (L), paraspinal tenderness, vertebral tenderness - Neurological Exam Neurological exam: Present: alert, other (There is no facial droop. The tongue is midline. EOMI. 5 out of 5 strength in 4 extremities. Sensation is intact to light touch in 4 extremities.) - Psychiatric Psychiatric exam: Present: flat affect - Skin Skin exam: Present: warm, dry, intact, normal color. Absent: rash ED Course Vital Signs 12/27/21 12/27/21 12/27/21 15:55 16:50 17:14 Temperature 98.3 F Pulse Rate 72 Pulse Rate [ 67 Anterior Bilateral Throughout] Respiratory 18 Rate Respiratory 18 Rate [Anterior Bilateral Throughout] Blood Pressure Blood Pressure 176/87 [Left] O2 Sat by Pulse 88 96 Oximetry 12/27/21 17:16 Temperature Pulse Rate Pulse Rate [ Anterior Bilateral Throughout] Respiratory Rate Respiratory Rate [Anterior Bilateral Throughout] Blood Pressure 177/81 Blood Pressure [Left] O2 Sat by Pulse 96 Oximetry - Reevaluation(s) Reevaluation #1: 12/27/21 17:20 Differential diagnosis, include not limited to: Instrument error, chronic COPD, CHF, fluid overload, pneumonia, pulmonary edema, electrolyte derangement, medical clearance Assessment and plan: 61-year-old who is not currently tachycardic, tachypneic or hypoxic, who is currently saturating at 97% on room air, who denies DVT and pulmonary embolism risk factors, who reports compliance with his Eliquis, who has no acute complaints or concerns at this time, referred to the emergency room for asymptomatic hypoxia, which is not currently present while here in the emergency room. X-ray the chest appears to be chronic. Give him a DuoNeb for chronic wheezing. He is not hypoxic at this time. Check basic metabolic panel to ascertain potassium and electrolyte status. Patient currently denies acute complaints, he is resting comfortably on stretcher at this time, and he is not in any acute distress 12/27/21 19:15 Patient is reassessed multiple times. He is in no acute distress. He is sleeping on his left hand side, saturating 94% on room air. Patient metabolic panel reviewed and appreciated. Elevated proBNP is chronic. He is not hypoxic and he is not symptomatic. He may be discharged to follow-up with outpatient physician. He is observed in this department for hours without clinical decompensation ED Medical Decision Making - Lab Data Result diagrams: 12/27/21 17:33 12/27/21 17:33 Vital Signs 12/27/21 12/27/21 15:55 16:50 Temperature 98.3 F Pulse Rate 72 Pulse Rate [ 67 Anterior Bilateral Throughout] Respiratory 18 Rate Respiratory 18 Rate [Anterior Bilateral Throughout] Blood Pressure 176/87 [Left] O2 Sat by Pulse 88 Oximetry - EKG Data -: EKG Interpreted by Ms EKG shows normal: sinus rhythm Rate: normal - EKG Data 12/27/21 17:19 The EKG is interpreted at 17: 10 Sinus rhythm, 71 bpm. Normal axis, normal P wave axis, atrial enlargement, left ventricular hypertrophy, QTC 505 ms. There is no endorsement of chest pain. This is an abnormal EKG. This is not a STEMI. - Radiology Data Radiology results: pending, report reviewed, image reviewed [facility] [address] [place] [address] XRay Report Signed Patient: JANIE KNOWLES MR#: [id number] : 1960 Acct:[id number] Age/Sex: 61 / M ADM Date: 12/27/21 Loc: ED Attending Dr: Ordering Physician: CRYSTAL HERNÁNDEZ MD Date of Service: 12/27/21 Procedure(s): XR chest 1V ap Accession Number(s): [id number] cc: CRYSTAL HERNÁNDEZ MD Fluoro Time In Minutes: CHEST 1 VIEW 12/27/2021 3:53 PM INDICATION / CLINICAL INFORMATION: Dyspnea. COMPARISON: One view of the chest from 11/26/2021. FINDINGS: SUPPORT DEVICES: None. HEART / MEDIASTINUM: No significant abnormality. LUNGS / PLEURA: There is mild left basilar scarring. The left lung is otherwise clear. Generalized likely chronic right interstitial opacities have not significantly changed. Ther e are similar blunting of the costophrenic angles, likely representing scarring versus small effusions. No pneumothorax. ADDITIONAL FINDINGS: No significant additional findings. IMPRESSION: 1. No acute abnormality of the chest. No significant interval changes. Signer Name: Duncan Tracey MD Signed: 12/27/2021 4:58 PM Workstation Name: [id number] Transcribed By: [place] Dictated By: Duncan Tracey MD Electronically Authenticated By: Duncan Tracey MD Signed Date/Time: 12/27/211657 DD/ 55 TD/TT: Critical care attestation.: If time is entered above; I have spent that time in minutes in the direct care of this critically ill patient, excluding procedure time. ED Disposition Clinical Impression: ESRD on hemodialysis, COPD (chronic obstructive pulmonary disease), Elevated blood pressure reading Disposition: HOME / SELF CARE / HOMELESS Is pt being admited?: No Does the pt Need Aspirin: No Condition: Good Instructions: Chronic Obstructive Pulmonary Disease (ED) Additional Instructions: Please continue current outpatient medications. Please continue current outpatient hemodialysis schedule. Please continue to consume a diabetic and renal appropriate diet. Please follow-up with your outpatient primary care doctor, arm rest builder or airport shuttle driver within the next week. Please return to the emergency room right away with new pain, worsened pain, migration of pain, projectile vomiting, change in mental status, confusion, inability tolerate liquid feeds, new, worsened or different symptoms not present on the initial emergency room evaluation Referrals: ALIREZA ARIAS MD [Staff Physician] - 3-5 Days MIL WONG MD [Staff Physician] - 3-5 Days
--- NOTE | 2021-12-27 17:03 | XRay Report ---
CHEST 1 VIEW 12/27/2021 3:53 PM INDICATION / CLINICAL INFORMATION: Dyspnea. COMPARISON: One view of the chest from 11/26/2021. FINDINGS: SUPPORT DEVICES: None. HEART / MEDIASTINUM: No significant abnormality. LUNGS / PLEURA: There is mild left basilar scarring. The left lung is otherwise clear. Generalized li vladislav chronic right interstitial opacities have not significantly changed. There are similar blunting of the costophrenic angles, likely representing scarring versus small effusions. No pneumothorax. ADDITIONAL FINDINGS: No significant additional findings. IMPRESSION: 1. No acute abnormality of the chest. No significant interval changes. Signer Name: Duncan Tracey MD Signed: 12/27/2021 4:58 PM Workstation Name: [email or web address]
[2021-12-27 17:56] LABS: Hematocrit 32.9 % (35.5-45.6); Mean Corpuscular HGB Conc 33 % (32-34); Mean Corpuscular Volume 86 fl (84-94); Platelet Count 105 K/mm3 (140-440); Red Blood Count 3.82 M/mm3 (3.65-5.03); Red Cell Distribution Width 17.9 % (13.2-15.2)
[2021-12-27 18:11] LABS: Calcium 8.7 mg/dL (8.4-10.2)
[2021-12-27 18:18] LABS: INR 0.93 (0.87-1.13)
[2021-12-27 20:05] VITALS: BP 182/80
--- NOTE | 2021-12-29 15:12 | Electrocardiograph Report ---
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
== END 2021-12-27 20:05 | disposition home or self-care (01) ==
LOC: ED 15:38
DX: I12.0 Hypertensive chronic kidney disease with stage 5 chronic kidney disease or end stage renal disease (principal); N18.6 End stage renal disease; Z99.2 Dependence on renal dialysis; Z76.0 Encounter for issue of repeat prescription; J44.1 Chronic obstructive pulmonary disease with (acute) exacerbation; M19.90 Unspecified osteoarthritis, unspecified site; R56.9 Unspecified convulsions; Z21 Asymptomatic human immunodeficiency virus [HIV] infection status; Z98.890 Other specified postprocedural states; Z79.899 Other long term (current) drug therapy; Z88.1 Allergy status to other antibiotic agents; Z88.6 Allergy status to analgesic agent; Z91.09 Other allergy status, other than to drugs and biological substances
CPT/HCPCS: 36415; 71045; 80048; 83735; 83880; 85027; 85610; 93005; 94640; 94644; 99284

== ENCOUNTER 2021-12-30 16:26 | Emergency (ER) | payer MEDICARE ==
--- NOTE | 2021-12-30 18:17 | XRay Report ---
XR chest routine 2V INDICATION / CLINICAL INFORMATION: Chest Pain. COMPARISON: 12/27/2021 FINDINGS: SUPPORT DEVICES: None. HEART /PULMONARY VASCULATURE: Stable. LUNGS / PLEURA: Diffuse increased interstitial markings appear unchanged, may reflect mild edema. The re is stable blunting of the costophrenic sulci, likely reflecting scarring versus small effusions. N o pneumothorax. ADDITIONAL FINDINGS: No significant additional findings. IMPRESSION: No significant interval change. Signer Name: Hung Thorpe MD Signed: 12/30/2021 6:13 PM Workstation Name: [email or web address]
[2021-12-30 19:33] LABS: Basophils # (Auto) 0.1 K/mm3 (0.0-0.1); Basophils % (Auto) 2.4 % (0.0-1.8); Eosinophils # (Auto) 0.3 K/mm3 (0.0-0.4); Eosinophils % (Auto) 5.8 % (0.0-4.3); Hematocrit 37.4 % (35.5-45.6); Hemoglobin 12.6 gm/dl (11.8-15.2); Lymphocytes # (Auto) 1.5 K/mm3 (1.2-5.4); Lymphocytes % (Auto) 31.8 % (13.4-35.0); Mean Corpuscular HGB Conc 34 % (32-34); Mean Corpuscular Volume 86 fl (84-94); Monocytes # (Auto) 0.2 K/mm3 (0.0-0.8); Platelet Count 116 K/mm3 (140-440); Red Blood Count 4.34 M/mm3 (3.65-5.03)
[2021-12-30 19:46] LABS: Albumin 4.2 g/dL (3.9-5); Calcium 9.4 mg/dL (8.4-10.2)
[2021-12-30 22:17] LABS: Chol/HDL Ratio 3.28 %
[2021-12-31] MEDS ORDERED: MORPHINE 2 MG/1 ML INJ IV ONE (12:21)
--- NOTE | 2021-12-31 12:29 | Emergency Department Report ---
ED Upper Extremity Inj HPI - General Chief Complaint: Extremity Injury, Upper Stated Complaint: FALL/ LEFT ARM BRUISE Source: patient Mode of arrival: Ambulatory Limitations: No Limitations - History of Present Illness Initial Comments: 61-year-old male with a history of HTn, DM, DVT, seizure, and COPD and Asthma, HIV disease, end-stage renal disease currently on dialysis who came in with a fall associated with left arm and forearm pain. He noted abrasion on his left elbow. According to patient's family member patient fell while getting out of the car shortly after his dialysis yesterday around 3 PM. No dizziness reported or chest pain. No palpitation, fever or chills reported. No other modifying or associated factors noted. MD Complaint: Injury to:: left, arm, elbow, forearm - Related Data Home Medications Medication Instructions Recorded Confirmed Last Taken ALBUTEROL NEB's [Proventil 0.083% 2.5 mg INHALATION Q6HR PRN 05/15/20 11/14/21 Unknown NEBS] Aspirin EC [Halfprin EC] 81 mg PO QDAY 04/16/21 11/14/21 06/21/21 09:00 Dolutegravir/Rilpivirine [Juluca 1 each PO QDAY 04/16/21 11/14/21 06/19/21 05:00 50-25 mg Tablet] Montelukast [Singulair] 10 mg PO QPM 04/16/21 11/14/21 06/19/21 20:40 traZODone [Desyrel] 50 - 100 mg PO QHS 04/16/21 11/14/21 06/20/21 21:00 Previous Rx's Medication Instructions Recorded Last Taken Type Apixaban [Eliquis] 2.5 mg PO Q12HR #60 tablet 10/05/20 06/19/21 21:00 Rx Ipratropium (Nf) [Atrovent HFA 2 puff IH Q6HR PRN #1 inha 08/12/21 Unknown Rx 17MCG/PUFF] AtorvaSTATin [Lipitor] 20 mg PO HS 30 Days #30 tab 11/16/21 Unknown Rx Clopidogrel [Plavix] 75 mg PO QDAY 30 Days #30 tab 11/16/21 Unknown Rx Metoprolol [Lopressor TAB] 50 mg PO BID 30 Days #60 tablet 11/16/21 Unknown Rx amLODIPine 10 mg PO DAILY 30 Days #30 tab 11/16/21 Unknown Rx cloNIDine [Catapres] 0.1 mg PO BID 30 Days #60 tablet 11/16/21 Unknown Rx Prednisone [predniSONE 10 mg 10 mg PO .TAPER #1 pack 11/26/21 Unknown Rx (6-Day Pack, 21 Tabs)] Albuterol Mdi (or & Nicu Only) 2 puff IH QID PRN #8.5 gram 12/27/21 Unknown Rx [ProAir HFA Inhaler] Ipratropium (Nf) [Atrovent] 2 puff IH Q6HR PRN #1 inha 12/27/21 Unknown Rx Allergies Allergy/AdvReac Type Severity Reaction Status Date / Time azithromycin [From Zithromax] Allergy Shortness Verified 12/31/21 09:45 of Breath Iodinated Contrast Media Allergy Anaphylaxis Verified 12/31/21 09:45 levofloxacin Allergy Swelling Verified 12/31/21 09:45 lisinopril Allergy Angioedema Verified 12/31/21 09:45 and hives sevelamer [From Renvela] Allergy Hives Verified 12/31/21 09:45 sulfamethoxazole Allergy Jagdish Verified 12/31/21 09:45 [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 trimethoprim [From Bactrim] Allergy Jadgish Verified 12/31/21 09:45 Santiago's Syndrome ED Review of Systems ROS: Stated complaint: FALL/ LEFT ARM BRUISE Other details as noted in HPI Comment: All other systems reviewed and negative Skin: other (skin tear/ abrasion) ED Past Medical Hx - Past Medical History Hx Hypertension: Yes Hx CVA: Yes Hx Congestive Heart Failure: No Hx Diabetes: No Hx Deep Vein Thrombosis: Yes Hx Renal Disease: Yes (on hemodialysis, MWF) Hx Arthritis: Yes Hx Seizures: Yes Hx Asthma: Yes Hx COPD: Yes Hx HIV: Yes - Surgical History Hx Coronary Stent: Yes Additional Surgical History: vascath. AV shunt LUE. IVC filter - Social History Smoking Status: Current Every Day Smoker Substance Use Type: None - Medications Home Medications: Home Medications Medication Instructions Recorded Confirmed Last Taken Type ALBUTEROL NEB's [Proventil 0.083% 2.5 mg INHALATION Q6HR PRN 05/15/20 11/14/21 Unknown History NEBS] Apixaban [Eliquis] 2.5 mg PO Q12HR #60 tablet 10/05/20 11/14/21 06/19/21 21:00 Rx Aspirin EC [Halfprin EC] 81 mg PO QDAY 04/16/21 11/14/21 06/21/21 09:00 History Dolutegravir/Rilpivirine [Juluca 1 each PO QDAY 04/16/21 11/14/21 06/19/21 05:00 History 50-25 mg Tablet] Montelukast [Singulair] 10 mg PO QPM 04/16/21 11/14/21 06/19/21 20:40 History traZODone [Desyrel] 50 - 100 mg PO QHS 04/16/21 11/14/21 06/20/21 21:00 History Ipratropium (Nf) [Atrovent HFA 2 puff IH Q6HR PRN #1 inha 08/12/21 11/14/21 Unknown Rx 17MCG/PUFF] AtorvaSTATin [Lipitor] 20 mg PO HS 30 Days #30 tab 11/16/21 Unknown Rx Clopidogrel [Plavix] 75 mg PO QDAY 30 Days #30 tab 11/16/21 Unknown Rx Metoprolol [Lopressor TAB] 50 mg PO BID 30 Days #60 tablet 11/16/21 Unknown Rx amLODIPine 10 mg PO DAILY 30 Days #30 tab 11/16/21 Unknown Rx cloNIDine [Catapres] 0.1 mg PO BID 30 Days #60 tablet 11/16/21 Unknown Rx Prednisone [predniSONE 10 mg 10 mg PO .TAPER #1 pack 11/26/21 Unknown Rx (6-Day Pack, 21 Tabs)] Albuterol Mdi (or & Nicu Only) 2 puff IH QID PRN #8.5 gram 12/27/21 Unknown Rx [ProAir HFA Inhaler] Ipratropium (Nf) [Atrovent] 2 puff IH Q6HR PRN #1 inha 12/27/21 Unknown Rx ED Physical Exam - General Limitations: No Limitations General appearance: alert, in no apparent distress - Head Head exam: Present: atraumatic, normal inspection - Eye Eye exam: Present: normal appearance Pupils: Present: normal accommodation - ENT ENT exam: Present: normal exam, normal orophraynx, mucous membranes dry - Neck Neck exam: Present: normal inspection, full ROM. Absent: tenderness - Respiratory Respiratory exam: Present: normal lung sounds bilaterally. Absent: respiratory distress, accessory muscle use - Cardiovascular Cardiovascular Exam: Present: regular rate, normal rhythm, normal heart sounds - GI/Abdominal GI/Abdominal exam: Present: soft, normal bowel sounds. Absent: distended, tenderness - Extremities Exam Extremities exam: Present: tenderness (left arm and forearm tenderness to palpation with mild swe), other - Back Exam Back exam: Absent: tenderness - Neurological Exam Neurological exam: Present: alert, oriented X3 - Psychiatric Psychiatric exam: Present: normal mood - Skin Skin exam: Present: warm, normal color ED Course Vital Signs 12/30/21 12/31/21 12/31/21 17:19 09:51 12:46 Temperature 98.3 F Pulse Rate 87 97 H Respiratory 18 25 H 16 Rate Blood Pressure 197/98 [Left] Blood Pressure 185/82 [Right] O2 Sat by Pulse 96 95 95 Oximetry - Reevaluation(s) Reevaluation #1: 12/31/21 12:30 here with fall while getting out of car at home shortly after dialysis --this is likely hypotension, mechanical fall, and because it could also be other differential such as NE, or PE will go ahead and order routine labs-- 12/31/21 12:34 Xray left humerus and forearm ordered to rule out fx or dislocation. In the meantime given Morphine 2 mg IM x 1 for symptomatic relief Reevaluation #2: 12/31/21 14:59 Pt given tylenol 1000 mg PO x1 with improvement in symptoms-- XRay humerus and forearm noted with no acute finding --patient and family updated ED Medical Decision Making - Lab Data Result diagrams: 12/30/21 19:01 12/30/21 19:01 Critical care attestation.: If time is entered above; I have spent that time in minutes in the direct care of this critically ill patient, excluding procedure time. ED Disposition Clinical Impression: Rib pain on left side Fall Qualifiers: Encounter type: initial encounter Qualified Code(s): W19.XXXA - Unspecified fall, initial encounter Forearm pain Qualifiers: Laterality: left Qualified Code(s): M79.632 - Pain in left forearm Disposition: 01 HOME / SELF CARE / HOMELESS Is pt being admited?: No Does the pt Need Aspirin: No Condition: Stable Instructions: Nonspecific Chest Pain, Adult Additional Instructions: Please keep your dialysis as advised by your appointments nephrology and primary doctor It is okay to take Tylenol 1 g every 6-8 hours as needed for discomfort Please elevate your left arm above your heart to help with swelling Call or return to emergency room if your symptoms worsen Time of Disposition: 15:03
[2021-12-31] MEDS ORDERED: ACETAMINOPHEN 500 MG TAB PO ONE (12:54)
--- NOTE | 2021-12-31 13:23 | XRay Report ---
LEFT FOREARM 2 VIEW(S) INDICATION / CLINICAL INFORMATION: fall and pain COMPARISON: None available. FINDINGS: BONES / JOINT(S): No acute fracture or subluxation. No significant arthritis. SOFT TISSUES: No significant abnormality. ADDITIONAL FINDINGS: None. LEFT HUMERUS 2 VIEW(S) INDICATION / CLINICAL INFORMATION: fall and pain COMPARISON: Chest radiograph dated 12/23/2021 FINDINGS: BONES / JOINT(S): No acute fracture or subluxation. No significant arthritis. SOFT TISSUES: Post surgical changes along the medial aspect of the left arm. Redemonstrated interstitial prominence within the left lung. Signer Name: Sunny Will DO Signed: 12/31/2021 1:18 PM Workstation Name: [id number]
[2021-12-31 16:07] VITALS: BP 187/99
== END 2021-12-31 16:12 | disposition home or self-care (01) ==
LOC: ED 16:26
DX: R07.82 Intercostal pain (principal); F17.200 Nicotine dependence, unspecified, uncomplicated; I10 Essential (primary) hypertension; W19.XXXA Unspecified fall, initial encounter; Y93.89 Activity, other specified; Y92.89 Other specified places as the place of occurrence of the external cause; Y99.8 Other external cause status
CPT/HCPCS: 36415; 71046; 73060; 73090; 80053; 80061; 84484; 85025; 99283; J2270

== ENCOUNTER 2022-02-18 18:50 | Inpatient (IN) | payer MEDICARE ==
[2022-02-18] MEDS ORDERED: NITROGLYCERIN DRIP 50 MG/250 ML BOTTLE IV SCH (19:00)
--- NOTE | 2022-02-18 19:00 | Emergency Department Report ---
ED General Adult HPI - General Chief complaint: Dyspnea/Respdistress Stated complaint: JARRET Time Seen by Provider: 02/18/22 18:56 Source: patient, EMS (Verbal report received from emergency medical services. EMS documentation not available at time of chart dictation ), RN notes reviewed, old records reviewed Mode of arrival: Stretcher Limitations: Physical Limitation - History of Present Illness Initial comments: The patient was evaluated in the emergency department for symptoms described in the history of present illness. He/she was evaluated in the context of the global COVID-19 pandemic, which necessitated consideration that the patient might be at risk for infection with the virus that causes COVID-19. Institutional protocols and algorithms that pertain to the evaluation of patients at risk for COVID-19 are in a state of rapid change based on information released by regulatory bodies including the CDC and federal and state organizations. These policies and algorithms were followed during the patient's care in the emergency department. Please note that these policies, procedures and recommendations changed on a rapid basis. This patient is a 61-year-old gentleman. He has a past medical history of COPD, end-stage renal disease on hemodialysis, as well as arthritis, DVT, Eliquis use, HIV/AIDS. He has a left upper extremity dialysis access, as well as IVC filter and coronary stent. He is brought to the hospital by EMS on a CPAP. History obtained from EMS. They were called because the patient is having shortness of breath. They report the patient is hypoxic in the field, they started CPAP, albuterol, steroids, magnesium, and subcutaneous epinephrine. In the emergency room, patient found to be hypertensive, with blood pressure 219 mmHg systolic, with JVD, lower extremity edema, crackles and rales. Patient started on BiPAP here in the emergency room with appropriate settings, and started on nitroglycerin drip, with aggressive settings. I personally administered 400 mcg IV push nitroglycerin x1, currently, patient has blood pressure of 165 mmHg systolic, on nitroglycerin, and on BiPAP, and reports that he feels much improved. He is moving 4 extremities, and denies physical pain. -: unknown - Related Data Home Medications Medication Instructions Recorded Confirmed Last Taken ALBUTEROL NEB's [Proventil 0.083% 2.5 mg INHALATION Q6HR PRN 05/15/20 11/14/21 Unknown NEBS] Aspirin EC [Halfprin EC] 81 mg PO QDAY 04/16/21 02/19/22 02/18/22 Dolutegravir/Rilpivirine [Juluca 1 each PO QDAY 04/16/21 02/19/22 02/18/22 50-25 mg Tablet] Montelukast [Singulair] 10 mg PO QPM 04/16/21 02/19/22 02/18/22 traZODone [Desyrel] 50 - 100 mg PO QHS 04/16/21 02/19/22 02/18/22 Previous Rx's Medication Instructions Recorded Last Taken Type Ipratropium (Nf) [Atrovent HFA 2 puff IH Q6HR PRN #1 inha 08/12/21 Unknown Rx 17MCG/PUFF] Prednisone [predniSONE 10 mg 10 mg PO .TAPER #1 pack 11/26/21 02/18/22 Rx (6-Day Pack, 21 Tabs)] Albuterol Mdi (or & Nicu Only) 2 puff IH QID PRN #8.5 gram 12/27/21 Unknown Rx [ProAir HFA Inhaler] Ipratropium (Nf) [Atrovent] 2 puff IH Q6HR PRN #1 inha 12/27/21 Unknown Rx Apixaban [Eliquis] 2.5 mg PO Q12HR 30 Days #60 tablet 02/20/22 Unknown Rx AtorvaSTATin [Lipitor] 20 mg PO HS 30 Days #30 tab 02/20/22 Unknown Rx Clopidogrel [Plavix] 75 mg PO QDAY 30 Days #30 tablet 02/20/22 Unknown Rx Metoprolol [Lopressor TAB] 50 mg PO BID@0800,1700 30 Days #60 02/20/22 Unknown Rx tablet amLODIPine 10 mg PO DAILY 30 Days #30 tablet 02/20/22 Unknown Rx cloNIDine [Catapres] 0.2 mg PO BID 30 Days #60 tablet 02/20/22 Unknown Rx Allergies Allergy/AdvReac Type Severity Reaction Status Date / Time azithromycin [From Zithromax] Allergy Shortness Verified 02/18/22 19:24 of Breath Iodinated Contrast Media Allergy Anaphylaxis Verified 02/18/22 19:24 levofloxacin Allergy Swelling Verified 02/18/22 19:24 lisinopril Allergy Angioedema Verified 02/18/22 19:24 and hives sevelamer [From Renvela] Allergy Hives Verified 02/18/22 19:24 sulfamethoxazole Allergy Jagdish Verified 02/18/22 19:24 [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 trimethoprim [From Bactrim] Allergy Jagdish 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 denies: chest pain Gastrointestinal: denies: abdominal pain Neurological: weakness ED Past Medical Hx - Past Medical History Hx Hypertension: Yes Hx CVA: Yes Hx Congestive Heart Failure: No Hx Diabetes: No Hx Deep Vein Thrombosis: Yes Hx Renal Disease: Yes (on hemodialysis, MWF) Hx Arthritis: Yes Hx Seizures: Yes Hx Asthma: Yes Hx COPD: Yes Hx HIV: Yes - Surgical History Hx Coronary Stent: Yes Additional Surgical History: vascath. AV shunt LUE. IVC filter - Social History Smoking Status: Current Every Day Smoker Substance Use Type: None - Medications Home Medications: Home Medications Medication Instructions Recorded Confirmed Last Taken Type ALBUTEROL NEB's [Proventil 0.083% 2.5 mg INHALATION Q6HR PRN 05/15/20 11/14/21 Unknown History NEBS] Aspirin EC [Halfprin EC] 81 mg PO QDAY 04/16/21 02/19/22 02/18/22 History Dolutegravir/Rilpivirine [Juluca 1 each PO QDAY 04/16/21 02/19/22 02/18/22 History 50-25 mg Tablet] Montelukast [Singulair] 10 mg PO QPM 04/16/21 02/19/22 02/18/22 History traZODone [Desyrel] 50 - 100 mg PO QHS 04/16/21 02/19/22 02/18/22 History Ipratropium (Nf) [Atrovent HFA 2 puff IH Q6HR PRN #1 inha 08/12/21 11/14/21 Unknown Rx 17MCG/PUFF] Prednisone [predniSONE 10 mg 10 mg PO .TAPER #1 pack 11/26/21 02/19/22 02/18/22 Rx (6-Day Pack, 21 Tabs)] Albuterol Mdi (or & Nicu Only) 2 puff IH QID PRN #8.5 gram 07/15/22 Unknown Rx [ProAir HFA Inhaler] Ipratropium (Nf) [Atrovent] 2 puff IH Q6HR PRN #1 inha 12/27/21 Unknown Rx Apixaban [Eliquis] 2.5 mg PO Q12HR 30 Days #60 tablet 02/20/22 Unknown Rx AtorvaSTATin [Lipitor] 20 mg PO HS 30 Days #30 tab 02/20/22 Unknown Rx Clopidogrel [Plavix] 75 mg PO QDAY 30 Days #30 tablet 02/20/22 Unknown Rx Metoprolol [Lopressor TAB] 50 mg PO BID@0800,1700 30 Days #60 02/20/22 Unknown Rx tablet amLODIPine 10 mg PO DAILY 30 Days #30 tablet 02/20/22 Unknown Rx cloNIDine [Catapres] 0.2 mg PO BID 30 Days #60 tablet 02/20/22 Unknown Rx ED Physical Exam - General Limitations: Physical Limitation General appearance: alert, anxious, in distress - Head Head exam: Present: atraumatic, normocephalic - Eye Eye exam: Present: normal appearance, EOMI - ENT ENT exam: Present: normal exam, normal orophraynx, mucous membranes moist, norm al external ear exam - Neck Neck exam: Present: normal inspection, full ROM. Absent: tenderness, meningismus - Respiratory Respiratory exam: Present: respiratory distress, rales. Absent: stridor - Cardiovascular Cardiovascular Exam: Present: normal rhythm, tachycardia, normal heart sounds, JVD. Absent: bradycardia, irregular rhythm, rubs, gallop - GI/Abdominal GI/Abdominal exam: Present: soft. Absent: distended, tenderness, guarding, re bound, rigid, pulsatile mass - Rectal Rectal exam: Present: deferred - Extremities Exam Extremities exam: Present: normal inspection (There is a left upper extremity fistula noted, without redness, pus or streaking, and there is an appropriate thrill), full ROM, pedal edema, other (2+ pulses noted in the bilateral upper and lower extremities. There is no palpable cord. negative Homans sign. Muscular compartments are soft. The pelvis is stable.). Absent: calf tenderness - Back Exam Back exam: Present: normal inspection. Absent: tenderness, CVA tenderness (R), CVA tenderness (L), paraspinal tenderness, vertebral tenderness - Neurological Exam Neurological exam: Present: alert, other (There is no facial droop. EOMI. 5 out of 5 strength in 4 extremities. Sensation is intact to light touch in 4 extremities) - Psychiatric Psychiatric exam: Present: anxious - Skin Skin exam: Present: warm, dry, intact, normal color. Absent: rash ED Course Vital Signs 02/18/22 02/18/22 02/18/22 18:51 19:00 19:06 Temperature 98.5 F Pulse Rate 101 H 80 Pulse Rate [ Anterior Bilateral Throughout] Respiratory 35 H 25 H Rate Respiratory Rate [Anterior Bilateral Throughout] Blood Pressure 152/99 Blood Pressure 219/112 [Left] O2 Sat by Pulse 94 100 94 Oximetry O2 Sat by Pulse Oximetry [ Anterior Bilateral Throughout] 02/18/22 02/18/22 02/18/22 19:16 19:25 19:30 Temperature Pulse Rate 91 H 81 82 Pulse Rate [ Anterior Bilateral Throughout] Respiratory 19 17 26 H Rate Respiratory Rate [Anterior Bilateral Throughout] Blood Pressure 192/104 169/100 Blood Pressure 162/95 [Left] O2 Sat by Pulse 96 99 99 Oximetry O2 Sat by Pulse Oximetry [ Anterior Bilateral Throughout] 02/18/22 02/18/22 02/18/22 19:45 20:00 20:10 Temperature Pulse Rate 80 78 Pulse Rate [ Anterior Bilateral Throughout] Respiratory 27 H 18 16 Rate Respiratory Rate [Anterior Bilateral Throughout] Blood Pressure 166/93 165/94 Blood Pressure [Left] O2 Sat by Pulse 99 100 100 Oximetry O2 Sat by Pulse Oximetry [ Anterior Bilateral Throughout] 02/18/22 02/18/22 02/18/22 20:15 20:30 20:45 Temperature Pulse Rate 79 83 87 Pulse Rate [ Anterior Bilateral Throughout] Respiratory 16 24 22 Rate Respiratory Rate [Anterior Bilateral Throughout] Blood Pressure 165/96 170/99 166/97 Blood Pressure [Left] O2 Sat by Pulse 100 100 100 Oximetry O2 Sat by Pulse Oximetry [ Anterior Bilateral Throughout] 02/18/22 02/18/22 02/18/22 20:50 20:51 21:00 Temperature 98.2 F Pulse Rate 82 79 Pulse Rate [ Anterior Bilateral Throughout] Respiratory 22 16 21 Rate Respiratory Rate [Anterior Bilateral Throughout] Blood Pressure 149/94 Blood Pressure 147/91 [Left] O2 Sat by Pulse 99 99 Oximetry O2 Sat by Pulse 98 Oximetry [ Anterior Bilateral Throughout] 02/18/22 02/18/2202/18/22 21:01 21:15 21:30 Temperature Pulse Rate 86 88 83 Pulse Rate [ Anterior Bilateral Throughout] Respiratory 23 28 H Rate Respiratory Rate [Anterior Bilateral Throughout] Blood Pressure 166/97 159/90 159/90 Blood Pressure [Left] O2 Sat by Pulse 99 100 Oximetry O2 Sat by Pulse Oximetry [ Anterior Bilateral Throughout] 02/18/22 02/18/22 02/18/22 21:31 21:40 21:45 Temperature Pulse Rate 79 85 Pulse Rate [ Anterior Bilateral Throughout] Respiratory 25 H 26 H Rate Respiratory Rate [Anterior Bilateral Throughout] Blood Pressure 156/94 159/89 Blood Pressure [Left] O2 Sat by Pulse 100 100 99 Oximetry O2 Sat by Pulse Oximetry [ Anterior Bilateral Throughout] 02/18/22 02/18/22 02/18/22 22:00 22:15 22:30 Temperature Pulse Rate 85 88 73 Pulse Rate [ Anterior Bilateral Throughout] Respiratory 25 H 25 H Rate Respiratory Rate [Anterior Bilateral Throughout] Blood Pressure 159/89 165/93 149/80 Blood Pressure [Left] O2 Sat by Pulse 100 97 Oximetry O2 Sat by Pulse Oximetry [ Anterior Bilateral Throughout] 02/18/22 02/18/22 02/18/22 22:31 22:37 22:45 Temperature Pulse Rate 79 76 Pulse Rate [ 80 Anterior Bilateral Throughout] Respiratory 22 20 Rate Respiratory 22 Rate [Anterior Bilateral Throughout] Blood Pressure 149/80 146/76 Blood Pressure [Left] O2 Sat by Pulse 100 100 Oximetry O2 Sat by Pulse Oximetry [ Anterior Bilateral Throughout] 02/18/22 02/18/22 02/18/22 23:00 23:01 23:15 Temperature Pulse Rate 82 81 83 Pulse Rate [ Anterior Bilateral Throughout] Respiratory 22 24 Rate Respiratory Rate [Anterior Bilateral Throughout] Blood Pressure 146/74 146/74 146/70 Blood Pressure [Left] O2 Sat by Pulse 100 100 Oximetry O2 Sat by Pulse Oximetry [ Anterior Bilateral Throughout] 02/18/22 02/18/22 02/18/22 23:23 23:31 23:45 Temperature 98.9 F Pulse Rate 87 80 93 H Pulse Rate [ Anterior Bilateral Throughout] Respiratory 25 H 22 21 Rate Respiratory Rate [Anterior Bilateral Throughout] Blood Pressure 139/70 139/70 141/67 Blood Pressure [Left] O2 Sat by Pulse 100 96 Oximetry O2 Sat by Pulse 100 Oximetry [ Anterior Bilateral Throughout] 02/19/22 02/19/22 02/19/22 00:00 00:15 00:31 Temperature Pulse Rate 91 H 94 H 93 H Pulse Rate [ Anterior Bilateral Throughout] Respiratory 21 21 20 Rate Respiratory Rate [Anterior Bilateral Throughout] Blood Pressure 165/93 139/70 127/52 Blood Pressure [Left] O2 Sat by Pulse 99 97 96 Oximetry O2 Sat by Pulse Oximetry [ Anterior Bilateral Throughout] 02/19/22 02/19/22 02/19/22 00:41 00:50 01:08 Temperature 98.8 F Pulse Rate 91 H 97 H 93 H Pulse Rate [ Anterior Bilateral Throughout] Respiratory 21 22 20 Rate Respiratory Rate [Anterior Bilateral Throughout] Blood Pressure 127/52 115/71 Blood Pressure 127/52 [Left] O2 Sat by Pulse 98 99 96 Oximetry O2 Sat by Pulse Oximetry [ Anterior Bilateral Throughout] 02/19/22 01:10 Temperature Pulse Rate 94 H Pulse Rate [ Anterior Bilateral Throughout] Respiratory 25 H Rate Respiratory Rate [Anterior Bilateral Throughout] Blood Pressure Blood Pressure [Left] O2 Sat by Pulse 99 Oximetry O2 Sat by Pulse Oximetry [ Anterior Bilateral Throughout] - Reevaluation(s) Reevaluation #1: 02/18/22 19:44 Differential diagnosis, including but not limited to: Flash pulmonary edema, pneumonia, COPD exacerbation, asthma exacerbation, electrolyte derangement Assessment and plan: 61-year-old gentleman presenting with evidence of flash pulmonary edema and hypertensive emergency, manifested by hypertension, rales, JVD, diaphoresis. He is maximally resuscitated with IV nitroglycerin, and BiPAP. He is markedly improved at this time, not encephalopathic, and not in significant distress at this time. Laboratory studies, EKG are pending. Chest x-ray is pending. 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 Patient is agreeable to admission and hospitalization. He was treated with albuterol, steroids and magnesium as well as epinephrine by EMS 02/18/22 20:32 Discussed patient's history, physical, laboratory studies and imaging studies with critical care physician, Dr. Farnsworth, and nephrology, Dr. Simms They will follow in consultation. Dr Nida Hay to admit to ICU Patient is much improved - Consultations Consultation #1: 02/18/22 20:17 Case presented critical care physician, Dr. Farnsworth, who will authorize admission to the ICU for flash pulmonary edema on nitroglycerin drip. ED Medical Decision Making - Lab Data Result diagrams: 02/19/22 04:25 02/19/22 04:25 Vital Signs 02/18/22 02/18/22 02/18/22 18:51 19:00 19:25 Temperature 98.5 F Pulse Rate 101 H 80 81 Respiratory 35 H 25 H 17 Rate Blood Pressure 152/99 Blood Pressure 219/112 162/95 [Left] O2 Sat by Pulse 94 100 99 Oximetry Lab Results 02/18/22 02/18/22 Range/Units 19:26 19:26 WBC 7.5 (4.5-11.0) K/mm3 RBC 3.45 L (3.65-5.03) M/mm3 Hgb 10.2 L (11.8-15.2) gm/dl Hct 30.5 L (35.5-45.6) % MCV 88 (84-94) fl MCH 30 (28-32) pg MCHC 34 (32-34) % RDW 17.2 H (13.2-15.2) % Plt Count 123 L (140-440) K/mm3 Lymph % (Auto) 24.3 (13.4-35.0) % [place] % (Auto) 7.0 (0.0-7.3) % Eos % (Auto) 4.8 H (0.0-4.3) % Baso % (Auto) 1.3 (0.0-1.8) % Lymph # (Auto) 1.8 (1.2-5.4) K/mm3 [place] # (Auto) 0.5 (0.0-0.8) K/mm3 Eos # (Auto) 0.4 (0.0-0.4) K/mm3 Baso # (Auto) 0.1 (0.0-0.1) K/mm3 Seg Neutrophils % 62.6 (40.0-70.0) % Seg Neutrophils # 4.7 (1.8-7.7) K/mm3 PT 14.0 (12.2-14.9) Sec. INR 0.97 (0.87-1.13) Lab Results 02/18/22 02/18/22 02/18/22 Range/Units 19:26 19:26 19:26 WBC 7.5 (4.5-11.0) K/mm3 RBC 3.45 L (3.65-5.03) M/mm3 Hgb 10.2 L (11.8-15.2) gm/dl Hct 30.5 L (35.5-45.6) % MCV 88 (84-94) fl MCH 30 (28-32) pg MCHC 34 (32-34) % RDW 17.2 H (13.2-15.2) % Plt Count 123 L (140-440) K/mm3 Lymph % (Auto) 24.3 (13.4-35.0) % [place] % (Auto) 7.0 (0.0-7.3) % Eos % (Auto) 4.8 H (0.0-4.3) % Baso % (Auto) 1.3 (0.0-1.8) % Lymph # (Auto) 1.8 (1.2-5.4) K/mm3 [place] # (Auto) 0.5 (0.0-0.8) K/mm3 Eos # (Auto) 0.4 (0.0-0.4) K/mm3 Baso # (Auto) 0.1 (0.0-0.1) K/mm3 Seg Neutrophils % 62.6 (40.0-70.0) % Seg Neutrophils # 4.7 (1.8-7.7) K/mm3 PT 14.0 (12.2-14.9) Sec. INR 0.97 (0.87-1.13) APTT 26.4 (24.2-36.6) Sec. Sodium 142 (137-145) mmol/L Potassium 4.3 (3.6-5.0) mmol/L Chloride 95.9 L (98-107) mmol/L Carbon Dioxide 27 (22-30) mmol/L Anion Gap 23 mmol/L BUN 32 H (9-20) mg/dL Creatinine 7.9 H (0.8-1.3) mg/dL Estimated GFR 8 ml/min BUN/Creatinine Ratio 4 % Glucose 167 H (75-100) mg/dL Calcium 9.3 (8.4-10.2) mg/dL Magnesium 3.20 H (1.7-2.3) mg/dL Total Bilirubin 0.60 (0.1-1.2) mg/dL AST 53 H (5-40) units/L ALT 48 (7-56) units/L Alkaline Phosphatase 143 H (35-129) units/L Total Creatine Kinase 138 (55-170) units/L Total Protein 7.4 (6.3-8.2) g/dL Albumin 4.4 (3.9-5) g/dL Albumin/Globulin Ratio 1.5 % - EKG Data -: EKG Interpreted by Al - EKG Data 02/18/22 20:14 The EKG is interpreted at 20: 10 Sinus rhythm, with a rate of 85 bpm. Normal axis, normal P wave axis, left ventricular hypertrophy, QTC 5 1 9 ms. This is an abnormal EKG. This is not a STEMI - Radiology Data Radiology results: report reviewed, image reviewed [facility] [address] [place] [address] XRay Report Signed Patient: JANIE KNOWLES MR#: [id number] : 1960 Acct:[id number] Age/Sex: 61 / M ADM Date: 02/18/22 Loc: ED Attending Dr: Ordering Physician: CRYSTAL HERNÁNDEZ MD Date of Service: 02/18/22 Procedure(s): XR chest 1V ap Accession Number(s): [id number] cc: CRYSTAL HERNÁNDEZ MD Fluoro Time In Minutes: CHEST 1 VIEW 02/18/2022 6:22 PM INDICATION / CLINICAL INFORMATION: Dyspnea. COMPARISON: 2 views of the chest from 12/30/2021. FINDINGS: SUPPORT DEVICES: None. HEART / MEDIASTINUM: Stable. LUNGS / PLEURA: Bilateral pulmonary opacities have increased compared to the previous study and are most notable along the lower right lung. Probable scarring versus small effusions is again seen along the costophrenic angles. No pneumothorax. ADDITIONAL FINDINGS: No significant additional findings. IMPRESSION: 1. Increased bilateral pulmonary opacities, likely representing atelectasis/edema. 2. No other significant interval changes. Signer Name: Duncan Tracey MD Signed: 02/18/2022 7:52 PM Workstation Name: [id number] Transcribed By: [place] Dictated By: Duncan Tracey MD Electronically Authenticated By: Duncan Tracey MD Signed Date/Time: 02/18/221951 DD/ 50 TD/TT: Critical Care Time: Yes Critical care time in (mins) excluding proc time.: 35 Critical care attestation.: If time is entered above; I have spent that time in minutes in the direct care of this critically ill patient, excluding procedure time. ED Disposition Clinical Impression: Acute respiratory failure, Hypertensive emergency, End stage renal disease, ESRD needing dialysis, Bronchospasm Disposition: ADMITTED INPATIENT Is pt being admited?: Yes Does the pt Need Aspirin: No Condition: Stable
[2022-02-18 19:45] LABS: Basophils # (Auto) 0.1 K/mm3 (0.0-0.1); Basophils % (Auto) 1.3 % (0.0-1.8); Eosinophils # (Auto) 0.4 K/mm3 (0.0-0.4); Eosinophils % (Auto) 4.8 % (0.0-4.3); Hematocrit 30.5 % (35.5-45.6); Hemoglobin 10.2 gm/dl (11.8-15.2); Lymphocytes # (Auto) 1.8 K/mm3 (1.2-5.4); Lymphocytes % (Auto) 24.3 % (13.4-35.0); Mean Corpuscular HGB Conc 34 % (32-34); Mean Corpuscular Volume 88 fl (84-94); Monocytes # (Auto) 0.5 K/mm3 (0.0-0.8); Platelet Count 123 K/mm3 (140-440); Red Blood Count 3.45 M/mm3 (3.65-5.03); Red Cell Distribution Width 17.2 % (13.2-15.2)
--- NOTE | 2022-02-18 19:56 | XRay Report ---
CHEST 1 VIEW 02/18/2022 6:22 PM INDICATION / CLINICAL INFORMATION: Dyspnea. COMPARISON: 2 views of the chest from 12/30/2021. FINDINGS: SUPPORT DEVICES: None. HEART / MEDIASTINUM: Stable. LUNGS / PLEURA: Bilateral pulmonary opacities have increased compared to the previous study and are m ost notable along the lower right lung. Probable scarring versus small effusions is again seen along the costophrenic angles. No pneumothorax. ADDITIONAL FINDINGS: No significant additional findings. IMPRESSION: 1. Increased bilateral pulmonary opacities, likely representing atelectasis/edema. 2. No other significant interval changes. Signer Name: Duncan Tracey MD Signed: 02/18/2022 7:52 PM Workstation Name: [id number]
[2022-02-18 19:59] LABS: INR 0.97 (0.87-1.13); Partial Thromboplastin Time 26.4 Sec. (24.2-36.6)
[2022-02-18 20:26] LABS: Albumin 4.4 g/dL (3.9-5); Calcium 9.3 mg/dL (8.4-10.2)
[2022-02-18] MEDS ORDERED: NALOXONE 0.4 MG/1 ML INJ IV PRN (20:35)
[2022-02-18] MEDS ORDERED: MORPHINE 4 MG/1 ML INJ IV PRN (20:35)
[2022-02-18] MEDS ORDERED: MORPHINE 2 MG/1 ML INJ IV PRN ×2 (20:35→21:44)
[2022-02-18] MEDS ORDERED: ACETAMINOPHEN 325 MG TAB PO PRN ×2 (20:35→21:44)
[2022-02-18] MEDS ORDERED: SODIUM CHLORIDE 0.9% 100 ML IV PRN (20:40)
[2022-02-18] MEDS ORDERED: HEPARIN 10,000 UNITS/10 ML VIAL IV PRN (20:40)
[2022-02-18] MEDS ORDERED: ALBUTEROL 8.5 GM MDI INHALATION IH PRN (21:40)
--- NOTE | 2022-02-18 21:40 | History and Physical Report ---
History of Present Illness Date of examination: 02/18/22 Date of admission: 02/18/22 20:35 Chief complaint: Severe shortness of breath since a.m. History of present illness: 51-year-old -French male with multiple medical problems including end- stage renal disease on hemodialysis, COPD/asthma, hypertension, DVT, IVC filter and coronary stent, AV fistula on the left upper extremity brought in by EMS for severe shortness of breath and wheezing. Patient was hypoxic in the field with oxygen saturations of around 80%. Patient blood pressure was also noted to be very high. EMS initiated CPAP, albuterol, steroids, IV magnesium and subcutaneous epinephrine. In the emergency room his blood pressure was around 230/130. Because of the extremely high blood pressure and severe shortness of breath and hypoxia patient was initiated on IV nitroglycerin to control her blood pressure and emergent hemodialysis was requested for increased ultrafiltration and removal of fluid. Patient very orthopneic. Patient has class IV NYHA symptoms. Patient was started on BiPAP in the emergency room. Patient was in acute respiratory distress during my examination. Home medications were reconciled and IV nitroglycerin drip to continue. at the bedside says that patient has been compliant with hemodialysis and had hemodialysis Thursday as per schedule. No excessive fluid intake as per the patient. - Past Medical History --Hypertension: Yes --CVA: Yes --Congestive Heart Failure: No --Deep Vein Thrombosis: Yes --Renal Disease: Yes (on hemodialysis, MWF) --Arthritis: Yes --Seizures: Yes --Asthma: Yes --COPD: Yes --HIV: Yes - Surgical History --Coronary Stent: Yes --Additional Surgical History: vascath. AV shunt LUE. IVC filter - Social History --Smoking Status: Current Every Day Smoker --Substance Use Type: None -Family history -- Htn Review of Systems ROS: Constitutional no weight loss or weight gain no fever or chills HEENT no sore throat no post nasal drip no diplopia Neck no neck stiffness no lymph gland enlargement Chest and lungs severe shortness of breath and wheezing. CVS-blood pressure-, high GI no nausea no vomiting no diarrhea Genitourinary system no dysuria no flank pain Musculoskeletal system no muscle pains no joint pains [facility] no syncope no seizures Skin no rash no itching Psychiatric no depression no homicidal or suicidal tendencies Hematologic no lymphedema or bruising Endocrine no polydipsia no polyuria no cold intolerance no heat intolerance Medications and Allergies Allergies Allergy/AdvReac Type Severity Reaction Status Date / Time azithromycin [From Zithromax] Allergy Shortness Verified 02/18/22 19:24 of Breath Iodinated Contrast Media Allergy Anaphylaxis Verified 02/18/22 19:24 levofloxacin Allergy Swelling Verified 02/18/22 19:24 lisinopril Allergy Angioedema Verified 02/18/22 19:24 and hives sevelamer [From Renvela] Allergy Hives Verified 02/18/22 19:24 sulfamethoxazole Allergy Jagdish Verified 02/18/22 19:24 [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 trimethoprim [From Bactrim] Allergy Jagdish Verified 02/18/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: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 Home Medications Medication Instructions Recorded Confirmed Last Taken Type ALBUTEROL NEB's [Proventil 0.083% 2.5 mg INHALATION Q6HR PRN 05/15/20 11/14/21 Unknown History NEBS] Apixaban [Eliquis] 2.5 mg PO Q12HR #60 tablet 10/05/20 11/14/21 06/19/21 21:00 Rx Aspirin EC [Halfprin EC] 81 mg PO QDAY 04/16/21 11/14/21 06/21/21 09:00 History Dolutegravir/Rilpivirine [Juluca 1 each PO QDAY 04/16/21 11/14/21 06/19/21 05:00 History 50-25 mg Tablet] Montelukast [Singulair] 10 mg PO QPM 04/16/21 11/14/21 06/19/21 20:40 History traZODone [Desyrel] 50 - 100 mg PO QHS 04/16/21 11/14/21 06/20/21 21:00 History Ipratropium (Nf) [Atrovent HFA 2 puff IH Q6HR PRN #1 inha 08/12/21 11/14/21 Unknown Rx 17MCG/PUFF] AtorvaSTATin [Lipitor] 20 mg PO HS 30 Days #30 tab 11/16/21 Unknown Rx Clopidogrel [Plavix] 75 mg PO QDAY 30 Days #30 tab 11/16/21 Unknown Rx Metoprolol [Lopressor TAB] 50 mg PO BID 30 Days #60 tablet 11/16/21 Unknown Rx amLODIPine 10 mg PO DAILY 30 Days #30 tab 11/16/21 Unknown Rx cloNIDine [Catapres] 0.1 mg PO BID 30 Days #60 tablet 11/16/21 Unknown Rx Prednisone [predniSONE 10 mg 10 mg PO .TAPER #1 pack 11/26/21 Unknown Rx (6-Day Pack, 21 Tabs)] Albuterol Mdi (or & Nicu Only) 2 puff IH QID PRN #8.5 gram 12/27/21 Unknown Rx [ProAir HFA Inhaler] Ipratropium (Nf) [Atrovent] 2 puff IH Q6HR PRN #1 inha 12/27/21 Unknown Rx Active Meds: Active Medications Acetaminophen (Acetaminophen 325 Mg Tab) 650 mg PO Q6H PRN PRN Reason: Pain MILD(1-3)/Fever >100.5/GARCIA Heparin Sodium (Porcine) (Heparin 10,000 Units/10 Ml Vial) 2,000 unit IV CECELIA PRN PRN Reason: hemodialysis Nitroglycerin/Dextrose (Tridil Drip 50mg/250ml) 50 mg in 250 mls @ 3 mls/hr IV TITR MIGUELANGEL; Protocol Last Titration: 02/18/22 19:26 Dose: 50 mcg/min, 15 mls/hr Sodium Chloride (Nacl 0.9%) 100 mls @ 999 mls/hr IV CECELIA PRN PRN Reason: Hypotension Naloxone HCl (Naloxone 0.4 Mg/1 Ml Inj) 0.1 mg IV Q2MIN PRN PRN Reason: Res Rate </= 8 or 02 SAT < 92% Sodium Chloride (Sodium Chloride 0.9% 10 Ml Flush Syringe) 10 ml IV BID MIGUELANGEL Sodium Chloride (Sodium Chloride 0.9% 10 Ml Flush Syringe) 10 ml IV PRN PRN PRN Reason: LINE FLUSH Exam - Physical Exam Narrative exam: Patient is on BiPAP and alert and oriented - Constitutional Vitals: Temp Pulse Resp BP Pulse Ox 98.5 F 82 16 147/91 99 02/18/22 18:51 02/18/22 20:50 02/18/22 20:51 02/18/22 20:50 02/18/22 20:51 General appearance: Present: severe distress, well-nourished - EENT Eyes: Present: PERRL ENT: hearing intact, clear oral mucosa - Neck Neck: Present: supple, normal ROM - Respiratory Respiratory effort: normal Respiratory: bilateral: diminished, rales, rhonchi, wheezing - Cardiovascular Heart rate: 110 Rhythm: regular Heart Sounds: Present: S1 & S2. Absent: rub, click - Extremities Extremities: no ischemia, pulses symmetrical Extremity abnormal: edema Peripheral Pulses: within normal limits - Abdominal General gastrointestinal: Present: soft, non-tender, non-distended, normal bowel sounds Male genitourinary: Present: normal - Rectal Rectal Exam: deferred - Integumentary Integumentary: Present: clear, warm, dry - Musculoskeletal Musculoskeletal: gait normal, strength equal bilaterally - Psychiatric Psychiatric: appropriate mood/affect, intact judgment & insight - Neurologic Neurologic: CNII-XII intact, moves all extremities - Allied Health Allied health notes reviewed: nursing, social work, case management HEART Score - HEART Score Age: 45-65 Risk factors: > 3 risk factors or hx of atherosclerotic disease Troponin: 1-3x normal limit - Critical Actions Critical Actions: 4-6 pts:12-16.6% risk of adverse cardiac event. Should be admitted Results - Labs CBC & Chem 7: 02/19/22 04:25 02/19/22 04:25 Labs: Laboratory Last Values WBC 7.5 K/mm3 (4.5-11.0) 02/18/22 19:26 RBC 3.45 M/mm3 (3.65-5.03) L 02/18/22 19:26 Hgb 10.2 gm/dl (11.8-15.2) L 02/18/22 19:26 Hct 30.5 % (35.5-45.6) L 02/18/22 19:26 MCV 88 fl (84-94) 02/18/22 19:26 MCH 30 pg (28-32) 02/18/22 19:26 MCHC 34 % (32-34) 02/18/22 19:26 RDW 17.2 % (13.2-15.2) H 02/18/22 19:26 Plt Count 123 K/mm3 (140-440) L 02/18/22 19:26 Lymph % (Auto) 24.3 % (13.4-35.0) 02/18/22 19:26 [place]lin % (Auto) 7.0 % (0.0-7.3) 02/18/22 19:26 Eos % (Auto) 4.8 % (0.0-4.3) H 02/18/22 19:26 Baso % (Auto) 1.3 % (0.0-1.8) 02/18/22 19:26 Lymph # (Auto) 1.8 K/mm3 (1.2-5.4) 02/18/22 19:26 [place]lin # (Auto) 0.5 K/mm3 (0.0-0.8) 02/18/22 19:26 Eos # (Auto) 0.4 K/mm3 (0.0-0.4) 02/18/22 19:26 Baso # (Auto) 0.1 K/mm3 (0.0-0.1) 02/18/22 19: Seg Neutrophils % 62.6 % (40.0-70.0) 02/18/22 19: Seg Neutrophils # 4.7 K/mm3 (1.8-7.7) 02/18/22 19:26 PT 14.0 Sec. (12.2-14.9) 02/18/22 19:26 INR 0.97 (0.87-1.13) 02/18/22 19: APTT 26.4 Sec. (24.2-36.6) 02/18/22 19:26 Sodium 142 mmol/L (137-145) 02/18/22 19:26 Potassium 4.3 mmol/L (3.6-5.0) 02/18/22 19:26 Chloride 95.9 mmol/L (98-107) L 02/18/22 19:26 Carbon Dioxide 27 mmol/L (22-30) 02/18/22 19:26 Anion Gap 23 mmol/L 02/18/22 19:26 BUN 32 mg/dL (9-20) H 02/18/22 19:26 Creatinine 7.9 mg/dL (0.8-1.3) H 02/18/22 19:26 Estimated GFR 8 ml/min 02/18/22 19:26 BUN/Creatinine Ratio 4 % 02/18/22 19:26 Glucose 167 mg/dL (75-100) H 02/18/22 19:26 Calcium 9.3 mg/dL (8.4-10.2) 02/18/22 19:26 Magnesium 3.20 mg/dL (1.7-2.3) H 02/18/22 19:26 Total Bilirubin 0.60 mg/dL (0.1-1.2) 02/18/22 19:26 AST 53 units/L (5-40) H 02/18/22 19:26 ALT 48 units/L (7-56) 02/18/22 19:26 Alkaline Phosphatase 143 units/L (35-129) H 02/18/22 19:26 Total Creatine Kinase 138 units/L (55-170) 02/18/22 19:26 NT-Pro-B Natriuret Pep 48374 pg/mL (0-900) H 02/18/22 19:26 Total Protein 7.4 g/dL (6.3-8.2) 02/18/22 19:26 Albumin 4.4 g/dL (3.9-5) 02/18/22 19:26 Albumin/Globulin Ratio 1.5 % 02/18/22 19:26 Short CBC 02/18/22 02/19/22 Range/Units 19:26 04:25 WBC 7.5 2.4 L (4.5-11.0) K/mm3 Hgb 10.2 L 9.7 L (11.8-15.2) gm/dl Hct 30.5 L 29.4 L (35.5-45.6) % Plt Count 123 L 109 L (140-440) K/mm3 BMP 02/18/22 02/19/22 19:26 04:25 Sodium 142 138 Potassium 4.3 4.5 Chloride 95.9 L 95.1 L Carbon Dioxide 27 32 H BUN 32 H 19 Creatinine 7.9 H 5.6 H Glucose 167 H 123 H Calcium 9.3 9.4 Cardiac Enzymes 02/18/22 Range/Units 19:26 Total Creatine Kinase 138 (55-170) units/L Liver Function 02/18/22 02/19/22 Range/Units 19:26 04:25 Total Bilirubin 0.60 0.40 (0.1-1.2) mg/dL AST 53 H 35 (5-40) units/L ALT 48 41 (7-56) units/L Alkaline Phosphatase 143 H 110 (35-129) units/L Albumin 4.4 4.3 (3.9-5) g/dL Assessment and Plan Assessment and plan: Critical care statement The high probability OF a clinically significant sudden or life-threatening deterioration of the cardiorespiratory system and endocrine system required my full and direct attention, intervention and postoperative management. The aggregate critical care time of 65 minutes. The time is in addition to time spent performing reported procedures but includes the followin: Data review and interpretation 2: Patient assessment and monitoring of vital signs 3: Documentation 4:: Medication orders and management Advance Directives: Yes (Full code) VTE prophylaxis?: Chemical Plan of care discussed with patient/family: Yes - Patient Problems (1) Acute respiratory failure with hypoxia Current Visit: Yes Status: Acute Plan to address problem: Patient was severely hypoxic upon the feeding at the time of admission to the e mergency room Patient initiated on CPAP followed by BiPAP Also emergent hemodialysis for increased ultrafiltration and removal of fluid Intubation if necessary (2) Hypertensive emergency Current Visit: Yes Status: Acute Plan to address problem: IV nitroglycerin initiated Titrate to keep the systolic below 150 and diastolic below 90 (3) Pulmonary edema Current Visit: Yes Status: Acute Qualifiers: Chronicity: acute Plan to address problem: Patient has flash pulmonary edema Emergent hemodialysis for increased ultrafiltration Nephrology consulted (4) Asthma with COPD Current Visit: Yes Status: Acute Plan to address problem: Patient on montelukast and duo nebs [id number] and as needed. No IV antibiotics initiated Steroids initiated (5) DVT (deep venous thrombosis) Current Visit: Yes Status: Chronic Qualifiers: DVT location: lower extremity Laterality: bilateral Plan to address problem: Patient with IVC filter On Eliquis Continue Eliquis (6) Hyperlipidemia Current Visit: Yes Status: Chronic Qualifiers: Hyperlipidemia type: mixed hyperlipidemia Qualified Code(s): E78.2 - Mixed hyperlipidemia Plan to address problem: Continue statins (7) HIV (human immunodeficiency virus infection) Current Visit: Yes Status: Chronic Qualifiers: HIV symptom status: asymptomatic, with no history of HIV-related illness Qualified Code(s): Z21 - Asymptomatic human immunodeficiency virus [HIV] infection status Plan to address problem: Currently on antiretrovirals [place] Medications reconciled (8) Hyperglycemia Current Visit: Yes Status: Acute Plan to address problem: No history of diabetes Accu-Cheks initiated Low-dose insulin coverage Check hemoglobin A1c (9) Anemia Current Visit: Yes Status: Chronic Qualifiers: Anemia type: due to chronic kidney disease Plan to address problem: Anemia secondary to end-stage renal disease Given the end-stage renal disease hemoglobin is reasonable around 10.2/30.5 (10) Depression Current Visit: Yes Status: Chronic Qualifiers: Depression Type: unspecified Qualified Code(s): F32.A - Depression, unspecified Plan to address problem: Continue trazodone (11) DVT prophylaxis Current Visit: Yes Status: Acute Plan to address problem: Patient on Eliquis and GI prophylaxis (12) Advance care planning Current Visit: Yes Status: Acute Plan to address problem: Disease education conducted care plan discussed, diagnosis discussed and prognosis discussed. Patient acknowledges understanding with care plan +30 minutes. Patient is full code.
[2022-02-18] MEDS ORDERED: METOCLOPRAMIDE 10 MG/2 ML INJ IV PRN (21:44)
[2022-02-18] MEDS ORDERED: ONDANSETRON 4 MG/2 ML INJ IV PRN (21:44)
[2022-02-18] MEDS ORDERED: ALBUTEROL 2.5 MG/3 ML NEBU IH PRN (21:44)
[2022-02-18] MEDS ORDERED: oxyCODONE /ACETAMINOPHEN 5-325MG TAB PO PRN (21:44)
[2022-02-18] MEDS ORDERED: NON-FORMULARY EACH (Dolutegravir/Rilpivirine [Juluca 50-25 Mg Tablet] 1 EACH Tablet) PO SCH (21:45)
[2022-02-18] MEDS ORDERED: ASPIRIN EC 81 MG TAB PO SCH (22:00)
[2022-02-18] MEDS: IPRATROPIUM/ALBUTEROL SULFATE 3 ML AMPUL.NEB IH SCH (22:34)
[2022-02-18] MEDS: BUDESONIDE 0.5 MG/2 ML NEBU IH SCH (22:35)
[2022-02-18] MEDS: cloNIDine 0.1 MG TAB PO SCH (23:00)
[2022-02-18] MEDS: amLODIPine 10 MG TAB PO SCH (23:00)
[2022-02-18] MEDS: traZODone 50 MG TAB PO SCH (23:01)
[2022-02-18] MEDS: APIXABAN 2.5 MG TAB PO SCH (23:01)
[2022-02-18] MEDS: FAMOTIDINE 20 MG/2 ML INJ IV SCH (23:02)
[2022-02-18] MEDS: CLOPIDOGREL 75 MG TAB PO SCH (23:02)
[2022-02-18] MEDS: METOPROLOL TARTRATE 50 MG TAB PO SCH (23:02)
[2022-02-18 23:14] LABS: Hepatitis B Surface Antigen Non-Reactive (Negative); Hepatitis C Virus Antibody Non-Reactive (NonReactive)
[2022-02-19] MEDS: IPRATROPIUM/ALBUTEROL SULFATE 3 ML AMPUL.NEB IH SCH ×4 (02:54→21:22)
[2022-02-19 04:49] LABS: Basophils % (Auto) 0.8 % (0.0-1.8); Eosinophils % (Auto) 0.2 % (0.0-4.3); Hematocrit 29.4 % (35.5-45.6); Hemoglobin 9.7 gm/dl (11.8-15.2); Lymphocytes # (Auto) 0.5 K/mm3 (1.2-5.4); Lymphocytes % (Auto) 21.9 % (13.4-35.0); Mean Corpuscular HGB Conc 33 % (32-34); Mean Corpuscular Volume 88 fl (84-94); Monocytes # (Auto) 0.1 K/mm3 (0.0-0.8); Monocytes % (Auto) 3.2 % (0.0-7.3); Platelet Count 109 K/mm3 (140-440); Red Blood Count 3.35 M/mm3 (3.65-5.03); Red Cell Distribution Width 17.2 % (13.2-15.2)
[2022-02-19 05:15] LABS: Albumin 4.3 g/dL (3.9-5); Calcium 9.4 mg/dL (8.4-10.2)
[2022-02-19] MEDS ORDERED: EPOETIN ALFA-EPBX 10,000 UNIT/1 ML VIAL SUB-Q PRN (07:33)
[2022-02-19] MEDS ORDERED: SODIUM CHLORIDE 0.9% 100 ML IV PRN (07:33)
--- NOTE | 2022-02-19 07:33 | Consultation ---
History of Present Illness - Reason for Consult Consult date: 02/19/22 end stage renal disease - History of Present Illness The patient is a 61 YO male with known history of Hypertension, HIV infection, SVT, Tobacco smoking, COPD, Anemia, ESRD on hemodialysis (MWF) and Medical non- compliance who was brought into [facility] ED 02/18/22 with severe shortness of breath and wheezing. Patient is a poor historian. Patient was hypoxic in the field with oxygen saturations of around 80%. Patient blood pressure was also noted to be very high. EMS initiated CPAP, albuterol, steroids, IV magnesium and [place] bcutaneous epinephrine. In the emergency room his blood pressure was around 230/130. Because of the extremely high blood pressure, severe shortness of breath and hypoxia patient was initiated on IV nitroglycerin to control her blood pressure. Patient was started on BiPAP in the emergency room. Patient underwent emergent hemodialysis 02/18 for volume control. He was admitted to [facility]. His symptoms are better now and on RA. Patient states he much better now. Labs and imaging reviewed. Nephrology was consulted for ESRD management. 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 trimethoprim [From Bactrim] Allergy Jagdish Verified 02/18/22 19: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 Home Medications Medication Instructions Recorded Confirmed Last Taken Type ALBUTEROL NEB's [Proventil 0.083% 2.5 mg INHALATION Q6HR PRN 05/15/20 11/14/21 Unknown History NEBS] Apixaban [Eliquis] 2.5 mg PO Q12HR #60 tablet 10/05/20 02/19/22 02/18/22 Rx Aspirin EC [Halfprin EC] 81 mg PO QDAY 04/16/21 02/19/2222 History Dolutegravir/Rilpivirine [Juluca 1 each PO QDAY 04/16/21 02/19/22 02/18/22 History 50-25 mg Tablet] Montelukast [Singulair] 10 mg PO QPM 04/16/21 02/19/22 02/18/22 History traZODone [Desyrel] 50 - 100 mg PO QHS 04/16/21 02/19/22 02/18/22 History Ipratropium (Nf) [Atrovent HFA 2 puff IH Q6HR PRN #1 inha 08/12/21 11/14/21 Unknown Rx 17MCG/PUFF] AtorvaSTATin [Lipitor] 20 mg PO HS 30 Days #30 tab 11/16/21 02/19/22 02/18/22 Rx Clopidogrel [Plavix] 75 mg PO QDAY 30 Days #30 tab 11/16/21 02/19/22 02/18/22 Rx Metoprolol [Lopressor TAB] 50 mg PO BID 30 Days #60 tablet 11/16/21 02/19/22 02/18/22 Rx amLODIPine 10 mg PO DAILY 30 Days #30 tab 11/16/21 02/19/22 02/18/22 Rx cloNIDine [Catapres] 0.1 mg PO BID 30 Days #60 tablet 11/16/21 02/19/22 02/18/22 Rx Prednisone [predniSONE 10 mg 10 mg PO .TAPER #1 pack 11/26/21 02/19/22 02/18/22 Rx (6-Day Pack, 21 Tabs)] Albuterol Mdi (or & Nicu Only) 2 puff IH QID PRN #8.5 gram 12/27/21 Unknown Rx [ProAir HFA Inhaler] Ipratropium (Nf) [Atrovent] 2 puff IH Q6HR PRN #1 inha 12/27/21 Unknown Rx Active Meds: Active Medications Acetaminophen (Acetaminophen 325 Mg Tab) 650 mg PO Q4H PRN PRN Reason: Pain MILD(1-3)/Fever >100.5/GARCIA Albuterol (Albuterol 2.5 Mg/3 Ml Nebu) 2.5 mg IH Q4HRT PRN PRN Reason: Shortness Of Breath Albuterol/Ipratropium (Ipratropium/Albuterol Sulfate 3 Ml Ampul.Neb) 1 ampul IH Q6HRT [facility] Last Admin: 02/19/22 02:54 Dose: 1 ampul Amlodipine Besylate (Amlodipine 10 Mg Tab) 10 mg PO DAILY [facility] Last Admin: 02/18/22 23:00 Dose: 10 mg Apixaban (Apixaban 2.5 Mg Tab) 2.5 mg PO Q12HR [facility] Last Admin: 02/18/22 23:01 Dose: 2.5 mg Atorvastatin Calcium (Atorvastatin 20 Mg Tab) 20 mg PO HS [facility] Last Admin: 02/18/22 23:01 Dose: 20 mg Budesonide (Budesonide 0.5 Mg/2 Ml Nebu) 0.5 mg IH Q12HRT [facility] Last Admin: 02/18/22 22:35 Dose: 0.5 mg Clonidine HCl (Clonidine 0.1 Mg Tab) 0.1 mg PO BID [facility] Last Admin: 02/18/22 23:00 Dose: 0.1 mg Clopidogrel Bisulfate (Clopidogrel 75 Mg Tab) 75 mg PO QDAY [facility] Last Admin: 02/18/22 23:02 Dose: 75 mg Famotidine (Famotidine 20 Mg/2 Ml Inj) 10 mg IV BID [facility] Last Admin: 02/18/22 23:02 Dose: 10 mg Heparin Sodium (Porcine) (Heparin 10,000 Units/10 Ml Vial) 2,000 unit IV CECELIA PRN PRN Reason: hemodialysis Nitroglycerin/Dextrose (Tridil Drip 50mg/250ml) 50 mg in 250 mls @ 3 mls/hr IV TITR [facility]; Protocol Last Titration: 02/19/22 01:11 Dose: 0 mcg/min, 0 mls/hr Sodium Chloride (Nacl 0.9%) 100 mls @ 999 mls/hr IV CECELIA PRN PRN Reason: Hypotension Metoclopramide HCl (Metoclopramide 10 Mg/2 Ml Inj) 5 mg IV Q6H PRN PRN Reason: Nausea And Vomiting Metoprolol Tartrate (Metoprolol Tartrate 50 Mg Tab) 50 mg PO BID@0800,1700 [facility] Last Admin: 02/18/22 23:02 Dose: 50 mg Miscellaneous Medication (Dolutegravir/Rilpivirine [Juluca 50-25 Mg Tablet]) 1 each PO QDAY [facility] Last Admin: 02/18/22 21:45 Dose: Not Given Montelukast Sodium (Montelukast 10 Mg Tab) 10 mg PO QPM [facility] Morphine Sulfate (Morphine 2 Mg/1 Ml Inj) 2 mg IV Q4H PRN PRN Reason: Pain, Moderate (4-6) Naloxone HCl (Naloxone 0.4 Mg/1 Ml Inj) 0.1 mg IV Q2MIN PRN PRN Reason: Res Rate </= 8 or 02 SAT < 92% Ondansetron HCl (Ondansetron 4 Mg/2 Ml Inj) 4 mg IV Q8H PRN PRN Reason: Nausea And Vomiting Oxycodone/Acetaminophen (Oxycodone /Acetaminophen 5-325mg Tab) 1 tab PO Q6H PRN PRN Reason: Pain, Moderate (4-6) Sodium Chloride (Sodium Chloride 0.9% 10 Ml Flush Syringe) 10 ml IV BID [facility] Last Admin: 02/18/22 23:02 Dose: 10 ml Sodium Chloride (Sodium Chloride 0.9% 10 Ml Flush Syringe) 10 ml IV PRN PRN PRN Reason: LINE FLUSH Trazodone HCl (Trazodone 50 Mg Tab) 50 mg PO QHS [facility] Last Admin: 02/18/22 23:01 Dose: 50 mg Review of Systems All systems: negative Exam - Vital Signs Vital signs: Vital Signs Temp Pulse Resp BP Pulse Ox 98.5 F 101 H 35 H 219/112 94 02/18/22 18:51 02/18/22 18:51 02/18/22 18:51 02/18/22 18:51 02/18/22 18:51 Results - Lab Results 02/19/22 04:25 02/19/22 04:25 Most recent lab results Calcium 9.4 mg/dL (8.4-10.2) 02/19/22 04:25 Magnesium 3.20 mg/dL (1.7-2.3) H 02/18/22 19:26 Assessment and Plan 1. ESRD: Continue hemodialysis three times a week, MWF schedule. Last outpatient hemodialysis was on 02/17. Meds dosage based on GFR. Hemodialysis: 02/18 HD today. 2. FEN: Volume overload, UF with HD. Fluid compliance encouraged. Monitor lytes. 3. Acute hypoxic resp failure, POA: 2/2 volume overload. UF with HD. Need better fluid compliance. Was on BIPAP, now on RA. 4. H/o COPD: Not in exacerbation. 5. Chronic Anemia, POA: Epogen with HD if needed. 6. HIV: Continue home meds. 7. Medical non-compliance: Patient known to refuse HD and UF. Counseled. Subjective: Patient was seen and examined at the bedside. General Appearance: General appearance: well-developed, appears stated age, no distress, appears undernourished EENT: ATNC, LARS, hearing intact, vision intact Neck: neck supple, trachea midline Respiratory: rales heard Heart: regular, S1S2, no murmur Gastrointestinal: soft, normoactive bowel sounds, not tender, not distended Integumentary: no rash, warm and dry Neurologic: no focal deficit, no asterixis Ext: no edema Hemodialysis access: L arm AVF
[2022-02-19] MEDS: BUDESONIDE 0.5 MG/2 ML NEBU IH SCH ×2 (08:42→21:22)
[2022-02-19] MEDS: METOPROLOL TARTRATE 50 MG TAB PO SCH ×2 (09:52→17:10)
[2022-02-19] MEDS: FAMOTIDINE 20 MG/2 ML INJ IV SCH (09:52)
[2022-02-19] MEDS: amLODIPine 10 MG TAB PO SCH (09:53)
[2022-02-19] MEDS: cloNIDine 0.1 MG TAB PO SCH (09:53)
[2022-02-19] MEDS: CLOPIDOGREL 75 MG TAB PO SCH (09:53)
[2022-02-19] MEDS: APIXABAN 2.5 MG TAB PO SCH (09:53)
--- NOTE | 2022-02-19 17:07 | Progress Note ---
Assessment and Plan Assessment and plan: This is a 51-year-old male with ESRD on HD, COPD/asthma, HTN, DVT s/p IVC filter, coronary stents, CVA, seizure disorder and HIV admitted with hypertensive emergency, volume overload and acute hypoxic respiratory failure Neuro: h/o CVA, seizure disorder, ? LAUREN -Continue aspirin, Plavix -Reorientation as needed -Maintain sleep-wake cycle -As needed analgesia -Continue supportive care Cardiac: h/o HTN, afib, CAD with stent placement, SVT -S/p nitroglycerin drip -Continue home Lipitor -Blood pressure monitoring per protocol -Continue home amlodipine, clonidine, metoprolol, titrate as needed -05/18/2020 echocardiogram shows LVEF 55 to 60%, no intra-arterial shunting -04/16/2020 left heart cath showed severe single vessel disease with calcific ulcerated mid RCA 90%, unsuccessful PCI despite using multiple balloons and wires due to torturous and calcific nature of lesions, estimated ejection fraction 55 to 60%, no evidence of aortic stenosis -Was transferred to [facility] for rotablation and PCI -proBNP [id number] Respiratory: Acute hypoxic respiratory failure, pulmonary edema, h/o COPD -S/p BiPAP -Pulmicort, DuoNeb, Singulair -Currently on nasal cannula -SPO2 monitor per protocol -Pulmonary hygiene GI: NAD -PPI -Renal -BR: colace : ESRD on HD -Nephrology consulted, appreciate recommendations -hD per nephro -Renally dose medications -Avoid nephrotoxic medications -Trend BMP ID: h/o HIV -Resume home anti-retroviral -Monitor WBC and temperature curve Endo: NAD -Avoid hypoglycemia Heme: Leukopenia, H/O DVT s/p IVC filter -Continue home Anatoly Leiva -Trend CBC -Transfuse hemoglobin less than 7 -SCDs to BLE while in bed The high probability of a clinically significant, sudden or life threatening deterioration of the [renal] system(s) required my full and direct attention, intervention and personal management. The aggregate critical care time was [60] minutes. This time is in addition to time spent performing reported procedures but includes the following: [x] Data Review and interpretation [x] Patient assessment and monitoring of vital signs [x] Documentation [x] Medication orders and management Disposition Plan: transfer to floor Total Time Spent with Patient (Minutes): 60 History Interval history: This is a 51-year-old male with ESRD on HD, COPD, afib, HTN, ? LAUREN, DVT s/p IVC filter, SVT, coronary stent, CVA, seizure, HIV who presents the emergency d epartment on 02/18 via EMS for severe shortness of breath and wheezing. Per EMS patient was hypoxic in the field with SPO2 in the 80s and blood pressure was noted to be very high. EMS initiated CPAP, albuterol, steroids, IV magnesium and subcutaneous epinephrine. In the emergency department patient's blood pressure was 230/130 the patient was initiated on IV nitroglycerin and nephrology was consulted for emergent dialysis. Patient was also started on BiPAP in the ED. Patient was admitted to the hospitalist service with hypertensive emergency, acute hypoxic respiratory failure. Hospital course to date: 02/19: Patient had been titrated off nitroglycerin, got hemodialysis yesterday and removed 3 L. Patient restarted on HIV medication. Patient transferred to the floor. Hospitalist Physical - Constitutional Vitals: Temp Pulse Resp BP Pulse Ox 98.8 F 88 16 138/58 96 02/19/22 01:08 02/19/22 13:31 02/19/22 13:31 02/19/22 13:01 02/19/22 13:01 General appearance: Present: no acute distress, well-nourished - EENT Eyes: Present: PERRL, EOM intact ENT: hearing intact, clear oral mucosa, poor dentition - Neck Neck: Present: normal ROM - Respiratory Respiratory effort: normal Respiratory: bilateral: CTA, diminished - Cardiovascular Rhythm: regular Heart Sounds: Present: S1 & S2. Absent: systolic murmur, diastolic murmur - Extremities Extremities: no ischemia, pulses intact, pulses symmetrical, No edema, normal temperature, normal color Peripheral Pulses: within normal limits - Abdominal General gastrointestinal: soft, non-tender, non-distended, normal bowel sounds - Integumentary Integumentary: Present: clear, warm, dry - Psychiatric Psychiatric: cooperative - Neurologic Neurologic: CNII-XII intact, no focal deficits, moves all extremities - Allied Health Allied health notes reviewed: nursing, RT, social work HEART Score - HEART Score Age: 45-65 Risk factors: > 3 risk factors or hx of atherosclerotic disease Troponin: 1-3x normal limit - Critical Actions Critical Actions: 4-6 pts:12-16.6% risk of adverse cardiac event. Should be admitted Results - Labs CBC & Chem 7: 02/19/22 04:25 02/19/22 04:25 Labs: Laboratory Last Values WBC 2.4 K/mm3 (4.5-11.0) L 02/19/22 04:25 RBC 3.35 M/mm3 (3.65-5.03) L 02/19/22 04:25 Hgb 9.7 gm/dl (11.8-15.2) L 02/19/22 04:25 Hct 29.4 % (35.5-45.6) L 02/19/22 04:25 MCV 88 fl (84-94) 02/19/22 04:25 MCH 29 pg (28-32) 02/19/22 04:25 MCHC 33 % (32-34) 02/19/22 04:25 RDW 17.2 % (13.2-15.2) H 02/19/22 04:25 Plt Count 109 K/mm3 (140-440) L 02/19/22 04:25 Lymph % (Auto) 21.9 % (13.4-35.0) 02/19/22 04:25 [place] % (Auto) 3.2 % (0.0-7.3) 02/19/22 04:25 Eos % (Auto) 0.2 % (0.0-4.3) 02/19/22 04:25 Baso % (Auto) 0.8 % (0.0-1.8) 02/19/22 04:25 Lymph # (Auto) 0.5 K/mm3 (1.2-5.4) L 02/19/22 04:25 [place] # (Auto) 0.1 K/mm3 (0.0-0.8) 02/19/22 04:25 Eos # (Auto) 0.0 K/mm3 (0.0-0.4) 02/19/22 04:25 Baso # (Auto) 0.0 K/mm3 (0.0-0.1) 02/19/22 04:25 Seg Neutrophils % 73.9 % (40.0-70.0) H 02/19/22 04:25 Seg Neutrophils # 1.8 K/mm3 (1.8-7.7) 02/19/22 04:25 PT 14.0 Sec. (12.2-14.9) 02/18/22 19:26 INR 0.97 (0.87-1.13) 02/18/22 19:26 APTT 26.4 Sec. (24.2-36.6) 02/18/22 19:26 Sodium 138 mmol/L (137-145) 02/19/22 04:25 Potassium 4.5 mmol/L (3.6-5.0) 02/19/22 04:25 Chloride 95.1 mmol/L (98-107) L 02/19/22 04:25 Carbon Dioxide 32 mmol/L (22-30) H 02/19/22 04:25 Anion Gap 15 mmol/L 02/19/22 04:25 BUN 19 mg/dL (9-20) 02/19/22 04:25 Creatinine 5.6 mg/dL (0.8-1.3) H 02/19/22 04:25 Estimated GFR 13 ml/min 02/19/22 04:25 BUN/Creatinine Ratio 3 % 02/19/22 04:25 Glucose 123 mg/dL (75-100) H 02/19/22 04:25 Calcium 9.4 mg/dL (8.4-10.2) 02/19/22 04:25 Magnesium 3.20 mg/dL (1.7-2.3) H 02/18/22 19:26 Total Bilirubin 0.40 mg/dL (0.1-1.2) 02/19/22 04:25 AST 35 units/L (5-40) 02/19/22 04:25 ALT 41 units/L (7-56) 02/19/22 04:25 Alkaline Phosphatase 110 units/L (35-129) 02/19/22 04:25 Total Creatine Kinase 138 units/L (55-170) 02/18/22 19:26 NT-Pro-B Natriuret Pep 74647 pg/mL (0-900) H 02/18/22 19:26 Total Protein 7.2 g/dL (6.3-8.2) 02/19/22 04:25 Albumin 4.3 g/dL (3.9-5) 02/19/22 04:25 Albumin/Globulin Ratio 1.5 % 02/19/22 04:25 Hep Bs Antigen Non-reactive (Negative) 02/18/22 22:23 Hep B Core IgM Ab Non-reactive (NonReactive) 02/18/22 22:23 Hepatitis C Antibody Non-reactive (NonReactive) 02/18/22 22:23 Williamson/IV: Voiding Method Condom Catheter Active Medications - Current Medications Current Medications: Generic Name Dose Route Start Last Admin Trade Name Freq PRN Reason Stop Dose Admin Acetaminophen 650 mg 02/18/22 21:44 Acetaminophen 325 Mg Tab PO Q4H PRN Pain MILD(1-3)/Fever >100.5/GARCIA Albuterol 2.5 mg 02/18/22 21:44 Albuterol 2.5 Mg/3 Ml Nebu IH Q4HRT PRN Shortness Of Breath Albuterol/Ipratropium 1 ampul 02/18/22 21:45 02/19/22 13:30 Ipratropium/Albuterol Sulfate 3 Ml Ampul.Neb IH 1 ampul Q6HRT MIGUELANGEL Administration Amlodipine Besylate 10 mg 02/18/22 22:00 02/19/22 09:53 Amlodipine 10 Mg Tab PO 10 mg DAILY MIGUELANGEL Administration Apixaban 2.5 mg 02/18/22 22:00 02/19/22 09:53 Apixaban 2.5 Mg Tab PO 2.5 mg Q12HR MIGUELANGEL Administration Atorvastatin Calcium 20 mg 02/18/22 22:00 02/18/22 23:01 Atorvastatin 20 Mg Tab PO 20 mg HS MIGUELANGEL Administration Budesonide 0.5 mg 02/18/22 21:45 02/19/22 08:42 Budesonide 0.5 Mg/2 Ml Nebu IH 0.5 mg Q12HRT MIGUELANGEL Administration Clonidine HCl 0.1 mg 02/18/22 22:00 02/19/22 09:53 Clonidine 0.1 Mg Tab PO 0.1 mg BID MIGUELANGEL Administration Clopidogrel Bisulfate 75 mg 02/18/22 22:00 02/19/22 09:53 Clopidogrel 75 Mg Tab PO 75 mg QDAY MIGUELANGEL Administration Docusate Sodium 100 mg 02/19/22 22:00 Docusate Sodium 100 Mg Cap PO BID MIGUELANGEL Epoetin Adalid-epbx 10,000 unit 02/19/22 07:33 Epoetin Adalid-Epbx 10,000 Unit/1 Ml Vial SUB-Q CECELIA PRN hemodialysis Famotidine 10 mg 02/19/22 22:00 Famotidine 10 Mg Tab PO BID [facility] Sodium Chloride 100 mls @ 999 mls/hr 02/19/22 07:33 Nacl 0.9% IV CECELIA PRN Hypotension Metoclopramide HCl 5 mg 02/18/22 21:44 Metoclopramide 10 Mg/2 Ml Inj IV Q6H PRN Nausea And Vomiting Metoprolol Tartrate 50 mg 02/18/22 22:00 02/19/22 09:52 Metoprolol Tartrate 50 Mg Tab PO 50 mg BID@0800,1700 [facility] Administration Miscellaneous Medication 1 each 02/18/22 21:45 02/18/22 21:45 Dolutegravir/Rilpivirine [Juluca 50-25 Mg Tablet] PO Not Given QDAY [facility] Montelukast Sodium 10 mg 02/19/22 18:00 Montelukast 10 Mg Tab PO QPM [facility] Naloxone HCl 0.1 mg 02/18/22 20:35 Naloxone 0.4 Mg/1 Ml Inj IV Q2MIN PRN Res Rate </= 8 or 02 SAT < 92% Ondansetron HCl 4 mg 02/18/22 21:44 Ondansetron 4 Mg/2 Ml Inj IV Q8H PRN Nausea And Vomiting Oxycodone/Acetaminophen 1 tab 02/18/22 21:44 Oxycodone /Acetaminophen 5-325mg Tab PO Q6H PRN Pain, Moderate (4-6) Sodium Chloride 10 ml 02/18/22 22:00 02/19/22 09:53 Sodium Chloride 0.9% 10 Ml Flush Syringe IV 10 ml BID MIGUELANGEL Administration Sodium Chloride 10 ml 02/18/22 20:35 Sodium Chloride 0.9% 10 Ml Flush Syringe IV PRN PRN LINE FLUSH Trazodone HCl 50 mg 02/18/22 22:00 02/18/22 23:01 Trazodone 50 Mg Tab PO 50 mg QHS MIGUELANGEL Administration
[2022-02-19] MEDS ORDERED: MONTELUKAST 10 MG TAB PO SCH (18:00)
[2022-02-20] MEDS: cloNIDine 0.1 MG TAB PO SCH (00:04)
[2022-02-20] MEDS: traZODone 50 MG TAB PO SCH (00:05)
[2022-02-20] MEDS: DOCUSATE SODIUM 100 MG CAP PO SCH ×2 (00:05→10:21)
[2022-02-20] MEDS: FAMOTIDINE 10 MG TAB PO SCH ×2 (00:05→10:16)
[2022-02-20] MEDS: APIXABAN 2.5 MG TAB PO SCH ×2 (00:05→10:17)
[2022-02-20] MEDS: IPRATROPIUM/ALBUTEROL SULFATE 3 ML AMPUL.NEB IH SCH ×2 (02:07→09:29)
[2022-02-20] MEDS ORDERED: hydrALAZINE 100 MG TAB PO SCH (09:00)
--- NOTE | 2022-02-20 09:05 | Progress Note ---
Assessment and Plan 1. ESRD: Continue hemodialysis three times a week, MWF schedule. Last outpatient hemodialysis was on 02/17. Meds dosage based on GFR. Hemodialysis: 02/18. Patient refused HD yesterday and today. 2. FEN: Volume overload, UF with HD. Fluid compliance encouraged. Monitor lytes. 3. Acute hypoxic resp failure, POA: 2/2 volume overload. UF with HD. Need better fluid compliance. Was on BIPAP, now on RA. 4. H/o COPD: Not in exacerbation. 5. Chronic Anemia, POA: Epogen with HD if needed. 6. HIV: Continue home meds. 7. Medical non-compliance: Patient known to refuse HD and UF. Counseled. Subjective: Patient was seen and examined at the bedside. General Appearance: General appearance: well-developed, appears stated age, no distress, appears undernourished EENT: ATNC, LARS, hearing intact, vision intact Neck: neck supple, trachea midline Respiratory: rales heard Heart: regular, S1S2, no murmur Gastrointestinal: soft, normoactive bowel sounds, not tender, not distended Integumentary: no rash, warm and dry Neurologic: no focal deficit, some confused, no asterixis Ext: no edema Hemodialysis access: L arm AVF Subjective Date of service: 02/20/22 Objective - Vital Signs Vital signs: Vital Signs - 12hr 02/19/22 02/19/22 02/19/22 21:44 21:45 23:11 Temperature Pulse Rate 83 Respiratory 17 Rate Blood Pressure Blood Pressure 152/78 [Left] O2 Sat by Pulse 93 96 93 Oximetry 02/20/22 02/20/22 02/20/22 00:00 04:00 04:27 Temperature 98.1 F Pulse Rate 81 Respiratory 18 Rate Blood Pressure 170/77 Blood Pressure [Left] O2 Sat by Pulse 96 96 89 Oximetry 02/20/22 08:20 Temperature Pulse Rate Respiratory Rate Blood Pressure Blood Pressure [Left] O2 Sat by Pulse 98 Oximetry - Lab 02/19/22 04:25 02/19/22 04:25 Most recent lab results Calcium 9.4 mg/dL (8.4-10.2) 02/19/22 04:25 Magnesium 3.20 mg/dL (1.7-2.3) H 02/18/22 19:26 Medications & Allergies - Medications Allergies/Adverse Reactions: Allergies azithromycin [From Zithromax] Allergy (Verified 02/18/22 19:24) Shortness of Breath Iodinated Contrast Media Allergy (Verified 02/18/22 19:24) Anaphylaxis levofloxacin Allergy (Verified 02/18/22 19:24) Swelling lisinopril Allergy (Verified 02/18/22 19:24) Angioedema and hives sevelamer [From Renvela] Allergy (Verified 02/18/22 19:24) Hives sulfamethoxazole [From Bactrim] Allergy (Verified 02/18/22 19:24) Jagdish Santiago's Syndrome trimethoprim [From Bactrim] Allergy (Verified 02/18/22 19:24) Jagdish Santiago's Syndrome Home Medications: Home Medications Medication Instructions Recorded Confirmed Last Taken Type ALBUTEROL NEB's [Proventil 0.083% 2.5 mg INHALATION Q6HR PRN 05/15/20 11/14/21 Unknown History NEBS] Aspirin EC [Halfprin EC] 81 mg PO QDAY 04/16/21 02/19/22 02/18/22 History Dolutegravir/Rilpivirine [Juluca 1 each PO QDAY 04/16/21 02/19/22 02/18/22 History 50-25 mg Tablet] Montelukast [Singulair] 10 mg PO QPM 04/16/21 02/19/22 02/18/22 History traZODone [Desyrel] 50 - 100 mg PO QHS 04/16/21 02/19/22 02/18/22 History Ipratropium (Nf) [Atrovent HFA 2 puff IH Q6HR PRN #1 inha 08/12/21 11/14/21 Unkn own Rx 17MCG/PUFF] Prednisone [predniSONE 10 mg 10 mg PO .TAPER #1 pack 11/26/21 02/19/22 02/18/22 Rx (6-Day Pack, 21 Tabs)] Albuterol Mdi (or & Nicu Only) 2 puff IH QID PRN #8.5 gram 12/27/21 Unknown Rx [ProAir HFA Inhaler] Ipratropium (Nf) [Atrovent] 2 puff IH Q6HR PRN #1 inha 12/27/21 Unknown Rx Apixaban [Eliquis] 2.5 mg PO Q12HR 30 Days #60 tablet 02/20/22 Unknown Rx AtorvaSTATin [Lipitor] 20 mg PO HS 30 Days #30 tab 02/20/22 Unknown Rx Clopidogrel [Plavix] 75 mg PO QDAY 30 Days #30 tablet 02/20/22 Unknown Rx Metoprolol [Lopressor TAB] 50 mg PO BID@0800,1700 30 Days #60 02/20/22 Unknown Rx tablet amLODIPine 10 mg PO DAILY 30 Days #30 tablet 02/20/22 Unknown Rx cloNIDine [Catapres] 0.2 mg PO BID 30 Days #60 tablet 02/20/22 Unknown Rx Active Medications: Generic Name Dose Route Start Last Admin Trade Name Freq PRN Reason Stop Dose Admin Acetaminophen 650 mg 02/18/22 21:44 Acetaminophen 325 Mg Tab PO Q4H PRN Pain MILD(1-3)/Fever >100.5/GARCIA Albuterol 2.5 mg 02/18/22 21:44 Albuterol 2.5 Mg/3 Ml Nebu IH Q4HRT PRN Shortness Of Breath Albuterol/Ipratropium 1 ampul 02/18/22 21:45 02/20/22 02:07 Ipratropium/Albuterol Sulfate 3 Ml Ampul.Neb IH Not Given Q6HRT MIGUELANGEL Amlodipine Besylate 10 mg 02/18/22 22:00 02/19/22 09:53 Amlodipine 10 Mg Tab PO 10 mg DAILY MIGUELANGEL Administration Apixaban 2.5 mg 02/18/22 22:00 02/20/22 00:05 Apixaban 2.5 Mg Tab PO Not Given Q12HR MIGUELANGEL Atorvastatin Calcium 20 mg 02/18/22 22:00 02/20/22 00:05 Atorvastatin 20 Mg Tab PO Not Given HS MIGUELANGEL Budesonide 0.5 mg 02/18/22 21:45 02/19/22 21:22 Budesonide 0.5 Mg/2 Ml Nebu IH Not Given Q12HRT MIGUELANGEL Clonidine HCl 0.2 mg 02/20/22 10:00 Clonidine 0.1 Mg Tab PO BID MIGUELANGEL Clopidogrel Bisulfate 75 mg 02/18/22 22:00 02/19/22 09:53 Clopidogrel 75 Mg Tab PO 75 mg QDAY MIGUELANGEL Administration Docusate Sodium 100 mg 02/19/22 22:00 02/20/22 00:05 Docusate Sodium 100 Mg Cap PO Not Given BID [facility] Epoetin Adalid-epbx 10,000 unit 02/19/22 07:33 Epoetin Adalid-Epbx 10,000 Unit/1 Ml Vial SUB-Q CECELIA PRN hemodialysis Famotidine 10 mg 02/19/22 22:00 02/20/22 00:05 Famotidine 10 Mg Tab PO Not Given BID [facility] Hydralazine HCl 100 mg 02/20/22 09:00 Hydralazine 100 Mg Tab PO TID [facility] Sodium Chloride 100 mls @ 999 mls/hr 02/19/22 07:33 Nacl 0.9% IV CECELIA PRN Hypotension Metoclopramide HCl 5 mg 02/18/22 21:44 Metoclopramide 10 Mg/2 Ml Inj IV Q6H PRN Nausea And Vomiting Metoprolol Tartrate 50 mg 02/18/22 22:00 02/19/22 17:10 Metoprolol Tartrate 50 Mg Tab PO 50 mg BID@0800,1700 [facility] Administration Miscellaneous Medication 1 each 02/18/22 21:45 02/18/22 21:45 Dolutegravir/Rilpivirine [Juluca 50-25 Mg Tablet] PO Not Given QDAY [facility] Montelukast Sodium 10 mg 02/19/22 18:00 02/19/22 17:09 Montelukast 10 Mg Tab PO 10 mg QPM [facility] Administration Naloxone HCl 0.1 mg 02/18/22 20:35 Naloxone 0.4 Mg/1 Ml Inj IV Q2MIN PRN Res Rate </= 8 or 02 SAT < 92% Ondansetron HCl 4 mg 02/18/22 21:44 Ondansetron 4 Mg/2 Ml Inj IV Q8H PRN Nausea And Vomiting Oxycodone/Acetaminophen 1 tab 02/18/22 21:44 Oxycodone /Acetaminophen 5-325mg Tab PO Q6H PRN Pain, Moderate (4-6) Sodium Chloride 10 ml 02/18/22 22:00 02/20/22 00:05 Sodium Chloride 0.9% 10 Ml Flush Syringe IV Not Given BID MIGUELANGEL Sodium Chloride 10 ml 02/18/22 20:35 Sodium Chloride 0.9% 10 Ml Flush Syringe IV PRN PRN LINE FLUSH Trazodone HCl 50 mg 02/18/22 22:00 02/20/22 00:05 Trazodone 50 Mg Tab PO Not Given QHS MIGUELANGEL
[2022-02-20] MEDS: BUDESONIDE 0.5 MG/2 ML NEBU IH SCH (09:29)
[2022-02-20] MEDS ORDERED: cloNIDine 0.1 MG TAB PO SCH (10:00)
[2022-02-20] MEDS: amLODIPine 10 MG TAB PO SCH (10:16)
[2022-02-20] MEDS: METOPROLOL TARTRATE 50 MG TAB PO SCH (10:17)
[2022-02-20] MEDS: CLOPIDOGREL 75 MG TAB PO SCH (10:17)
--- NOTE | 2022-02-20 10:25 | Electrocardiograph Report ---
[facility] Test Date: 2022-02-18 Test Time: 20:08:12 Pat Name: JANIE KONWLES Department: Room: A373 Gender: M [employer] Bever[employer] Order Clerk: ELAINE : 1960 Requested By: CRYSTAL HERNÁNDEZ Order Number: [id number] Reading MD: Shabbir Rosario Measurements Intervals [place] Rate: 85 P: 80 [place]: 167 QRS: 46 QRSD: 89 T: 94 QT: 427 QTc: 509 Interpretive Statements Sinus rhythm Probable left atrial enlargement Left ventricular hypertrophy Nonspecific T abnormalities, lateral leads ST elevation, consider inferior injury Prolonged QT interval Compared to ECG 12/27/2021 17:10:42 Left ventricular hypertrophy now present ST (T wave) deviation now present Myocardial infarct finding now present Possible ischemia no longer present T-wave abnormality still present Electronically Signed On 02-20-2022 10:24:52 EDT by Shabbir Rosario
--- NOTE | 2022-02-20 10:29 | Electrocardiograph Report ---
[facility] Test Date: 2022-02-18 Test Time: 20:36:38 Pat Name: JANIE KNOWLES Department: Room: A373 Gender: M Multimedia Authoring Specialist: ELAINE : 1960 Requested By: WADE PEMBERTON Order Number: [id number] Reading MD: Shabbir Rosario Measurements Intervals [place] Rate: 117 P: -83 [place]: 174 QRS: -86 QRSD: 135 T: 75 QT: 429 QTc: 600 Interpretive Statements Ectopic atrial tachycardia, unifocal Right bundle branch block ST elevation secondary to IVCD Compared to ECG 02/18/2022 20:08:12 Right bundle-branch block now present Intraventricular conduction delay now present Sinus rhythm no longer present Left ventricular hypertrophy no longer present T-wave abnormality no longer present Myocardial infarct finding no longer present Prolonged QT interval no longer present ST (T wave) deviation still present Electronically Signed On 02-20-2022 10:28:50 EDT by Shabbir Rosario
--- NOTE | 2022-02-20 11:52 | Discharge Summary ---
Providers - Providers Date of Admission: 02/18/22 20:35 Date of discharge: 02/20/22 Attending physician: WADE PEMBERTON MD 02/18/22 18:58 Consult to Physician [CONS] Urgent Comment: Consulting Provider: NOE ROSALES Physician Instructions: Reason For Exam: esrd htn emergency 02/18/22 20:17 Consult to Physician [CONS] Urgent Comment: Consulting Provider: DIVYA CARLOS Physician Instructions: Reason For Exam: Flash pulmonary edema, on nitroglycerin drip. Primary care physician: AMINTA BLACK Hospitalization Reason for admission: shortness of breath Condition: Critical Hospital course: History Interval history: This is a 51-year-old male with ESRD on HD, COPD, afib, HTN, ? LAUREN, DVT s/p IVC filter, SVT, coronary stent, CVA, seizure, HIV who presents the emergency department on 02/18 via EMS for severe shortness of breath and wheezing. Per EMS patient was hypoxic in the field with SPO2 in the 80s and blood pressure was noted to be very high. EMS initiated CPAP, albuterol, steroids, IV magnesium and subcutaneous epinephrine. In the emergency department patient's blood pressure was 230/130 the patient was initiated on IV nitroglycerin and nephrology was consulted for emergent dialysis. Patient was also started on BiPAP in the ED. Patient was admitted to the hospitalist service with hypertensive emergency, acute hypoxic respiratory failure. Hospital course to date: 02/19: Patient had been titrated off nitroglycerin, got hemodialysis yesterday and removed 3 L. Patient restarted on HIV medication. Patient transferred to the floor. 02/20: Discharge home with rx for clonidine, amlodipine, metoprolol, plavix, eliquis, atorvastatin. instructions to follow up outpatient with customer supply chain analyst and outpatient pcp. Counseled on remaining complaint with dialysis. Assessment and plan: This is a 51-year-old male with ESRD on HD, COPD/asthma, HTN, DVT s/p IVC filter, coronary stents, CVA, seizure disorder and HIV admitted with hypertensive emergency, volume overload and acute hypoxic respiratory failure Neuro: h/o CVA, h/o seizure disorder -Continue aspirin, Plavix -Reorientation as needed -Maintain sleep-wake cycle -As needed analgesia -Continue supportive care Cardiac: h/o HTN, afib, CAD with stent placement -S/p nitroglycerin drip -Continue home Lipitor -Blood pressure monitoring per protocol -Continue home amlodipine, clonidine, metoprolol, titrate as needed -05/18/2020 echocardiogram shows LVEF 55 to 60%, no intra-arterial shunting -04/16/2020 left heart cath showed severe single vessel disease with calcific ulcerated mid RCA 90%, unsuccessful PCI despite using multiple balloons and wires due to torturous and calcific nature of lesions, estimated ejection fraction 55 to 60%, no evidence of aortic stenosis -Was transferred to [facility] for rotablation and PCI -proBNP [id number] Respiratory: Acute hypoxic respiratory failure, acute pulmonary edema, h/o COPD -S/p BiPAP -Pulmicort, DuoNeb, Singulair -Currently on nasal cannula -SPO2 monitor per protocol -Pulmonary hygiene - volume removal with HD GI: NAD -PPI -Renal -BR: colace : ESRD on HD -Nephrology consulted, appreciate recommendations -hD per nephro -Renally dose medications -Avoid nephrotoxic medications -Trend BMP ID: h/o HIV -Resume home anti-retroviral -Monitor WBC and temperature curve Endo: NAD -Avoid hypoglycemia Heme: Leukopenia, H/O DVT s/p IVC filter -Continue home Anatoly Leiva -Trend CBC -Transfuse hemoglobin less than 7 -SCDs to BLE while in bed The high probability of a clinically significant, sudden or life threatening deterioration of the [renal] system(s) required my full and direct attention, intervention and personal management. The aggregate critical care time was [60] minutes. This time is in addition to time spent performing reported procedures but includes the following: [x] Data Review and interpretation [x] Patient assessment and monitoring of vital signs [x] Documentation [x] Medication orders and management Disposition Plan: transfer to floor Total Time Spent with Patient (Minutes): 60 Disposition: 01 HOME / SELF CARE / HOMELESS Final Discharge Diagnosis (Prints w/discharge instructions): Hypertensive Emergency Time spent for discharge: 35 Core Measure Documentation - Palliative Care Palliative Care/ Comfort Measures: Not Applicable - Core Measures Any of the following diagnoses?: none Exam - Physical Exam Narrative exam: Physical Exam: VITAL SIGNS: Reviewed. GENERAL: The patient appears normally developed, Vital signs as documented. HEAD: No signs of head trauma. EYES: Pupils are equal. Extraocular motions intact. EARS: Hearing grossly intact. MOUTH: Oropharynx is normal. NECK: No adenopathy, no JVD. CHEST: Chest with clear breath sounds bilaterally. No wheezes, rales, or rhonchi. CARDIAC: Regular rate and rhythm. S1 and S2, without murmurs, gallops, or rubs. VASCULAR: No Edema. Peripheral pulses normal and equal in all extremities. ABDOMEN: Soft, non tender and non distended. No rebound or guarding, and no masses palpated. Bowel Sounds normal. MUSCULOSKELETAL: Good range of motion of all major joints. Extremities without clubbing, cyanosis or edema. NEUROLOGIC EXAM: Alert and oriented x 4. no focal sensory or strength deficits. PSYCHIATRIC: Mood normal. SKIN: detail exam as documented in skin assessment - Constitutional Vitals: Temp Pulse Resp BP Pulse Ox 98.1 F 81 18 170/77 98 02/20/22 04:27 02/20/22 04:27 02/20/22 04:02/20/22 04:02/20/22 08:20 Plan Follow up with: AMINTA BLACK MD [Primary Care Provider] - 7 Days Prescriptions: amLODIPine 10 mg PO DAILY 30 Days #30 tablet cloNIDine [Catapres] 0.2 mg PO BID 30 Days #60 tablet Apixaban [Eliquis] 2.5 mg PO Q12HR 30 Days #60 tablet AtorvaSTATin [Lipitor] 20 mg PO HS 30 Days #30 tab Metoprolol [Lopressor TAB] 50 mg PO BID@0800,1700 30 Days #60 tablet Clopidogrel [Plavix] 75 mg PO QDAY 30 Days #30 tablet
[2022-02-20 12:19] VITALS: BP 168/78
== END 2022-02-20 13:00 | disposition home or self-care (01) | DRG 189 ==
LOC: ED 18:50 → CC1 20:35 → OBSVTOIN 20:35 → CC1 21:33 → 3A 02-19 14:02
PROVIDERS: ADMIT Internal Medicine; ATTEND Internal Medicine
PROC: 5A09357 Assistance with Respiratory Ventilation, Less than 24 Consecutive Hours, Continuous Positive Airway Pressure (ICD-10-PCS; principal; 2022-02-18)
PROC: 5A1D70Z Performance of Urinary Filtration, Intermittent, Less than 6 Hours Per Day (ICD-10-PCS; 2022-02-18)
DX: J96.01 Acute respiratory failure with hypoxia (principal); N18.6 End stage renal disease; J81.0 Acute pulmonary edema; I16.1 Hypertensive emergency; J44.1 Chronic obstructive pulmonary disease with (acute) exacerbation; J45.901 Unspecified asthma with (acute) exacerbation; I12.0 Hypertensive chronic kidney disease with stage 5 chronic kidney disease or end stage renal disease; M19.90 Unspecified osteoarthritis, unspecified site; E78.2 Mixed hyperlipidemia; D63.1 Anemia in chronic kidney disease; F32.A Depression, unspecified; Z91.19 Patient's noncompliance with other medical treatment and regimen; I48.91 Unspecified atrial fibrillation; Z21 Asymptomatic human immunodeficiency virus [HIV] infection status; Z86.73 Personal history of transient ischemic attack (TIA), and cerebral infarction without residual deficits; Z88.8 Allergy status to other drugs, medicaments and biological substances; Z91.041 Radiographic dye allergy status; Z82.49 Family history of ischemic heart disease and other diseases of the circulatory system; Z79.82 Long term (current) use of aspirin; Z99.2 Dependence on renal dialysis
CPT/HCPCS: 36415; 71045; 80053; 80074; 82550; 83735; 83880; 85025; 85610; 85730; 93005; 94640; 94760; G0378; J3490

== ENCOUNTER 2022-03-01 16:54 | Emergency (ER) | payer MEDICARE ==
[2022-03-01] MEDS ORDERED: ADENOSINE 6 MG/2 ML INJ IV ONE ×2 (20:29)
--- NOTE | 2022-03-01 20:55 | Emergency Department Report ---
ED Palpitations HPI - General Chief Complaint: Medical Clearance Stated Complaint: LEFT ARM PORT PAIN Time Seen by Provider: 03/01/22 20:24 Source: patient, old records reviewed Mode of arrival: Ambulatory Limitations: No Limitations - History of Present Illness Initial Comments: 61-year-old male with ESRD on HD (M,W,F), COPD, afib, HTN, , DVT s/p IVC filter, SVT, coronary stent, CVA, seizure, HIV who presents the hospital with left arm pain x 3 days and developed palpitations while in the ED waiting room. Patient complains of the left upper and lower arm pain that is not tender to palpation but worse with flexion and extension at the elbow. Patient said he had a recent fall without fracture. He also has an AV graft to the left upper arm and received dialysis yesterday without issues. Patient is taken Tylenol for pain without improvement and states he cannot sleep secondary to arm pain. While waiting in the ED he developed palpitations and was noted to be in SVT rate 160s. He was immediately brought back for stabilization. He does not complain of chest pain or shortness of breath. As per medical record patient is currently on Eliquis and was recently discharged here on February 20 after an admission for pulmonary edema - Related Data Home Medications Medication Instructions Recorded Confirmed Last Taken ALBUTEROL NEB's [Proventil 0.083% 2.5 mg INHALATION Q6HR PRN 05/15/20 11/14/21 Unknown NEBS] Aspirin EC [Halfprin EC] 81 mg PO QDAY 04/16/21 02/19/22 02/18/22 Dolutegravir/Rilpivirine [Juluca 1 each PO QDAY 04/16/21 02/19/22 02/18/22 50-25 mg Tablet] Montelukast [Singulair] 10 mg PO QPM 04/16/21 02/19/22 02/18/22 traZODone [Desyrel] 50 - 100 mg PO QHS 04/16/21 02/19/22 02/18/22 Previous Rx's Medication Instructions Recorded Last Taken Type Ipratropium (Nf) [Atrovent HFA 2 puff IH Q6HR PRN #1 inha 08/12/21 Unknown Rx 17MCG/PUFF] Prednisone [predniSONE 10 mg 10 mg PO .TAPER #1 pack 11/26/21 02/18/22 Rx (6-Day Pack, 21 Tabs)] Albuterol Mdi (or & Nicu Only) 2 puff IH QID PRN #8.5 gram 12/27/21 Unknown Rx [ProAir HFA Inhaler] Ipratropium (Nf) [Atrovent] 2 puff IH Q6HR PRN #1 inha 12/27/21 Unknown Rx Apixaban [Eliquis] 2.5 mg PO Q12HR 30 Days #60 tablet 02/20/22 Unknown Rx AtorvaSTATin [Lipitor] 20 mg PO HS 30 Days #30 tab 02/20/22 Unknown Rx Clopidogrel [Plavix] 75 mg PO QDAY 30 Days #30 tablet 02/20/22 Unknown Rx Metoprolol [Lopressor TAB] 50 mg PO BID@0800,1700 30 Days #60 02/20/22 Unknown Rx tablet amLODIPine 10 mg PO DAILY 30 Days #30 tablet 02/20/22 Unknown Rx cloNIDine [Catapres] 0.2 mg PO BID 30 Days #60 tablet 02/20/22 Unknown Rx HYDROcodone/APAP 5-325 [Burns 1 each PO Q6HR PRN #10 tablet 03/01/22 Unknown Rx 5/325] Allergies Allergy/AdvReac Type Severity Reaction Status Date / Time azithromycin [From Zithromax] Allergy Shortness Verified 03/01/22 17:08 of Breath Iodinated Contrast Media Allergy Anaphylaxis Verified 03/01/22 17:08 levofloxacin Allergy Swelling Verified 03/01/22 17:08 lisinopril Allergy Angioedema Verified 03/01/22 17:08 and hives sevelamer [From Renvela] Allergy Hives Verified 03/01/22 17:08 sulfamethoxazole Allergy Jagdish Verified 03/01/22 17:08 [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 trimethoprim [From Bactrim] Allergy Jagdish Verified 03/01/22 17: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 AV shunt LUE. IVC filter - Social History Smoking Status: Current Every Day Smoker Substance Use Type: None - Medications Home Medications: Home Medications Medication Instructions Recorded Confirmed Last Taken Type ALBUTEROL NEB's [Proventil 0.083% 2.5 mg INHALATION Q6HR PRN 05/15/20 11/14/21 Unknown History NEBS] Aspirin EC [Halfprin EC] 81 mg PO QDAY 04/16/21 02/19/22 02/18/22 History Dolutegravir/Rilpivirine [Juluca 1 each PO QDAY 04/16/21 02/19/22 02/18/22 History 50-25 mg Tablet] Montelukast [Singulair] 10 mg PO QPM 04/16/21 02/19/22 02/18/22 History traZODone [Desyrel] 50 - 100 mg PO QHS 04/16/21 02/19/22 02/18/22 History Ipratropium (Nf) [Atrovent HFA 2 puff IH Q6HR PRN #1 inha 08/12/21 11/14/21 Unknown Rx 17MCG/PUFF] Prednisone [predniSONE 10 mg 10 mg PO .TAPER #1 pack 11/26/21 02/19/22 02/18/22 Rx (6-Day Pack, 21 Tabs)] Albuterol Mdi (or & Nicu Only) 2 puff IH QID PRN #8.5 gram 12/27/21 Unknown Rx [ProAir HFA Inhaler] Ipratropium (Nf) [Atrovent] 2 puff IH Q6HR PRN #1 inha 12/27/21 Unknown Rx Apixaban [Eliquis] 2.5 mg PO Q12HR 30 Days #60 tablet 02/20/22 Unknown Rx AtorvaSTATin [Lipitor] 20 mg PO HS 30 Days #30 tab 02/20/22 Unknown Rx Clopidogrel [Plavix] 75 mg PO QDAY 30 Days #30 tablet 02/20/22 Unknown Rx Metoprolol [Lopressor TAB] 50 mg PO BID@0800,1700 30 Days #60 02/20/22 Unknown Rx tablet amLODIPine 10 mg PO DAILY 30 Days #30 tablet 02/20/22 Unknown Rx cloNIDine [Catapres] 0.2 mg PO BID 30 Days #60 tablet 02/20/22 Unknown Rx HYDROcodone/APAP 5-325 [Burns 1 each PO Q6HR PRN #10 tablet 03/01/22 Unknown Rx 5/325] ED Physical Exam - General Limitations: No Limitations - Other Other exam information: General: No acute distress Head: Atraumatic Eyes: normal appearance ENT: Moist mucous membranes Neck: Normal appearance, no midline tenderness Chest: Clear to auscultation bilaterally, no tachypnea or accessory muscle use CV: Tachycardic regular rhythm Abdomen: Soft, normal bowel sounds, nontender, nondistended, no rebound or guarding Back: Normal inspection Extremity: Left upper arm AV graft with positive thrill. No swelling to arm. No tenderness to palpation of upper arm or forearm. Full range of motion of shoulder, elbow, and wrist with. Patient complains of pain to arm with m ovement. Area of focal swelling to forearm which patient states was area of previous impact with fall. No tenderness to palpation Neuro: Alert O x 3, no facial asymmetry, speech clear, no gross motor sensory deficit Psych: Appropriate behavior Skin: No rash ED Course Vital Signs 03/01/22 03/01/22 03/01/22 17:08 20:11 21:09 Temperature 98.7 F 99.3 F 98.5 F Pulse Rate 98 H 180 H 107 H Respiratory 18 18 20 Rate Blood Pressure 189/87 163/107 180/88 Blood Pressure [Right] O2 Sat by Pulse 98 95 98 Oximetry 03/01/22 22:31 Temperature 98.8 F Pulse Rate 88 Respiratory 22 Rate Blood Pressure Blood Pressure 180/88 [Right] O2 Sat by Pulse 100 Oximetry - Consultations Consultation #1: 03/01/22 23:[address] Tamika Carreon. Patient has a history of SVT and rhythm converted after 1 dose of adenosine and patient is asymptomatic he may be discharged with follow-up. states she plans to follow-up with Dr. Madrid next week ED Medical Decision Making - Lab Data Result diagrams: 03/01/22 21:39 03/01/22 21:39 Lab Results 03/01/22 03/01/22 03/01/22 Range/Units 21:39 21:39 21:39 WBC 4.1 L (4.5-11.0) K/mm3 RBC 3.92 (3.65-5.03) M/mm3 Hgb 11.5 L (11.8-15.2) gm/dl Hct 34.0 L (35.5-45.6) % MCV 87 (84-94) fl MCH 29 (28-32) pg MCHC 34 (32-34) % RDW 16.8 H (13.2-15.2) % Plt Count 127 L (140-440) K/mm3 Lymph % (Auto) 28.2 (13.4-35.0) % [place] % (Auto) 10.1 H (0.0-7.3) % Eos % (Auto) 5.6 H (0.0-4.3) % Baso % (Auto) 0.9 (0.0-1.8) % Lymph # (Auto) 1.1 L (1.2-5.4) K/mm3 [place] # (Auto) 0.4 (0.0-0.8) K/mm3 Eos # (Auto) 0.2 (0.0-0.4) K/mm3 Baso # (Auto) 0.0 (0.0-0.1) K/mm3 Seg Neutrophils % 55.2 (40.0-70.0) % Seg Neutrophils # 2.2 (1.8-7.7) K/mm3 Sodium 141 (137-145) mmol/L Potassium 3.5 L (3.6-5.0) mmol/L Chloride 92.7 L (98-107) mmol/L Carbon Dioxide 37 H (22-30) mmol/L Anion Gap 15 mmol/L BUN 20 (9-20) mg/dL Creatinine 6.9 H (0.8-1.3) mg/dL Estimated GFR 10 ml/min BUN/Creatinine Ratio 3 % Glucose 88 (75-100) mg/dL Calcium 9.3 (8.4-10.2) mg/dL Magnesium 2.20 (1.7-2.3) mg/dL Total Bilirubin 0.40 (0.1-1.2) mg/dL AST 18 (5-40) units/L ALT 14 (7-56) units/L Alkaline Phosphatase 99 (35-129) units/L Troponin T 0.568 H* (0.00-0.029) ng/mL Total Protein 7.0 (6.3-8.2) g/dL Albumin 4.3 (3.9-5) g/dL Albumin/Globulin Ratio 1.6 % TSH 1.570 (0.270-4.200) mlU/mL Free T4 1.43 (0.76-1.46) ng/dL - EKG Data -: EKG Interpreted by Mi EKG shows normal: ST-T waves (no stemi) Rate: tachycardia (162) - EKG Data When compared to previous EKG there are: changes noted 03/01/22 23:45 Repeat EKG status post adenosine 6 mg shows sinus tachycardia at [address] elevation NE. SVT improved - Radiology Data Radiology results: report reviewed CHEST 1 VIEW 03/01/2022 9:32 PM INDICATION / CLINICAL INFORMATION: svt. COMPARISON: 02/18/2022 FINDINGS: SUPPORT DEVICES: None. HEART / MEDIASTINUM: No significant abnormality. LUNGS / PLEURA: Right greater than left perihilar infiltrates likely edema improved in the interval. No pneumothorax. ADDITIONAL FINDINGS: No significant additional findings. IMPRESSION: 1. Improved bilateral edema. - Medical Decision Making 61-year male presents to the hospitalist for left arm pain and developed SVT with symptoms of palpitation. Patient converted after adenosine 6 mg. Patient may asymptomatic in the ED and resting without difficulty. Patient has adequate room air saturation without hypoxia. Case discussed with Dr. Carreon with [facility] who recommends discharge since patient has a previous history of SVT and converted after adenosine 6 mg. plans to follow-up with Dr. Madrid as an outpatient. Patient left arm does not have any acute visible abnormality and no suspicion for bony injury given full range of motion without pain. Patient encouraged to follow-up with PMD and vascular surgeon for further evaluation and to continue his dialysis as scheduled. plans to administer his evening medications including metoprolol tonight. Critical Care Time: Yes Critical care time in (mins) excluding proc time.: 35 Critical care attestation.: If time is entered above; I have spent that time in minutes in the direct care of this critically ill patient, excluding procedure time. Critical Care Time: 35 Minutes of critical care time excluding procedures were used in the care of the patient. Patient found to be in SVT. Patient required emergent inte rvention with adenosine. He was placed on a laboratory monitor, IV line placed and secured, patient was placed on defibrillator pads, and intubation set up prepped in case of patient deterioration. Patient converted to sinus rhythm after adenosine 6 mg. Repeat EKG and continue monitoring performed. ED Disposition Clinical Impression: SVT (supraventricular tachycardia), Left arm pain Disposition: HOME / SELF CARE / HOMELESS Is pt being admited?: No Does the pt Need Aspirin: No Condition: Stable Instructions: Supraventricular Tachycardia, Adult, Musculoskeletal Pain Additional Instructions: Take the medication as prescribed. 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 No acute abnormality of your arm identified today. Make sure you follow-up with the vascular surgeon to ensure that you do not have any dialysis site issues. Return if symptoms worsen as indicated by your discharge instructions Prescriptions: HYDROcodone/APAP 5-325 [Burns 5/325] 1 each PO Q6HR PRN #10 tablet PRN Reason: Pain Referrals: PRIMARY CARE, [Primary Care Provider] - 3-5 Days RAFI BROWN MD [Staff Physician] - 3-5 Days (vascular doctor ) TRAV MADRID MD [Staff Physician] - 3-5 Days (casing material weigher ) Time of Disposition: 23:50
[2022-03-01 21:13] VITALS: BP 180/88
[2022-03-01 22:25] LABS: Basophils % (Auto) 0.9 % (0.0-1.8); Eosinophils # (Auto) 0.2 K/mm3 (0.0-0.4); Eosinophils % (Auto) 5.6 % (0.0-4.3); Hemoglobin 11.5 gm/dl (11.8-15.2); Lymphocytes # (Auto) 1.1 K/mm3 (1.2-5.4); Lymphocytes % (Auto) 28.2 % (13.4-35.0); Mean Corpuscular HGB Conc 34 % (32-34); Mean Corpuscular Volume 87 fl (84-94); Monocytes # (Auto) 0.4 K/mm3 (0.0-0.8); Monocytes % (Auto) 10.1 % (0.0-7.3); Platelet Count 127 K/mm3 (140-440); Red Blood Count 3.92 M/mm3 (3.65-5.03); Red Cell Distribution Width 16.8 % (13.2-15.2)
[2022-03-01 22:48] LABS: Albumin 4.3 g/dL (3.9-5); Calcium 9.3 mg/dL (8.4-10.2)
[2022-03-01 22:55] LABS: Free T4 (Free Thyroxine) 1.43 ng/dL (0.76-1.46)
--- NOTE | 2022-03-01 22:55 | XRay Report ---
CHEST 1 VIEW 03/01/2022 9:32 PM INDICATION / CLINICAL INFORMATION: svt. COMPARISON: 02/18/2022 FINDINGS: SUPPORT DEVICES: None. HEART / MEDIASTINUM: No significant abnormality. LUNGS / PLEURA: Right greater than left perihilar infiltrates likely edema improved in the interval. No pneumothorax. ADDITIONAL FINDINGS: No significant additional findings. IMPRESSION: 1. Improved bilateral edema. Signer Name: Drew Good MD Signed: 03/01/2022 10:50 PM Workstation Name: [employer]
[2022-03-01 23:48] LABS: Chol/HDL Ratio 2.51 %
--- NOTE | 2022-03-05 14:03 | Electrocardiograph Report ---
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
--- NOTE | 2022-03-05 14:03 | Electrocardiograph Report ---
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
--- NOTE | 2022-03-05 14:04 | Electrocardiograph Report ---
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
== END 2022-03-02 00:17 | disposition home or self-care (01) ==
LOC: ED 16:54
DX: M79.602 Pain in left arm (principal); I47.1 Supraventricular tachycardia; I10 Essential (primary) hypertension; Z86.718 Personal history of other venous thrombosis and embolism; M19.90 Unspecified osteoarthritis, unspecified site; R56.9 Unspecified convulsions; J45.909 Unspecified asthma, uncomplicated; N28.9 Disorder of kidney and ureter, unspecified; Z21 Asymptomatic human immunodeficiency virus [HIV] infection status; F17.200 Nicotine dependence, unspecified, uncomplicated; Z91.09 Other allergy status, other than to drugs and biological substances; Z79.899 Other long term (current) drug therapy
CPT/HCPCS: 36415; 71045; 80053; 80061; 83735; 84439; 84443; 84484; 85025; 93005; 96374; 99284; J0153

== ENCOUNTER 2022-03-04 16:28 | Emergency (ER) | payer MEDICARE ==
[2022-03-04 17:15] VITALS: BP 120/87
== END 2022-03-05 09:10 | disposition left against medical advice (07) ==
LOC: ED 16:28
DX: R21 Rash and other nonspecific skin eruption (principal); Z53.21 Procedure and treatment not carried out due to patient leaving prior to being seen by health care provider